=== PATIENT | male | born 1960 | race Caucasian/White ===

== ENCOUNTER 2019-07-18 12:06 | Inpatient (IN) | payer BC ==
[2019-07-18 12:40] LABS: #Basophils 0.1 thou/uL (0.0-0.2); #Eosinphils 0.9 thou/uL (0.0-0.7); #Lymphocytes 1.6 thou/uL (1.20-3.40); #Monocytes 0.8 thou/uL (0.11-0.59); #Neutrophils 9.3 thou/uL (1.40-6.50); %Basophils 0.4 % (0.0-1.0); %Eosinophils 7.2 % (0.0-10.0); %Neutrophils 73.5 % (42.0-75.0); Hemoglobin 10.2 g/dL (14.0-18.0); Mean Corpuscular HGB CONC 34.7 g/dL (32.0-36.0); Mean Corpuscular Hemoglobin 30.9 pg (27.0-31.0); Mean Corpuscular Volume 89.2 fL (78.0-98.0); Mean Platelet Volume 8.4 fL (7.4-10.4); Platelet Count 270 thou/uL (130-400); RBC Distribution Width 11.4 % (11.5-14.5); Red Blood Cell (RBC) Count 3.28 mill/uL (4.70-6.10); White Blood Cell (WBC) Count 12.6 thou/uL (4.8-10.8)
[2019-07-18 13:09] LABS: ALT (SGPT) 18 U/L (8-55); AST (SGOT) 25 U/L (5-34); Albumin 3.7 g/dL (3.5-5.0); Alkaline Phosphatase 74 U/L (40-110); Anion Gap 19 mmol/L (10-20); BUN (Urea Nitrogen) 74 mg/dL (8.4-25.7); Bilirubin, Total 0.5 mg/dL (0.2-1.2); Calc. Creatinine Clearance 0 mL/min (70-130); Calcium 8.4 mg/dL (7.8-10.44); Carbon Dioxide 16 mmol/L (22-29); Chloride 103 mmol/L (98-107); Estimated GFR-MDRD 11; Globulin 3.9 g/dL (2.4-3.5); Glucose 219 mg/dL (70-105); Protein, Total 7.6 g/dL (6.0-8.3); Sodium 133 mmol/L (136-145)
--- NOTE | 2019-07-18 13:22 | RAD ---
XR Chest 1 View Portable HISTORY: Renal failure COMPARISON: 11/25/2015 FINDINGS: The heart size is at upper limits of normal. The lungs are well expanded without focal area s of consolidation, pneumothorax or pleural effusions. There is mild pulmonary vascular congestion.
[2019-07-18] MEDS ORDERED: Dextrose 5% in Water 1,000 ML IV PRN (15:41)
[2019-07-18] MEDS ORDERED: Dextrose 50% Abboject 50 ML SYRINGE SLOW IVP PRN (15:41)
[2019-07-18] MEDS ORDERED: Furosemide 40 MG/4 ML VIAL SLOW IVP SCH (16:30)
[2019-07-18] MEDS: HumaLOG 300 UNITS/3 ML VIAL SC PRN ×2 (17:41→21:03)
--- NOTE | 2019-07-18 20:27 | HP ---
HISTORY OF PRESENT ILLNESS: Mr. Carlson is a 59-year-old man. He was sent to the ER today by his teacher asst, who saw him yesterday because of abnormal kidney function and the need to initiate dialysis. He is known to have a history of chronic kidney disease, he has currently stage 5 chronic kidney disease. He is also known to have hypertension, hyperlipidemia, diabetes mellitus, peripheral vascular disease, CVA, and coronary artery disease. PAST SURGICAL HISTORY: Remarkable for TURP and also toe amputation. ALLERGIES: IODINE AND STATIN. SOCIAL HISTORY: He denies any history of cigarette smoking. He denies EtOH abuse. He denies substance abuse. FAMILY HISTORY: Reviewed and is remarkable for diabetes mellitus, heart disease , and also "cancer" HOME MEDICATIONS: Reviewed. REVIEW OF SYSTEMS: CONSTITUTIONAL: He admits to generalized weakness, poor appetite, and also difficulty sleeping. HEENT: No headache. No ocular pain. No sore throat. No rhinorrhea. No earache. No epistaxis. NECK: No neck pain. No neck stiffness. CARDIOVASCULAR: Admits to shortness of breath mainly during exercise. No chest pain. PULMONARY: No coughing. GASTROINTESTINAL: No nausea, no vomiting. No diarrhea. No abdominal pain. As mentioned earlier, he has very poor appetite. GENITOURINARY: Some dysuria at times. ENDOCRINOLOGY: No heat or cold intolerance. No polyuria, polydipsia, or polyphagia. MUSCULOSKELETAL: Arthralgia on and off. HEMATOLOGY: No abnormal bleeding. No ecchymosis. LYMPHATIC: No palpable lymphadenopathy. No painful lymphadenopathy. SKIN: No rash. No itching. He has a wound in the plantar aspect of his right foot. NEUROLOGICAL: No seizure. PSYCHIATRIC: He has a flat mood. ALLERGIES: No hay fever. PHYSICAL EXAMINATION: GENERAL: At the current time, he is alert, oriented, in no distress. VITAL SIGNS: His latest vital signs show temperature of 97.8, pulse rate 67, respiratory rate 22, and blood pressure 148/67. HEENT: His head is normocephalic and atraumatic. Both his pupils are equal, reactive. Ears and nose normal. Oral mucosa is moist. Pharyngeal area is clear with no exudate. No hyperemia. NECK: Supple. There is no distention of the jugular vein. No lymphadenopathy felt. Thyroid gland not palpable. There is no carotid bruit. CHEST: Symmetrical with regular S1, S2. LUNGS: Clear. ABDOMEN: Soft. Bowel sounds heard. We could not appreciate any organomegaly. EXTREMITIES: Limbs show +2 to 3 edema. He has a wound in the plantar aspect of his right foot. NEUROLOGICAL: He moves all extremities. LABORATORY DATA: His CBC done today showed WBC of 12.6, hemoglobin of 10.2, hematocrit of 29.3, MCV of 89.2, platelet of 270. Chemistry and lytes show sodium of 133, potassium 5, chloride 103, CO2 of 16, BUN 74, creatinine 5.51, glucose 219, calcium 8.4, total bilirubin 0.5, AST 25, ALT 18, alkaline phosphatase 74. Troponin 0.017. BNP 653. Total protein 7.6, albumin 3.7, and globulin 3.9. ASSESSMENT AND PLAN: This is a 59-year-old man with history of hypertension, diabetes mellitus, peripheral vascular disease, coronary artery disease, previous cerebrovascular accident, stage 5 chronic kidney disease, who was admitted for initiation of dialysis. The patient's teacher asst will be consulted. He was also noticed to have a wound in the plantar aspect of his right foot. Wound Care will be consulted. He will receive Lovenox for DVT prophylaxis. He will be on a sliding scale for his blood pressure on top of his oral medications. Further evaluation and management will depend on the course of his hospitalization and his response to therapy. Job ID: [id number] MTDD
[2019-07-18] MEDS ORDERED: Enoxaparin Sodium 30 MG/0.3 ML SYRINGE SC SCH (21:00)
[2019-07-18] MEDS ORDERED: Metoprolol Tartrate 50 MG TAB PO SCH (21:00)
[2019-07-18] MEDS ORDERED: Azithromycin 250 MG TAB PO SCH (21:00)
[2019-07-18] MEDS: Heparin 5,000 UNITS/ML VIAL SC SCH (21:02)
[2019-07-18] MEDS: EPOETIN ALFA-EPBX (ESRD) 10,000 UNIT/ML VIAL SC SCH (21:02)
[2019-07-18] MEDS: hydrALAZINE 25 MG TAB PO SCH (21:02)
[2019-07-18] MEDS: Fish Oil 1,000 MG CAP PO SCH (21:02)
[2019-07-18] MEDS: HumuLIN 70/30 (300 UNITS/3 ML VIAL) SC SCH (21:03)
[2019-07-19] MEDS: Furosemide 40 MG/4 ML VIAL SLOW IVP SCH ×2 (05:24→14:55)
[2019-07-19] MEDS: Levothyroxine Sodium 75 MCG TAB PO SCH (05:24)
[2019-07-19 05:31] LABS: Anion Gap 18 mmol/L (10-20); BUN (Urea Nitrogen) 72 mg/dL (8.4-25.7); Calc. Creatinine Clearance 24 mL/min (70-130); Calcium 8.5 mg/dL (7.8-10.44); Carbon Dioxide 18 mmol/L (22-29); Chloride 106 mmol/L (98-107); Estimated GFR-MDRD 11; Glucose 91 mg/dL (70-105); Potassium 3.9 mmol/L (3.5-5.1); Sodium 138 mmol/L (136-145)
[2019-07-19 05:32] LABS: Iron 53 ug/dL (65-175); Iron Binding Capacity, Total 231 mcg/dL (261-462)
[2019-07-19 05:49] LABS: Ferritin 256.62 ng/mL (22-322)
[2019-07-19 06:04] LABS: HBSAB Concentration 0.55 mIU/mL; HBSAg Index 0.16 S/CO (0-0.99); Hep B Core Total Ab Non-Reactive (NonReactive); Hep B Core Total Index 0.07 S/CO (0-0.79); Hep B Surf AB Non-Reactive (NonReactive); Hep B Surf Ag Non-Reactive S/CO (NonReactive); Hep C IgG Ab Non-Reactive (NonReactive); Hep C Index 0.07 S/CO (0-0.79)
[2019-07-19] MEDS ORDERED: metFORMIN 500 MG TAB PO SCH (08:00)
--- NOTE | 2019-07-19 08:54 | ULT ---
BILATERAL UPPER EXTREMITY VENOUS DUPLEX SONOGRAM FOR VEIN MAPPING: HISTORY: Renal failure. Need for hemodialysis access. FINDINGS: Good color and spectral Doppler flow within the arterial and venous structures of each upper extremit y. Measurements are as follows: RIGHT BRACHIAL ARTERY: 5 mm RADIAL ARTERY: 2 mm ULNAR ARTERY: 2 mm CEPHALIC VEIN PROXIMAL HUMERUS: 3 mm MID HUMERUS: 3 mm DISTAL HUMERUS: 3 mm ANTECUBITAL FOSSA: 3 mm PROXIMAL FOREARM: 2 mm MID FOREARM: 1 mm DISTAL FOREARM: 2 mm BASILIC VEIN PROXIMAL HUMERUS: 6 mm MID HUMERUS: 4 mm DISTAL HUMERUS: 3 mm ANTECUBITAL FOSSA: 2 mm PROXIMAL FOREARM: 1mm MID FOREARM: 1 mm DISTAL FOREARM: 1 mm LEFT BRACHIAL ARTERY: 5 mm RADIAL ARTERY: 2 mm ULNAR ARTERY: 1 mm CEPHALIC VEIN PROXIMAL HUMERUS: 3 mm MID HUMERUS: 3 mm DISTAL HUMERUS: 4 mm ANTECUBITAL FOSSA: 4 mm PROXIMAL FOREARM: 1 mm MID FOREARM: 1 mm DISTAL FOREARM: 2 mm BASILIC VEIN PROXIMAL HUMERUS: 5 mm MID HUMERUS: 5 mm DISTAL HUMERUS: 4 mm ANTECUBITAL FOSSA: 5 mm PROXIMAL FOREARM: 3 mm MID FOREARM: 1 mm DISTAL FOREARM: 1 mm IMPRESSION: Patent vascular structures within each upper extremity with venous measurements as detailed above. Transcribed Date/Time: 07/19/2019 9:40 AM
[2019-07-19] MEDS ORDERED: Alogliptin 6.25 MG TAB PO SCH (09:00)
[2019-07-19] MEDS ORDERED: Lisinopril 20 MG TAB PO SCH (09:00)
[2019-07-19] MEDS: Clopidogrel Bisulfate 75 MG TAB PO SCH (10:21)
[2019-07-19] MEDS: Alogliptin 6.25 MG TAB PO SCH (10:21)
[2019-07-19] MEDS: Amlodipine 10 MG TAB PO SCH (10:21)
[2019-07-19] MEDS: hydrALAZINE 25 MG TAB PO SCH ×3 (10:22→20:47)
[2019-07-19] MEDS: HumuLIN 70/30 (300 UNITS/3 ML VIAL) SC SCH ×2 (10:22→20:48)
[2019-07-19] MEDS: Ezetimibe 10 MG TAB PO SCH (10:22)
[2019-07-19] MEDS: Fish Oil 1,000 MG CAP PO SCH ×2 (10:22→20:48)
[2019-07-19] MEDS: Heparin 5,000 UNITS/ML VIAL SC SCH ×2 (10:22→20:48)
[2019-07-19] MEDS: Tamsulosin HCl 0.4 MG CAP PO SCH (10:23)
[2019-07-19] MEDS: Isosorbide Mononitrate (ER) 30 MG TAB PO SCH (10:23)
[2019-07-19] MEDS: Multivit, Therapeutic 1 TAB PO SCH (10:23)
[2019-07-19] MEDS: HumaLOG 300 UNITS/3 ML VIAL SC PRN (12:35)
--- NOTE | 2019-07-19 13:20 | PDOC.HOSPP ---
- Subjective Encounter Date: 07/19/19 Encounter Time: 10:15 Subjective: pt up in bed feels sob. - Objective Vital Signs & Weight: Vital Signs (12 hours) Temp Pulse Resp BP Pulse Ox 07/19/19 11:58 98.1 F 78 20 143/64 H 99 07/19/19 10:41 95 28 H 93 L 07/19/19 10:28 91 167/77 H 07/19/19 07:47 98.3 F 84 16 160/74 H 96 07/19/19 03:05 98.5 F 82 16 130/61 96 Weight Weight 258 lb 8 oz I&O: 07/18/19 07/19/19 07/20/19 06:59 06:59 06:59 Intake Total 400 Output Total 300 Balance 100 Result Diagrams: 07/18/19 12:30 07/19/19 04:38 Additional Labs: Accuchecks 07/19/19 07/19/19 07/18/19 11:22 05:43 20:03 POC Glucose 242 H 95 239 H 07/18/19 16:58 POC Glucose 250 H Hospitalist ROS - Review of Systems Respiratory: reports: shortness of breath Cardiovascular: denies: chest pain, palpitations, orthopnea, paroxysmal noc. dyspnea, edema, light headedness, other Gastrointestinal: denies: nausea, vomiting, abdominal pain, diarrhea, constipation, melena, hematochezia, other Genitourinary: denies: dysuria, frequency, incontinence, hematuria, retention, other - Medication Medications: Active Medications Generic Name Dose Route Start Last Admin Trade Name Freq PRN Reason Stop Dose Admin Albuterol/Ipratropium 3 ml 07/19/19 10:14 07/19/19 10:41 Duoneb NEB 3 ml Q6H PRN Administration SOB &/or Wheezing Alogliptin Benzoate 6.25 mg 07/19/19 09:00 07/19/19 10:21 Alogliptin PO 6.25 mg DAILY BC Administration Amlodipine Besylate 10 mg 07/19/19 09:00 07/19/19 10:21 Norvasc PO 10 mg DAILY BC Administration Clopidogrel Bisulfate 75 mg 07/19/19 09:00 07/19/19 10:21 Plavix PO 75 mg DAILY BC Administration Ezetimibe 10 mg 07/19/19 09:00 07/19/19 10:22 Zetia PO 10 mg DAILY BC Administration Epoetin Fabio-epbx 10,000 unit 07/18/19 21:00 07/18/19 21:02 Retacrit SC 10,000 unit Q7D BC Administration Fish Oil 1,000 mg 07/18/19 21:00 07/19/19 10:22 Fish Oil PO 1,000 mg BID BC Administration Furosemide 40 mg 07/19/19 06:00 07/19/19 05:24 Lasix SLOW IVP 40 mg 0600,1400 BC Administration Heparin Sodium (Porcine) 5,000 units 07/18/19 21:00 07/19/19 10:22 Heparin SC 5,000 units BID BC Administration Hydralazine HCl 50 mg 07/18/19 21:00 07/19/19 10:22 Apresoline PO 50 mg TID BC Administration Insulin Human Isoph/Insulin Regular 40 units 07/19/19 09:00 07/19/19 10:22 Humulin 70/30 SC 40 unit QAM BC Administration Insulin Human Isoph/Insulin Regular 60 units 07/18/19 21:00 07/18/19 21:03 Humulin 70/30 SC 60 unit QPM BC Administration Insulin Human Lispro 0 units 07/18/19 15:41 07/19/19 12:35 Humalog SC 4 units .MODERATE SLIDING SC PRN Administration Moderate Correctional Scale Insulin Human Lispro 0 units 07/18/19 15:41 07/18/19 21:03 Humalog SC 2 unit .BEDTIME SLIDING SC PRN Administration Bedtime Correctional Scale Isosorbide Mononitrate 30 mg 07/19/19 09:00 07/19/19 10:23 Imdur Er PO 30 mg DAILY BC Administration Levothyroxine Sodium 75 mcg 07/19/19 06:00 07/19/19 05:24 Synthroid PO 75 mcg 0600 [facility] Administration Multivitamins 1 tab 07/19/19 09:00 07/19/19 10:23 Theragran PO 1 tab DAILY [facility] Administration Tamsulosin HCl 0.4 mg 07/19/19 09:00 07/19/19 10:23 Flomax PO 0.4 mg DAILY BC Administration - Exam ENT: negative: normocephalic atraumatic, no oropharyngeal lesions, moist mucosa , dry oral mucosa Neck: negative: supple, symmetric, no JVD, no thyromegaly, no lymphadenopathy, no carotid bruit, JVD Respiratory: rhonchi Gastrointestinal: negative: soft, non-tender, non-distended, normal bowel sounds , no palpable masses, no hepatomegaly, no splenomegaly, no bruit, no guarding, no rigidity, tender to palpation, distended, diminished bowl sounds, voluntary guarding Hosp A/P (1) CKD (chronic kidney disease) Code(s): N18.9 - CHRONIC KIDNEY DISEASE, UNSPECIFIED Status: Acute (2) Diabetes Code(s): E11.9 - TYPE 2 DIABETES MELLITUS WITHOUT COMPLICATIONS Status: Chronic Qualifiers: Diabetes mellitus type: type 2 Diabetes mellitus complication detail: with other oral complications (3) Hypertension Code(s): I10 - ESSENTIAL (PRIMARY) HYPERTENSION Status: Chronic - Plan will continue insulin, pt to get his fistula. will order some neb tx. continue to monitor.
[2019-07-19] MEDS ORDERED: Tuberculin PPD 0.1 ML VIAL I-DERMAL SCH ×2 (15:15)
--- NOTE | 2019-07-19 16:58 | PRG ---
DATE OF SERVICE: 07/19/2019 SUBJECTIVE: Patient was seen and examined at bedside and overnight events noted. Patient denies any shortness of breath or chest pain or palpitation. No history of nausea or vomiting or diarrhea or fever or chills or cramps. OBJECTIVE: GENERAL: This is an obese male, in no apparent distress. VITAL SIGNS: Temperature 98.1. Pulse 71. Respiratory rate 20. Blood pressure 143/64. HEENT: Atraumatic, normocephalic. Oral mucosa is moist NECK: Supple. CARDIOVASCULAR: S1, S2 heard. Rate and rhythm regular. RESPIRATORY: Clear to auscultation. GASTROINTESTINAL: Abdomen is soft. MUSCULOSKELETAL: No tenderness. No edema. DERMATOLOGIC: No skin rash. NEUROLOGIC: Alert and awake and oriented X3. No focal neurologic deficits. Moving all the extremities. PSYCHIATRIC: Mood and affect normal. LABORATORY DATA: Potassium 3.9, BUN is 72, and creatinine is 5.5. ASSESSMENT AND PLAN: 1. End-stage renal disease. Plan to start on hemodialysis. We will consult Surgery in the morning. Keep him n.p.o. and we will also have Case Management consult for outpatient dialysis placement. Plan at this time for hemodialysis Saturday, Saturday, Saturday. 2. Edema, we will remove fluid with dialysis. 3. Anemia. Continue Epogen. 4. History of hypertension, stable. 5. Plan to start on dialysis once access is placed. We will follow. Thank you for the consult. Job ID: [id number]
[2019-07-20] MEDS ORDERED: Morphine 2 MG/ML SYRINGE SLOW IVP SCH (04:00)
[2019-07-20 04:08] LABS: INR-International Normal Ratio 1.1; PTT 35.1 SEC (22.9-36.1); Prothrombin Time 14.1 SEC (12.0-14.7)
[2019-07-20 04:10] LABS: Anion Gap 18 mmol/L (10-20); BUN (Urea Nitrogen) 65 mg/dL (8.4-25.7); Calc. Creatinine Clearance 26 mL/min (70-130); Calcium 8.5 mg/dL (7.8-10.44); Carbon Dioxide 18 mmol/L (22-29); Chloride 106 mmol/L (98-107); Estimated GFR-MDRD 12; Glucose 157 mg/dL (70-105); Potassium 3.8 mmol/L (3.5-5.1); Sodium 138 mmol/L (136-145)
[2019-07-20 04:52] LABS: Troponin I 0.919 ng/mL (< 0.028)
[2019-07-20] MEDS: Furosemide 40 MG/4 ML VIAL SLOW IVP SCH ×2 (06:37→15:11)
[2019-07-20] MEDS: Levothyroxine Sodium 75 MCG TAB PO SCH (06:37)
[2019-07-20] MEDS: Multivit, Therapeutic 1 TAB PO SCH (08:10)
[2019-07-20] MEDS: Tamsulosin HCl 0.4 MG CAP PO SCH (08:10)
[2019-07-20] MEDS: hydrALAZINE 25 MG TAB PO SCH ×4 (08:10→20:29)
[2019-07-20] MEDS: Clopidogrel Bisulfate 75 MG TAB PO SCH (08:10)
[2019-07-20] MEDS: Ezetimibe 10 MG TAB PO SCH (08:11)
[2019-07-20] MEDS: Alogliptin 6.25 MG TAB PO SCH (08:11)
[2019-07-20] MEDS: Isosorbide Mononitrate (ER) 30 MG TAB PO SCH (08:11)
[2019-07-20] MEDS: Fish Oil 1,000 MG CAP PO SCH ×2 (08:11→20:25)
[2019-07-20] MEDS: Amlodipine 10 MG TAB PO SCH (08:11)
[2019-07-20] MEDS: HumuLIN 70/30 (300 UNITS/3 ML VIAL) SC SCH ×2 (08:12→20:39)
[2019-07-20] MEDS: Heparin 5,000 UNITS/ML VIAL SC SCH (08:12)
[2019-07-20] MEDS ORDERED: Furosemide 40 MG/4 ML VIAL SLOW IVP SCH (08:45)
[2019-07-20] MEDS: Nitroglycerin 0.4 MG TAB (25 Tab Bottle) SL PRN ×6 (08:52→18:20)
[2019-07-20] MEDS ORDERED: Heparin 10,000 UNITS/1 ML VIAL ONE (09:28)
[2019-07-20] MEDS ORDERED: Aspirin 81 mg Enteric Coated Tablet PO SCH (09:45)
--- NOTE | 2019-07-20 09:48 | CON ---
DATE OF CONSULTATION: HISTORY OF PRESENT ILLNESS: Uriel Carlson is a 59-year-old male patient with insulin-dependent diabetes, allergic to iodine and penicillin, who also has hypertension, has suffered renal failure. He lives in [place]. He is admitted on 07/18/2019 by the Medical Service, seen by Nephrology, Dr. Decker, who has asked me to establish dialysis access. He had a right AC IV, which was removed, and hand IV established. He is slightly dyspneic, and his CO2 is 18. Thus, we will plan on placement of a hemodialysis catheter and a central line today, and later this week, plan on placement of a left arm AV fistula. He is right handed. He has worked in the [employer] up until 2 to 3 years ago when he had diabetic vision problems that prevented him from working anymore. ALLERGIES: IODINE CONTRAST, PENICILLIN. SOCIAL HISTORY: Tobacco, never. Alcohol, none. MEDICATIONS: At home, 1. Plavix. 2. Januvia. 3. Spironolactone. 4. Alprazolam. 5. Synthroid. 6. Ezetimibe. 7. Ecotrin. 8. Norvasc. 9. Insulin. 10. Lasix. 11. Imdur. 12. Lopressor. 13. Vitamin C. PAST SURGICAL HISTORY: Myocardial infarction more than 10 years ago. He had stents placed. He has been followed by Dr. Garsia. He reports he had seen him four weeks ago when he was hospitalized at [facility]. He reports a negative cardiac chemical stress test as an outpatient within the last year. He denies any cardiac symptoms. He had a colonoscopy one year ago that was normal. He has an ulcer on his plantar right foot, being cared for by the [facility]. He has had amputations of right 1st and 2nd toes and metatarsals, healed secondarily. REVIEW OF SYSTEMS: Ten-point noncontributory. PHYSICAL EXAMINATION: VITAL SIGNS: Height 5 feet 10 inches, weight 260 pounds, 37 BMI. Temperature 98 degrees, pulse 110, blood pressure 142/72. HEAD, EARS, EYES, NOSE, AND THROAT: Unremarkable. Slightly dyspneic. LUNGS: Rhonchi at base. No wheezing. CARDIAC: Regular rate and rhythm. ABDOMEN: Soft and nontender. No hernias evident. EXTREMITIES: Previous amputation of right 4th and 5th toes with plantar ulcer, right foot. Neuropathic granulation tissue, overhanging callus. Palpable radial pulses. IV, left hand. LABORATORY DATA: Sodium 138, potassium 3.8, CO2 of 18, BUN 65, creatinine 5.10. White count 12 and hemoglobin 10. ASSESSMENT AND PLAN: 1. End-stage renal disease. Plan on placement of dialysis catheter and a central line today. This will allow him to dialyze. Will return to the operating room later this week for placement of left arm fistula. Avoid IV access above the hands. Placement of central line will preserve his veins. 2. Insulin-dependent diabetes mellitus. 3. Hypertension. 4. Coronary artery disease. 5. Previous amputation of right 4th and 5th toes. 6. Plantar ulceration, right foot, wound care. Job ID: [id number]
--- NOTE | 2019-07-20 10:27 | CON ---
DATE OF CONSULTATION: 07/18/2019 CONSULTING PHYSICIAN: Dr. Robertson. REASON FOR CONSULTATION: Chronic kidney disease. REASON FOR ADMISSION: Shortness of breath. HISTORY OF PRESENT ILLNESS: A 59-year-old male with history of CKD, type 2 diabetes, hypertension, came to the hospital with shortness of breath. He has advancing kidney disease and plan is to start on dialysis. The patient is feeling short of breath on exertion, also having leg edema. No nausea or vomiting. No chest pain or palpitation. PAST MEDICAL HISTORY: Positive for type 2 diabetes, hyperlipidemia, hypertension, BPH, CVA, and CHF. PAST SURGICAL HISTORY: Cardiac stents, right foot surgery/amputation. HOME MEDICATIONS: Reviewed. ALLERGIES: TO CONTRAST, PENICILLIN, AND STATIN. SOCIAL HISTORY: No smoking or alcohol. FAMILY HISTORY: No history of kidney disease. REVIEW OF SYSTEMS: CONSTITUTIONAL: Negative for weight loss or gain, ability to conduct usual activities. SKIN: Negative for rash, itching. EYES: Negative for double vision, pain. ENT/MOUTH: Negative for nose bleeding, neck stiffness, pain, tenderness. CARDIOVASCULAR: Negative for palpitations, dyspnea on exertion, orthopnea. RESPIRATORY: Negative for wheezing, cough, hemoptysis, fever or night sweats. GASTROINTESTINAL: Negative for poor appetite, abdominal pain, heartburn, nausea, vomiting, constipation, or diarrhea. GENITOURINARY: Negative for urgency, frequency, dysuria, nocturia. MUSCULOSKELETAL: Negative for pain, swelling. NEUROLOGIC/PSYCHIATRIC: Negative for anxiety, depression. ALLERGY/IMMUNOLOGIC: Negative for skin rash, bleeding tendency. PHYSICAL EXAMINATION: GENERAL: This is an obese male, in no apparent distress. VITAL SIGNS: Temperature 98.9, pulse 71, respiratory rate 20, blood pressure 145/71. HEENT: Atraumatic and normocephalic. Oral mucosa is moist. NECK: Supple. CV: S1 and S2 heard. Rate and rhythm regular. RESPIRATORY: Clear to auscultation. GASTROINTESTINAL: Abdomen is soft. MUSCULOSKELETAL: 1+ edema. DERMATOLOGIC: No skin rash. NEUROLOGIC: Alert and awake. PSYCHIATRIC: Mood and affect normal. LABORATORY DATA: Hemoglobin is 10.2. Potassium 5.0, BUN is 74, creatinine is 5.5. ASSESSMENT AND PLAN: 1. Chronic kidney disease stage 5 with deteriorating renal function. Plan is to start on dialysis. We will consult Surgery. We will have vein mapping. Would also check dialysis for his hyperkalemia. 2. Hyperlipidemia. 3. Acidosis. 4. Edema. 5. History of hypertension. 6. History of type 2 diabetes, diabetic nephropathy. 7. Mild hypoalbuminemia. 8. Anemia. We will start Epogen. 9. Plan to start dialysis when access is placed. We will follow. Thank you for the consult. Job ID: [id number]
[2019-07-20] MEDS ORDERED: Morphine 2 MG/ML SYRINGE SLOW IVP PRN (10:28)
[2019-07-20] MEDS: Enoxaparin Sodium 120 MG/0.8 ML SYRINGE SC SCH ×2 (11:05→11:57)
[2019-07-20] MEDS ORDERED: Enoxaparin Sodium 30 MG/0.3 ML SYRINGE SC SCH (11:15)
--- NOTE | 2019-07-20 11:27 | CON ---
DATE OF CONSULTATION: HISTORY: Uriel Carlson is a 59-year-old white male, initially evaluated in May 2013. Eight days prior to admission, he had an episode where he could not speak and had right arm numbness. He took an aspirin and went to the emergency room in [place] and his symptoms had essentially resolved. It was felt that he probably had a subarachnoid bleed. Lumbar puncture was offered; however, he declined, was discharged home. He apparently underwent an outpatient workup with echocardiogram, carotid ultrasound and MRI, which did not reveal any bleed. He was told to start taking aspirin on a daily basis. For one year prior to his admission here in May 2013, he had chest pressure and tightness that would occur if he would over exert himself, such as exercising much at the gym or walking upstairs. He will become short of breath with that and be very anxious. He called these episodes panic attacks. He had been on anxiolytics in the past and they were tapered and discontinued. Two days prior to admission in May 2013, he had an episode of chest pain, shortness of breath that was much more intense. He came to the emergency room, was given Lopressor, aspirin, nitrates. His pain dramatically improved. He continued to have mild shortness of breath. No further episodes of chest discomfort except during the stress test. After normal cardiac enzymes, he underwent Cardiolite treadmill testing and exercised for 9 minutes. With this, he developed his usual chest discomfort and 1-1.[address]-segment depression. The treadmill was positive for ischemia. Cardiolite revealed posterior ischemia with ejection fraction of 45%. With that finding, he underwent cardiac catheterization. There was moderate proximal and distal inferior hypokinesis with ejection fraction of 40% to 45%. There was a 20% mid LAD, 90% circumflex with lesion extending into the first obtuse marginal with a 50% lesion. The right coronary artery was totally occluded in its midportion and filled retrograde from the left. Resolute 2.25 x 30 mm stent was positioned in the first obtuse marginal back into the circumflex and was deployed. Overlapping this in the proximal circumflex, a Resolute 2.5 x 8 mm stent was positioned and deployed. A 2.5 mm balloon was used to post dilate the 2.25 mm stent. An attempt was made to cross totally occluded right coronary artery, which could not be crossed and it was felt that was probably a chronic total occlusion. He was premedicated prior to catheterization due to history of dye allergy with facial swelling. He was given prednisone, Benadryl and Pepcid and did not have any reaction. After stent placement, he did not have any further chest discomfort. A repeat echo in April 2014 revealed ejection fraction of 55% to 60% with evidence of diastolic dysfunction, trace mitral regurgitation and mild tricuspid regurgitation. He was seen in the hospital after an April 2014, visit in the office. This was in July 2015. His primary physician, Dr. Rust in [place] had him stop cholesterol medicine because of muscle breaking down and stated that he was peeing them out of his urine. In July 2015, he was admitted for hematuria. It was felt Plavix should be stopped at that time and he was continued on aspirin. He was again admitted in November 2015, after working in his garden, he began to have cough and increased shortness of breath. He went to the emergency room in [place], and was given steroids and Lasix as well as antibiotics for possible pneumonia. He had some sharp chest discomfort, which may have lasted 1-2 hours. In [place] ER, chest x-ray showed mild pulmonary vascular congestion along with increased interstitial densities in the right lung base. CT of lung revealed no evidence of pulmonary embolism. He was transferred here for further evaluation. It was felt that he had acute bronchitis, was placed on azithromycin. He was bradycardic and metoprolol dose was reduced. 2D echocardiography revealed ejection fraction of 50% to 55% with mitral annular calcification, mild tricuspid, and mild mitral regurgitation. There was evidence for diastolic dysfunction. He has never returned for cardiology followup since that time. He states over the last four or five months, he has had progressive renal failure. Apparently, there was no specific etiology for this. He states medicines were discontinued and he continued to have progressive failure. In November 2015, his creatinine was 0.97 and on admission here was 5.51. He has been having increased shortness of breath as well as episodes of chest pressure that would last for hours. He has PND, orthopnea, as well as leg edema. He is admitted to dialysis after found to have abnormal cardiac enzymes. He is complaining of shortness of breath and chest pressure at the present time and is being given sublingual nitroglycerin. PAST MEDICAL HISTORY: Hypertension, diabetes, hyperlipidemia, hypothyroidism, possible rhabdomyolysis with statins, history of TIA with right-sided numbness and aphasia. 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 CURRENT MEDICATIONS: 1. Multivitamin daily. 2. Vitamin C 2 tablets daily. 3. Amlodipine 10 mg daily. 4. Ecotrin 81 mg daily. 5. Plavix 75 mg daily. 6. Zetia 10 mg daily. 7. Fish oil 1000 b.i.d. 8. Furosemide 40 mg q.a.m. 9. Apresoline 50 mg t.i.d. 10. Insulin. 11. Isosorbide mononitrate 30 mg q.a.m. 12. Levofloxacin 250 mg p.o. every other day. 13. Synthroid 75 mcg daily. 14. Metoprolol 25 b.i.d. 15. Januvia 50 daily. 16. Spironolactone 25 daily. ALLERGIES: PENICILLIN AND INTRAVENOUS CONTRAST. HE APPARENTLY DEVELOPED FACIAL SWELLING AND WAS GIVEN BENADRYL. THE CONTRAST WAS GIVEN WHEN A PICC LINE WAS BEING INSERTED. HE WAS PREMEDICATED PRIOR TO CATHETERIZATION IN MAY 2013. SOCIAL HISTORY: Denies ever smoking. He does not drink. FAMILY HISTORY: Brother and father had CABG. REVIEW OF SYSTEMS: A 10-point review of systems unremarkable except as noted above. PHYSICAL EXAMINATION: VITAL SIGNS: Blood pressure 142/72, pulse of 110. HEENT: PERRL. NECK: Supple. CHEST: Reveals rales, one quarter the way of the posterior lung base. CARDIAC: S1 and S2 normal without any S3, S4, or murmurs. Carotid upstrokes normal without bruits. ABDOMEN: Normal bowel sounds without tenderness, organomegaly. EXTREMITIES: Revealed 1+ pretibial edema. NEUROLOGIC: Grossly intact. SKIN: Warm and dry. LABORATORY DATA: EKG reveals sinus tachycardia with downsloping ST segments in the inferolateral leads. Chest x-ray is unremarkable. Hemoglobin 10.2, hematocrit 29.3, white count 12,600, platelets 270,000 INR 1.1. Sodium 138, potassium 3.8, chloride 106, carbon dioxide 18, BUN 65, creatinine 5.1. Troponin I initially was normal but now is up to 0.919. Iron 53, TIBC 231, ferritin 256.62. BNP 653.5. IMPRESSION: 1. End-stage renal disease, need to start dialysis. 2. Volume overload secondary to end-stage renal disease. 3. Possible [id number] myocardial infarction. 4. Coronary artery disease. On catheterization in May 2013, he had a totally occluded right coronary artery and 90% circumflex lesion, underwent stent placement in the circumflex. 5. Noncompliance with followup. 6. Hypertension. 7. Hyperlipidemia with a history that is compatible with rhabdomyolysis while taking statins. He currently is on Zetia and fish oil. 8. Hypothyroidism. 9. Hypertension. 10. Diabetes. 11. Positive family history. PLAN: The patient's metoprolol dose will be increased to 50 mg b.i.d. Topical nitrates will be applied. He needs to continue on aspirin and this will be reordered. He needs to undergo dialysis for volume removal. Once his dyspnea has resolved and his lungs are clear, he should undergo cardiac catheterization. He will need to be premedicated prior to catheterization. Risks of catheterization were discussed with the patient including , myocardial infarction, dye reaction, vascular injury, CVA, transfusion, limb loss, further renal damage which is a mute point, etc. Risks of stent placement discussed including , myocardial infarction, emergent CABG, restenosis, stent thrombosis, vessel perforation, etc. He is chronically on aspirin and Plavix and a drug-eluting stent will be placed if required. Echocardiogram will be performed. Another troponin I will be obtained. TSH and fasting lipid profile will be performed. Consideration should be given to Repatha or Praluent in the future for his hyperlipidemia. Job ID: [id number] MTDD
--- NOTE | 2019-07-20 13:56 | PDOC.HOSPP ---
- Subjective Encounter Date: 07/20/19 Encounter Time: 09:00 Subjective: pt having chest pain. He had chest pain last night too. His trops were mildly elevated. - Objective Vital Signs & Weight: Vital Signs (12 hours) Temp Pulse Resp BP BP Pulse Ox 07/20/19 11:45 99.8 F H 110 H 24 H 155/78 H 94 L 07/20/19 07:55 98.0 F 110 H 28 H 142/72 H 92 L 07/20/19 03:32 98 F 115 H 18 160/75 H 88 L 07/20/19 03:27 99.5 F 115 H 22 H 148/70 H 96 Weight Admit Weight 258 lb 8 oz Weight 260 lb I&O: 07/19/19 07/20/19 07/21/19 06:59 06:59 06:59 Intake Total 400 720 Output Total 300 1575 Balance 100 -855 Result Diagrams: 07/18/19 12:30 07/20/19 03:42 Additional Labs: Accuchecks 07/20/19 07/20/19 07/19/19 11:39 05:28 20:08 POC Glucose 261 H 173 H 175 H 07/19/19 16:48 POC Glucose 153 H Hospitalist ROS - Review of Systems Cardiovascular: reports: chest pain Gastrointestinal: denies: nausea, vomiting, abdominal pain, diarrhea, constipation, melena, hematochezia, other Genitourinary: denies: dysuria, frequency, incontinence, hematuria, retention, other - Medication Medications: Active Medications Generic Name Dose Route Start Last Admin Trade Name Freq PRN Reason Stop Dose Admin Albuterol/Ipratropium 3 ml 07/19/19 10:14 07/19/19 20:56 Duoneb NEB 3 ml Q6H PRN Administration SOB &/or Wheezing Alogliptin Benzoate 6.25 mg 07/19/19 09:00 07/20/19 08:11 Alogliptin PO 6.25 mg DAILY [facility] Administration Amlodipine Besylate 10 mg 07/19/19 09:00 07/20/19 08:11 Norvasc PO 10 mg DAILY [facility] Administration Clopidogrel Bisulfate 75 mg 07/19/19 09:00 07/20/19 08:10 Plavix PO 75 mg DAILY [facility] Administration Ezetimibe 10 mg 07/19/19 09:00 07/20/19 08:11 Zetia PO 10 mg DAILY [facility] Administration Epoetin Fabio-epbx 10,000 unit 07/18/19 21:00 07/18/19 21:02 Retacrit SC 10,000 unit Q7D [facility] Administration Fish Oil 1,000 mg 07/18/19 21:00 07/20/19 08:11 Fish Oil PO 1,000 mg BID [facility] Administration Furosemide 40 mg 07/19/19 06:00 07/20/19 06:37 Lasix SLOW IVP Not Given 0600,1400 [facility] Hydralazine HCl 50 mg 07/18/19 21:00 07/20/19 08:10 Apresoline PO 50 mg TID [facility] Administration Insulin Human Isoph/Insulin Regular 40 units 07/19/19 09:00 07/20/19 08:12 Humulin 70/30 SC Not Given QAM [facility] Insulin Human Isoph/Insulin Regular 60 units 07/18/19 21:00 07/19/19 20:48 Humulin 70/30 SC 60 unit QPM [facility] Administration Insulin Human Lispro 0 units 07/18/19 15:41 07/19/19 12:35 Humalog SC 4 units .MODERATE SLIDING SC PRN Administration Moderate Correctional Scale Insulin Human Lispro 0 units 07/18/19 15:41 07/18/19 21:03 Humalog SC 2 unit .BEDTIME SLIDING SC PRN Administration Bedtime Correctional Scale Isosorbide Mononitrate 30 mg 07/19/19 09:00 07/20/19 08:11 Imdur Er PO 30 mg DAILY [facility] Administration Levothyroxine Sodium 75 mcg 07/19/19 06:00 07/20/19 06:37 Synthroid PO Not Given 0600 [facility] Morphine Sulfate 2 mg 07/20/19 10:28 07/20/19 11:08 Morphine SLOW IVP 2 mg Q4H PRN Administration Pain Multivitamins 1 tab 07/19/19 09:00 07/20/19 08:10 Theragran PO 1 tab DAILY [facility] Administration Nitroglycerin 0.4 mg 07/20/19 08:40 07/20/19 09:08 Nitrostat SL 1 tab Q5MIN PRN Administration Chest Pain Tamsulosin HCl 0.4 mg 07/19/19 09:00 07/20/19 08:10 Flomax PO 0.4 mg DAILY [facility] Administration - Exam Neck: negative: supple, symmetric, no JVD, no thyromegaly, no lymphadenopathy, no carotid bruit, JVD Heart: negative: RRR, no murmur, no gallops, no rubs, normal peripheral pulses, irregular, diminshed peripheral pulses, murmur present, II/IV, III/IV Respiratory: negative: CTAB, no wheezes, no rales, no ronchi, normal chest expansion, no tachypnea, normal percussion, rales, rhonchi, tachypneic, wheezes Gastrointestinal: negative: soft, non-tender, non-distended, normal bowel sounds , no palpable masses, no hepatomegaly, no splenomegaly, no bruit, no guarding, no rigidity, tender to palpation, distended, diminished bowl sounds, voluntary guarding Hosp A/P (1) CKD (chronic kidney disease) Code(s): N18.9 - CHRONIC KIDNEY DISEASE, UNSPECIFIED Status: Acute (2) Diabetes Code(s): E11.9 - TYPE 2 DIABETES MELLITUS WITHOUT COMPLICATIONS Status: Chronic Qualifiers: Diabetes mellitus type: type 2 Diabetes mellitus complication detail: with other oral complications (3) Hypertension Code(s): I10 - ESSENTIAL (PRIMARY) HYPERTENSION Status: Chronic (4) Chest pain Code(s): R07.9 - CHEST PAIN, UNSPECIFIED Status: Acute (5) CAD S/P percutaneous coronary angioplasty Code(s): I25.10 - ATHSCL HEART DISEASE OF [place] CORONARY ARTERY W/O ANG PCTRS; Z98.61 - CORONARY ANGIOPLASTY STATUS Status: Chronic - Plan will continue insulin, pt to get his fistula. will order some neb tx. continue to monitor. 1/6 pt has mild elevated trops, he has been seen by cardio. He is on plavix. will add AC. pt to get temp dialysis cath and will get dialyzed. His pain was relieved with nitro.
[2019-07-20 16:11] LABS: #Eosinphils 0.1 thou/uL (0.0-0.7); #Lymphocytes 1.4 thou/uL (1.20-3.40); #Monocytes 0.8 thou/uL (0.11-0.59); %Basophils 0.3 % (0.0-1.0); %Lymphocytes 10.1 % (21.0-51.0); %Monocytes 5.6 % (0.0-10.0); %Neutrophils 82.9 % (42.0-75.0); Hemoglobin 9.8 g/dL (14.0-18.0); Mean Corpuscular HGB CONC 34.5 g/dL (32.0-36.0); Mean Corpuscular Hemoglobin 31.1 pg (27.0-31.0); Mean Corpuscular Volume 90.1 fL (78.0-98.0); Mean Platelet Volume 8.2 fL (7.4-10.4); Platelet Count 278 thou/uL (130-400); RBC Distribution Width 11.6 % (11.5-14.5); Red Blood Cell (RBC) Count 3.16 mill/uL (4.70-6.10); White Blood Cell (WBC) Count 13.3 thou/uL (4.8-10.8)
[2019-07-20 16:44] LABS: Troponin I 4.155 ng/mL (< 0.028)
--- NOTE | 2019-07-20 17:06 | PRG ---
DATE OF SERVICE: 07/20/2019 SUBJECTIVE: Patient was seen and examined at bedside and overnight events noted. Patient denies any shortness of breath or chest pain or palpitation. No history of nausea or vomiting or diarrhea or fever or chills or cramps. OBJECTIVE: GENERAL: This is an obese male, in no apparent distress. VITAL SIGNS: Temperature 98.1. Heart rate 110. Respiratory rate 20. Blood pressure 155/70. HEENT: Atraumatic, normocephalic. Oral mucosa is moist NECK: Supple. CARDIOVASCULAR: S1, S2 heard. Rate and rhythm regular. RESPIRATORY: Clear to auscultation. GASTROINTESTINAL: Abdomen is soft. MUSCULOSKELETAL: No tenderness. No edema. DERMATOLOGIC: No skin rash. NEUROLOGIC: Alert and awake and oriented X3. No focal neurologic deficits. Moving all the extremities. PSYCHIATRIC: Mood and affect normal. LABORATORY DATA: Potassium is 3.8, BUN is 65, creatinine is 5.1. ASSESSMENT AND PLAN: 1. End-stage renal disease, started on hemodialysis. The patient has some chest pain and shortness of breath this morning, and I appreciate help from Surgery for putting temporary femoral catheter. Plan is to place permanent access once he is more stable. Plan is to have dialysis today for 2 hours and 3 hours tomorrow. We will follow up with Surgery. Follow up with Case Management for outpatient placement. 2. Edema. 3. Anemia. 4. History of hypertension. We will continue on dialysis. Appreciate help from Surgery. Follow up with Case Management. We will follow. Job ID: [id number]
[2019-07-20] MEDS: HumaLOG 300 UNITS/3 ML VIAL SC PRN (18:09)
[2019-07-20] MEDS ORDERED: Nitroglycerin 50 MG/250 ML BOT 250 ML IVPB SCH ×2 (19:30→19:45)
[2019-07-20] MEDS ORDERED: Metoprolol Tartrate 25 MG TAB PO SCH (21:00)
[2019-07-20] MEDS ORDERED: Metoprolol Tartrate 50 MG TAB PO SCH (21:00)
[2019-07-20] MEDS ORDERED: Nitroglycerin 2% Ointment 1 INCH/1 GM Packet TOP SCH (21:00)
[2019-07-20 21:53] LABS: CKMB 41.4 ng/mL (0-6.6)
--- NOTE | 2019-07-21 01:36 | PRG ---
DATE OF SERVICE: SUBJECTIVE: Mr. Carlson had another episode of chest pain today. His troponin continues to increase. It has gone from 0.9 to 1 to now 4. He is currently chest pain free. He did require 3 sublingual nitroglycerin. RECOMMENDATIONS: From a CV standpoint, we will be more comfortable transferring Mr. Trevino to the ICU for close observation. We will place him on IV nitroglycerin for better blood pressure control. The patient is likely scheduled for coronary angiography in the next 1 to 2 days. Job ID: [id number]
[2019-07-21 03:25] LABS: #Basophils 0.1 thou/uL (0.0-0.2); #Eosinphils 0.6 thou/uL (0.0-0.7); #Lymphocytes 2.1 thou/uL (1.20-3.40); #Monocytes 1.2 thou/uL (0.11-0.59); #Neutrophils 7.8 thou/uL (1.40-6.50); %Basophils 0.7 % (0.0-1.0); %Eosinophils 5.2 % (0.0-10.0); %Lymphocytes 17.8 % (21.0-51.0); %Monocytes 9.8 % (0.0-10.0); %Neutrophils 66.5 % (42.0-75.0); Hemoglobin 9.2 g/dL (14.0-18.0); Mean Corpuscular HGB CONC 34.5 g/dL (32.0-36.0); Mean Corpuscular Hemoglobin 31.1 pg (27.0-31.0); Mean Corpuscular Volume 90.1 fL (78.0-98.0); Platelet Count 262 thou/uL (130-400); RBC Distribution Width 11.6 % (11.5-14.5); Red Blood Cell (RBC) Count 2.94 mill/uL (4.70-6.10); White Blood Cell (WBC) Count 11.7 thou/uL (4.8-10.8)
[2019-07-21 03:48] LABS: Anion Gap 13 mmol/L (10-20); BUN (Urea Nitrogen) 51 mg/dL (8.4-25.7); Calc. Creatinine Clearance 28 mL/min (70-130); Calcium 8.6 mg/dL (7.8-10.44); Carbon Dioxide 25 mmol/L (22-29); Cardiac Risk 5.1 (Less than 4.5); Chloride 105 mmol/L (98-107); Cholesterol 143 mg/dl (< 200 Desired); Estimated GFR-MDRD 13; Glucose 68 mg/dL (70-105); HDL Cholesterol 28 mg/dL (>60 Neg Risk); LDL Cholesterol, Calculated 84 mg/dL; Sodium 139 mmol/L (136-145); Triglycerides 154 mg/dL (Less than 150)
[2019-07-21 03:55] LABS: CKMB 32.5 ng/mL (0-6.6); Troponin I 10.159 ng/mL (< 0.028)
[2019-07-21] MEDS: Levothyroxine Sodium 75 MCG TAB PO SCH (06:38)
[2019-07-21] MEDS: Furosemide 40 MG/4 ML VIAL SLOW IVP SCH ×2 (06:38→15:03)
[2019-07-21] MEDS ORDERED: Amlodipine 5 MG TAB PO SCH (09:00)
[2019-07-21] MEDS ORDERED: Enoxaparin Sodium 120 MG/0.8 ML SYRINGE SC SCH (09:00)
[2019-07-21] MEDS ORDERED: Heparin 10,000 UNITS/1 ML VIAL ONE (09:17)
[2019-07-21] MEDS: Tamsulosin HCl 0.4 MG CAP PO SCH (11:06)
[2019-07-21] MEDS: Multivit, Therapeutic 1 TAB PO SCH (11:06)
[2019-07-21] MEDS: hydrALAZINE 25 MG TAB PO SCH ×3 (11:06→20:11)
--- NOTE | 2019-07-21 11:06 | EKG ---
Test Reason : C/O CHEST PAIN Blood Pressure : / mmHG Vent. Rate : 117 BPM Atrial Rate : 117 BPM P-R Int : 154 ms QRS Dur : 114 ms QT Int : 330 ms P-R-T Axes : 034 069 258 degrees QTc Int : 460 ms Sinus tachycardia Cannot rule out Inferior infarct (cited on or before 02-JUL-2011) Intraventricular Conduction Delay Abnormal ECG When compared with ECG of 18-JUL-2019 12:23, (Unconfirmed) [place] interval has decreased Vent. rate has increased BY [address] now depressed in Inferior leads ST now depressed in Lateral leads T wave inversion now evident in Inferior leads Confirmed by DR. Anahi IRAHETA ([id number]) on 07/21/2019 11:05:58 AM Referred By: ACE Confirmed By:DR. Anahi IRAHETA
[2019-07-21] MEDS: Carvedilol 6.25 MG TAB PO SCH ×2 (11:07→17:59)
[2019-07-21] MEDS: Ezetimibe 10 MG TAB PO SCH (11:07)
[2019-07-21] MEDS: Isosorbide Mononitrate (ER) 30 MG TAB PO SCH (11:07)
[2019-07-21] MEDS: Fish Oil 1,000 MG CAP PO SCH ×2 (11:07→20:11)
[2019-07-21] MEDS: Aspirin 81 mg Enteric Coated Tablet PO SCH (11:08)
[2019-07-21] MEDS: Enoxaparin Sodium 30 MG/0.3 ML SYRINGE SC SCH (11:08)
[2019-07-21] MEDS: Clopidogrel Bisulfate 75 MG TAB PO SCH (11:08)
[2019-07-21] MEDS: Alogliptin 6.25 MG TAB PO SCH (11:08)
--- NOTE | 2019-07-21 12:41 | PRG ---
DATE OF SERVICE: 07/21/2019 SUBJECTIVE: Patient was seen and examined at bedside and overnight events noted. Patient denies any shortness of breath or chest pain or palpitation. No history of nausea or vomiting or diarrhea or fever or chills or cramps. OBJECTIVE: GENERAL: This is an obese male, in no apparent distress. VITAL SIGNS: Temperature 98.6. Heart rate 90. Respiratory rate 20. Blood pressure 138/77. HEENT: Atraumatic, normocephalic. Oral mucosa is moist NECK: Supple. CARDIOVASCULAR: S1, S2 heard. Rate and rhythm regular. RESPIRATORY: Clear to auscultation. GASTROINTESTINAL: Abdomen is soft. MUSCULOSKELETAL: No tenderness. No edema. DERMATOLOGIC: No skin rash. NEUROLOGIC: Alert and awake and oriented X3. No focal neurologic deficits. Moving all the extremities. PSYCHIATRIC: Mood and affect normal. LABORATORY DATA: Potassium is 4.0, BUN is 51, and creatinine is 4.6. ASSESSMENT AND PLAN: 1. End-stage renal disease. Plan is to continue dialysis as tolerated. 2. Non-ST elevation myocardial infarction. 3. Edema. 4. Anemia. 5. Hypertension. Plan to continue on dialysis. Follow with Case Management for outpatient placement. Appreciate help from Surgery for access placement. Job ID: [id number]
[2019-07-21] MEDS: HumaLOG 300 UNITS/3 ML VIAL SC PRN ×3 (13:40→20:12)
[2019-07-21] MEDS: HumuLIN 70/30 (300 UNITS/3 ML VIAL) SC SCH ×2 (14:22→20:26)
[2019-07-21] MEDS ORDERED: READ PPD TEST SITE PO SCH (15:00)
--- NOTE | 2019-07-21 15:03 | PDOC.HOSPP ---
- Subjective Encounter Date: 07/21/19 Encounter Time: 09:45 Subjective: pt up in bed does not have any more chest pain. - Objective Vital Signs & Weight: Vital Signs (12 hours) Temp Pulse BP Pulse Ox 07/21/19 11:08 105 H 138/77 07/21/19 11:07 138/77 07/21/19 11:06 100 146/63 H 07/21/19 08:00 96 07/21/19 07:00 98.6 F 07/21/19 04:00 98.4 F Weight Admit Weight 258 lb 8 oz Weight 257 lb 0.944 oz Most Recent Monitor Data Heart Rate from ECG 98 NIBP 146/63 NIBP BP-Mean 90 Respiration from ECG 26 SpO2 94 I&O: 07/20/19 07/21/19 07/22/19 06:59 06:59 06:59 Intake Total 720 1501.4 Output Total 1575 500 0 Balance -855 1001.4 0 Result Diagrams: 07/21/19 02:59 07/21/19 02:59 Additional Labs: Accuchecks 07/21/19 07/20/19 07/20/19 13:01 20:42 16:56 POC Glucose 240 H 228 H 312 H Hospitalist ROS - Review of Systems Cardiovascular: denies: chest pain, palpitations, orthopnea, paroxysmal noc. dyspnea, edema, light headedness, other Gastrointestinal: denies: nausea, vomiting, abdominal pain, diarrhea, constipation, melena, hematochezia, other Genitourinary: denies: dysuria, frequency, incontinence, hematuria, retention, other - Medication Medications: Active Medications Generic Name Dose Route Start Last Admin Trade Name Freq PRN Reason Stop Dose Admin Albuterol/Ipratropium 3 ml 07/19/19 10:14 07/19/19 20:56 Duoneb NEB 3 ml Q6H PRN Administration SOB &/or Wheezing Alogliptin Benzoate 6.25 mg 07/19/19 09:00 07/21/19 11:08 Alogliptin PO 6.25 mg DAILY [facility] Administration Amlodipine Besylate 5 mg 07/21/19 09:00 07/21/19 11:08 Norvasc PO 5 mg DAILY [facility] Administration Aspirin 81 mg 07/21/19 09:00 07/21/19 11:08 Ecotrin PO 81 mg DAILY [facility] Administration Carvedilol 12.5 mg 07/21/19 08:00 07/21/19 11:07 Coreg PO 12.5 mg BID-WM [facility] Administration Clopidogrel Bisulfate 75 mg 07/19/19 09:00 07/21/19 11:08 Plavix PO 75 mg DAILY [facility] Administration Ezetimibe 10 mg 07/19/19 09:00 07/21/19 11:07 Zetia PO 10 mg DAILY [facility] Administration Enoxaparin Sodium 30 mg 07/21/19 09:00 07/21/19 11:08 Lovenox SC 30 mg 0900 [facility] Administration Epoetin Fabio-epbx 10,000 unit 07/18/19 21:00 07/18/19 21:02 Retacrit SC 10,000 unit Q7D [facility] Administration Fish Oil 1,000 mg 07/18/19 21:00 07/21/19 11:07 Fish Oil PO 1,000 mg BID [facility] Administration Furosemide 40 mg 07/19/19 06:00 07/21/19 06:38 Lasix SLOW IVP 40 mg 0600,1400 [facility] Administration Heparin Sodium (Porcine) 500 units 07/20/19 21:00 07/21/19 11:09 Heparin Lock Flush 100 Units/Ml IVF Not Given Q12HR [facility] Hydralazine HCl 50 mg 07/18/19 21:00 07/21/19 11:06 Apresoline PO 50 mg TID [facility] Administration Nitroglycerin/Dextrose 250 mls @ 0 mls/hr 07/20/19 19:45 07/20/19 20:11 Nitroglycerin 50 Mg/250 Ml Bot IVPB 250 mls INF [facility] Administration Protocol Titrate Insulin Human Isoph/Insulin Regular 40 units 07/19/19 09:00 07/21/19 14:22 Humulin 70/30 SC Not Given QAM [facility] Insulin Human Isoph/Insulin Regular 60 units 07/18/19 21:00 07/20/19 20:39 Humulin 70/30 SC 60 unit QPM [facility] Administration Insulin Human Lispro 0 units 07/18/19 15:41 07/21/19 13:40 Humalog SC 4 units .MODERATE SLIDING SC PRN Administration Moderate Correctional Scale Insulin Human Lispro 0 units 07/18/19 15:41 07/18/19 21:03 Humalog SC 2 unit .BEDTIME SLIDING SC PRN Administration Bedtime Correctional Scale Isosorbide Mononitrate 30 mg 07/19/19 09:00 07/21/19 11:07 Imdur Er PO 30 mg DAILY [facility] Administration Levothyroxine Sodium 75 mcg 07/19/19 06:00 07/21/19 06:38 Synthroid PO 75 mcg 0600 [facility] Administration Morphine Sulfate 2 mg 07/20/19 10:28 07/20/19 11:08 Morphine SLOW IVP 2 mg Q4H PRN Administration Pain Multivitamins 1 tab 07/19/19 09:00 07/21/19 11:06 Theragran PO 1 tab DAILY [facility] Administration Nitroglycerin 0.4 mg 07/20/19 08:40 07/20/19 18:20 Nitrostat SL 1 tab Q5MIN PRN Administration Chest Pain Sodium Chloride 10 ml 07/20/19 21:00 07/21/19 11:09 Flush - Normal Saline IVF Not Given Q12HR [facility] Tamsulosin HCl 0.4 mg 07/19/19 09:00 07/21/19 11:06 Flomax PO 0.4 mg DAILY [facility] Administration - Exam Heart: negative: RRR, no murmur, no gallops, no rubs, normal peripheral pulses, irregular, diminshed peripheral pulses, murmur present, II/IV, III/IV Respiratory: negative: CTAB, no wheezes, no rales, no ronchi, normal chest expansion, no tachypnea, normal percussion, rales, rhonchi, tachypneic, wheezes Gastrointestinal: negative: soft, non-tender, non-distended, normal bowel sounds , no palpable masses, no hepatomegaly, no splenomegaly, no bruit, no guarding, no rigidity, tender to palpation, distended, diminished bowl sounds, voluntary guarding Extremities - other findings: right groin dialysis cath Hosp A/P (1) CKD (chronic kidney disease) Code(s): N18.9 - CHRONIC KIDNEY DISEASE, UNSPECIFIED Status: Acute (2) Diabetes Code(s): E11.9 - TYPE 2 DIABETES MELLITUS WITHOUT COMPLICATIONS Status: Chronic Qualifiers: Diabetes mellitus type: type 2 Diabetes mellitus complication detail: with other oral complications (3) Hypertension Code(s): I10 - ESSENTIAL (PRIMARY) HYPERTENSION Status: Chronic (4) Chest pain Code(s): R07.9 - CHEST PAIN, UNSPECIFIED Status: Acute (5) CAD S/P percutaneous coronary angioplasty Code(s): I25.10 - ATHSCL HEART DISEASE OF [place] CORONARY ARTERY W/O ANG PCTRS; Z98.61 - CORONARY ANGIOPLASTY STATUS Status: Chronic - Plan will continue insulin, pt to get his fistula. will order some neb tx. continue to monitor. 07/20 pt has mild elevated trops, he has been seen by cardio. He is on plavix. will add AC. pt to get temp dialysis cath and will get dialyzed. His pain was relieved with nitro. 07/21 overnight he was moved to icu and was put on nitro drip for cp. he is feeling well now. cath on . He is tolerating dialysis well.
--- NOTE | 2019-07-21 18:32 | PRG ---
DATE OF SERVICE: 07/21/2019 Mr. Carlson is doing better today. His chest pain yesterday has resolved. He is in ICU now. Dr. Platt is planning on cardiac catheterization . The patient needs to have his right groin catheter removed. We will plan placement of a hemodialysis catheter and a central line tomorrow under IV sedation, local, and then plan placement of a fistula Saturday pending his cardiac catheterization on . The patient is agreeable. Job ID: [id number]
--- NOTE | 2019-07-22 00:56 | OP ---
DATE OF PROCEDURE: 07/20/2019 PREOPERATIVE DIAGNOSES: Chest pain, end-stage renal disease, congestive heart failure, dyspnea, and acute myocardial infarction. POSTOPERATIVE DIAGNOSES: Chest pain, end-stage renal disease, congestive heart failure, dyspnea, and acute myocardial infarction. PROCEDURE PERFORMED: Right femoral vein Trialysis catheter placement. ANESTHESIA: 1% Xylocaine, local anesthesia. DESCRIPTION OF PROCEDURE: With the patient at bedside in his room, right groin was clipped of hair, prepared with ChloraPrep and draped in routine fashion. Local anesthetic was infiltrated in the skin and subcutaneous tissue. Seldinger technique was used to place a Trialysis catheter, removed the J-wire, secured the catheter with 3-0 nylon suture. Each port aspirated blood, flushed with heparinized saline solution. The catheter had to be withdrawn slightly more than usual due to some restriction in flow. Sterile dressings applied. Job ID: [id number]
--- NOTE | 2019-07-22 01:14 | CON ---
DATE OF CONSULTATION: 07/21/2019 HISTORY OF PRESENT ILLNESS: Mr. Carlson is a very pleasant 59-year-old male. He has a brother who has had renal failure, diabetes, and lost both legs. He presents with renal failure. He had an unstable pattern of chest pain yesterday and was transferred to the critical care unit. I was consulted because of his presence in the ICU. He is chest pain free when I saw him today. PAST MEDICAL HISTORY: Remarkable for: 1. Diabetes. 2. Chronic kidney disease, followed by Dr. Deckre. 3. History of hypertension. 4. Hypothyroidism, on replacement. 5. History of an SC in the past. 6. History of coronary stenting. FAMILY HISTORY: Negative for lung disease. Positive for diabetes. SOCIAL HISTORY: Non contributory. REVIEW OF SYSTEMS: Ten point review of system completed, otherwise negative. ALLERGIES: HE REPORTS AN IODINE ALLERGY AND PENICILLIN ALLERGY. PHYSICAL EXAMINATION: GENERAL: He is a pleasant gentleman, in no distress. He is on a nitroglycerin drip. VITAL SIGNS: Blood pressure 120/73, heart rate 79, respiratory rate is 18, oximetry is 98% on nasal cannula. HEENT: Pupils are equal. Sclerae are anicteric. NECK: Supple. No lymphadenopathy. LUNGS: Clear. HEART: Regular rhythm. No S3. ABDOMEN: Soft and nontender. EXTREMITIES: Without clubbing, cyanosis, or edema. He has a femoral vein dialysis catheter and he tolerated his first round of dialysis well he tells me. LABORATORY DATA: White count 11.7, hemoglobin 9.2, platelets 262. His electrolytes are normal. BUN 51, creatinine 4.65, glucose between 191 and 240 today. Troponin got up to 10 today at 2:59 am this morning. IMPRESSION: 1. End-stage renal disease. 2. Unstable angina by history. 3. Non-Q-wave myocardial infarction. 4. History of coronary stenting in the past. 5. Left ventricular systolic dysfunction with ejection fraction of 30% to 35% with severe mitral regurgitation. PLAN: Continue supportive care per Cardiology and Nephrology. He is not having any respiratory issues at this time currently. This is a 70 minute consult, with greater than 50% of time spent on unit coordinating care. Job ID: [id number] [facility]
[2019-07-22 04:12] LABS: Anion Gap 15 mmol/L (10-20); BUN (Urea Nitrogen) 38 mg/dL (8.4-25.7); Calc. Creatinine Clearance 31 mL/min (70-130); Calcium 8.3 mg/dL (7.8-10.44); Carbon Dioxide 25 mmol/L (22-29); Chloride 99 mmol/L (98-107); Estimated GFR-MDRD 14; Glucose 181 mg/dL (70-105); Sodium 135 mmol/L (136-145)
[2019-07-22] MEDS: Furosemide 40 MG/4 ML VIAL SLOW IVP SCH ×2 (04:55→19:58)
[2019-07-22] MEDS: Levothyroxine Sodium 75 MCG TAB PO SCH (04:55)
[2019-07-22] MEDS ORDERED: Communication Order-Pharmacy FS SCH (07:45)
--- NOTE | 2019-07-22 08:00 | RAD ---
Chest one view HISTORY: CHF. COMPARISON: 07/18/2019. FINDINGS: Cardiac silhouette is magnified and upper limits of normal. Pulmonary vasculature remains e ngorged. Patchy bilateral perihilar and bibasilar infiltrates are similar in appearance to the previous exam. Mediastinum is midline with no focal abnormality. No evidence of pneumothorax. bank advisor leads overlie the chest. IMPRESSION: Pulmonary vascular congestion and other findings are stable.
[2019-07-22] MEDS: Isosorbide Mononitrate (ER) 30 MG TAB PO SCH (09:18)
[2019-07-22] MEDS: hydrALAZINE 25 MG TAB PO SCH ×3 (09:18→20:46)
[2019-07-22] MEDS: Carvedilol 6.25 MG TAB PO SCH ×3 (09:19→20:46)
[2019-07-22] MEDS ORDERED: PROPOFOL 200 MG/20 ML VIAL ONE (09:22)
[2019-07-22] MEDS ORDERED: Lidocaine 1% PF 5 ML VIAL ONE (09:22)
[2019-07-22] MEDS ORDERED: Heparin 10,000 UNITS/1 ML VIAL ONE ×2 (13:16→16:30)
[2019-07-22] MEDS: Tamsulosin HCl 0.4 MG CAP PO SCH (14:24)
[2019-07-22] MEDS: Fish Oil 1,000 MG CAP PO SCH ×2 (14:24→20:46)
[2019-07-22] MEDS: HumuLIN 70/30 (300 UNITS/3 ML VIAL) SC SCH ×2 (14:24→19:55)
[2019-07-22] MEDS: Multivit, Therapeutic 1 TAB PO SCH (14:24)
[2019-07-22] MEDS: Famotidine 20 MG TAB PO SCH (14:25)
[2019-07-22] MEDS: Alogliptin 6.25 MG TAB PO SCH (14:25)
[2019-07-22] MEDS: Ezetimibe 10 MG TAB PO SCH (14:25)
--- NOTE | 2019-07-22 14:37 | PDOC.HOSPP ---
- Subjective Encounter Date: 07/22/19 Encounter Time: 09:44 Subjective: pt up in bed no chest pain. - Objective Vital Signs & Weight: Vital Signs (12 hours) Temp Pulse BP Pulse Ox 07/22/19 09:19 149/78 H 07/22/19 09:18 91 140/78 07/22/19 08:05 100 07/22/19 08:00 95 07/22/19 03:00 98.4 F Weight Admit Weight 258 lb 8 oz Weight 251 lb 15.814 oz Most Recent Monitor Data Heart Rate from ECG 87 NIBP 116/63 NIBP BP-Mean 80 Respiration from ECG 25 SpO2 95 I&O: 07/21/19 07/22/19 07/23/19 06:59 06:59 06:59 Intake Total 1501.4 687 Output Total 500 900 500 Balance 1001.4 -213 -500 Result Diagrams: 07/21/19 02:59 07/22/19 03:34 Additional Labs: Accuchecks 07/22/19 07/21/19 07/21/19 12:55 20:13 17:28 POC Glucose 203 H 235 H 191 H Hospitalist ROS - Review of Systems Cardiovascular: denies: chest pain, palpitations, orthopnea, paroxysmal noc. dyspnea, edema, light headedness, other Gastrointestinal: denies: nausea, vomiting, abdominal pain, diarrhea, constipation, melena, hematochezia, other Genitourinary: denies: dysuria, frequency, incontinence, hematuria, retention, other - Medication Medications: Active Medications Generic Name Dose Route Start Last Admin Trade Name Freq PRN Reason Stop Dose Admin Albuterol/Ipratropium 3 ml 07/19/19 10:14 07/19/19 20:56 Duoneb NEB 3 ml Q6H PRN Administration SOB &/or Wheezing Alogliptin Benzoate 6.25 mg 07/19/19 09:00 07/22/19 14:25 Alogliptin PO 07/23/19 00:01 Not Given DAILY [facility] Aspirin 81 mg 07/21/19 09:00 07/21/19 11:08 Ecotrin PO 81 mg DAILY [facility] Administration Carvedilol 12.5 mg 07/22/19 09:00 07/22/19 09:19 Coreg PO 12.5 mg TID [facility] Administration Clopidogrel Bisulfate 75 mg 07/19/19 09:00 07/21/19 11:08 Plavix PO 75 mg DAILY [facility] Administration Ezetimibe 10 mg 07/19/19 09:00 07/22/19 14:25 Zetia PO Not Given DAILY [facility] Enoxaparin Sodium 30 mg 07/21/19 09:00 07/21/19 11:08 Lovenox SC 07/22/19 22:00 30 mg 0900 [facility] Administration Epoetin Fabio-epbx 10,000 unit 07/18/19 21:00 07/18/19 21:02 Retacrit SC 10,000 unit Q7D [facility] Administration Famotidine 20 mg 07/22/19 09:00 07/22/19 14:25 Pepcid PO Not Given Q24HR [facility] Fish Oil 1,000 mg 07/18/19 21:00 07/22/19 14:24 Fish Oil PO Not Given BID [facility] Furosemide 40 mg 07/19/19 06:00 07/22/19 04:55 Lasix SLOW IVP 40 mg 0600,1400 [facility] Administration Heparin Sodium (Porcine) 500 units 07/20/19 21:00 07/22/19 14:24 Heparin Lock Flush 100 Units/Ml IVF Not Given Q12HR [facility] Hydralazine HCl 50 mg 07/18/19 21:00 07/22/19 09:18 Apresoline PO 50 mg TID [facility] Administration Nitroglycerin/Dextrose 250 mls @ 0 mls/hr 07/20/19 19:45 07/20/19 20:11 Nitroglycerin 50 Mg/250 Ml Bot IVPB 250 mls INF [facility] Administration Protocol Titrate Insulin Human Isoph/Insulin Regular 40 units 07/19/19 09:00 07/22/19 14:24 Humulin 70/30 ND 07/23/19 00:01 Not Given QAM [facility] Insulin Human Isoph/Insulin Regular 60 units 07/18/19 21:00 07/21/19 20:26 Humulin 70/30 SC 07/23/19 00:01 Not Given QPM [facility] Insulin Human Lispro 0 units 07/18/19 15:41 07/21/19 18:16 Humalog SC 07/23/19 00:01 2 units .MODERATE SLIDING SC PRN Administration Moderate Correctional Scale Insulin Human Lispro 0 units 07/18/19 15:41 07/21/19 20:12 Humalog SC 07/23/19 00:01 2 unit .BEDTIME SLIDING SC PRN Administration Bedtime Correctional Scale Isosorbide Mononitrate 30 mg 07/19/19 09:00 07/22/19 09:18 Imdur Er PO 30 mg DAILY [facility] Administration Levothyroxine Sodium 75 mcg 07/19/19 06:00 07/22/19 04:55 Synthroid PO 75 mcg 0600 [facility] Administration Morphine Sulfate 2 mg 07/20/19 10:28 07/20/19 11:08 Morphine SLOW IVP 2 mg Q4H PRN Administration Pain Multivitamins 1 tab 07/19/19 09:00 07/22/19 14:24 Theragran PO Not Given DAILY [facility] Nitroglycerin 0.4 mg 07/20/19 08:40 07/20/19 18:20 Nitrostat SL 1 tab Q5MIN PRN Administration Chest Pain Sodium Chloride 10 ml 07/20/19 21:00 07/22/19 14:24 Flush - Normal Saline IVF Not Given Q12HR [facility] Tamsulosin HCl 0.4 mg 07/19/19 09:00 07/22/19 14:24 Flomax PO Not Given DAILY [facility] - Exam Neck: negative: supple, symmetric, no JVD, no thyromegaly, no lymphadenopathy, no carotid bruit, JVD Heart: negative: RRR, no murmur, no gallops, no rubs, normal peripheral pulses, irregular, diminshed peripheral pulses, murmur present, II/IV, III/IV Respiratory: negative: CTAB, no wheezes, no rales, no ronchi, normal chest expansion, no tachypnea, normal percussion, rales, rhonchi, tachypneic, wheezes Hosp A/P (1) CKD (chronic kidney disease) Code(s): N18.9 - CHRONIC KIDNEY DISEASE, UNSPECIFIED Status: Acute (2) Diabetes Code(s): E11.9 - TYPE 2 DIABETES MELLITUS WITHOUT COMPLICATIONS Status: Chronic Qualifiers: Diabetes mellitus type: type 2 Diabetes mellitus complication detail: with other oral complications (3) Hypertension Code(s): I10 - ESSENTIAL (PRIMARY) HYPERTENSION Status: Chronic (4) Chest pain Code(s): R07.9 - CHEST PAIN, UNSPECIFIED Status: Acute (5) CAD S/P percutaneous coronary angioplasty Code(s): I25.10 - ATHSCL HEART DISEASE OF [place] CORONARY ARTERY W/O ANG PCTRS; Z98.61 - CORONARY ANGIOPLASTY STATUS Status: Chronic (6) NSTEMI (non-ST elevated myocardial infarction) Code(s): I21.4 - NON-ST ELEVATION (NSTEMI) MYOCARDIAL INFARCTION Status: Acute - Plan will continue insulin, pt to get his fistula. will order some neb tx. continue to monitor. 07/20 pt has mild elevated trops, he has been seen by cardio. He is on plavix. will add AC. pt to get temp dialysis cath and will get dialyzed. His pain was relieved with nitro. 07/21 overnight he was moved to icu and was put on nitro drip for cp. he is feeling well now. cath on . He is tolerating dialysis well. 07/22 pt doing well, no complains. cath in am. He has no chest pain.
[2019-07-22] MEDS ORDERED: Sodium Chloride 0.9% 10 ML ONE ×2 (16:30→17:23)
[2019-07-22] MEDS ORDERED: Bupivacaine PF 0.5% 30 ML VIAL ONE (16:30)
[2019-07-22] MEDS ORDERED: Lidocaine 1% w/Epinephrine 1:100K 20 ML VIAL ONE (16:30)
[2019-07-22] MEDS ORDERED: Midazolam HCl 2 mg/2 ml Vial ONE (17:44)
[2019-07-22] MEDS ORDERED: Fentanyl 100 MCG/2 ML VIAL ONE (17:44)
[2019-07-22] MEDS ORDERED: traMADol HCl 50 MG TAB PO PRN (18:18)
--- NOTE | 2019-07-22 18:58 | PRG ---
DATE OF SERVICE: 07/22/2019 SUBJECTIVE: Patient was seen and examined at bedside and overnight events noted. Patient denies any shortness of breath or chest pain or palpitation. No history of nausea or vomiting or diarrhea or fever or chills or cramps. OBJECTIVE: GENERAL: This is a well-built male, in no apparent distress. VITAL SIGNS: Temperature 98.4. Heart rate 87. Respiratory rate 14. Blood pressure 140/65. HEENT: Atraumatic, normocephalic. Oral mucosa is moist NECK: Supple. CARDIOVASCULAR: S1, S2 heard. Rate and rhythm regular. RESPIRATORY: Clear to auscultation. GASTROINTESTINAL: Abdomen is soft. MUSCULOSKELETAL: No tenderness. No edema. DERMATOLOGIC: No skin rash. NEUROLOGIC: Alert and awake and oriented X3. No focal neurologic deficits. Moving all the extremities. PSYCHIATRIC: Mood and affect normal. LABORATORY DATA: Potassium 4.0, BUN is 38, and creatinine is 4.2. ASSESSMENT AND PLAN: 1. End-stage renal disease. Continue on hemodialysis as tolerated. 2. Edema with fluid overload. 3. Anemia of chronic disease. 4. Hypertension, stable. 5. Hyponatremia. 6. [id number] myocardial infarction. Plan to continue dialysis as tolerated. Job ID: [id number]
--- NOTE | 2019-07-22 19:50 | PRG ---
DATE OF SERVICE: 07/22/2019 SUBJECTIVE: Mr. Carlson said no more chest pain. He is doing well. He has no complaints today. It is a long visit with him, and he really is doing quite well. He is tentatively scheduled for heart catheterization. OBJECTIVE: VITAL SIGNS: Heart rates in the 90s, blood pressure 135/75, respiratory rate is 18, oximetry is 90%. LUNGS: Unchanged. HEART: Unchanged. ABDOMEN: Unchanged. IMPRESSION: 1. Unstable angina. 2. End-stage renal disease. 3. Diabetes, long-standing. 4. Hypertension. 5. History of coronary stenting in the past. PLAN: Per Cardiology. He is clinically stable. Job ID: [id number]
--- NOTE | 2019-07-22 19:53 | RAD ---
PORTABLE CHEST: 07/23/19 PROVIDED CLINICAL HISTORY: End-stage renal disease. FINDINGS: Comparison 07/18/19. The cardiac and mediastinal silhouette is unchanged in appearance. Interval placement of left IJ cent ral line, tip of which overlies the expected location of cavoatrial junction. Interval placement of r ight IJ dialysis catheter, tips of which overlie the expected location of cavoatrial junction. No ple ural fluid or pneumothorax apparent. No gross focal consolidation. IMPRESSION: No evidence for an acute cardiopulmonary process. POS: PANCHO
[2019-07-22] MEDS: Clopidogrel Bisulfate 75 MG TAB PO SCH (19:57)
[2019-07-22] MEDS: Aspirin 81 mg Enteric Coated Tablet PO SCH (19:57)
[2019-07-22] MEDS: diphenhydrAMINE 50 MG CAP PO SCH ×2 (19:57→23:12)
[2019-07-22] MEDS: predniSONE 20 MG TAB PO SCH ×2 (19:58→23:13)
[2019-07-22] MEDS: Enoxaparin Sodium 30 MG/0.3 ML SYRINGE SC SCH (20:23)
[2019-07-22] MEDS: HumaLOG 300 UNITS/3 ML VIAL SC PRN (20:51)
[2019-07-22] MEDS ORDERED: Heparin 5,000 UNITS/ML VIAL SC SCH (21:00)
--- NOTE | 2019-07-23 01:30 | OP ---
DATE OF PROCEDURE: 07/22/2019 PREOPERATIVE DIAGNOSES: 1. Non-ST elevation myocardial infarction for cardiac cath tomorrow. 2. Chronic kidney disease. 3. End-stage renal disease, poor IV access. POSTOPERATIVE DIAGNOSES: 1. Non-ST elevation myocardial infarction for cardiac cath tomorrow. 2. Chronic kidney disease. 3. End-stage renal disease, poor IV access. PROCEDURES PERFORMED: 1. Right IJ cuffed tunneled hemodialysis catheter. 2. AngioDynamics pre-curved tunneled. 3. Left IJ central line, triple lumen. ANESTHESIA: Intravenous sedation local 0.5% Marcaine, 30 mL mixed with 1% xylocaine with epinephrine 20 mL. Fluoroscopy and ultrasound used. DESCRIPTION OF PROCEDURE: The patient was taken to the operating room where under intravenous sedation, neck and chest were clipped of hair, prepared with ChloraPrep and draped in routine fashion. Local anesthetic mixture was infiltrated into the skin and subcutaneous tissue about the operative site. Both internal jugular veins were cannulated with trocar catheters and J-wire was inserted using ultrasound guidance. Trocar catheter was removed. Skin site enlarged sharply on both sides. A stab incision was made over the right chest. Using the pre-curved AngioDynamics cuffed-tunneled hemodialysis catheter with a tunneler, it was tunneled in between the chest exit site, placed in the fabric cuff beneath the skin exit site, was securing the catheter with 3-0 silk suture. Sterile dressing applied. Small and medium size dilators were placed with J-wire. Internal jugular vein removed. Dilator and Peel-Away sheath placed with J-wire and superior vena cava. Dilator and J-wire were removed. Catheter placed with the Peel-Away sheath. Peel-Away sheath was removed. Platysma was approximated with 4-0 Monocryl, skin with subdermal 4-0 Monocryl and [place] glue applied. Each port aspirated and blood flushed with heparinized saline solution 1000 units heparin per mL indicating volume of the port. Seldinger technique used to place a left IJ triple-lumen catheter, removing the J-wire and securing the catheter with 3-0 nylon sutures. Each port aspirated, blood flushed with saline solution. The patient tolerated the procedure well. Fluoroscopic images revealed good line placement. Job ID: [id number]
[2019-07-23] MEDS: Clopidogrel Bisulfate 75 MG TAB PO SCH (05:06)
[2019-07-23] MEDS: predniSONE 20 MG TAB PO SCH ×2 (05:06→12:04)
[2019-07-23] MEDS: Levothyroxine Sodium 75 MCG TAB PO SCH (05:06)
[2019-07-23] MEDS: Furosemide 40 MG/4 ML VIAL SLOW IVP SCH ×2 (05:06→13:47)
[2019-07-23] MEDS: Aspirin 81 mg Enteric Coated Tablet PO SCH (05:06)
[2019-07-23] MEDS: diphenhydrAMINE 50 MG CAP PO SCH ×2 (05:06→12:26)
[2019-07-23] MEDS: Carvedilol 6.25 MG TAB PO SCH ×2 (05:06→15:45)
[2019-07-23] MEDS: hydrALAZINE 25 MG TAB PO SCH ×3 (05:07→20:39)
[2019-07-23] MEDS: Isosorbide Mononitrate (ER) 30 MG TAB PO SCH ×2 (05:07→09:18)
[2019-07-23] MEDS ORDERED: Heparin 10,000 UNITS/1 ML VIAL ONE (06:29)
[2019-07-23] MEDS ORDERED: Lidocaine 1% (PF) 30 ML VIAL ONE (06:30)
[2019-07-23] MEDS ORDERED: Heparin (Artline) 1,000 ML ONE (06:30)
[2019-07-23] MEDS ORDERED: Midazolam HCl 2 mg/2 ml Vial ONE (07:04)
[2019-07-23] MEDS ORDERED: Fentanyl 100 MCG/2 ML VIAL ONE (07:04)
[2019-07-23] MEDS ORDERED: Protamine Sulfate 50 MG/5 ML VIAL ONE (07:46)
[2019-07-23] MEDS ORDERED: Acetaminophen/Codeine 30-300mg Tablet PO PRN ×2 (07:52)
[2019-07-23] MEDS ORDERED: Nitroglycerin 0.4 MG TAB (25 Tab Bottle) SL PRN (07:52)
[2019-07-23] MEDS ORDERED: Sodium Chloride 0.9% 200 ML IV PRN (07:52)
[2019-07-23] MEDS ORDERED: Nitroglycerin 50 MG/250 ML BOT 250 ML IVPB SCH (07:59)
[2019-07-23] MEDS: Fish Oil 1,000 MG CAP PO SCH ×2 (09:18→20:39)
[2019-07-23] MEDS: Lisinopril 5 MG TAB PO SCH (09:18)
[2019-07-23] MEDS: Ezetimibe 10 MG TAB PO SCH (09:18)
[2019-07-23] MEDS: Multivit, Therapeutic 1 TAB PO SCH (09:19)
[2019-07-23] MEDS: Tamsulosin HCl 0.4 MG CAP PO SCH (09:19)
[2019-07-23] MEDS: Famotidine 20 MG TAB PO SCH (09:33)
[2019-07-23] MEDS ORDERED: HumaLOG 300 UNITS/3 ML VIAL SC PRN (12:22)
[2019-07-23] MEDS ORDERED: Insulin Glargine 10 UNITS in Pre-Filled Syringe 1 EACH SC SCH ×2 (12:30→21:00)
--- NOTE | 2019-07-23 12:40 | PRG ---
DATE OF SERVICE: 07/23/2019 SUBJECTIVE: Patient was seen and examined at bedside and overnight events noted. Patient denies any shortness of breath or chest pain or palpitation. No history of nausea or vomiting or diarrhea or fever or chills or cramps. OBJECTIVE: GENERAL: This is an obese male, in no apparent distress. VITAL SIGNS: Temperature 97.6. Heart rate 82. Respiratory rate 18 Blood pressure 151/74. HEENT: Atraumatic, normocephalic. Oral mucosa is moist NECK: Supple. CARDIOVASCULAR: S1, S2 heard. Rate and rhythm regular. RESPIRATORY: Clear to auscultation. GASTROINTESTINAL: Abdomen is soft. MUSCULOSKELETAL: No tenderness. No edema. DERMATOLOGIC: No skin rash. NEUROLOGIC: Alert and awake and oriented X3. No focal neurologic deficits. Moving all the extremities. PSYCHIATRIC: Mood and affect normal. LABORATORY DATA: Potassium 4.0, BUN is 38, and creatinine is 4.2. ASSESSMENT AND PLAN: 1. End-stage renal disease. Continue on hemodialysis as tolerated. 2. Cardiorenal syndrome. 3. Edema with fluid overload. 4. Hypertension. 5. Hyponatremia. Plan to continue dialysis on Saturday, Saturday, and Saturday as tolerated. Job ID: [id number] [facility]
[2019-07-23] MEDS ORDERED: Iopamidol 370 76% 100 ML VIAL ONE (12:41)
[2019-07-23] MEDS ORDERED: Iopamidol 370 76% 50 ML VIAL FS ONE (12:41)
--- NOTE | 2019-07-23 14:51 | PDOC.HOSPP ---
- Subjective Encounter Date: 07/23/19 Encounter Time: 09:55 Subjective: pt up in bed underwent cardiac cath. - Objective Vital Signs & Weight: Vital Signs (12 hours) Temp Pulse BP Pulse Ox 07/23/19 12:00 98 F 07/23/19 09:18 102 H 151/74 H 07/23/19 08:28 96 07/23/19 08:00 97.6 F 07/23/19 05:07 102 H 151/74 H 07/23/19 05:06 151/74 H 07/23/19 03:00 98.3 F Weight Admit Weight 258 lb 8 oz Weight 257 lb 7.999 oz Most Recent Monitor Data Heart Rate from ECG 96 NIBP 142/79 NIBP BP-Mean 100 Respiration from ECG 22 SpO2 95 I&O: 07/22/19 07/23/19 07/24/19 06:59 06:59 06:59 Intake Total 687 413 620 Output Total 900 900 500 Balance -213 -487 120 Result Diagrams: 07/21/19 02:59 07/22/19 03:34 Additional Labs: Accuchecks 07/23/19 07/23/19 07/22/19 11:42 05:18 20:52 POC Glucose 357 H 289 H 228 H Hospitalist ROS - Review of Systems Respiratory: denies: cough, dry, shortness of breath, hemoptysis, SOB with excertion, pleuritic pain, sputum, wheezing, other Cardiovascular: denies: chest pain, palpitations, orthopnea, paroxysmal noc. dyspnea, edema, light headedness, other Gastrointestinal: denies: nausea, vomiting, abdominal pain, diarrhea, constipation, melena, hematochezia, other Genitourinary: denies: dysuria, frequency, incontinence, hematuria, retention, other - Medication Medications: Active Medications Generic Name Dose Route Start Last Admin Trade Name Freq PRN Reason Stop Dose Admin Albuterol/Ipratropium 3 ml 07/19/19 10:14 07/19/19 20:56 Duoneb NEB 3 ml Q6H PRN Administration SOB &/or Wheezing Aspirin 81 mg 07/21/19 09:00 07/23/19 05:06 Ecotrin PO 81 mg DAILY [facility] Administration Carvedilol 12.5 mg 07/22/19 09:00 07/23/19 05:06 Coreg PO 12.5 mg TID [facility] Administration Diphenhydramine HCl 50 mg 07/22/19 12:00 07/23/19 12:26 Benadryl PO 07/23/19 15:00 50 mg Q6HR [facility] Administration Ezetimibe 10 mg 07/19/19 09:00 07/23/19 09:18 Zetia PO 10 mg DAILY [facility] Administration Epoetin Fabio-epbx 10,000 unit 07/18/19 21:00 07/18/19 21:02 Retacrit SC 10,000 unit Q7D [facility] Administration Fish Oil 1,000 mg 07/18/19 21:00 07/23/19 09:18 Fish Oil PO 1,000 mg BID [facility] Administration Furosemide 40 mg 07/19/19 06:00 07/23/19 13:47 Lasix SLOW IVP 40 mg 0600,1400 [facility] Administration Hydralazine HCl 50 mg 07/18/19 21:00 07/23/19 05:07 Apresoline PO 50 mg TID [facility] Administration Insulin Glargine 10 units/ 0.1 mls @ 0 mls/hr 07/23/19 12:30 07/23/19 13:31 Miscellaneous Medication SC 07/23/19 15:00 0.1 mls NOW [facility] Administration Insulin Human Lispro 0 units 07/23/19 12:22 07/23/19 12:29 Humalog SC 10 unit .MODERATE SLIDING SC PRN Administration MODERATE SLIDING SCALE Protocol Isosorbide Mononitrate 60 mg 07/23/19 09:00 07/23/19 09:18 Imdur Er PO 60 mg DAILY [facility] Administration Levofloxacin 250 mg 07/23/19 10:00 07/23/19 12:04 Levaquin PO 250 mg Q48H [facility] Administration Levothyroxine Sodium 75 mcg 07/19/19 06:00 07/23/19 05:06 Synthroid PO 75 mcg 0600 [facility] Administration Lisinopril 5 mg 07/23/19 09:00 07/23/19 09:18 Zestril PO Not Given DAILY [facility] Morphine Sulfate 2 mg 07/20/19 10:28 07/20/19 11:08 Morphine SLOW IVP 2 mg Q4H PRN Administration Pain Multivitamins 1 tab 07/19/19 09:00 07/23/19 09:19 Theragran PO 1 tab DAILY [facility] Administration Nitroglycerin 0.4 mg 07/20/19 08:40 07/20/19 18:20 Nitrostat SL 1 tab Q5MIN PRN Administration Chest Pain Prednisone 20 mg 07/22/19 12:00 07/23/19 12:04 Prednisone PO 07/23/19 15:00 20 mg Q6HR [facility] Administration Sodium Chloride 10 ml 07/20/19 21:00 07/23/19 09:19 Flush - Normal Saline IVF 10 ml Q12HR [facility] Administration Tamsulosin HCl 0.4 mg 07/19/19 09:00 07/23/19 09:19 Flomax PO Not Given DAILY [facility] - Exam Neck: negative: supple, symmetric, no JVD, no thyromegaly, no lymphadenopathy, no carotid bruit, JVD Heart: negative: RRR, no murmur, no gallops, no rubs, normal peripheral pulses, irregular, diminshed peripheral pulses, murmur present, II/IV, III/IV Respiratory: negative: CTAB, no wheezes, no rales, no ronchi, normal chest expansion, no tachypnea, normal percussion, rales, rhonchi, tachypneic, wheezes Gastrointestinal: negative: soft, non-tender, non-distended, normal bowel sounds , no palpable masses, no hepatomegaly, no splenomegaly, no bruit, no guarding, no rigidity, tender to palpation, distended, diminished bowl sounds, voluntary guarding Extremities - other findings: right foot old ulcer. Hosp A/P (1) CKD (chronic kidney disease) Code(s): N18.9 - CHRONIC KIDNEY DISEASE, UNSPECIFIED Status: Acute (2) Diabetes Code(s): E11.9 - TYPE 2 DIABETES MELLITUS WITHOUT COMPLICATIONS Status: Chronic Qualifiers: Diabetes mellitus type: type 2 Diabetes mellitus complication detail: with other oral complications (3) Hypertension Code(s): I10 - ESSENTIAL (PRIMARY) HYPERTENSION Status: Chronic (4) Chest pain Code(s): R07.9 - CHEST PAIN, UNSPECIFIED Status: Acute (5) CAD S/P percutaneous coronary angioplasty Code(s): I25.10 - ATHSCL HEART DISEASE OF [place] CORONARY ARTERY W/O ANG PCTRS; Z98.61 - CORONARY ANGIOPLASTY STATUS Status: Chronic (6) NSTEMI (non-ST elevated myocardial infarction) Code(s): I21.4 - NON-ST ELEVATION (NSTEMI) MYOCARDIAL INFARCTION Status: Acute (7) Diabetic foot ulcer Code(s): E11.621 - TYPE 2 DIABETES MELLITUS WITH FOOT ULCER; L97.509 - NON- PRESSURE CHRONIC ULCER OTH PRT UNSP FOOT W UNSP SEVERITY Status: Acute - Plan will continue insulin, pt to get his fistula. will order some neb tx. continue to monitor. 07/20 pt has mild elevated trops, he has been seen by cardio. He is on plavix. will add AC. pt to get temp dialysis cath and will get dialyzed. His pain was relieved with nitro. 07/21 overnight he was moved to icu and was put on nitro drip for cp. he is feeling well now. cath on . He is tolerating dialysis well. 07/22 pt doing well, no complains. cath in am. He has no chest pain. 07/23 Per nursing staff pt will need CABG. His cardiac report is unavailable curently. will continue nitro. pt is on abx every other day for uti per his urology. will continue levaquin q48h. pt states he is not allergic to penicillin and would be a better options to pick penicillin vs levaquin.
[2019-07-23] MEDS ORDERED: HumaLOG 300 UNITS/3 ML VIAL SC SCH (15:00)
[2019-07-23] MEDS ORDERED: Carvedilol 6.25 MG TAB PO ONE (16:30)
[2019-07-23] MEDS ORDERED: Dextrose 5% in Water 1,000 ML IV PRN (17:34)
[2019-07-23] MEDS ORDERED: Dextrose 50% Abboject 50 ML SYRINGE SLOW IVP PRN (17:34)
--- NOTE | 2019-07-23 17:59 | PRG ---
DATE OF SERVICE: 07/23/2019 Mr. Carlson had a cardiac cath. He needs a three-vessel bypass. He has been seeing Dr. eTjada. Plan is to dialyzing for a week and do that next week. Plan at this time also, we will hold his Plavix. Plan at this time is to not do his fistula tomorrow. We will postpone that should schedule that as an outpatient in the future. Job ID: [id number]
[2019-07-23] MEDS: HumaLOG 300 UNITS/3 ML VIAL SC PRN ×2 (18:26→20:44)
--- NOTE | 2019-07-23 20:12 | PRG ---
DATE OF SERVICE: 07/23/2019 SUBJECTIVE: Uriel Carlson had chest pain today. He came back for his cardiac catheterization. He was off nitroglycerin and developed rest pain that lasted for 4 minutes. He did not tell the nurse initially, but about the time the nitroglycerin was restarted, his chest pain resolved. OBJECTIVE: VITAL SIGNS: This evening, blood pressure is 156/85, heart rate is 94, respiratory rates in the 20s. LUNGS: Clear. HEART: Regular rhythm. ABDOMEN: Soft. LABORATORY DATA: He has had no lab for couple of days. IMPRESSION: Unstable angina. He underwent cardiac catheterization today. I am told by the nursing staff that Cardiothoracic Surgery will be consulted. I will continue to follow. Once his nitroglycerin was restarted, he started looking more comfortable and said his pain was resolved. Job ID: [id number]
[2019-07-23] MEDS: Insulin Glargine 18 UNITS in Pre-Filled Syringe 1 EACH SC SCH (20:40)
[2019-07-23] MEDS: HumaLOG 300 UNITS/3 ML VIAL SC SCH (20:42)
[2019-07-23] MEDS ORDERED: Insulin Glargine 12 UNITS in Pre-Filled Syringe 1 EACH SC SCH (21:00)
[2019-07-23] MEDS ORDERED: Heparin 5,000 UNITS/ML VIAL SC SCH (21:00)
[2019-07-23] MEDS ORDERED: Carvedilol 6.25 MG TAB PO SCH (21:00)
--- NOTE | 2019-07-23 23:38 | CON ---
DATE OF CONSULTATION: 07/23/2019 REASON FOR CONSULTATION: Evaluate patient for coronary artery bypass grafting. HISTORY OF PRESENT ILLNESS: Mr. Carlson is a 59-year-old gentleman who presented with severe shortness of breath and fluid overload. He initiated dialysis at the time of admission due to end-stage renal disease. His chest x-ray had pulmonary edema at admission and has improved since admission. His troponins bump since admission and he has had chest pain. He was taken for cardiac catheterization today, which revealed a moderate LAD stenosis. He has critical stenosis in the circumflex system just distal to a stent with a potentially bypassable OM target. He also has significant right coronary disease with a distal right coronary that is bypassable. Ejection fraction is 30% to 35%. I have been asked to see him to discuss coronary artery bypass grafting. The patient has been on chronic Plavix due to his coronary stent, which was stopped today. Currently, he is resting in the intensive care unit without current chest pain. PAST MEDICAL HISTORY: 1. End-stage renal disease-hemodialysis was initiated at this admission. 2. Coronary artery disease. 3. Hypertension. 4. Dyslipidemia. 5. Diabetes mellitus. PAST SURGICAL HISTORY: 1. TURP. 2. Toe amputation. SOCIAL HISTORY: He does not use tobacco, alcohol or other substances. HOME MEDICATIONS: Noted. PHYSICAL EXAMINATION: GENERAL: This is a well-developed, well-nourished male, resting comfortably in the ICU. VITAL SIGNS: He is in sinus rhythm with a rate of 100, blood pressure is 154/78, saturations are 96% on room air. HEENT: Sclerae nonicteric. Pupils equal round bilaterally. NECK: Supple without carotid bruit. CHEST: Has crackles in the bases bilaterally. HEART: Rhythm is regular. ABDOMEN: Soft and nontender. EXTREMITIES: There is mild pitting edema bilaterally. LABORATORY DATA: Of note, hemoglobin is 9.2, platelet count is 262,000, potassium is 4.0, creatinine is 4.22 with uncontrolled blood sugars. ASSESSMENT/PLAN: This is a 59-year-old gentleman who just initiated hemodialysis. His troponins peaked at 4.1 with three-vessel disease on his cardiac catheterization. He has been on chronic Plavix. We would prefer to wait until a week after his Plavix was stopped and let this gentleman dialyze and continue to get rid of some of the fluid that he is holding onto. Hopefully as his fluid status becomes more normal, ejection fraction will improve. Potential bypassable targets included LAD, OM, and distal right coronary. I have discussed this with him and will follow along with you. Job ID: [id number]
[2019-07-24 04:15] LABS: Anion Gap 17 mmol/L (10-20); BUN (Urea Nitrogen) 64 mg/dL (8.4-25.7); Calc. Creatinine Clearance 22 mL/min (70-130); Calcium 8.4 mg/dL (7.8-10.44); Carbon Dioxide 20 mmol/L (22-29); Chloride 94 mmol/L (98-107); Estimated GFR-MDRD 10; Glucose 377 mg/dL (70-105); Potassium 4.9 mmol/L (3.5-5.1); Sodium 126 mmol/L (136-145)
[2019-07-24 04:18] LABS: Band 1 % (5-11); Hemoglobin 9.1 g/dL (14.0-18.0); Lymphocytes 7 % (21-51); MDiff Complete? YES; Mean Corpuscular HGB CONC 34.4 g/dL (32.0-36.0); Mean Corpuscular Volume 90.1 fL (78.0-98.0); Mean Platelet Volume 7.8 fL (7.4-10.4); Monocytes 1 % (0-10); Neutrophil 91 % (42-75); Platelet Count 277 thou/uL (130-400); Platelet Morphology Comment Appears Adequate; RBC Distribution Width 11.9 % (11.5-14.5); Red Blood Cell (RBC) Count 2.94 mill/uL (4.70-6.10)
[2019-07-24] MEDS: HumaLOG 300 UNITS/3 ML VIAL SC PRN ×2 (06:45→20:49)
[2019-07-24] MEDS: Furosemide 40 MG/4 ML VIAL SLOW IVP SCH ×2 (06:49→15:07)
[2019-07-24] MEDS: Levothyroxine Sodium 75 MCG TAB PO SCH (06:49)
[2019-07-24] MEDS: Tamsulosin HCl 0.4 MG CAP PO SCH (08:08)
[2019-07-24] MEDS: Aspirin 81 mg Enteric Coated Tablet PO SCH (08:10)
[2019-07-24] MEDS: Isosorbide Mononitrate (ER) 30 MG TAB PO SCH (08:10)
[2019-07-24] MEDS: Carvedilol 25 MG TAB PO SCH ×3 (08:11→20:43)
[2019-07-24] MEDS: Ezetimibe 10 MG TAB PO SCH (08:11)
[2019-07-24] MEDS: Fish Oil 1,000 MG CAP PO SCH ×2 (08:11→20:43)
[2019-07-24] MEDS: Lisinopril 5 MG TAB PO SCH (08:11)
[2019-07-24] MEDS: Multivit, Therapeutic 1 TAB PO SCH (08:11)
[2019-07-24] MEDS: hydrALAZINE 25 MG TAB PO SCH ×3 (08:11→21:29)
[2019-07-24] MEDS: Insulin Glargine 18 UNITS in Pre-Filled Syringe 1 EACH SC SCH ×2 (08:12→20:43)
[2019-07-24] MEDS: HumaLOG 300 UNITS/3 ML VIAL SC SCH ×3 (08:12→17:49)
[2019-07-24] MEDS ORDERED: Insulin Glargine 10 UNITS in Pre-Filled Syringe 1 EACH SC SCH (09:00)
--- NOTE | 2019-07-24 10:05 | PRG ---
DATE OF SERVICE: 07/24/2019 SUBJECTIVE: Uriel Carlson was successfully weaned off nitroglycerin last night. He has not had any chest pain today. The plan is to keep him in the ICU and to see if he is pain-free till tomorrow, but he moved out of the ICU. If he starts having chest pain again, he will need to go back on his nitroglycerin drip. OBJECTIVE: VITAL SIGNS: He is afebrile. Heart rates in the 80s, blood pressure 139/81. He will start to have dialysis here in a few minutes. LUNGS: Clear. HEART: Regular rhythm. ABDOMEN: Soft. LABORATORY DATA: White count is 18, hemoglobin is 9.1, platelets 277. Sodium 126, potassium 4.9, chloride 94, bicarb 20, BUN 64, creatinine 5.83, glucose 377. IMPRESSION AND PLAN: 1. Diabetes. 2. End-stage renal disease. 3. Coronary artery disease, tentatively on the schedule for coronary artery bypass grafting once his Plavix is worn off. 4. Unstable angina. Continue with ICU monitoring. I have discussed the above with the patient and Dr. Platt. Job ID: [id number]
--- NOTE | 2019-07-24 14:27 | PRG ---
DATE OF SERVICE: 07/24/2019 SUBJECTIVE: Patient was seen and examined at bedside and overnight events noted. Patient denies any shortness of breath or chest pain or palpitation. No history of nausea or vomiting or diarrhea or fever or chills or cramps. OBJECTIVE: GENERAL: This is an obese male, in no apparent distress. VITAL SIGNS: Temperature 97.8, pulse 76, respiratory rate 18, and blood pressure 108/64. HEENT: Atraumatic, normocephalic. Oral mucosa is moist NECK: Supple. CARDIOVASCULAR: S1, S2 heard. Rate and rhythm regular. RESPIRATORY: Clear to auscultation. GASTROINTESTINAL: Abdomen is soft. MUSCULOSKELETAL: No tenderness. No edema. DERMATOLOGIC: No skin rash. NEUROLOGIC: Alert and awake and oriented X3. No focal neurologic deficits. Moving all the extremities. PSYCHIATRIC: Mood and affect normal. LABORATORY DATA: Potassium 4.9, BUN is 64, creatinine is 5.8. ASSESSMENT AND PLAN: 1. End-stage renal disease: Continue on hemodialysis as tolerated. 2. Cardiorenal syndrome. We will remove fluid. 3. Edema. 4. Hypertension. 5. Anemia. 6. Hyponatremia. Limit fluid intake. We will continue on dialysis as tolerated. Job ID: [id number]
[2019-07-24] MEDS ORDERED: Heparin 10,000 UNITS/ 10 ML VIAL ONE (15:08)
[2019-07-25 04:02] LABS: Anion Gap 16 mmol/L (10-20); BUN (Urea Nitrogen) 38 mg/dL (8.4-25.7); Calc. Creatinine Clearance 26 mL/min (70-130); Calcium 8.3 mg/dL (7.8-10.44); Carbon Dioxide 27 mmol/L (22-29); Chloride 94 mmol/L (98-107); Estimated GFR-MDRD 13; Glucose 179 mg/dL (70-105); Potassium 3.5 mmol/L (3.5-5.1); Sodium 133 mmol/L (136-145)
[2019-07-25 04:23] LABS: Band 3 % (5-11); Lymphocytes 15 % (21-51); MDiff Complete? YES; Monocytes 11 % (0-10); Neutrophil 71 % (42-75); Platelet Morphology Comment Appears Adequate; RBC Morphology Normal
[2019-07-25 04:24] LABS: Hemoglobin 8.6 g/dL (14.0-18.0); Mean Corpuscular HGB CONC 33.6 g/dL (32.0-36.0); Mean Corpuscular Hemoglobin 30.6 pg (27.0-31.0); Mean Corpuscular Volume 90.9 fL (78.0-98.0); Mean Platelet Volume 7.7 fL (7.4-10.4); Platelet Count 281 thou/uL (130-400); RBC Distribution Width 12.3 % (11.5-14.5); Red Blood Cell (RBC) Count 2.81 mill/uL (4.70-6.10)
[2019-07-25] MEDS: Levothyroxine Sodium 75 MCG TAB PO SCH (06:19)
[2019-07-25] MEDS: Furosemide 40 MG/4 ML VIAL SLOW IVP SCH ×2 (06:19→15:14)
[2019-07-25] MEDS: HumaLOG 300 UNITS/3 ML VIAL SC PRN (06:21)
--- NOTE | 2019-07-25 07:12 | PDOC.HOSPP ---
- Subjective Encounter Date: 07/24/19 Encounter Time: 17:00 Subjective: Patient seen and examined for NSTEMI/CKD. Toleraing dialysis. No CP. No new complaints. No overnight events - Objective Vital Signs & Weight: Vital Signs (12 hours) Temp Pulse Ox 07/25/19 04:00 97.8 F 07/25/19 00:00 97.9 F 07/24/19 20:00 97.7 F 07/24/19 19:41 90 L Weight Admit Weight 258 lb 8 oz Weight 232 lb 5.875 oz Most Recent Monitor Data Heart Rate from ECG 72 NIBP 138/63 NIBP BP-Mean 88 Respiration from ECG 17 SpO2 94 I&O: 07/24/19 07/25/19 07/26/19 06:59 06:59 06:59 Intake Total 1256.7 1200 Output Total 900 125 Balance 356.7 1075 Result Diagrams: 07/25/19 03:25 07/25/19 03:25 Additional Labs: Accuchecks 07/25/19 07/24/19 07/24/19 06:22 20:33 17:21 POC Glucose 229 H 303 H 196 H 07/24/19 11:41 POC Glucose 242 H EKG Reviewed by me: Yes (Tele SR) Hospitalist ROS - Review of Systems Respiratory: denies: cough, dry, shortness of breath, hemoptysis, SOB with excertion, pleuritic pain, sputum, wheezing, other Cardiovascular: denies: chest pain, palpitations, orthopnea, paroxysmal noc. dyspnea, edema, light headedness, other - Medication Medications: Active Medications Generic Name Dose Route Start Last Admin Trade Name Freq PRN Reason Stop Dose Admin Albuterol/Ipratropium 3 ml 07/19/19 10:14 07/19/19 20:56 Duoneb NEB 3 ml Q6H PRN Administration SOB &/or Wheezing Aspirin 81 mg 07/21/19 09:00 07/24/19 08:10 Ecotrin PO 81 mg DAILY BC Administration Carvedilol 25 mg 07/24/19 09:00 07/24/19 20:43 Coreg PO 25 mg TID BC Administration Ezetimibe 10 mg 07/19/19 09:00 07/24/19 08:11 Zetia PO 10 mg DAILY BC Administration Epoetin Fabio-epbx 10,000 unit 07/18/19 21:00 07/18/19 21:02 Retacrit SC 10,000 unit Q7D BC Administration Fish Oil 1,000 mg 07/18/19 21:00 07/24/19 20:43 Fish Oil PO 1,000 mg BID BC Administration Furosemide 40 mg 07/19/19 06:00 07/25/19 06:19 Lasix SLOW IVP 40 mg 0600,1400 BC Administration Hydralazine HCl 50 mg 07/18/19 21:00 07/24/19 21:29 Apresoline PO Not Given TID BC Insulin Glargine 18 units/ 0.18 mls @ 0 mls/hr 07/24/19 09:00 07/24/19 08:12 Miscellaneous Medication SC 0.18 mls QAM BC Administration Insulin Glargine 18 units/ 0.18 mls @ 0 mls/hr 07/23/19 21:00 07/24/19 20:43 Miscellaneous Medication SC 0.18 mls HS BC Administration Insulin Human Lispro 0 units 07/23/19 12:22 07/24/19 20:49 Humalog SC 4 unit .BEDTIME SLIDING SC PRN Administration BEDTIME SLIDING SCALE Protocol Insulin Human Lispro 0 units 07/23/19 17:34 07/25/19 06:21 Humalog SC 6 unit .AGGRESSIVE SLIDING PRN Administration Aggressive Correctional Scale Insulin Human Lispro 10 units 07/24/19 12:00 07/24/19 17:49 Humalog SC Not Given TID-WM BC Isosorbide Mononitrate 60 mg 07/23/19 09:00 07/24/19 08:10 Imdur Er PO 60 mg DAILY BC Administration Levofloxacin 250 mg 07/23/19 10:00 07/23/19 12:04 Levaquin PO 250 mg Q48H BC Administration Levothyroxine Sodium 75 mcg 07/19/19 06:00 07/25/19 06:19 Synthroid PO 75 mcg 0600 BC Administration Lisinopril 5 mg 07/23/19 09:00 07/24/19 08:11 Zestril PO 5 mg DAILY BC Administration Morphine Sulfate 2 mg 07/20/19 10:28 07/20/19 11:08 Morphine SLOW IVP 2 mg Q4H PRN Administration Pain Multivitamins 1 tab 07/19/19 09:00 07/24/19 08:11 Theragran PO 1 tab DAILY BC Administration Nitroglycerin 0.4 mg 07/20/19 08:40 07/20/19 18:20 Nitrostat SL 1 tab Q5MIN PRN Administration Chest Pain Sodium Chloride 10 ml 07/20/19 21:00 07/24/19 20:53 Flush - Normal Saline IVF 10 ml Q12HR BC Administration Tamsulosin HCl 0.4 mg 07/19/19 09:00 07/24/19 08:08 Flomax PO Not Given DAILY BC - Exam General Appearance: NAD Neck: supple, no JVD Heart: RRR, no gallops Respiratory: no wheezes, no rales Gastrointestinal: soft, non-tender, normal bowel sounds Hosp A/P - Plan DVT proph w/SCDs ADRIANA on CKD 5/ESRD/Metabolic acidosis NSTEMI/3v CAD Chronic systolic HF EF 25-30% dye to severe ischemic cardiomyopathy DM2 HTN HLD BPH Obesity BMI 33.3 Hyponatremia Chronic diabetic foot ulcer PLAN: Started on dialysis Await CABG Cont ASA/BB/ACEI/Statins AM labs Cont other meds
[2019-07-25] MEDS: Aspirin 81 mg Enteric Coated Tablet PO SCH (09:26)
[2019-07-25] MEDS: Isosorbide Mononitrate (ER) 30 MG TAB PO SCH (09:27)
[2019-07-25] MEDS: Multivit, Therapeutic 1 TAB PO SCH (09:27)
[2019-07-25] MEDS: Ezetimibe 10 MG TAB PO SCH (09:28)
[2019-07-25] MEDS: HumaLOG 300 UNITS/3 ML VIAL SC SCH ×3 (09:28→20:24)
[2019-07-25] MEDS: Fish Oil 1,000 MG CAP PO SCH ×2 (09:28→21:16)
[2019-07-25] MEDS: Insulin Glargine 18 UNITS in Pre-Filled Syringe 1 EACH SC SCH ×2 (09:28→21:16)
[2019-07-25] MEDS: Tamsulosin HCl 0.4 MG CAP PO SCH (09:35)
[2019-07-25] MEDS: hydrALAZINE 25 MG TAB PO SCH ×3 (09:35→21:16)
[2019-07-25] MEDS: Lisinopril 5 MG TAB PO SCH (09:35)
[2019-07-25] MEDS: Carvedilol 25 MG TAB PO SCH ×3 (09:35→21:15)
--- NOTE | 2019-07-25 09:43 | PRG ---
DATE OF SERVICE: 07/25/2019 SUBJECTIVE: This morning, denies any pain, chest pain, shortness of breath. OBJECTIVE: VITAL SIGNS: Temperature is 98, pulse 70, saturations 90%, blood pressure 126/69. GENERAL: No shortness of breath. CHEST: Decreased breath sounds. No wheezing. CARDIAC: Normal S1, S2. No gallops. ABDOMEN: No masses. LABORATORY DATA: Creatinine is 4.71. White count [id number], H and H 8 and 25. ASSESSMENT: 1. Coronary artery disease. 2. Diabetes. 3. Renal failure. PLAN: Scheduled for surgery next week. Continue comfort care, pain relief. We will follow. Job ID: [id number]
--- NOTE | 2019-07-25 13:09 | PDOC.CPN ---
- Subjective Date: 07/25/19 Time: 13:07 Interval history: No chest pain or SOB. - Review of Systems General: denies: fever/chills, weight/appetite/sleep changes, night sweats, fatigue Respiratory: denies: cough, congestion, shortness of breath, exercise intolerance Cardiovascular: denies: chest pain, palpitation, edema, paroxysmal nocturnal dyspnea, orthopnea Gastrointestinal: denies: nausea, vomiting, diarrhea, constipation, abd pain, GI bleeding Musculoskeletal: denies: pain, tenderness, stiffness, swelling, arthritis/ arthralgias Neurological: denies: numbness, syncope, seizure, weakness - Objective Allergies/Adverse Reactions: Allergies Allergy/AdvReac Type Severity Reaction Status Date / Time Iodinated Contrast Media Allergy Severe Swollen Verified 08/01/15 23:41 Lips Penicillins Allergy Intermediate Hives Verified 08/01/15 23:41 [id number] Reductase Allergy Intermediate Verified 07/18/19 16:36 Inhibitor Visit Medications: Current Medications Acetaminophen (Tylenol) 1,000 mg PO Q6H PRN PRN Reason: Moderate to Severe Pain (6-10) Acetaminophen/Codeine Phosphate (Tylenol #3) 1 tab PO Q4H PRN PRN Reason: Mild Pain (1-3) Acetaminophen/Codeine Phosphate (Tylenol #3) 2 tab PO Q4H PRN PRN Reason: Moderate Pain (4-6) Albuterol/Ipratropium (Duoneb) 3 ml NEB Q6H PRN PRN Reason: SOB &/or Wheezing Last Admin: 07/19/19 20:56 Dose: 3 ml Aspirin (Ecotrin) 81 mg PO DAILY [facility] Last Admin: 07/25/19 09:26 Dose: 81 mg Carvedilol (Coreg) 25 mg PO TID [facility] Last Admin: 07/25/19 09:35 Dose: Not Given Dextrose/Water (Dextrose 50%) 25 gm SLOW IVP PRN PRN PRN Reason: Hypoglycemia Ezetimibe (Zetia) 10 mg PO DAILY [facility] Last Admin: 07/25/19 09:28 Dose: 10 mg Epoetin Fabio-epbx (Retacrit) 10,000 unit SC Q7D [facility] Last Admin: 07/18/19 21:02 Dose: 10,000 unit Fish Oil (Fish Oil) 1,000 mg PO BID [facility] Last Admin: 07/25/19 09:28 Dose: 1,000 mg Furosemide (Lasix) 40 mg SLOW IVP 0600,1400 [facility] Last Admin: 07/25/19 06:19 Dose: 40 mg Glucagon (Glucagon) 1 mg IM PRN PRN PRN Reason: Hypoglycemia Heparin Sodium (Porcine) (Heparin Lock Flush 100 Units/Ml) 500 units IVF PRN PRN PRN Reason: Heparin Flush Hydralazine HCl (Apresoline) 50 mg PO TID [facility] Last Admin: 07/25/19 09:35 Dose: Not Given Dextrose/Water (D5w) 1,000 mls @ 0 mls/hr IV .Q0M PRN PRN Reason: Hypoglycemia Nitroglycerin/Dextrose (Nitroglycerin 50 Mg/250 Ml Bot) 250 mls @ 0 mls/hr IVPB INF [facility]; Protocol Insulin Glargine 18 units/ (Miscellaneous Medication) 0.18 mls @ 0 mls/hr SC QAM [facility] Last Admin: 07/25/19 09:28 Dose: 0.18 mls Insulin Glargine 18 units/ (Miscellaneous Medication) 0.18 mls @ 0 mls/hr SC HS [facility] Last Admin: 07/24/19 20:43 Dose: 0.18 mls Insulin Human Lispro (Humalog) 0 units SC .BEDTIME SLIDING SC PRN; Protocol PRN Reason: BEDTIME SLIDING SCALE Last Admin: 07/24/19 20:49 Dose: 4 unit Insulin Human Lispro (Humalog) 0 units SC .AGGRESSIVE SLIDING PRN PRN Reason: Aggressive Correctional Scale Last Admin: 07/25/19 06:21 Dose: 6 unit Insulin Human Lispro (Humalog) 10 units SC TID[facility] Last Admin: 07/25/19 12:07 Dose: 10 units Isosorbide Mononitrate (Imdur Er) 60 mg PO DAILY [facility] Last Admin: 07/25/19 09:27 Dose: 60 mg Levofloxacin (Levaquin) 250 mg PO Q48H [facility] Last Admin: 07/25/19 12:07 Dose: 250 mg Levothyroxine Sodium (Synthroid) 75 mcg PO 0600 [facility] Last Admin: 07/25/19 06:19 Dose: 75 mcg Lisinopril (Zestril) 5 mg PO DAILY [facility] Last Admin: 07/25/19 09:35 Dose: Not Given Miscellaneous Medication (Pharmacy To Dose) 1 each IVPB PRN PRN PRN Reason: Pharmacy to dose Morphine Sulfate (Morphine) 2 mg SLOW IVP Q4H PRN PRN Reason: Pain Last Admin: 07/20/19 11:08 Dose: 2 mg Multivitamins (Theragran) 1 tab PO DAILY [facility] Last Admin: 07/25/19 09:27 Dose: 1 tab Nitroglycerin (Nitrostat) 0.4 mg SL Q5MIN PRN PRN Reason: Chest Pain Last Admin: 07/20/19 18:20 Dose: 1 tab Nitroglycerin (Nitrostat) 0.4 mg SL Q5MIN PRN PRN Reason: Chest Pain Sodium Chloride (Flush - Normal Saline) 10 ml IVF Q12HR [facility] Last Admin: 07/25/19 12:07 Dose: 10 ml Sodium Chloride (Flush - Normal Saline) 10 ml IVF PRN PRN PRN Reason: Saline Flush Tamsulosin HCl (Flomax) 0.4 mg PO DAILY [facility] Last Admin: 07/25/19 09:35 Dose: Not Given Tramadol HCl (Ultram) 50 mg PO Q4H PRN PRN Reason: Moderate Pain (4-6) Vital Signs & Weight: Vital Signs Temp Pulse Pulse BP BP Pulse Ox Pulse Ox 07/25/19 09:38 79 72 104/59 L 127/64 98 07/25/19 08:00 95 07/25/19 04:00 97.8 F Pulse Ox 07/25/19 09:38 100 07/25/19 08:00 07/25/19 04:00 Admit Weight 258 lb 8 oz Weight 232 lb 5.875 oz - Physical Exam General: alert & oriented x3 HEENT: mucus membranes moist Neck: midline trachea Cardiac: regular rate and rhythm Lungs: normal breath sounds Neuro: grossly intact Abdomen: active bowel sounds Extremities: no edema Skin: clear Musculoskeletal: no pain - Labs Result Diagrams: 07/25/19 03:25 07/25/19 03:25 Troponin/CKMB CK-MB (CK-2) 32.5 ng/mL (0-6.6) H* 07/21/19 02:59 Troponin I 10.159 ng/mL (< 0.028) H* 07/21/19 02:59 - Telemetry Sinus rhythms and dysrhythmias: sinus rhythm - Assessment/Plan Assessment/Plan: 1. Severe multivessel CAD. 2. Acute on chornic systolic CHF 3. Reduced EF at 30-35% 4. ESRD, newly started HD PLAN: - CABG with Terrell Payne once more fluid neutral and hopefully EF better. - Continue other meds. - May transfer to telemetry from cardiac perspective.
--- NOTE | 2019-07-25 13:18 | PDOC.HOSPP ---
- Subjective Encounter Date: 07/25/19 Encounter Time: 11:45 Subjective: pt up in bed no chest pain - Objective Vital Signs & Weight: Vital Signs (12 hours) Temp Pulse Pulse BP BP Pulse Ox Pulse Ox 07/25/19 09:38 79 72 104/59 L 127/64 98 07/25/19 08:00 95 07/25/19 04:00 97.8 F Pulse Ox 07/25/19 09:38 100 07/25/19 08:00 07/25/19 04:00 Weight Admit Weight 258 lb 8 oz Weight 232 lb 5.875 oz Most Recent Monitor Data Heart Rate from ECG 75 NIBP 120/50 NIBP BP-Mean 73 Respiration from ECG 28 SpO2 96 I&O: 07/24/19 07/25/19 07/26/19 06:59 06:59 06:59 Intake Total 1256.7 1200 240 Output Total 900 125 0 Balance 356.7 1075 240 Result Diagrams: 07/25/19 03:25 07/25/19 03:25 Additional Labs: Accuchecks 07/25/19 07/25/19 07/24/19 12:02 06:22 20:33 POC Glucose 196 H 229 H 303 H 07/24/19 17:21 POC Glucose 196 H Hospitalist ROS - Review of Systems Respiratory: denies: cough, dry, shortness of breath, hemoptysis, SOB with excertion, pleuritic pain, sputum, wheezing, other Cardiovascular: denies: chest pain, palpitations, orthopnea, paroxysmal noc. dyspnea, edema, light headedness, other Gastrointestinal: denies: nausea, vomiting, abdominal pain, diarrhea, constipation, melena, hematochezia, other - Medication Medications: Active Medications Generic Name Dose Route Start Last Admin Trade Name Freq PRN Reason Stop Dose Admin Albuterol/Ipratropium 3 ml 07/19/19 10:14 07/19/19 20:56 Duoneb NEB 3 ml Q6H PRN Administration SOB &/or Wheezing Aspirin 81 mg 07/21/19 09:00 07/25/19 09:26 Ecotrin PO 81 mg DAILY BC Administration Carvedilol 25 mg 07/24/19 09:00 07/25/19 09:35 Coreg PO Not Given TID BC Ezetimibe 10 mg 07/19/19 09:00 07/25/19 09:28 Zetia PO 10 mg DAILY BC Administration Epoetin Fabio-epbx 10,000 unit 07/18/19 21:00 07/18/19 21:02 Retacrit SC 10,000 unit Q7D BC Administration Fish Oil 1,000 mg 07/18/19 21:00 07/25/19 09:28 Fish Oil PO 1,000 mg BID BC Administration Furosemide 40 mg 07/19/19 06:00 07/25/19 06:19 Lasix SLOW IVP 40 mg 0600,1400 BC Administration Hydralazine HCl 50 mg 07/18/19 21:00 07/25/19 09:35 Apresoline PO Not Given TID BC Insulin Glargine 18 units/ 0.18 mls @ 0 mls/hr 07/24/19 09:00 07/25/19 09:28 Miscellaneous Medication SC 0.18 mls QAM BC Administration Insulin Glargine 18 units/ 0.18 mls @ 0 mls/hr 07/23/19 21:00 07/24/19 20:43 Miscellaneous Medication SC 0.18 mls HS BC Administration Insulin Human Lispro 0 units 07/23/19 12:22 07/24/19 20:49 Humalog SC 4 unit .BEDTIME SLIDING SC PRN Administration BEDTIME SLIDING SCALE Protocol Insulin Human Lispro 0 units 07/23/19 17:34 07/25/19 06:21 Humalog SC 6 unit .AGGRESSIVE SLIDING PRN Administration Aggressive Correctional Scale Insulin Human Lispro 10 units 07/24/19 12:00 07/25/19 12:07 Humalog SC 10 units TID-WM BC Administration Isosorbide Mononitrate 60 mg 07/23/19 09:00 07/25/19 09:27 Imdur Er PO 60 mg DAILY BC Administration Levofloxacin 250 mg 07/23/19 10:00 07/25/19 12:07 Levaquin PO 250 mg Q48H BC Administration Levothyroxine Sodium 75 mcg 07/19/19 06:00 07/25/19 06:19 Synthroid PO 75 mcg 0600 BC Administration Lisinopril 5 mg 07/23/19 09:00 07/25/19 09:35 Zestril PO Not Given DAILY [facility] Morphine Sulfate 2 mg 07/20/19 10:28 07/20/19 11:08 Morphine SLOW IVP 2 mg Q4H PRN Administration Pain Multivitamins 1 tab 07/19/19 09:00 07/25/19 09:27 Theragran PO 1 tab DAILY BC Administration Nitroglycerin 0.4 mg 07/20/19 08:40 07/20/19 18:20 Nitrostat SL 1 tab Q5MIN PRN Administration Chest Pain Sodium Chloride 10 ml 07/20/19 21:00 07/25/19 12:07 Flush - Normal Saline IVF 10 ml Q12HR BC Administration Tamsulosin HCl 0.4 mg 07/19/19 09:00 07/25/19 09:35 Flomax PO Not Given DAILY BC - Exam Neck: negative: supple, symmetric, no JVD, no thyromegaly, no lymphadenopathy, no carotid bruit, JVD Heart: negative: RRR, no murmur, no gallops, no rubs, normal peripheral pulses, irregular, diminshed peripheral pulses, murmur present, II/IV, III/IV Respiratory: negative: CTAB, no wheezes, no rales, no ronchi, normal chest expansion, no tachypnea, normal percussion, rales, rhonchi, tachypneic, wheezes Hosp A/P (1) CKD (chronic kidney disease) Code(s): N18.9 - CHRONIC KIDNEY DISEASE, UNSPECIFIED Status: Acute (2) Diabetes Code(s): E11.9 - TYPE 2 DIABETES MELLITUS WITHOUT COMPLICATIONS Status: Chronic Qualifiers: Diabetes mellitus type: type 2 Diabetes mellitus complication detail: with other oral complications (3) Hypertension Code(s): I10 - ESSENTIAL (PRIMARY) HYPERTENSION Status: Chronic (4) Chest pain Code(s): R07.9 - CHEST PAIN, UNSPECIFIED Status: Acute (5) CAD S/P percutaneous coronary angioplasty Code(s): I25.10 - ATHSCL HEART DISEASE OF [place] CORONARY ARTERY W/O ANG PCTRS; Z98.61 - CORONARY ANGIOPLASTY STATUS Status: Chronic (6) NSTEMI (non-ST elevated myocardial infarction) Code(s): I21.4 - NON-ST ELEVATION (NSTEMI) MYOCARDIAL INFARCTION Status: Acute (7) Diabetic foot ulcer Code(s): E11.621 - TYPE 2 DIABETES MELLITUS WITH FOOT ULCER; L97.509 - NON- PRESSURE CHRONIC ULCER OTH PRT UNSP FOOT W UNSP SEVERITY Status: Acute - Plan will continue insulin, pt to get his fistula. will order some neb tx. continue to monitor. 07/20 pt has mild elevated trops, he has been seen by cardio. He is on plavix. will add AC. pt to get temp dialysis cath and will get dialyzed. His pain was relieved with nitro. 07/21 overnight he was moved to icu and was put on nitro drip for cp. he is feeling well now. cath on . He is tolerating dialysis well. 07/22 pt doing well, no complains. cath in am. He has no chest pain. 07/23 Per nursing staff pt will need CABG. His cardiac report is unavailable curently. will continue nitro. pt is on abx every other day for uti per his urology. will continue levaquin q48h. pt states he is not allergic to penicillin and would be a better options to pick penicillin vs levaquin. 07/25 plan to do surgery after 7 days off plavix. pt tolerating his dialysis well.
--- NOTE | 2019-07-25 13:59 | PRG ---
DATE OF SERVICE: 07/25/2019 SUBJECTIVE: Patient was seen and examined at bedside and overnight events noted. Patient denies any shortness of breath or chest pain or palpitation. No history of nausea or vomiting or diarrhea or fever or chills or cramps. OBJECTIVE: GENERAL: This is an obese male, in no apparent distress. VITAL SIGNS: Temperature 97.8. Pulse 75. Respiratory rate 18. Blood pressure 120/50. HEENT: Atraumatic, normocephalic. Oral mucosa is moist NECK: Supple. CARDIOVASCULAR: S1, S2 heard. Rate and rhythm regular. RESPIRATORY: Clear to auscultation. GASTROINTESTINAL: Abdomen is soft. MUSCULOSKELETAL: +1 edema. DERMATOLOGIC: No skin rash. NEUROLOGIC: Alert and awake and oriented X3. No focal neurologic deficits. Moving all the extremities. PSYCHIATRIC: Mood and affect normal. LABORATORY DATA: Potassium is 3.5, BUN is 38, and creatinine is 4.7. ASSESSMENT AND PLAN: 1. End-stage renal disease. Continue on hemodialysis as tolerated. 2. Cardiorenal syndrome. We will remove fluids. 3. Edema, remove fluid. 4. Hypertension. 5. Anemia. 6. Hyponatremia. Limit fluid intake and we will have dialysis as tolerated. 7. Plan to continue dialysis as tolerated. Job ID: [id number]
[2019-07-25] MEDS ORDERED: Heparin 10,000 UNITS/ 10 ML VIAL ONE (15:05)
[2019-07-25] MEDS: EPOETIN ALFA-EPBX (ESRD) 10,000 UNIT/ML VIAL SC SCH (21:15)
[2019-07-26 04:13] LABS: Eosinophils 1 % (0-10); Hemoglobin 9.3 g/dL (14.0-18.0); Lymphocytes 11 % (21-51); MDiff Complete? YES; Mean Corpuscular HGB CONC 34.2 g/dL (32.0-36.0); Mean Corpuscular Hemoglobin 31.2 pg (27.0-31.0); Mean Corpuscular Volume 91.3 fL (78.0-98.0); Mean Platelet Volume 7.8 fL (7.4-10.4); Monocytes 13 % (0-10); Neutrophil 75 % (42-75); Platelet Count 248 thou/uL (130-400); Platelet Morphology Comment Appears Adequate; RBC Distribution Width 12.3 % (11.5-14.5); Red Blood Cell (RBC) Count 2.97 mill/uL (4.70-6.10); White Blood Cell (WBC) Count 11.7 thou/uL (4.8-10.8)
[2019-07-26 04:22] LABS: Anion Gap 15 mmol/L (10-20); BUN (Urea Nitrogen) 32 mg/dL (8.4-25.7); Calc. Creatinine Clearance 28 mL/min (70-130); Carbon Dioxide 26 mmol/L (22-29); Chloride 95 mmol/L (98-107); Estimated GFR-MDRD 14; Glucose 190 mg/dL (70-105); Potassium 3.7 mmol/L (3.5-5.1); Sodium 132 mmol/L (136-145)
[2019-07-26] MEDS: Furosemide 40 MG/4 ML VIAL SLOW IVP SCH ×2 (06:00→13:58)
[2019-07-26] MEDS: Levothyroxine Sodium 75 MCG TAB PO SCH (06:01)
[2019-07-26] MEDS: HumaLOG 300 UNITS/3 ML VIAL SC PRN ×2 (06:03→11:46)
[2019-07-26] MEDS: Ezetimibe 10 MG TAB PO SCH (08:21)
[2019-07-26] MEDS: hydrALAZINE 25 MG TAB PO SCH ×3 (08:21→21:19)
[2019-07-26] MEDS: Isosorbide Mononitrate (ER) 30 MG TAB PO SCH (08:21)
[2019-07-26] MEDS: Aspirin 81 mg Enteric Coated Tablet PO SCH (08:21)
[2019-07-26] MEDS: Multivit, Therapeutic 1 TAB PO SCH (08:22)
[2019-07-26] MEDS: Fish Oil 1,000 MG CAP PO SCH ×2 (08:22→21:17)
[2019-07-26] MEDS: Acetaminophen 500 MG TAB PO PRN (08:22)
[2019-07-26] MEDS: Insulin Glargine 18 UNITS in Pre-Filled Syringe 1 EACH SC SCH ×2 (08:22→21:20)
[2019-07-26] MEDS: Tamsulosin HCl 0.4 MG CAP PO SCH (08:22)
[2019-07-26] MEDS: Carvedilol 25 MG TAB PO SCH ×3 (08:22→21:19)
[2019-07-26] MEDS: Lisinopril 5 MG TAB PO SCH (08:22)
[2019-07-26] MEDS: HumaLOG 300 UNITS/3 ML VIAL SC SCH ×3 (08:23→17:12)
--- NOTE | 2019-07-26 08:47 | PRG ---
DATE OF SERVICE: 07/26/2019 SUBJECTIVE: Uriel Carlson is a 59-year-old gentleman, who is eating breakfast, in no distress. OBJECTIVE: VITAL SIGNS: Blood pressure is 153/76, pulse 76, afebrile, saturations are 99%, and respirations 18. CHEST: No wheezing or crackles. CARDIAC: Normal S1 and S2. No gallops. ABDOMEN: No masses. LABORATORY DATA: Remarkable. His creatinine is 4.25. ASSESSMENT: 1. Diabetes. 2. Renal failure. 3. Unstable angina. 4. Sore throat. PLAN: Continue observation in the ICU. Disposition as per Cardiology. Job ID: [id number]
--- NOTE | 2019-07-26 12:16 | PRG ---
DATE OF SERVICE: 07/26/2019 SUBJECTIVE: Patient was seen and examined at bedside and overnight events noted. Patient denies any shortness of breath or chest pain or palpitation. No history of nausea or vomiting or diarrhea or fever or chills or cramps. OBJECTIVE: GENERAL: This is a well-built male, in no apparent distress. VITAL SIGNS: Temperature 98.0. Heart rate 81. Respiratory rate 20. Blood pressure 100/44. HEENT: Atraumatic, normocephalic. Oral mucosa is moist NECK: Supple. CARDIOVASCULAR: S1, S2 heard. Rate and rhythm regular. RESPIRATORY: Clear to auscultation. GASTROINTESTINAL: Abdomen is soft. MUSCULOSKELETAL: No tenderness. No edema. DERMATOLOGIC: No skin rash. NEUROLOGIC: Alert and awake and oriented X3. No focal neurologic deficits. Moving all the extremities. PSYCHIATRIC: Mood and affect normal. LABORATORY DATA: Potassium 3.7, BUN is 32, and creatinine is 4.2. ASSESSMENT AND PLAN: 1. End-stage renal disease. Continue hemodialysis as tolerated. Follow with Case Management for outpatient placement. 2. Cardiorenal syndrome. Remove fluid. 3. Edema, controlled. 4. Hypertension. 5. Anemia. 6. Hyponatremia. Limit fluid intake. 7. Plan to continue dialysis on Saturday, Saturday, Saturday as tolerated. Job ID: [id number]
--- NOTE | 2019-07-26 12:30 | PDOC.HOSPP ---
- Subjective Subjective: Seen and examined. Breathing comfortably on room air. Denies pain. Talking in full sentences. Patient understands his disease pathology. Time was given for questions, all answered in detail. - Objective Vital Signs & Weight: Vital Signs (12 hours) Temp Pulse BP 07/26/19 08:22 76 153/78 H 07/26/19 08:21 76 153/78 H 07/26/19 08:00 98.0 F 07/26/19 04:00 97.7 F Weight Admit Weight 258 lb 8 oz Weight 212 lb 8.41 oz Most Recent Monitor Data Heart Rate from ECG 78 NIBP 100/44 NIBP BP-Mean 62 Respiration from ECG 19 SpO2 92 I&O: 07/25/19 07/26/19 07/27/19 06:59 06:59 06:59 Intake Total 1200 960 240 Output Total 125 250 320 Balance 1075 710 -80 Result Diagrams: 07/26/19 03:35 07/26/19 03:35 Additional Labs: Accuchecks 07/26/19 07/26/19 07/26/19 11:22 08:24 06:03 POC Glucose 184 H 177 H 193 H 07/26/19 07/25/19 07/25/19 00:12 20:34 16:36 POC Glucose 178 H 316 H 293 H Radiology Reviewed by me: Yes Hospitalist ROS - Review of Systems All other systems reviewed; all pertinent +/- noted in HPI/Subj - Medication Medications: Active Medications Generic Name Dose Route Start Last Admin Trade Name Freq PRN Reason Stop Dose Admin Acetaminophen 1,000 mg 07/22/19 18:18 07/26/19 08:22 Tylenol PO 1,000 mg Q6H PRN Administration Moderate to Severe Pain (6-10) Albuterol/Ipratropium 3 ml 07/19/19 10:14 07/19/19 20:56 Duoneb NEB 3 ml Q6H PRN Administration SOB &/or Wheezing Aspirin 81 mg 07/21/19 09:00 07/26/19 08:21 Ecotrin PO 81 mg DAILY BC Administration Carvedilol 25 mg 07/24/19 09:00 07/26/19 08:22 Coreg PO 25 mg TID BC Administration Ezetimibe 10 mg 07/19/19 09:00 07/26/19 08:21 Zetia PO 10 mg DAILY BC Administration Epoetin Fabio-epbx 10,000 unit 07/18/19 21:00 07/25/19 21:15 Retacrit SC 10,000 unit Q7D BC Administration Fish Oil 1,000 mg 07/18/19 21:00 07/26/19 08:22 Fish Oil PO 1,000 mg BID BC Administration Furosemide 40 mg 07/19/19 06:00 07/26/19 06:00 Lasix SLOW IVP 40 mg 0600,1400 [facility] Administration Hydralazine HCl 50 mg 07/18/19 21:00 07/26/19 08:21 Apresoline PO 50 mg TID BC Administration Insulin Glargine 18 units/ 0.18 mls @ 0 mls/hr 07/24/19 09:00 07/26/19 08:22 Miscellaneous Medication SC 0.18 mls QAM BC Administration Insulin Glargine 18 units/ 0.18 mls @ 0 mls/hr 07/23/19 21:00 07/25/19 21:16 Miscellaneous Medication SC 0.18 mls HS BC Administration Insulin Human Lispro 0 units 07/23/19 12:22 07/24/19 20:49 Humalog SC 4 unit .BEDTIME SLIDING SC PRN Administration BEDTIME SLIDING SCALE Protocol Insulin Human Lispro 0 units 07/23/19 17:34 07/26/19 11:46 Humalog SC 3 unit .AGGRESSIVE SLIDING PRN Administration Aggressive Correctional Scale Insulin Human Lispro 10 units 07/24/19 12:00 07/26/19 11:45 Humalog SC 10 units TID-WM [facility] Administration Isosorbide Mononitrate 60 mg 07/23/19 09:00 07/26/19 08:21 Imdur Er PO 60 mg DAILY [facility] Administration Levofloxacin 250 mg 07/23/19 10:00 07/25/19 12:07 Levaquin PO 250 mg Q48H BC Administration Levothyroxine Sodium 75 mcg 07/19/19 06:00 07/26/19 06:01 Synthroid PO 75 mcg 0600 [facility] Administration Lisinopril 5 mg 07/23/19 09:00 07/26/19 08:22 Zestril PO 5 mg DAILY BC Administration Morphine Sulfate 2 mg 07/20/19 10:28 01/06/20 11:08 Morphine SLOW IVP 2 mg Q4H PRN Administration Pain Multivitamins 1 tab 07/19/19 09:00 07/26/19 08:22 Theragran PO 1 tab DAILY BC Administration Nitroglycerin 0.4 mg 07/20/19 08:40 07/20/19 18:20 Nitrostat SL 1 tab Q5MIN PRN Administration Chest Pain Sodium Chloride 10 ml 07/20/19 21:00 07/25/19 21:17 Flush - Normal Saline IVF 10 ml Q12HR BC Administration Tamsulosin HCl 0.4 mg 07/19/19 09:00 07/26/19 08:22 Flomax PO 0.4 mg DAILY BC Administration - Exam General Appearance: NAD Eye: PERRL, anicteric sclera ENT: normocephalic atraumatic, moist mucosa Neck: supple, symmetric, no lymphadenopathy Heart: no murmur, no gallops, no rubs Respiratory: CTAB, no wheezes, no rales, no ronchi, normal chest expansion Gastrointestinal: soft, non-tender, no guarding, no rigidity Extremities: 1+ LE edema Skin: no lesions, no rashes Neurological: cranial nerve grossly intact, no focal deficits Musculoskeletal: normal tone, normal strength Psychiatric: normal affect, A&O x 3 Hosp A/P (1) ADRIANA (acute kidney injury) Code(s): N17.9 - ACUTE KIDNEY FAILURE, UNSPECIFIED Status: Acute (2) CKD (chronic kidney disease) Code(s): N18.9 - CHRONIC KIDNEY DISEASE, UNSPECIFIED Status: Acute (3) Chest pain Code(s): R07.9 - CHEST PAIN, UNSPECIFIED Status: Acute (4) NSTEMI (non-ST elevated myocardial infarction) Code(s): I21.4 - NON-ST ELEVATION (NSTEMI) MYOCARDIAL INFARCTION Status: Acute (5) Anemia due to blood loss, chronic Code(s): D50.0 - IRON DEFICIENCY ANEMIA SECONDARY TO BLOOD LOSS (CHRONIC) Status: Chronic (6) CAD S/P percutaneous coronary angioplasty Code(s): I25.10 - ATHSCL HEART DISEASE OF [place] CORONARY ARTERY W/O ANG PCTRS; Z98.61 - CORONARY ANGIOPLASTY STATUS Status: Chronic (7) Diabetes Code(s): E11.9 - TYPE 2 DIABETES MELLITUS WITHOUT COMPLICATIONS Status: Chronic Qualifiers: Diabetes mellitus type: type 2 Diabetes mellitus complication detail: with other oral complications (8) Hypertension Code(s): I10 - ESSENTIAL (PRIMARY) HYPERTENSION Status: Chronic (9) CHF (congestive heart failure) Code(s): I50.9 - HEART FAILURE, UNSPECIFIED Status: Suspected Qualifiers: Qualified Code(s): I50.9 - Heart failure, unspecified - Plan Plan: intensive care unit, stable for downgrade cardiovascular thoracic surgery consultation, recommendations appreciated nephrology consultation, recommendations appreciated cardiology consultation, recommendations appreciated pulmonology/critical-care consultation, recommendations appreciated hemodialysis per nephrology patient may require coronary artery bypass grafting echocardiogram with diminished ejection for fraction of 25 to 30% cardiomyopathy regimen ischemic cardiomyopathy with multivessel disease chronic diabetic foot ulcer blood pressure control blood sugar control with long and short acting insulin G.I. prophylaxis DVT prophylaxis
--- NOTE | 2019-07-26 13:08 | PDOC.CPN ---
- Subjective Date: 07/26/19 Time: 13:07 Interval history: No chest pain. - Review of Systems General: denies: fever/chills, weight/appetite/sleep changes, night sweats, fatigue Respiratory: denies: cough, congestion, shortness of breath, exercise intolerance Cardiovascular: denies: chest pain, palpitation, edema, paroxysmal nocturnal dyspnea, orthopnea Gastrointestinal: denies: nausea, vomiting, diarrhea, constipation, abd pain, GI bleeding Musculoskeletal: denies: pain, tenderness, stiffness, swelling, arthritis/ arthralgias Neurological: denies: numbness, syncope, seizure, weakness - Objective Allergies/Adverse Reactions: Allergies Allergy/AdvReac Type Severity Reaction Status Date / Time Iodinated Contrast Media Allergy Severe Swollen Verified 08/01/15 23:41 Lips Penicillins Allergy Intermediate Hives Verified 08/01/15 23:41 Oetugwx-Nty-Iqt Reductase Allergy Intermediate Verified 07/18/19 16:36 Inhibitor Visit Medications: Current Medications Acetaminophen (Tylenol) 1,000 mg PO Q6H PRN PRN Reason: Moderate to Severe Pain (6-10) Last Admin: 07/26/19 08:22 Dose: 1,000 mg Acetaminophen/Codeine Phosphate (Tylenol #3) 1 tab PO Q4H PRN PRN Reason: Mild Pain (1-3) Acetaminophen/Codeine Phosphate (Tylenol #3) 2 tab PO Q4H PRN PRN Reason: Moderate Pain (4-6) Albuterol/Ipratropium (Duoneb) 3 ml NEB Q6H PRN PRN Reason: SOB &/or Wheezing Last Admin: 07/19/19 20:56 Dose: 3 ml Aspirin (Ecotrin) 81 mg PO DAILY [facility] Last Admin: 07/26/19 08:21 Dose: 81 mg Carvedilol (Coreg) 25 mg PO TID [facility] Last Admin: 07/26/19 08:22 Dose: 25 mg Dextrose/Water (Dextrose 50%) 25 gm SLOW IVP PRN PRN PRN Reason: Hypoglycemia Ezetimibe (Zetia) 10 mg PO DAILY [facility] Last Admin: 07/26/19 08:21 Dose: 10 mg Epoetin Fabio-epbx (Retacrit) 10,000 unit SC Q7D [facility] Last Admin: 07/25/19 21:15 Dose: 10,000 unit Fish Oil (Fish Oil) 1,000 mg PO BID [facility] Last Admin: 07/26/19 08:22 Dose: 1,000 mg Furosemide (Lasix) 40 mg SLOW IVP 0600,1400 [facility] Last Admin: 07/26/19 06:00 Dose: 40 mg Glucagon (Glucagon) 1 mg IM PRN PRN PRN Reason: Hypoglycemia Heparin Sodium (Porcine) (Heparin Lock Flush 100 Units/Ml) 500 units IVF PRN PRN PRN Reason: Heparin Flush Hydralazine HCl (Apresoline) 50 mg PO TID [facility] Last Admin: 07/26/19 08:21 Dose: 50 mg Dextrose/Water (D5w) 1,000 mls @ 0 mls/hr IV .Q0M PRN PRN Reason: Hypoglycemia Nitroglycerin/Dextrose (Nitroglycerin 50 Mg/250 Ml Bot) 250 mls @ 0 mls/hr IVPB INF [facility]; Protocol Insulin Glargine 18 units/ (Miscellaneous Medication) 0.18 mls @ 0 mls/hr SC QAM [facility] Last Admin: 07/26/19 08:22 Dose: 0.18 mls Insulin Glargine 18 units/ (Miscellaneous Medication) 0.18 mls @ 0 mls/hr SC HS [facility] Last Admin: 07/25/19 21:16 Dose: 0.18 mls Insulin Human Lispro (Humalog) 0 units SC .BEDTIME SLIDING SC PRN; Protocol PRN Reason: BEDTIME SLIDING SCALE Last Admin: 07/24/19 20:49 Dose: 4 unit Insulin Human Lispro (Humalog) 0 units SC .AGGRESSIVE SLIDING PRN PRN Reason: Aggressive Correctional Scale Last Admin: 07/26/19 11:46 Dose: 3 unit Insulin Human Lispro (Humalog) 10 units SC TID[facility] Last Admin: 07/26/19 11:45 Dose: 10 units Isosorbide Mononitrate (Imdur Er) 60 mg PO DAILY [facility] Last Admin: 07/26/19 08:21 Dose: 60 mg Levofloxacin (Levaquin) 250 mg PO Q48H [facility] Last Admin: 07/25/19 12:07 Dose: 250 mg Levothyroxine Sodium (Synthroid) 75 mcg PO 0600 [facility] Last Admin: 07/26/19 06:01 Dose: 75 mcg Lisinopril (Zestril) 5 mg PO DAILY [facility] Last Admin: 07/26/19 08:22 Dose: 5 mg Miscellaneous Medication (Pharmacy To Dose) 1 each IVPB PRN PRN PRN Reason: Pharmacy to dose Morphine Sulfate (Morphine) 2 mg SLOW IVP Q4H PRN PRN Reason: Pain Last Admin: 07/20/19 11:08 Dose: 2 mg Multivitamins (Theragran) 1 tab PO DAILY [facility] Last Admin: 07/26/19 08:22 Dose: 1 tab Nitroglycerin (Nitrostat) 0.4 mg SL Q5MIN PRN PRN Reason: Chest Pain Last Admin: 07/20/19 18:20 Dose: 1 tab Nitroglycerin (Nitrostat) 0.4 mg SL Q5MIN PRN PRN Reason: Chest Pain Sodium Chloride (Flush - Normal Saline) 10 ml IVF Q12HR [facility] Last Admin: 07/25/19 21:17 Dose: 10 ml Sodium Chloride (Flush - Normal Saline) 10 ml IVF PRN PRN PRN Reason: Saline Flush Tamsulosin HCl (Flomax) 0.4 mg PO DAILY [facility] Last Admin: 07/26/19 08:22 Dose: 0.4 mg Throat Lozenges (Cepastat Lozenges) 1 gemma PO Q2H PRN PRN Reason: Sore Throat Tramadol HCl (Ultram) 50 mg PO Q4H PRN PRN Reason: Moderate Pain (4-6) Vital Signs & Weight: Vital Signs Temp Pulse BP 07/26/19 08:22 76 153/78 H 07/26/19 08:21 76 153/78 H 07/26/19 08:00 98.0 F 07/26/19 04:00 97.7 F Admit Weight 258 lb 8 oz Weight 212 lb 8.41 oz - Physical Exam General: alert & oriented x3 HEENT: mucus membranes moist Neck: supple neck Cardiac: regular rate and rhythm Lungs: normal breath sounds Neuro: grossly intact Abdomen: active bowel sounds Extremities: no edema Skin: clear Musculoskeletal: no pain - Labs Result Diagrams: 07/26/19 03:35 07/26/19 03:35 Troponin/CKMB CK-MB (CK-2) 32.5 ng/mL (0-6.6) H* 07/21/19 02:59 Troponin I 10.159 ng/mL (< 0.028) H* 07/21/19 02:59 - Telemetry Sinus rhythms and dysrhythmias: sinus rhythm - Assessment/Plan Assessment/Plan: 1. Severe multivessel CAD. 2. Acute on chornic systolic CHF 3. Reduced EF at 30-35% 4. ESRD, newly started HD PLAN: - CABG with Terrell Payne next week. - Continue other meds. - Awaiting telemetry bed.
[2019-07-26] MEDS: Cepastat Lozenges 1 LOZ PO PRN ×2 (14:01→21:17)
[2019-07-27] MEDS: Cepastat Lozenges 1 LOZ PO PRN ×2 (01:12→20:35)
[2019-07-27 04:52] LABS: Band 1 % (5-11); Eosinophils 3 % (0-10); Hemoglobin 9.4 g/dL (14.0-18.0); Hypochromia SLIGHT = 6-15 cells (100X) (0-5/hpf); Lymphocytes 12 % (21-51); MDiff Complete? YES; Mean Corpuscular Hemoglobin 31.2 pg (27.0-31.0); Mean Corpuscular Volume 91.7 fL (78.0-98.0); Mean Platelet Volume 7.6 fL (7.4-10.4); Monocytes 2 % (0-10); Neutrophil 82 % (42-75); Platelet Count 243 thou/uL (130-400); Platelet Morphology Comment Appears Adequate; RBC Distribution Width 12.4 % (11.5-14.5)
[2019-07-27 04:58] LABS: Anion Gap 15 mmol/L (10-20); BUN (Urea Nitrogen) 45 mg/dL (8.4-25.7); Calc. Creatinine Clearance 23 mL/min (70-130); Carbon Dioxide 25 mmol/L (22-29); Chloride 93 mmol/L (98-107); Estimated GFR-MDRD 11; Glucose 358 mg/dL (70-105); Potassium 3.6 mmol/L (3.5-5.1); Sodium 129 mmol/L (136-145)
[2019-07-27] MEDS: Furosemide 40 MG/4 ML VIAL SLOW IVP SCH ×2 (06:07→14:43)
[2019-07-27] MEDS: Ondansetron PF 4 MG/2 ML Vial SLOW IVP PRN (06:50)
[2019-07-27] MEDS ORDERED: Heparin 10,000 UNITS/ 10 ML VIAL ONE (09:29)
[2019-07-27] MEDS: Insulin Glargine 18 UNITS in Pre-Filled Syringe 1 EACH SC SCH (10:03)
[2019-07-27] MEDS: HumaLOG 300 UNITS/3 ML VIAL SC SCH ×3 (10:03→17:57)
[2019-07-27] MEDS: Levothyroxine Sodium 75 MCG TAB PO SCH (10:07)
[2019-07-27] MEDS ORDERED: traMADol HCl 50 MG TAB PO PRN (10:09)
--- NOTE | 2019-07-27 11:02 | PRG ---
DATE OF SERVICE: 07/27/2019 SUBJECTIVE: A 59-year-old gentleman, being seen for end-stage kidney disease. The patient denied nausea, vomiting, or chest pain. OBJECTIVE: See above. The patient is awake, alert, in no acute distress. VITAL SIGNS: Pulse 75, breathing 16, blood pressure 135/68. GENERAL APPEARANCE AND MENTAL STATUS: Fair. HEAD/NECK: Normocephalic. Atraumatic. EYES: EOMI. No deformity. EARS: Clear. No ulcers. NOSE: Intact. No lesions. MOUTH: Clear. No discharge. THROAT: Clear. No exudate. LUNGS: Clear. No crackles. CARDIAC: S1, S2. No rub. ABDOMEN: Benign. Bowel sounds positive. GENITALIA/RECTUM: Dixon absent. BACK/EXTREMITIES: Edema 0+. NEUROLOGICAL: Alert and motor intact. SKIN: LYMPHATICS: LABORATORY DATA: Reviewed. ASSESSMENT AND PLAN: 1. Stage 6 chronic kidney disease, plan dialysis. 2. Hypertension, stable. 3. Anemia, stable. Medication based on GFR appropriate. Job ID: [id number]
[2019-07-27] MEDS: Carvedilol 25 MG TAB PO SCH ×3 (13:02→20:35)
[2019-07-27] MEDS: Fish Oil 1,000 MG CAP PO SCH ×2 (13:02→20:35)
[2019-07-27] MEDS: Aspirin 81 mg Enteric Coated Tablet PO SCH (13:02)
[2019-07-27] MEDS: Isosorbide Mononitrate (ER) 30 MG TAB PO SCH (13:03)
[2019-07-27] MEDS: Lisinopril 5 MG TAB PO SCH (13:03)
[2019-07-27] MEDS: hydrALAZINE 25 MG TAB PO SCH ×3 (13:03→20:35)
[2019-07-27] MEDS: Multivit, Therapeutic 1 TAB PO SCH (13:03)
[2019-07-27] MEDS: Ezetimibe 10 MG TAB PO SCH (13:03)
[2019-07-27] MEDS: Tamsulosin HCl 0.4 MG CAP PO SCH (13:04)
[2019-07-27] MEDS ORDERED: Insulin Glargine 10 UNITS in Pre-Filled Syringe 1 EACH SC SCH (14:00)
[2019-07-27] MEDS: Insulin Glargine 25 UNITS in Pre-Filled Syringe 1 EACH SC SCH (20:39)
--- NOTE | 2019-07-27 22:34 | PDOC.HOSPP ---
- Subjective Encounter Date: 07/27/19 Encounter Time: 08:45 Subjective: Patient seen and examined during dialysis. No CP. No new complaints. No overnight events - Objective Vital Signs & Weight: Vital Signs (12 hours) Temp Pulse Resp BP BP BP Pulse Ox 07/27/19 20:35 71 135/65 07/27/19 15:36 98.2 F 71 13 130/62 96 07/27/19 14:44 71 07/27/19 13:03 71 07/27/19 11:21 97.9 F 71 15 154/72 H 97 Weight Admit Weight 258 lb 8 oz Weight 241 lb 4.8 oz Most Recent Monitor Data Heart Rate from ECG 74 NIBP 109/50 NIBP BP-Mean 69 Respiration from ECG 28 SpO2 89 I&O: 07/26/19 07/27/19 07/28/19 06:59 06:59 06:59 Intake Total 960 540 Output Total 250 920 Balance 710 -380 Result Diagrams: 07/27/19 04:00 07/27/19 04:00 Additional Labs: Accuchecks 07/27/19 07/27/19 07/27/19 20:50 16:49 12:58 POC Glucose 228 H 303 H 370 H 07/27/19 05:30 POC Glucose 351 H EKG Reviewed by me: Yes (Tele SR) Hospitalist ROS - Review of Systems Respiratory: denies: cough, dry, shortness of breath, hemoptysis, SOB with excertion, pleuritic pain, sputum, wheezing, other Cardiovascular: denies: chest pain, palpitations, orthopnea, paroxysmal noc. dyspnea, edema, light headedness, other - Medication Medications: Active Medications Generic Name Dose Route Start Last Admin Trade Name Freq PRN Reason Stop Dose Admin Acetaminophen 1,000 mg 07/22/19 18:18 07/26/19 08:22 Tylenol PO 1,000 mg Q6H PRN Administration Moderate to Severe Pain (6-10) Albuterol/Ipratropium 3 ml 07/19/19 10:14 07/19/19 20:56 Duoneb NEB 3 ml Q6H PRN Administration SOB &/or Wheezing Aspirin 81 mg 07/21/19 09:00 07/27/19 13:02 Ecotrin PO 81 mg DAILY [facility] Administration Carvedilol 25 mg 07/24/19 09:00 07/27/19 20:35 Coreg PO 25 mg TID [facility] Administration Ezetimibe 10 mg 07/19/19 09:00 07/27/19 13:03 Zetia PO 10 mg DAILY [facility] Administration Epoetin Fabio-epbx 10,000 unit 07/18/19 21:00 07/25/19 21:15 Retacrit SC 10,000 unit Q7D [facility] Administration Fish Oil 1,000 mg 07/18/19 21:00 07/27/19 20:35 Fish Oil PO 1,000 mg BID [facility] Administration Hydralazine HCl 50 mg 07/18/19 21:00 07/27/19 20:35 Apresoline PO 50 mg TID [facility] Administration Insulin Glargine 25 units/ 0.25 mls @ 0 mls/hr 07/27/19 21:00 07/27/19 20:39 Miscellaneous Medication SC 0.25 mls BID [facility] Administration Insulin Human Lispro 0 units 07/23/19 12:22 07/24/19 20:49 Humalog SC 4 unit .BEDTIME SLIDING SC PRN Administration BEDTIME SLIDING SCALE Protocol Insulin Human Lispro 0 units 07/23/19 17:34 07/26/19 11:46 Humalog SC 3 unit .AGGRESSIVE SLIDING PRN Administration Aggressive Correctional Scale Insulin Human Lispro 10 units 07/24/19 12:00 07/27/19 17:57 Humalog SC 10 units TID-WM [facility] Administration Isosorbide Mononitrate 60 mg 07/23/19 09:00 07/27/19 13:03 Imdur Er PO Not Given DAILY [facility] Levothyroxine Sodium 75 mcg 07/19/19 06:00 07/27/19 10:07 Synthroid PO 75 mcg 0600 [facility] Administration Lisinopril 5 mg 07/23/19 09:00 07/27/19 13:03 Zestril PO 5 mg DAILY [facility] Administration Multivitamins 1 tab 07/19/19 09:00 07/27/19 13:03 Theragran PO 1 tab DAILY [facility] Administration Nitroglycerin 0.4 mg 07/20/19 08:40 07/20/19 18:20 Nitrostat SL 1 tab Q5MIN PRN Administration Chest Pain Ondansetron HCl 4 mg 07/27/19 06:38 01/13/20 06:50 Zofran SLOW IVP 4 mg Q6H PRN Administration Nausea/Vomiting Sodium Chloride 10 ml 07/20/19 21:00 07/27/19 20:36 Flush - Normal Saline IVF 10 ml Q12HR [facility] Administration Sodium Chloride 10 ml 07/20/19 19:14 07/27/19 06:07 Flush - Normal Saline IVF 10 ml PRN PRN Administration Saline Flush Tamsulosin HCl 0.4 mg 07/19/19 09:00 07/27/19 13:04 Flomax PO 0.4 mg DAILY [facility] Administration Throat Lozenges 1 gemma 07/26/19 08:38 07/27/19 20:35 Cepastat Lozenges PO 1 gemma Q2H PRN Administration Sore Throat - Exam General Appearance: NAD Neck: supple, no JVD Heart: RRR, no gallops Respiratory: no wheezes, no ronchi Gastrointestinal: soft, non-tender, normal bowel sounds Extremities: no cyanosis Psychiatric: A&O x 3 Hosp A/P - Plan ADRIANA on CKD 5/ESRD/Metabolic acidosis NSTEMI/3v CAD Chronic systolic HF EF 25-30% dye to severe ischemic cardiomyopathy DM2 - uncontrolled HTN HLD BPH Obesity BMI 33.3 Hyponatremia Chronic diabetic foot ulcer PLAN: Cont dialysis CABG on Cont ASA/BB/ACEI/Statins Increase Lantus to 25 units BID Cont sliding scale with 10 units TID -wm Cont other meds
[2019-07-28] MEDS: Cepastat Lozenges 1 LOZ PO PRN (00:06)
[2019-07-28] MEDS: Levothyroxine Sodium 75 MCG TAB PO SCH (05:51)
[2019-07-28] MEDS: Insulin Glargine 25 UNITS in Pre-Filled Syringe 1 EACH SC SCH (08:52)
[2019-07-28] MEDS: HumaLOG 300 UNITS/3 ML VIAL SC SCH ×3 (08:52→18:27)
[2019-07-28] MEDS: Multivit, Therapeutic 1 TAB PO SCH (08:53)
[2019-07-28] MEDS: Tamsulosin HCl 0.4 MG CAP PO SCH (08:53)
[2019-07-28] MEDS: Lisinopril 5 MG TAB PO SCH (08:53)
[2019-07-28] MEDS: hydrALAZINE 25 MG TAB PO SCH ×3 (08:53→21:07)
[2019-07-28] MEDS: Ezetimibe 10 MG TAB PO SCH (08:53)
[2019-07-28] MEDS: Isosorbide Mononitrate (ER) 30 MG TAB PO SCH (08:53)
[2019-07-28] MEDS: Fish Oil 1,000 MG CAP PO SCH ×2 (08:53→21:07)
[2019-07-28] MEDS: Aspirin 81 mg Enteric Coated Tablet PO SCH (08:53)
[2019-07-28] MEDS: Carvedilol 25 MG TAB PO SCH ×3 (08:54→21:09)
--- NOTE | 2019-07-28 09:26 | PRG ---
DATE OF SERVICE: 07/28/2019 SUBJECTIVE: A 59-year-old gentleman, being seen for end-stage kidney disease. The patient denied nausea, vomiting, or chest pain. OBJECTIVE: CONSTITUTIONAL: The patient is awake, alert. VITAL SIGNS: Pulse 68, breathing 16, blood pressure 126/38. GENERAL APPEARANCE AND MENTAL STATUS: Fair. HEAD/NECK: Normocephalic. Atraumatic. EYES: EOMI. No deformity. EARS: Clear. No ulcers. NOSE: Intact. No lesions. MOUTH: Clear. No discharge. THROAT: Clear. No exudate. LUNGS: Clear. No crackles. CARDIAC: S1, S2. No rub. ABDOMEN: Benign. Bowel sounds positive. GENITALIA/RECTUM: Dixon absent. BACK/EXTREMITIES: Edema 0+. NEUROLOGICAL: Alert and motor intact. SKIN: LYMPHATICS: LABORATORY DATA: Reviewed. ASSESSMENT AND PLAN: 1. Stage 6 chronic kidney disease. Continue hemodialysis. 2. Hypertension, stable. 3. Anemia, stable. 4. Medication based on GFR appropriate. Job ID: [id number]
--- NOTE | 2019-07-28 10:41 | PDOC.HOSPP ---
- Subjective Encounter Date: 07/28/19 Encounter Time: 10:37 Subjective: Patient seen and examined for ADRIANA/NSTEMI. No new complaints. No overnight events - Objective Vital Signs & Weight: Vital Signs (12 hours) Temp Pulse Resp BP Pulse Ox 07/28/19 08:53 68 07/28/19 08:50 97.8 F 68 20 138/68 95 07/28/19 03:41 98.3 F 79 20 126/60 95 07/28/19 00:00 72 21 H 98 Weight Admit Weight 258 lb 8 oz Weight 221 lb 12.56 oz Most Recent Monitor Data Heart Rate from ECG 74 NIBP 109/50 NIBP BP-Mean 69 Respiration from ECG 28 SpO2 89 I&O: 07/27/19 07/28/19 07/29/19 06:59 06:59 06:59 Intake Total 540 240 Output Total 920 500 Balance -380 -260 Result Diagrams: 07/27/19 04:00 07/27/19 04:00 Additional Labs: Accuchecks 07/28/19 07/28/19 07/27/19 05:41 02:54 20:50 POC Glucose 164 H 148 H 228 H 07/27/19 07/27/19 16:49 12:58 POC Glucose 303 H 370 H EKG Reviewed by me: Yes (Tele SR) Hospitalist ROS - Review of Systems Cardiovascular: denies: chest pain, palpitations, orthopnea, paroxysmal noc. dyspnea, edema, light headedness, other Gastrointestinal: denies: nausea, vomiting, abdominal pain, diarrhea, constipation, melena, hematochezia, other - Medication Medications: Active Medications Generic Name Dose Route Start Last Admin Trade Name Freq PRN Reason Stop Dose Admin Acetaminophen 1,000 mg 07/22/19 18:18 07/26/19 08:22 Tylenol PO 1,000 mg Q6H PRN Administration Moderate to Severe Pain (6-10) Albuterol/Ipratropium 3 ml 07/19/19 10:14 07/19/19 20:56 Duoneb NEB 3 ml Q6H PRN Administration SOB &/or Wheezing Aspirin 81 mg 07/21/19 09:00 07/28/19 08:53 Ecotrin PO 81 mg DAILY [facility] Administration Carvedilol 25 mg 07/24/19 09:00 07/28/19 08:54 Coreg PO 25 mg TID [facility] Administration Ezetimibe 10 mg 07/19/19 09:00 07/28/19 08:53 Zetia PO 10 mg DAILY [facility] Administration Epoetin Fabio-epbx 10,000 unit 07/18/19 21:00 07/25/19 21:15 Retacrit SC 10,000 unit Q7D [facility] Administration Fish Oil 1,000 mg 07/18/19 21:00 07/28/19 08:53 Fish Oil PO 1,000 mg BID [facility] Administration Hydralazine HCl 50 mg 07/18/19 21:00 07/28/19 08:53 Apresoline PO 50 mg TID [facility] Administration Insulin Glargine 25 units/ 0.25 mls @ 0 mls/hr 07/27/19 21:00 07/28/19 08:52 Miscellaneous Medication SC 0.25 mls BID [facility] Administration Insulin Human Lispro 0 units 07/23/19 12:22 07/24/19 20:49 Humalog SC 4 unit .BEDTIME SLIDING SC PRN Administration BEDTIME SLIDING SCALE Protocol Insulin Human Lispro 0 units 07/23/19 17:34 07/26/19 11:46 Humalog SC 3 unit .AGGRESSIVE SLIDING PRN Administration Aggressive Correctional Scale Insulin Human Lispro 10 units 07/24/19 12:00 07/28/19 08:52 Humalog SC 10 units TID-WM [facility] Administration Isosorbide Mononitrate 60 mg 07/23/19 09:00 07/28/19 08:53 Imdur Er PO 60 mg DAILY [facility] Administration Levothyroxine Sodium 75 mcg 07/19/19 06:00 07/28/19 05:51 Synthroid PO 75 mcg 0600 [facility] Administration Lisinopril 5 mg 07/23/19 09:00 07/28/19 08:53 Zestril PO 5 mg DAILY [facility] Administration Multivitamins 1 tab 07/19/19 09:00 07/28/19 08:53 Theragran PO 1 tab DAILY [facility] Administration Nitroglycerin 0.4 mg 07/20/19 08:40 07/20/19 18:20 Nitrostat SL 1 tab Q5MIN PRN Administration Chest Pain Ondansetron HCl 4 mg 07/27/19 06:38 07/27/19 06:50 Zofran SLOW IVP 4 mg Q6H PRN Administration Nausea/Vomiting Sodium Chloride 10 ml 07/20/19 21:00 07/28/19 08:54 Flush - Normal Saline IVF 10 ml Q12HR [facility] Administration Sodium Chloride 10 ml 07/20/19 19:14 07/27/19 06:07 Flush - Normal Saline IVF 10 ml PRN PRN Administration Saline Flush Tamsulosin HCl 0.4 mg 07/19/19 09:00 07/28/19 08:53 Flomax PO 0.4 mg DAILY [facility] Administration Throat Lozenges 1 gemma 07/26/19 08:38 07/28/19 00:06 Cepastat Lozenges PO 1 gemma Q2H PRN Administration Sore Throat - Exam General Appearance: NAD Heart: RRR, no gallops Respiratory: CTAB, no rales Gastrointestinal: soft, non-tender, normal bowel sounds Extremities: no edema Hosp A/P - Plan DVT proph w/SCDs ADRIANA on CKD 5/ESRD/Metabolic acidosis - on dialysis NSTEMI/3V CAD Chronic systolic HF EF 25-30% dye to severe ischemic cardiomyopathy DM2 HTN HLD BPH Obesity BMI 33.3 Hyponatremia Chronic diabetic foot ulcer PLAN: Cont dialysis per Nephrology CABG on Cont ASA/Coreg/Lisinopril/Nitrates/Statins Increase Lantus to 35 units BID Cont aggressive sliding scale with 10 units TID-WM Cont other meds
[2019-07-28] MEDS ORDERED: Heparin 10,000 UNITS/ 10 ML VIAL ONE (13:14)
--- NOTE | 2019-07-28 20:37 | PRG ---
DATE OF SERVICE: 07/28/2019 SUBJECTIVE: Uriel Carlson has no complaints. He denies having chest pain. OBJECTIVE: VITAL SIGNS: He is afebrile. Heart rates in the 60s, room air, blood pressure 145/67. LUNGS: Clear. HEART: Regular rhythm. ABDOMEN: Soft. LABORATORY DATA: Yesterday's hemoglobin 9.4. Glucoses today have been most part. IMPRESSION: 1. Coronary artery disease. Tentatively scheduled for bypass on . 2. Unstable angina, stable at this time. 3. Chronic kidney disease, on dialysis. We will continue to follow intermittently until his surgery and follow him daily for few days after that. Job ID: [id number]
[2019-07-28] MEDS ORDERED: Insulin Glargine 35 UNITS in Pre-Filled Syringe 1 EACH SC SCH (21:00)
[2019-07-28] MEDS: Insulin Glargine 25 UNITS in Pre-Filled Syringe SC SCH (21:06)
[2019-07-29] MEDS: Levothyroxine Sodium 75 MCG TAB PO SCH (05:35)
[2019-07-29 07:38] LABS: Anion Gap 11 mmol/L (10-20); BUN (Urea Nitrogen) 23 mg/dL (8.4-25.7); Calc. Creatinine Clearance 29 mL/min (70-130); Calcium 8.4 mg/dL (7.8-10.44); Carbon Dioxide 28 mmol/L (22-29); Chloride 98 mmol/L (98-107); Estimated GFR-MDRD 16; Glucose 127 mg/dL (70-105); Potassium 3.5 mmol/L (3.5-5.1); Sodium 133 mmol/L (136-145)
[2019-07-29] MEDS ORDERED: Heparin 10,000 UNITS/ 10 ML VIAL ONE (08:22)
--- NOTE | 2019-07-29 08:22 | PRG ---
DATE OF SERVICE: 07/29/2019 SUBJECTIVE: A 59-year-old gentleman being seen for end-stage renal disease. The patient denied nausea, vomiting, or chest pain. OBJECTIVE: See above. The patient awake, alert. VITAL SIGNS: Pulse 76, breathing 16, blood pressure 131/62. GENERAL APPEARANCE AND MENTAL STATUS: Fair. HEAD/NECK: Normocephalic. Atraumatic. EYES: EOMI. No deformity. EARS: Clear. No ulcers. NOSE: Intact. No lesions. MOUTH: Clear. No discharge. THROAT: Clear. No exudate. LUNGS: Clear. No crackles. CARDIAC: S1, S2. No rub. ABDOMEN: Benign. Bowel sounds positive. GENITALIA/RECTUM: Dixon absent. BACK/EXTREMITIES: Edema 0+. NEUROLOGICAL: Alert and motor intact. SKIN: LYMPHATICS: LABORATORY DATA: Reviewed. ASSESSMENT: 1. Chronic kidney disease, stage 6. Plan dialysis. 2. Hypertension, stable. 3. Anemia, stable. Medication based on GFR appropriate. Job ID: [id number]
[2019-07-29] MEDS ORDERED: Loratadine 10 MG TAB PO PRN (09:00)
[2019-07-29] MEDS: Carvedilol 25 MG TAB PO SCH ×3 (10:39→21:04)
[2019-07-29] MEDS: HumaLOG 300 UNITS/3 ML VIAL SC SCH ×3 (10:39→18:27)
[2019-07-29] MEDS: Aspirin 81 mg Enteric Coated Tablet PO SCH (10:39)
[2019-07-29] MEDS: hydrALAZINE 25 MG TAB PO SCH ×3 (10:40→21:04)
[2019-07-29] MEDS: Fish Oil 1,000 MG CAP PO SCH ×2 (10:40→21:04)
[2019-07-29] MEDS: Ezetimibe 10 MG TAB PO SCH (10:40)
[2019-07-29] MEDS: Insulin Glargine 25 UNITS in Pre-Filled Syringe SC SCH ×2 (10:40→21:04)
[2019-07-29] MEDS: Lisinopril 5 MG TAB PO SCH (10:41)
[2019-07-29] MEDS: Isosorbide Mononitrate (ER) 30 MG TAB PO SCH (10:41)
[2019-07-29] MEDS: Multivit, Therapeutic 1 TAB PO SCH (10:42)
[2019-07-29] MEDS: Tamsulosin HCl 0.4 MG CAP PO SCH (10:42)
[2019-07-29] MEDS: Ondansetron PF 4 MG/2 ML Vial SLOW IVP PRN (11:43)
--- NOTE | 2019-07-29 13:25 | RAD ---
EXAM: Single view of the chest HISTORY: Preoperative radiograph prior to CABG. COMPARISON: 07/22/2019 FINDINGS: Single view of the chest shows a normal sized cardiomediastinal silhouette. The dialysis c atheter and central venous catheter are unchanged in position. There is no evidence of consolidation, mass, or pleural effusion. Degenerative changes are seen in the spine. IMPRESSION: No evidence of acute cardiopulmonary disease
[2019-07-29] MEDS: Acetaminophen 500 MG TAB PO PRN (13:57)
[2019-07-29] MEDS ORDERED: Sodium Chloride 0.9% 250 ML IV SCH ×2 (14:45→18:45)
[2019-07-29] MEDS: Sodium Chloride 0.9% 250 ML IV SCH ×4 (14:50→17:01)
--- NOTE | 2019-07-29 17:41 | EKG ---
Test Reason : Blood Pressure : / mmHG Vent. Rate : 103 BPM Atrial Rate : 103 BPM P-R Int : 194 ms QRS Dur : 130 ms QT Int : 378 ms P-R-T Axes : 066 039 133 degrees QTc Int : 495 ms Sinus tachycardia Non-specific intra-ventricular conduction block T wave abnormality, consider lateral ischemia Abnormal ECG When compared with ECG of 20-JUL-2019 17:52, ST now depressed in Anterior leads T wave inversion no longer evident in Inferior leads Confirmed by DR. Anahi IRAHETA ([id number]) on 07/29/2019 5:40:56 PM Referred By: Confirmed By:DR. Anahi IRAHETA
[2019-07-29] MEDS ORDERED: Sodium Chloride 0.9% 250 ML IVPB SCH (18:30)
[2019-07-29] MEDS: Budesonide 0.5 MG/2 ML NEB INH SCH (19:29)
[2019-07-29] MEDS: HumaLOG 300 UNITS/3 ML VIAL SC PRN (21:04)
--- NOTE | 2019-07-29 21:20 | PDOC.HOSPP ---
- Subjective Encounter Date: 07/29/19 Encounter Time: 09:00 Subjective: Patient seen and examined during dialysis. No CP/SOB. No new complaints. No overnight events - Objective Vital Signs & Weight: Vital Signs (12 hours) Temp Pulse Resp BP BP BP Pulse Ox 07/29/19 21:04 73 07/29/19 19:31 98.4 F 73 20 110/55 L 93 L 07/29/19 19:29 73 18 93 L 07/29/19 18:56 102/67 07/29/19 18:29 97/55 L 07/29/19 18:16 84/57 L 07/29/19 15:23 98.4 F 80 16 92/52 L 93 L 07/29/19 14:32 86/48 L 07/29/19 13:49 101/57 L 07/29/19 13:48 101/57 L 07/29/19 12:42 100/58 L 07/29/19 12:29 103/58 L 07/29/19 12:20 98/53 L 07/29/19 12:04 95/51 L 07/29/19 12:00 97/56 L 07/29/19 11:50 109/53 L 07/29/19 11:45 94/52 L 07/29/19 11:41 98.8 F 18 88/49 L 97 07/29/19 10:33 98.0 F 79 16 144/75 H 99 07/29/19 10:05 96 Weight Admit Weight 258 lb 8 oz Weight 221 lb 12.56 oz Most Recent Monitor Data Heart Rate from ECG 74 NIBP 109/50 NIBP BP-Mean 69 Respiration from ECG 28 SpO2 89 I&O: 07/28/19 07/29/19 07/30/19 06:59 06:59 06:59 Intake Total 240 1200 Output Total 500 Balance -260 1200 Result Diagrams: 07/27/19 04:00 07/29/19 07:00 Additional Labs: Accuchecks 07/29/19 07/29/19 07/29/19 20:41 16:19 12:04 POC Glucose 224 H 188 H 221 H 07/29/19 07/29/19 10:55 05:34 POC Glucose 169 H 138 H EKG Reviewed by me: Yes (Tele SR) Hospitalist ROS - Review of Systems Cardiovascular: denies: chest pain, palpitations, orthopnea, paroxysmal noc. dyspnea, edema, light headedness, other Gastrointestinal: denies: nausea, vomiting, abdominal pain, diarrhea, constipation, melena, hematochezia, other - Medication Medications: Active Medications Generic Name Dose Route Start Last Admin Trade Name Freq PRN Reason Stop Dose Admin Acetaminophen 1,000 mg 07/22/19 18:18 07/29/19 13:57 Tylenol PO 07/30/19 08:00 1,000 mg Q6H PRN Administration Moderate to Severe Pain (6-10) Albuterol/Ipratropium 3 ml 07/19/19 10:14 07/29/19 19:31 Duoneb NEB 07/30/19 08:00 3 ml Q6H PRN Administration SOB &/or Wheezing Aspirin 81 mg 07/21/19 09:00 07/29/19 10:39 Ecotrin PO 07/30/19 08:00 81 mg DAILY BC Administration Budesonide 0.5 mg 07/29/19 18:30 07/29/19 19:29 Pulmicort Neb Solution INH 07/30/19 08:00 0.5 mg BID-RT BC Administration Carvedilol 25 mg 07/24/19 09:00 07/29/19 21:04 Coreg PO Not Given TID BC Ezetimibe 10 mg 07/19/19 09:00 07/29/19 10:40 Zetia PO 07/30/19 08:00 10 mg DAILY BC Administration Epoetin Fabio-epbx 10,000 unit 07/18/19 21:00 07/25/19 21:15 Retacrit SC 07/30/19 08:00 10,000 unit Q7D BC Administration Fish Oil 1,000 mg 07/18/19 21:00 07/29/19 21:04 Fish Oil PO 07/30/19 08:00 1,000 mg BID BC Administration Hydralazine HCl 50 mg 07/18/19 21:00 07/29/19 21:04 Apresoline PO 07/30/19 08:00 Not Given TID BC Insulin Glargine 25 units/ 0.25 mls @ 0 mls/hr 07/28/19 21:00 07/29/19 21:04 Miscellaneous Medication SC 07/30/19 08:00 Not Given BID BC Insulin Human Lispro 0 units 07/23/19 12:22 07/29/19 21:04 Humalog SC 07/30/19 08:00 2 unit .BEDTIME SLIDING SC PRN Administration BEDTIME SLIDING SCALE Protocol Insulin Human Lispro 0 units 07/23/19 17:34 07/26/19 11:46 Humalog SC 07/30/19 08:00 3 unit .AGGRESSIVE SLIDING PRN Administration Aggressive Correctional Scale Insulin Human Lispro 10 units 07/24/19 12:00 07/29/19 18:27 Humalog SC 07/30/19 08:00 Not Given TID-WM BC Isosorbide Mononitrate 60 mg 07/23/19 09:00 07/29/19 10:41 Imdur Er PO 07/30/19 08:00 60 mg DAILY BC Administration Levothyroxine Sodium 75 mcg 07/19/19 06:00 07/29/19 05:35 Synthroid PO 07/30/19 08:00 75 mcg 0600 BC Administration Lisinopril 5 mg 07/23/19 09:00 07/29/19 10:41 Zestril PO 5 mg DAILY BC Administration Multivitamins 1 tab 07/19/19 09:00 07/29/19 10:42 Theragran PO 07/30/19 08:00 1 tab DAILY BC Administration Nitroglycerin 0.4 mg 07/20/19 08:40 07/20/19 18:20 Nitrostat SL 07/30/19 08:00 1 tab Q5MIN PRN Administration Chest Pain Ondansetron HCl 4 mg 07/27/19 06:38 07/29/19 11:43 Zofran SLOW IVP 07/30/19 08:00 4 mg Q6H PRN Administration Nausea/Vomiting Sodium Chloride 10 ml 07/20/19 21:00 07/29/19 21:08 Flush - Normal Saline IVF 07/30/19 08:00 10 ml Q12HR BC Administration Sodium Chloride 10 ml 07/20/19 19:14 07/27/19 06:07 Flush - Normal Saline IVF 07/30/19 08:00 10 ml PRN PRN Administration Saline Flush Tamsulosin HCl 0.4 mg 07/19/19 09:00 07/29/19 10:42 Flomax PO 01/16/20 08:00 0.4 mg DAILY BC Administration Throat Lozenges 1 gemma 07/26/19 08:38 07/28/19 00:06 Cepastat Lozenges PO 07/30/19 08:00 1 gemma Q2H PRN Administration Sore Throat - Exam General Appearance: NAD Heart: RRR, no gallops Respiratory: no wheezes, no rales Gastrointestinal: soft, non-tender, normal bowel sounds Extremities: no cyanosis Hosp A/P - Plan DVT proph w/SCDs ADRIANA on CKD 5/ESRD/Metabolic acidosis - on dialysis NSTEMI/3V CAD Chronic systolic HF EF 25-30% dye to severe ischemic cardiomyopathy DM2 HTN HLD BPH Obesity BMI 33.3 Hyponatremia Chronic diabetic foot ulcer PLAN: Cont dialysis per Nephrology CABG in AM Cont ASA/Statins Cont Coreg/Lisinopril/Nitrates with holding parameters DC Lantus and sliding scale after PM dose Cont other meds
[2019-07-30] MEDS: Cepastat Lozenges 1 LOZ PO PRN ×2 (02:10→04:27)
[2019-07-30] MEDS: Levothyroxine Sodium 75 MCG TAB PO SCH (05:23)
[2019-07-30] MEDS: Lisinopril 5 MG TAB PO SCH (05:24)
[2019-07-30] MEDS: Carvedilol 25 MG TAB PO SCH (05:24)
[2019-07-30] MEDS ORDERED: Vancomycin HCl 1.5 GM in Sodium Chloride 0.9% 250 ML 300 ML IVPB SCH ×2 (06:00→20:00)
[2019-07-30] MEDS ORDERED: EPINEPHrine 1 MG/ML AMP ONE (06:34)
[2019-07-30] MEDS ORDERED: Bupivacaine PF 0.5% 30 ML VIAL ONE (06:34)
[2019-07-30] MEDS ORDERED: Albumin 5% 500 ML ONE (06:34)
[2019-07-30] MEDS ORDERED: Dexamethasone 20 MG/5 ML VIAL ONE (06:37)
[2019-07-30] MEDS ORDERED: Sodium Chloride 0.9% 0 ML ONE (06:37)
[2019-07-30] MEDS ORDERED: Heparin 10,000 UNITS/1 ML VIAL 30,000 UNITS in Sodium Chloride 0.9% 1,000 ML FS SCH (06:45)
[2019-07-30] MEDS ORDERED: Fentanyl 250 MCG/5 ML VIAL ONE (06:51)
[2019-07-30] MEDS ORDERED: Midazolam HCl 5 mg/5 ml Vial ONE (06:51)
[2019-07-30] MEDS ORDERED: Dexmedetomidine 200 MCG/2 ML VIAL ONE (06:52)
[2019-07-30] MEDS ORDERED: Dexamethasone 4 mg/ml Vial ONE (06:56)
--- NOTE | 2019-07-30 09:57 | PRG ---
DATE OF SERVICE: 07/30/2019 SUBJECTIVE: A 59-year-old gentleman being seen for end-stage renal disease. OBJECTIVE: CONSTITUTIONAL: The patient is resting. VITAL SIGNS: Afebrile. Pulse 75, breathing 16, and blood pressure 124/62. GENERAL APPEARANCE AND MENTAL STATUS: Fair. HEAD/NECK: Normocephalic. Atraumatic. EYES: EOMI. No deformity. EARS: Clear. No ulcers. NOSE: Intact. No lesions. MOUTH: Clear. No discharge. THROAT: Clear. No exudate. LUNGS: Clear. No crackles. CARDIAC: S1, S2. No rub. ABDOMEN: Benign. Bowel sounds positive. GENITALIA/RECTUM: Dixon absent. BACK/EXTREMITIES: Edema 0+. NEUROLOGICAL: Alert and motor intact. SKIN: LYMPHATICS: LABORATORY DATA: Reviewed. ASSESSMENT AND PLAN: 1. Stage 6 chronic kidney disease. Plan dialysis tomorrow. 2. Anemia, stable. 3. Medication based on GFR appropriate. Job ID: [id number]
[2019-07-30] MEDS: Budesonide 0.5 MG/2 ML NEB INH SCH (10:14)
[2019-07-30] MEDS ORDERED: Bisacodyl 10 MG SUPP PR PRN (11:19)
[2019-07-30] MEDS ORDERED: Nitroglycerin 50 MG/250 ML BOT 250 ML IVPB PRN (11:19)
[2019-07-30] MEDS ORDERED: Acetaminophen 325 MG TAB PO PRN (11:19)
[2019-07-30] MEDS ORDERED: Norepinephrine 8 MG/0.9% NS 250 ML IVPB PRN (11:19)
[2019-07-30] MEDS ORDERED: Fentanyl 100 MCG/2 ML VIAL SLOW IVP PRN (11:19)
[2019-07-30] MEDS ORDERED: Mag-Al 1200 mg/1200 mg/30 ML UDCUP PO PRN (11:19)
[2019-07-30] MEDS ORDERED: niCARdipine 25 MG in Sodium Chloride 0.9% 250 ML 250 ML IVPB PRN (11:19)
[2019-07-30] MEDS ORDERED: Sodium Chloride 0.9% 1,000 ML IV SCH (11:19)
[2019-07-30] MEDS ORDERED: Bisacodyl 5 MG TAB PO PRN (11:19)
[2019-07-30] MEDS ORDERED: HYDROcodone/Acetaminophen 5/325 mg Tablet PO PRN (11:19)
[2019-07-30] MEDS ORDERED: hydrALAZINE 20 MG/ML VIAL SLOW IVP PRN (11:19)
[2019-07-30] MEDS ORDERED: Morphine 2 MG/ML SYRINGE SLOW IVP PRN (11:19)
[2019-07-30] MEDS ORDERED: Post-Op Insulin Drip Protocol IVPB ONE (11:19)
[2019-07-30] MEDS ORDERED: Hetastarch 6% 500 ML 500 ML IVPB PRN (11:19)
[2019-07-30] MEDS ORDERED: Dextrose 50% Abboject 50 ML SYRINGE SLOW IVP PRN (11:41)
[2019-07-30] MEDS: HumaLOG 300 UNITS/3 ML VIAL SC SCH (11:41)
[2019-07-30] MEDS ORDERED: HUMULIN R 100 UNITS in Sodium Chloride 0.9% 100 ML IVPB SCH (11:41)
[2019-07-30] MEDS ORDERED: Dextrose 5% in Water 1,000 ML IV PRN (11:41)
[2019-07-30] MEDS ORDERED: Aspirin Chewable 81 MG TAB PO SCH (11:45)
[2019-07-30 11:50] LABS: Hemoglobin 9.3 g/dL (14.0-18.0)
[2019-07-30 11:54] LABS: Hemoglobin 9.4 g/dL (14.0-18.0); Mean Corpuscular HGB CONC 33.9 g/dL (32.0-36.0); Mean Corpuscular Volume 94.2 fL (78.0-98.0); Mean Platelet Volume 7.5 fL (7.4-10.4); Platelet Count 258 thou/uL (130-400); RBC Distribution Width 12.4 % (11.5-14.5); Red Blood Cell (RBC) Count 2.94 mill/uL (4.70-6.10); White Blood Cell (WBC) Count 21.3 thou/uL (4.8-10.8)
[2019-07-30 11:56] LABS: INR-International Normal Ratio 1.3; PTT 31.2 SEC (22.9-36.1); Prothrombin Time 15.9 SEC (12.0-14.7)
--- NOTE | 2019-07-30 11:58 | RAD ---
RADIOGRAPH CHEST 1 VIEW: DATE: 07/30/2019 TIME: 11:15 AM HISTORY: 59-year-old male status post open heart surgery COMPARISON: 07/29/2019 FINDINGS: Right IJ double lumen hemodialysis catheter remains. New sternotomy wires. Left IJ central venous cat heter remains. New drainage tube overlying left mid and upper lung zones. No pneumothorax or pulmonary edema identified. Mild subsegmental atelectasis at right medial base. Blunting of left late ral costophrenic angle. Pulmonary venous congestion. IMPRESSION: Status post open heart surgery
[2019-07-30] MEDS ORDERED: Famotidine/PF 20 mg/2ml Vial SLOW IVP SCH (12:00)
[2019-07-30 12:22] LABS: Anion Gap 13 mmol/L (10-20); BUN (Urea Nitrogen) 26 mg/dL (8.4-25.7); Calc. Creatinine Clearance 27 mL/min (70-130); Calcium 7.9 mg/dL (7.8-10.44); Carbon Dioxide 23 mmol/L (22-29); Chloride 103 mmol/L (98-107); Estimated GFR-MDRD 14; Glucose 83 mg/dL (70-105); Potassium 4.3 mmol/L (3.5-5.1); Sodium 135 mmol/L (136-145)
[2019-07-30 12:25] LABS: Band 19 % (5-11); Eosinophils 5 % (0-10); Lymphocytes 5 % (21-51); MDiff Complete? YES; Monocytes 8 % (0-10); Neutrophil 62 % (42-75); Platelet Morphology Comment Appears Adequate; Polychromasia SLIGHT = 2-3 cells (100X) (0-2/hpf); Reactive Lymphocytes 1 % (0-10)
[2019-07-30 12:52] LABS: Potassium 4.3 mmol/L (3.5-5.1)
[2019-07-30] MEDS ORDERED: Thrombin 5000 UNITS/5 ML VIAL ONE (14:21)
[2019-07-30] MEDS ORDERED: Heparin 5,000 UNITS/ML VIAL ONE (14:21)
[2019-07-30] MEDS ORDERED: Vecuronium 10 MG VIAL ONE (14:21)
[2019-07-30] MEDS ORDERED: Ondansetron PF 4 MG/2 ML Vial ONE (14:21)
[2019-07-30] MEDS ORDERED: Protamine Sulfate 250 MG/25 ML VIAL ONE (14:21)
[2019-07-30] MEDS ORDERED: PROPOFOL 200 MG/20 ML VIAL ONE (14:21)
[2019-07-30] MEDS ORDERED: Papaverine 60 MG/2 ML VIAL ONE (14:21)
[2019-07-30] MEDS ORDERED: Calcium Chloride 1 GM/10 ML Abboject SYRINGE ONE (14:21)
[2019-07-30] MEDS ORDERED: Aminocaproic Acid 5 GM/20 ML VIAL ONE (14:21)
[2019-07-30] MEDS ORDERED: Lidocaine 2% PF 5 ML VIAL ONE (14:21)
[2019-07-30] MEDS ORDERED: Potassium Chloride 60 MEQ/30 ML VIAL ONE (14:21)
[2019-07-30] MEDS ORDERED: Lidocaine 1% PF 5 ML VIAL ONE (14:21)
[2019-07-30] MEDS ORDERED: Cardioplegic Soln 1,000 ML BAG ONE (14:21)
[2019-07-30] MEDS ORDERED: Heparin 30,000 units/30 ml VIAL ONE (14:21)
[2019-07-30] MEDS ORDERED: Sodium Bicarb 50 MEQ/50 ML Abboject 8.4% SYRINGE ONE (14:21)
[2019-07-30] MEDS ORDERED: Norepinephrine 4 MG/4 ML VIAL ONE (14:21)
[2019-07-30] MEDS ORDERED: Magnesium Sulfate 1 GM/2 ML VIAL ONE (14:21)
--- NOTE | 2019-07-30 16:40 | OP ---
DATE OF PROCEDURE: 07/30/2019 PREOPERATIVE DIAGNOSES: Coronary artery disease/hypertension/dyslipidemia/diabetes mellitus/status post [id number] myocardial infarction/end-stage renal disease, on hemodialysis. POSTOPERATIVE DIAGNOSES: Coronary artery disease/hypertension/dyslipidemia/diabetes mellitus/status post [id number] myocardial infarction/end-stage renal disease, on hemodialysis. PROCEDURES PERFORMED: Coronary artery bypass grafting x3: 1. Left internal mammary artery to 2.0 mm mid left anterior descending - good conduit with diffusely diseased target. 2. Reverse saphenous vein to 3.0 mm posterior descending artery - good conduit with diffusely diseased target. 3. Reverse saphenous vein to 1.5 mm obtuse marginal 1 - good conduit with diffusely diseased target. Note: None of these targets should be approached for redo due to diffuse disease and calcification. HOSPICE EXECUTIVE DIRECTOR SURGEON: Souleymane Scott MD ANESTHESIA: General endotracheal. ANESTHESIOLOGIST: Tavares Ogden MD. PUMP TIME: 52 minutes. CROSSCLAMP TIME: 30 minutes. LOW-CORE TEMPERATURE: 34 degrees Celsius. FLATBED TRUCK DRIVER: Ashley Smith. DRAINS: 24-Ghanaian and 19-Ghanaian drains x1. DRIPS: Levophed at 2 mcg. TRANSFUSIONS: None. DESCRIPTION OF PROCEDURE: After operative consent was obtained, the patient was brought to the operating room and placed in supine position on the operating room table. Appropriate central line and monitors were placed, and general endotracheal anesthesia was induced. Chest, abdomen, and legs were prepped and draped in usual sterile fashion. A femoral arterial line was placed through the left groin and secured with silk suture. Greater saphenous vein was harvested from the left thigh utilizing an endoscopic technique. Wound was closed in layers, and Dermabond was applied to skin. Median sternotomy was performed. Left internal mammary artery was harvested as a pedicle graft. The patient was systemically heparinized. Distal pedicle was divided and infused with papaverine. Thymic fat and pericardium were divided with electrocautery. Pericardial stay sutures were placed. Aortic and atrial cannulation was performed. After adequate heparinization, retrograde prime was performed. The patient was placed on cardiopulmonary bypass. Distal targets were marked. Aortic crossclamp was applied, and antegrade sanguineous cardioplegic arrest was obtained. 1 L of antegrade cold [place] cardioplegia was given. Topical cold solution was used. Reverse saphenous vein was anastomosed to PDA in end-to-side fashion with running 7-0 Prolene suture. Anastomosis was tested and was hemostatic. Reverse saphenous vein was anastomosed to the OM in end-to-side fashion with running 7-0 Prolene suture. A 1 mm probe passed distally through the anastomosis prior to completion. Mammary artery was brought through a window in the pericardium and anastomosed to LAD in end-to-side fashion with running 7-0 Prolene suture. On release of mammary clamps, good hooding of anastomosis and good distal flow. Pedicle was secured with interrupted 6-0 Prolene suture. Crossclamp was removed, and partial occluding clamp was placed. Saphenous veins were anastomosed to individual punch sites in the aorta with running 6-0 Prolene suture. Partial occluding clamp was removed, and grafts were deaired. Anastomoses were inspected for hemostasis, which was good. The patient was warmed and weaned from cardiopulmonary bypass. After resumption of sinus rhythm, good hemodynamics, temperature greater than 36.5, bypass was discontinued. Transfusion was given. Protamine was administered. Decannulation was performed, and pursestring suture was secured. 19-Ghanaian Scott drain was placed in the left pleural cavity. 24-Ghanaian drain was placed in the mediastinum. The sternum was treated with vancomycin paste. After adequate hemostasis had been obtained, sternum was closed with #7 wire. A presternal block was performed with 0.5% Marcaine with epinephrine. Sternum was treated with platelet rich plasma, and wires were twisted and buried. Wounds were irrigated and treated with platelet poor plasma and closed in multiple layers. Needle, sponge, and instruments counts were all reported as correct at the end of the procedure. the patient tolerated the procedure well and was transferred to the intensive care unit in stable, but critical condition. Job ID: [id number]
[2019-07-30] MEDS ORDERED: Vancomycin 1.5 GRAM/300 ML BAG 1.5 GM in Premix Bag 1 BAG IVPB SCH (20:00)
[2019-07-31] MEDS: Guaifenesin DM 100-10/5 ML UDCUP PO PRN ×2 (02:16→06:48)
[2019-07-31 04:39] LABS: #Basophils 0.1 thou/uL (0.0-0.2); #Eosinphils 0.1 thou/uL (0.0-0.7); #Lymphocytes 1.8 thou/uL (1.20-3.40); #Monocytes 1.4 thou/uL (0.11-0.59); #Neutrophils 13.5 thou/uL (1.40-6.50); %Basophils 0.3 % (0.0-1.0); %Eosinophils 0.6 % (0.0-10.0); %Lymphocytes 10.9 % (21.0-51.0); %Neutrophils 80.1 % (42.0-75.0); Hemoglobin 8.9 g/dL (14.0-18.0); Mean Corpuscular HGB CONC 33.3 g/dL (32.0-36.0); Mean Corpuscular Hemoglobin 31.3 pg (27.0-31.0); Mean Platelet Volume 7.9 fL (7.4-10.4); Platelet Count 246 thou/uL (130-400); RBC Distribution Width 12.3 % (11.5-14.5); Red Blood Cell (RBC) Count 2.83 mill/uL (4.70-6.10); White Blood Cell (WBC) Count 16.9 thou/uL (4.8-10.8)
[2019-07-31 04:53] LABS: Anion Gap 13 mmol/L (10-20); BUN (Urea Nitrogen) 37 mg/dL (8.4-25.7); Calc. Creatinine Clearance 22 mL/min (70-130); Calcium 8.2 mg/dL (7.8-10.44); Carbon Dioxide 23 mmol/L (22-29); Chloride 105 mmol/L (98-107); Estimated GFR-MDRD 11; Glucose 133 mg/dL (70-105); Potassium 4.8 mmol/L (3.5-5.1); Sodium 136 mmol/L (136-145)
[2019-07-31] MEDS: Aspirin Chewable 81 MG TAB PO SCH (08:39)
--- NOTE | 2019-07-31 08:58 | PRG ---
DATE OF SERVICE: 07/31/2019 PRIMARY CUSTOMS APPRAISER: Dr. Platt. SUBJECTIVE: Mr. Carlson had a hypotensive episode when they try to get him up out of bed. He is back in bed now. He is on low-dose Levophed. OBJECTIVE: VITAL SIGNS: Blood pressure 112/60 and pulse 80. LUNGS: Clear. CARDIAC: Normal S1 and normal S2. ASSESSMENT: 1. Status post bypass surgery. 2. Episode of hypotension, resolved. 3. History of renal failure. PLAN: 1. The patient is on low-dose Levophed. 2. Try to get up later in the day. 3. Receiving albumin as well. Dr. Hayden will see the patient this weekend. Job ID: [id number]
--- NOTE | 2019-07-31 08:59 | PDOC.HOSPP ---
- Subjective Encounter Date: 07/30/19 Encounter Time: 18:00 Subjective: Patient seen and examined for CAD/ADRIANA. s/p CABG today. Extubated. No new complaints. No overnight events - Objective Vital Signs & Weight: Vital Signs (12 hours) Temp Pulse Resp Pulse Ox 07/31/19 08:00 85 20 100 07/31/19 04:00 98.7 F 07/31/19 00:00 97.9 F 07/30/19 23:59 86 20 94 L Weight Admit Weight 258 lb 8 oz Weight 235 lb 14.314 oz Most Recent Monitor Data Heart Rate from ECG 82 NIBP 112/62 NIBP BP-Mean 78 Respiration from ECG 22 SpO2 100 I&O: 07/30/19 07/31/19 08/01/19 06:59 06:59 06:59 Intake Total 1691.2 Output Total 400 865 Balance -400 826.2 Result Diagrams: 07/31/19 04:20 07/31/19 04:20 Additional Labs: Accuchecks 07/31/19 07/31/19 07/31/19 08:13 06:07 05:08 POC Glucose 132 H 119 H 125 H 07/31/19 07/31/19 07/31/19 04:19 02:59 02:22 POC Glucose 140 H 128 H 142 H 07/31/19 07/31/19 07/30/19 01:17 00:00 23:13 POC Glucose 134 H 136 H 129 H 07/30/19 07/30/19 07/30/19 22:14 21:06 20:29 POC Glucose 119 H 107 105 07/30/19 07/30/19 07/30/19 18:26 17:27 16:19 POC Glucose 111 H 119 H 128 H 07/30/19 07/30/19 07/30/19 15:17 14:05 13:10 POC Glucose 140 H 175 H 182 H 07/30/19 07/30/19 07/30/19 11:36 11:03 10:27 POC Glucose 91 102 130 H 07/30/19 07/30/19 07/30/19 09:49 09:31 08:58 POC Glucose 168 H 191 H 223 H Radiology Reviewed by me: Yes (CXR - reviewed) EKG Reviewed by me: Yes (Tele SR) Hospitalist ROS - Review of Systems Gastrointestinal: denies: nausea, vomiting, abdominal pain, diarrhea, constipation, melena, hematochezia, other Genitourinary: denies: dysuria, frequency, incontinence, hematuria, retention, other - Medication Medications: Active Medications Generic Name Dose Route Start Last Admin Trade Name Freq PRN Reason Stop Dose Admin Albumin Human 12.5 gm 07/30/19 11:19 07/31/19 07:20 Albumin 5% IVPB 07/31/19 11:20 12.5 gm Q6H PRN Administration To Maintain SBP> 90 mmHG Albuterol/Ipratropium 3 ml 07/30/19 13:00 07/31/19 08:00 Duoneb NEB 3 ml [id number] BC Administration Aspirin 81 mg 07/31/19 09:00 07/31/19 08:39 Aspirin Chewable PO 81 mg DAILY BC Administration Famotidine 20 mg 07/30/19 12:00 07/30/19 13:44 Pepcid SLOW IVP 20 mg 1200 BC Administration Guaifenesin/Dextromethorphan 15 ml 07/30/19 11:19 07/31/19 06:48 Robitussin Dm PO 15 ml Q4H PRN Administration Cough Levofloxacin 750 mg/ Device 150 mls @ 100 mls/hr 07/31/19 07:30 07/31/19 08: 39 IVPB 07/31/19 08:59 150 mls 0730 BC Administration Sodium Chloride 1,000 mls @ 40 mls/hr 07/30/19 11:19 07/30/19 11:57 Normal Saline 0.9% IV 1,000 mls .Q24H BC Administration Insulin Human Regular 100 101 mls @ 0 mls/hr 07/30/19 11:41 07/30/19 13:13 units/ Sodium Chloride IVPB 101 mls INF BC Administration Protocol As Directed Sodium Chloride 10 ml 07/30/19 21:00 07/31/19 08:39 Flush - Normal Saline IVF 10 ml Q12HR BC Administration - Exam General Appearance: NAD General - other findings: on Levophed Heart: no murmur, no gallops Respiratory: no wheezes, no rales Gastrointestinal: non-tender, non-distended Extremities: no cyanosis Hosp A/P - Plan DVT proph w/SCDs ADRIANA on CKD 5/ESRD/Metabolic acidosis - on dialysis NSTEMI/3V CAD s/p CABG 07/30 Chronic systolic HF EF 25-30% dye to severe ischemic cardiomyopathy DM2 HTN HLD BPH Obesity BMI 33.3 Hyponatremia Chronic diabetic foot ulcer PLAN: Cont post op care Wean Levophed as tolerated Cont Insulin drip Dialysis per Nephrology Cont ASA/Statins Cont other meds
--- NOTE | 2019-07-31 09:47 | PRG ---
DATE OF SERVICE: 07/31/2019 SUBJECTIVE: A 59-year-old gentleman, being seen for end-stage renal disease. The patient denies any nausea, vomiting, or chest pain. OBJECTIVE: GENERAL: The patient is awake and alert. VITAL SIGNS: Afebrile, pulse 84, breathing 16, blood pressure 119/64. GENERAL APPEARANCE AND MENTAL STATUS: Fair. HEAD/NECK: Normocephalic. Atraumatic. EYES: EOMI. No deformity. EARS: Clear. No ulcers. NOSE: Intact. No lesions. MOUTH: Clear. No discharge. THROAT: Clear. No exudate. LUNGS: Clear. No crackles. CARDIAC: S1, S2. No rub. ABDOMEN: Benign. Bowel sounds positive. GENITALIA/RECTUM: Dixon absent. BACK/EXTREMITIES: Edema 0+. NEUROLOGICAL: Alert and motor intact. SKIN: LYMPHATICS: LABORATORY DATA: Reviewed. ASSESSMENT AND PLAN: 1. Stage 6 chronic kidney disease. Continue hemodialysis. 2. Hypertension, stable. 3. Anemia, stable. 4. Medication based on GFR, appropriate. Job ID: [id number]
[2019-07-31] MEDS ORDERED: Dextrose 5% in Water 1,000 ML IV PRN (09:57)
[2019-07-31] MEDS ORDERED: Dextrose 50% Abboject 50 ML SYRINGE SLOW IVP PRN (09:57)
--- NOTE | 2019-07-31 10:00 | RAD ---
PORTABLE CHEST: DATE: 07/31/2019. PROVIDED CLINICAL HISTORY: Post open heart. FINDINGS: Comparison 07/30/2019. Significant interval change with respect to the prior examination is not appar ent. IMPRESSION: As above. POS: OFF
[2019-07-31] MEDS ORDERED: Insulin Glargine 13 UNITS in Pre-Filled Syringe 1 EACH SC SCH (10:15)
[2019-07-31] MEDS: Fentanyl 100 MCG/2 ML VIAL SLOW IVP PRN ×2 (16:21→21:03)
[2019-07-31] MEDS: HumaLOG 300 UNITS/3 ML VIAL SC PRN (17:23)
--- NOTE | 2019-07-31 18:17 | PDOC.HOSPP ---
- Subjective Encounter Date: 07/31/19 Encounter Time: 18:15 Subjective: Patient seen and examined for CAD/ADRIANA. Off Levophed and Insulin drip. No new complaints. No overnight events - Objective Vital Signs & Weight: Vital Signs (12 hours) Temp Pulse Resp Pulse Ox 07/31/19 12:36 91 12 97 07/31/19 11:00 98.2 F 07/31/19 08:00 85 20 98 07/31/19 07:00 98.5 F Weight Admit Weight 258 lb 8 oz Weight 235 lb 14.314 oz Most Recent Monitor Data Heart Rate from ECG 94 NIBP 145/75 NIBP BP-Mean 98 Respiration from ECG 24 SpO2 97 I&O: 07/30/19 07/31/19 08/01/19 06:59 06:59 06:59 Intake Total 1691.2 1366.3 Output Total 400 865 550 Balance -400 826.2 816.3 Result Diagrams: 07/31/19 04:20 07/31/19 04:20 Additional Labs: Accuchecks 07/31/19 07/31/19 07/31/19 17:21 11:33 08:13 POC Glucose 258 H 290 H 132 H 07/31/19 07/31/19 07/31/19 06:07 05:08 04:19 POC Glucose 119 H 125 H 140 H 07/31/19 07/31/19 07/31/19 02:59 02:22 01:17 POC Glucose 128 H 142 H 134 H 07/31/19 07/30/19 07/30/19 00:00 23:13 22:14 POC Glucose 136 H 129 H 119 H 07/30/19 07/30/19 07/30/19 21:06 20:29 18:26 POC Glucose 107 105 111 H 07/30/19 07/30/19 07/30/19 17:27 16:19 15:17 POC Glucose 119 H 128 H 140 H 07/30/19 07/30/19 07/30/19 14:05 13:10 11:36 POC Glucose 175 H 182 H 91 EKG Reviewed by me: Yes (Tele SR) Hospitalist ROS - Review of Systems Cardiovascular: denies: chest pain, palpitations, orthopnea, paroxysmal noc. dyspnea, edema, light headedness, other Gastrointestinal: denies: nausea, vomiting, abdominal pain, diarrhea, constipation, melena, hematochezia, other - Medication Medications: Active Medications Generic Name Dose Route Start Last Admin Trade Name Freq PRN Reason Stop Dose Admin Albuterol/Ipratropium 3 ml 07/30/19 13:00 07/31/19 12:36 Duoneb NEB 3 ml [id number] BC Administration Aspirin 81 mg 07/31/19 09:00 07/31/19 08:39 Aspirin Chewable PO 81 mg DAILY BC Administration Fentanyl 50 mcg 07/30/19 11:19 07/31/19 16:21 Sublimaze SLOW IVP 08/01/19 07:25 50 mcg Q2H PRN Administration Severe Pain (7-10) Guaifenesin/Dextromethorphan 15 ml 07/30/19 11:19 07/31/19 06:48 Robitussin Dm PO 15 ml Q4H PRN Administration Cough Insulin Human Lispro 0 units 07/31/19 09:57 07/31/19 17:23 Humalog SC 6 unit .MODERATE SLIDING SC PRN Administration Moderate Correctional Scale Sodium Chloride 10 ml 07/30/19 21:00 07/31/19 08:39 Flush - Normal Saline IVF 10 ml Q12HR BC Administration - Exam General Appearance: NAD Heart: no gallops, no rubs Respiratory: no wheezes, no rales Gastrointestinal: soft, non-tender, non-distended Neurological: no new deficit Hosp A/P - Plan ADRIANA on CKD 5/ESRD/Metabolic acidosis - on dialysis NSTEMI/3V CAD s/p CABG 07/30 Chronic systolic HF EF 25-30% dye to severe ischemic cardiomyopathy DM2 HTN HLD BPH Obesity BMI 33.3 Hyponatremia Chronic diabetic foot ulcer PLAN: Cont ASA Cont supportive care Cont CABG sliding scale with Lantus Dialysis per Nephrology Cont other meds
--- NOTE | 2019-07-31 20:11 | PRG ---
DATE OF SERVICE: 07/31/2019 SUBJECTIVE: Uriel Carlson is doing reasonably well. His says he is intermittently confused when I was in the room. He remembered me and remember the conversations we had prior to surgery. OBJECTIVE: VITAL SIGNS: Heart rates in the 90s, respiratory rate in the teens, oximetry is 100%. Still has chest tubes in place. Blood pressure 145/85. LUNGS: Clear. HEART: Regular rhythm. ABDOMEN: Soft. IMPRESSION: 1. Status post coronary artery bypass grafting. 2. Acute on chronic kidney disease, now on dialysis. PLAN: Continue supportive care. Job ID: [id number]
[2019-07-31] MEDS ORDERED: Insulin Glargine 10 UNITS in Pre-Filled Syringe 1 EACH SC SCH (21:00)
[2019-08-01] MEDS: HumaLOG 300 UNITS/3 ML VIAL SC PRN ×5 (00:26→20:05)
[2019-08-01 04:47] LABS: #Eosinphils 0.5 thou/uL (0.0-0.7); #Lymphocytes 1.7 thou/uL (1.20-3.40); #Monocytes 1.6 thou/uL (0.11-0.59); #Neutrophils 8.7 thou/uL (1.40-6.50); %Basophils 0.2 % (0.0-1.0); %Eosinophils 3.8 % (0.0-10.0); %Lymphocytes 13.4 % (21.0-51.0); %Monocytes 12.9 % (0.0-10.0); %Neutrophils 69.8 % (42.0-75.0); Hemoglobin 7.7 g/dL (14.0-18.0); Mean Corpuscular HGB CONC 33.9 g/dL (32.0-36.0); Mean Corpuscular Hemoglobin 31.5 pg (27.0-31.0); Mean Platelet Volume 7.7 fL (7.4-10.4); Platelet Count 179 thou/uL (130-400); RBC Distribution Width 12.1 % (11.5-14.5); Red Blood Cell (RBC) Count 2.43 mill/uL (4.70-6.10); White Blood Cell (WBC) Count 12.5 thou/uL (4.8-10.8)
[2019-08-01 05:16] LABS: Anion Gap 17 mmol/L (10-20); BUN (Urea Nitrogen) 41 mg/dL (8.4-25.7); Calc. Creatinine Clearance 21 mL/min (70-130); Calcium 8.2 mg/dL (7.8-10.44); Carbon Dioxide 19 mmol/L (22-29); Chloride 105 mmol/L (98-107); Estimated GFR-MDRD 10; Glucose 148 mg/dL (70-105); Sodium 137 mmol/L (136-145)
[2019-08-01] MEDS: HYDROcodone/Acetaminophen 5/325 mg Tablet PO PRN ×3 (05:46→22:18)
--- NOTE | 2019-08-01 07:42 | RAD ---
EXAM: Portable chest PROVIDED CLINICAL HISTORY: Respiratory insufficiency COMPARISON: 07/31/2019 FINDINGS: Significant interval change with respect to the prior examination is not apparent. IMPRESSION: As above.
[2019-08-01] MEDS: Aspirin Chewable 81 MG TAB PO SCH (08:29)
[2019-08-01] MEDS: Carvedilol 6.25 MG TAB PO SCH ×2 (08:29→16:04)
[2019-08-01] MEDS: Lisinopril 5 MG TAB PO SCH (08:30)
--- NOTE | 2019-08-01 08:31 | PDOC.HOSPP ---
- Subjective Encounter Date: 08/01/19 Encounter Time: 07:50 Subjective: Patient seen and examined for ADRIANA/CAD. Sitting on chair. Pain controlled. No fever or chills. No new complaints. No overnight events - Objective Vital Signs & Weight: Vital Signs (12 hours) Temp Pulse Resp BP Pulse Ox 08/01/19 07:44 101 H 23 H 08/01/19 04:00 100.0 F H 08/01/19 01:04 103 H 153/87 H 08/01/19 00:44 102 H 20 97 08/01/19 00:00 99.7 F H 97 Weight Admit Weight 258 lb 8 oz Weight 234 lb 12.677 oz Most Recent Monitor Data Heart Rate from ECG 101 NIBP 136/71 NIBP BP-Mean 92 Respiration from ECG 24 SpO2 97 I&O: 07/31/19 08/01/19 08/02/19 06:59 06:59 06:59 Intake Total 1691.2 1366.3 Output Total 865 1625 Balance 826.2 -258.7 Result Diagrams: 08/01/19 04:30 08/01/19 04:30 Additional Labs: Accuchecks 08/01/19 08/01/19 08/01/19 08:20 04:39 00:29 POC Glucose 153 H 173 H 178 H 07/31/19 07/31/19 07/31/19 21:01 17:21 11:33 POC Glucose 175 H 258 H 290 H EKG Reviewed by me: Yes (Tele SR) Hospitalist ROS - Review of Systems Cardiovascular: denies: chest pain, palpitations, orthopnea, paroxysmal noc. dyspnea, edema, light headedness, other Gastrointestinal: denies: nausea, vomiting, abdominal pain, diarrhea, constipation, melena, hematochezia, other - Medication Medications: Active Medications Generic Name Dose Route Start Last Admin Trade Name Freq PRN Reason Stop Dose Admin Hydrocodone Bitart/Acetaminophen 2 tab 07/30/19 11:19 08/01/19 05:46 [place] 5/325 PO 2 tab Q4H PRN Administration Severe Pain (7-10) Albuterol/Ipratropium 3 ml 07/30/19 13:00 08/01/19 07:44 Duoneb NEB 3 ml [id number] BC Administration Aspirin 81 mg 07/31/19 09:00 07/31/19 08:39 Aspirin Chewable PO 81 mg DAILY BC Administration Guaifenesin/Dextromethorphan 15 ml 07/30/19 11:19 07/31/19 06:48 Robitussin Dm PO 15 ml Q4H PRN Administration Cough Hydralazine HCl 10 mg 07/30/19 11:19 08/01/19 01:04 Apresoline SLOW IVP 10 mg Q6H PRN Administration To Maintain SBP< 140mmHG Insulin Human Lispro 0 units 07/31/19 09:57 08/01/19 04:38 Humalog SC 2 unit .MODERATE SLIDING SC PRN Administration Moderate Correctional Scale Sodium Chloride 10 ml 07/30/19 21:00 07/31/19 20:58 Flush - Normal Saline IVF 10 ml Q12HR BC Administration - Exam General Appearance: NAD Heart: RRR, no gallops Respiratory: no wheezes, rhonchi Gastrointestinal: non-tender, non-distended Extremities: no cyanosis Hosp A/P - Plan DVT proph w/SCDs ADRIANA on CKD 5/ESRD/Metabolic acidosis - on dialysis NSTEMI/3V CAD s/p CABG 07/30 Chronic systolic HF EF 25-30% dye to severe ischemic cardiomyopathy Chronic Anemia due to renal insufficiency DM2 HTN HLD BPH Obesity BMI 33.3 Hyponatremia Chronic diabetic foot ulcer PLAN: Receiving 1 unit PRBC Low dose ACEI/coreg started Cont supportive care Cont CABG sliding scale Cont ASA Lantus dose increased to 15 units BID Dialysis per Nephrology Cont other meds
[2019-08-01] MEDS: Insulin Glargine 15 UNITS in Pre-Filled Syringe 1 EACH SC SCH ×2 (08:35→20:04)
[2019-08-01] MEDS ORDERED: Insulin Glargine 10 UNITS in Pre-Filled Syringe 1 EACH SC SCH (09:00)
[2019-08-01] MEDS ORDERED: Heparin 10,000 UNITS/ 10 ML VIAL ONE (09:31)
--- NOTE | 2019-08-01 09:43 | PRG ---
DATE OF SERVICE: 08/01/2019 SUBJECTIVE: This is a 59-year-old gentleman being seen for end-stage renal disease. The patient denies any nausea, vomiting, or chest pain. OBJECTIVE: See above. The patient is awake and alert, in no acute distress. VITAL SIGNS: Afebrile, pulse 100, breathing 16, blood pressure 130/60. GENERAL APPEARANCE AND MENTAL STATUS: Fair. HEAD/NECK: Normocephalic. Atraumatic. EYES: EOMI. No deformity. EARS: Clear. No ulcers. NOSE: Intact. No lesions. MOUTH: Clear. No discharge. THROAT: Clear. No exudate. LUNGS: Clear. No crackles. CARDIAC: S1, S2. No rub. ABDOMEN: Benign. Bowel sounds positive. GENITALIA/RECTUM: Dixon absent. BACK/EXTREMITIES: Edema 0+. NEUROLOGICAL: Alert and motor intact. SKIN: LYMPHATICS: LABORATORY DATA: Labs show hemoglobin 7.7. ASSESSMENT AND PLAN: 1. Stage 6 chronic kidney disease. Plan dialysis. 2. Anemia. Plan transfusion. 3. Hypertension, stable. Medication based on GFR appropriate. Job ID: [id number]
--- NOTE | 2019-08-01 14:13 | PRG ---
DATE OF SERVICE: 08/01/2019 PRIMARY SOLID WASTE FACILITY OPERATOR: Dr. Platt. SUBJECTIVE: Mr. Carlson is a very pleasant gentleman who underwent bypass surgery recently by Dr. Tejada with a FOUNTAIN to the left anterior descending artery and saphenous vein graft to the posterior descending artery and obtuse marginal branch. He has had some hypotension postoperatively, but now is off the Levophed. He also has end-stage renal disease and is on hemodialysis at the time I am seeing him this morning. He had no other complaints this morning. OBJECTIVE: GENERAL: He seems to be somewhat sleepy or lethargic but is awake and easily arousable. VITAL SIGNS: He is in a sinus rhythm, heart rates in the 80s to 90s. Blood pressure is 121/73, O2 saturation 96%, respiratory rate is about 20. CHEST: Clear to auscultation. CARDIOVASCULAR: Reveals a regular rate and rhythm. EXTREMITIES: He had no lower extremity edema. ABDOMEN: Unremarkable. LABORATORY DATA: His WBC is 12.5, hemoglobin is 7.7 and hematocrit is 22.6 with a platelet count of a 179,000. Sodium is 137, potassium 4.0, BUN was 41 with a creatinine of 5.68 and blood sugar of 148. IMPRESSION: 1. A 59-year-old gentleman with history of coronary artery disease, who underwent bypass surgery, appears to be doing well from a cardiac standpoint as far as his coronary artery disease is concerned. 2. Anemia which is associated with his end-stage renal disease. He may need some blood transfusion to at least get hemoglobin above 8. 3. History of hypotension postoperatively, appears to be more stable at this time. No other complications have been encountered. He had been on Levophed, this has subsequently been discontinued, he seems to be stable. MEDICATIONS: Include: 1. Insulin. 2. Aspirin 81 mg a day. 3. Coreg 6.25 mg b.i.d. 4. He is also on lisinopril 2.5 mg a day. 5. Ipratropium/albuterol nebulizer treatments. 6. Protonix daily. 7. He is also on Tylenol and other p.r.n. medications. From a cardiac standpoint, otherwise we will just continue to monitor the patient. He seems to be stable otherwise. Job ID: [id number]
--- NOTE | 2019-08-01 15:20 | PRG ---
DATE OF SERVICE: 08/01/2019 SUBJECTIVE: Uriel Carlson is not in any distress. He is sitting by the bed. He is very interactive today. Nursing staff says he is little more oriented consistently today than yesterday. OBJECTIVE: VITAL SIGNS: Heart rates in the 90s, respiratory rates in the teens, oximetry is 92% on room air, blood pressure 126/84. LUNGS: Clear. HEART: Regular rhythm. ABDOMEN: Soft. LABORATORY DATA: White count 12.5, hemoglobin 7.7, platelets 179. Sodium 137, potassium 4, chloride 105, bicarb 19, BUN 41, creatinine 5.68, glucose 148. He is tentatively on the schedule to be dialyzed today. IMPRESSION: 1. Status post coronary artery bypass grafting. 2. End-stage renal disease. 3. Diabetes. 4. Encephalopathy after surgery, which is not surprising. Overall, he appears to be improving a little bit each day. Job ID: [id number]
--- NOTE | 2019-08-01 15:43 | EKG ---
Test Reason : SOB Blood Pressure : / mmHG Vent. Rate : 067 BPM Atrial Rate : 067 BPM P-R Int : 220 ms QRS Dur : 118 ms QT Int : 448 ms P-R-T Axes : 112 145 040 degrees QTc Int : 473 ms Poor data quality, interpretation may be adversely affected Suspect arm lead reversal, interpretation assumes no reversal Sinus rhythm with 1st degree A-V block Left posterior fascicular block Inferior infarct , age undetermined Abnormal ECG Confirmed by CHRIS WINN ([id number]), offline editor ALICIA CARCAMO ([id number]) on 08/01/2019 3:42:52 PM Referred By: Confirmed By:CHRIS Christina
[2019-08-01] MEDS ORDERED: Amiodarone 150 MG/3 ML VIAL ONE (18:44)
[2019-08-01] MEDS ORDERED: Amiodarone 150 MG, Admixture Fee 1 EACH in Dextrose 5% in Water 100 ML IVPB SCH (18:45)
[2019-08-01] MEDS: Amiodarone 450 MG, Admixture Fee 1 EACH in Dextrose 5% in Water 250 ML IVPB SCH (19:01)
[2019-08-02] MEDS: HumaLOG 300 UNITS/3 ML VIAL SC PRN ×4 (00:30→16:08)
[2019-08-02] MEDS: Amiodarone 450 MG, Admixture Fee 1 EACH in Dextrose 5% in Water 250 ML IVPB SCH ×2 (02:49→16:17)
[2019-08-02 05:19] LABS: #Basophils 0.1 thou/uL (0.0-0.2); #Eosinphils 0.3 thou/uL (0.0-0.7); #Lymphocytes 1.8 thou/uL (1.20-3.40); #Monocytes 1.5 thou/uL (0.11-0.59); #Neutrophils 8.1 thou/uL (1.40-6.50); %Basophils 0.4 % (0.0-1.0); %Eosinophils 2.3 % (0.0-10.0); %Lymphocytes 15.6 % (21.0-51.0); %Monocytes 12.5 % (0.0-10.0); %Neutrophils 69.1 % (42.0-75.0); Hemoglobin 8.3 g/dL (14.0-18.0); Mean Corpuscular HGB CONC 34.3 g/dL (32.0-36.0); Mean Corpuscular Hemoglobin 32.2 pg (27.0-31.0); Platelet Count 179 thou/uL (130-400); RBC Distribution Width 12.4 % (11.5-14.5); Red Blood Cell (RBC) Count 2.57 mill/uL (4.70-6.10); White Blood Cell (WBC) Count 11.7 thou/uL (4.8-10.8)
[2019-08-02 06:13] LABS: Anion Gap 13 mmol/L (10-20); BUN (Urea Nitrogen) 30 mg/dL (8.4-25.7); Calc. Creatinine Clearance 25 mL/min (70-130); Calcium 8.3 mg/dL (7.8-10.44); Carbon Dioxide 26 mmol/L (22-29); Chloride 101 mmol/L (98-107); Estimated GFR-MDRD 13; Glucose 150 mg/dL (70-105); Potassium 4.2 mmol/L (3.5-5.1); Sodium 136 mmol/L (136-145)
[2019-08-02] MEDS: Carvedilol 6.25 MG TAB PO SCH ×2 (08:22→16:17)
[2019-08-02] MEDS: Lisinopril 5 MG TAB PO SCH (08:22)
[2019-08-02] MEDS: Aspirin Chewable 81 MG TAB PO SCH (08:24)
[2019-08-02] MEDS: Insulin Glargine 15 UNITS in Pre-Filled Syringe 1 EACH SC SCH ×2 (08:26→20:43)
--- NOTE | 2019-08-02 08:38 | RAD ---
EXAM: Portable chest PROVIDED CLINICAL HISTORY: Post open heart COMPARISON: 08/01/2019 FINDINGS: Significant interval change with respect to the prior examination is not apparent. IMPRESSION: As above.
--- NOTE | 2019-08-02 09:04 | PRG ---
DATE OF SERVICE: 08/02/2019 SUBJECTIVE: Mr. Carlson says he is feeling well. He is quicker to respond to questions today. OBJECTIVE: VITAL SIGNS: Blood pressure 126/74, heart rate 74, and respiratory rate is 20. GENERAL: He is in no distress. Intake and output, positive 2023. LUNGS: Clear. HEART: Regular rhythm. S1 and S2 are normal. ABDOMEN: Soft. EXTREMITIES: Without edema. DIAGNOSTIC DATA: Chest x-ray today was reviewed and shows no infiltrates. White count 11.7, hemoglobin 8.3, and platelets 179. Sodium 136, potassium 4.2, chloride 101, bicarb 26, BUN 30, and creatinine 4.74. IMPRESSION: 1. Status post coronary artery bypass grafting. 2. End-stage renal disease, on hemodialysis. 3. Diabetes. PLAN: Continue supportive care. He says he is not very hungry, but he encouraged to eat. He is encouraged to get out of bed today and spent time on the chair. Job ID: [id number]
--- NOTE | 2019-08-02 11:08 | PRG ---
DATE OF SERVICE: 08/02/2019 PRIMARY CAREER DEVELOPMENT COUNSELOR: Robel Platt MD SUBJECTIVE: Mr. Carlson is a very pleasant gentleman, who underwent bypass surgery just couple days ago by Dr. Tejada with a FOUNTAIN to the left anterior descending artery, saphenous vein graft to the posterior descending artery and the obtuse marginal branch. He has had some mild complications postoperatively with hypotension. This has now stabilized, but last night, he developed atrial fibrillation with somewhat rapid ventricular response. He was started on IV amiodarone and seems to be tolerating this quite well. He appears to be in better shape today than he was yesterday. Objectively, he is sitting up in a chair this morning. He has had little to eat, but appetite has decreased, but he has had no complaints other than some mild cough and some chest discomfort due to the surgery. Otherwise, he seems to be more stable and certainly is more awake than when I saw him yesterday. OBJECTIVE: VITAL SIGNS: His blood pressure is 108/64, heart rate is in the 80s and shows atrial fibrillation, respiratory rate is about 17 to 20, and his O2 saturation is 98% on room air. CHEST: Clear to auscultation without rales, rhonchi, or wheezing. CARDIOVASCULAR: Reveals an irregular rhythm this morning. EXTREMITIES: Had no significant lower extremity edema. ABDOMEN: Unremarkable. SKIN: He does have an ecchymosis on the upper chest area due to the previous surgery. LABORATORY DATA: Shows a hemoglobin 8.3 and WBC of 11.3. Potassium was 4.2, BUN was 30, creatinine was 4.7, and blood sugar was 150. IMPRESSION AND PLAN: 1. Coronary artery disease status post bypass surgery as noted above. He seems to be stable from a cardiac standpoint as far as his coronary artery disease is concerned. 2. New onset atrial fibrillation. We will continue on the amiodarone. If he does not convert to sinus rhythm, we will need to most likely undergo electrocardioversion prior to discharge. 3. End-stage renal disease. He is on hemodialysis as per Nephrology. 4. Diabetes. This is under somewhat actually reasonable control, but blood sugar this morning was 150. We will continue to follow the patient routinely, but we will try to hopefully convert him back to a sinus rhythm. We will also try to resume his present medications. He is still taking lisinopril and Coreg and also he is on nebulizer treatments. Otherwise, there has been no significant changes in his medications except for the initiation of the amiodarone. Job ID: [id number]
[2019-08-02] MEDS: HYDROcodone/Acetaminophen 5/325 mg Tablet PO PRN ×2 (11:11→20:35)
--- NOTE | 2019-08-02 11:24 | PDOC.HOSPP ---
- Subjective Encounter Date: 08/02/19 Encounter Time: 09:30 Subjective: Patient seen and examined for ADRIANA/CAD. On Amio drip. Poor appetite. No new complaints. No overnight events - Objective Vital Signs & Weight: Vital Signs (12 hours) Temp Pulse Resp BP Pulse Ox 08/02/19 08:22 74 126/74 08/02/19 07:32 98 08/02/19 07:07 74 14 100 08/02/19 04:00 97.9 F 08/02/19 00:51 79 16 100 08/02/19 00:00 98.1 F Weight Admit Weight 258 lb 8 oz Weight 239 lb 10.279 oz Most Recent Monitor Data Heart Rate from ECG 77 NIBP 98/56 NIBP BP-Mean 70 Respiration from ECG 24 SpO2 96 I&O: 08/01/19 08/02/19 08/03/19 06:59 06:59 06:59 Intake Total 1366.3 4 1750 Output Total 1625 40 0 Balance -258.7 2023 1750 Result Diagrams: 08/02/19 04:59 08/02/19 04:59 Additional Labs: Accuchecks 08/02/19 08/02/19 08/01/19 05:00 00:32 20:05 POC Glucose 162 H 182 H 187 H 08/01/19 08/01/19 08/01/19 18:08 17:49 16:10 POC Glucose 201 H 215 H 280 H 08/01/19 12:38 POC Glucose 139 H EKG Reviewed by me: Yes (Tele Afib) Hospitalist ROS - Review of Systems Respiratory: denies: cough, dry, shortness of breath, hemoptysis, SOB with excertion, pleuritic pain, sputum, wheezing, other Cardiovascular: denies: chest pain, palpitations, orthopnea, paroxysmal noc. dyspnea, edema, light headedness, other - Medication Medications: Active Medications Generic Name Dose Route Start Last Admin Trade Name Freq PRN Reason Stop Dose Admin Hydrocodone Bitart/Acetaminophen 2 tab 07/30/19 11:19 08/01/19 16:03 [place] 5/325 PO 2 tab Q4H PRN Administration Severe Pain (7-10) Albuterol/Ipratropium 3 ml 07/30/19 13:00 08/02/19 07:07 Duoneb NEB 3 ml [id number] BC Administration Aspirin 81 mg 07/31/19 09:00 08/02/19 08:24 Aspirin Chewable PO 81 mg DAILY BC Administration Carvedilol 6.25 mg 08/01/19 08:00 08/02/19 08:22 Coreg PO 6.25 mg BID-WM BC Administration Guaifenesin/Dextromethorphan 15 ml 07/30/19 11:19 07/31/19 06:48 Robitussin Dm PO 15 ml Q4H PRN Administration Cough Hydralazine HCl 10 mg 07/30/19 11:19 08/01/19 01:04 Apresoline SLOW IVP 10 mg Q6H PRN Administration To Maintain SBP< 140mmHG Insulin Glargine 15 units/ 0.15 mls @ 1 mls/hr 08/01/19 21:00 08/01/19 20:04 Miscellaneous Medication SC 0.15 mls HS BC Administration Insulin Glargine 15 units/ 0.15 mls @ 1 mls/hr 08/01/19 09:00 08/02/19 08:26 Miscellaneous Medication SC 0.15 mls QAM BC Administration Amiodarone HCl 450 mg/ 259 mls @ 0 mls/hr 08/01/19 18:45 08/02/19 02:49 Miscellaneous Medication 1 IVPB 259 mls each/ Dextrose/Water INF BC Administration Protocol As Directed Insulin Human Lispro 0 units 07/31/19 09:57 08/02/19 05:53 Humalog SC 2 unit .MODERATE SLIDING SC PRN Administration Moderate Correctional Scale Lisinopril 2.5 mg 08/01/19 09:00 08/02/19 08:22 Zestril PO 2.5 mg DAILY BC Administration Pantoprazole Sodium 40 mg 08/01/19 09:00 08/02/19 08:24 Protonix PO 40 mg DAILY BC Administration Sodium Chloride 10 ml 07/30/19 21:00 08/02/19 10:28 Flush - Normal Saline IVF Not Given Q12HR BC - Exam General Appearance: NAD Heart: no gallops, no rubs Respiratory: no wheezes, no rales Gastrointestinal: non-tender, non-distended Extremities: no cyanosis Hosp A/P - Plan DVT proph w/SCDs ADRIANA on CKD 5/ESRD/Metabolic acidosis - on dialysis NSTEMI/3V CAD s/p CABG 07/30 Chronic systolic HF EF 25-30% due to severe ischemic cardiomyopathy Chronic Anemia due to renal insufficiency Afib/flutter with RVR - on Amiodarone drip DM2 HTN HLD BPH Obesity BMI 33.3 Hyponatremia Chronic diabetic foot ulcer PLAN: Receiving 1 unit PRBC Cont supportive care Cont CABG sliding scale Cont ASA/ACEI/coreg Cont Lantus 15 units BID Dialysis per Nephrology Cont other meds
--- NOTE | 2019-08-02 13:08 | PRG ---
DATE OF SERVICE: 08/02/2019 SUBJECTIVE: This is a 59-year-old male, being seen for end-stage renal disease. The patient denied nausea, vomiting, or chest pain. OBJECTIVE: GENERAL: The patient is awake and alert. VITAL SIGNS: Afebrile, pulse 80, breathing 16, blood pressure 111/59. GENERAL APPEARANCE AND MENTAL STATUS: Fair. HEAD/NECK: Normocephalic. Atraumatic. EYES: EOMI. No deformity. EARS: Clear. No ulcers. NOSE: Intact. No lesions. MOUTH: Clear. No discharge. THROAT: Clear. No exudate. LUNGS: Clear. No crackles. CARDIAC: S1, S2. No rub. ABDOMEN: Benign. Bowel sounds positive. GENITALIA/RECTUM: Dixon absent. BACK/EXTREMITIES: Edema 0+. NEUROLOGICAL: Alert and motor intact. SKIN: LYMPHATICS: LABORATORY DATA: Reviewed. ASSESSMENT AND PLAN: 1. Stage 6 chronic kidney disease, stable. 2. Hypertensive, stable. 3. Anemia, stable. 4. Medication based on GFR appropriate. Job ID: [id number]
[2019-08-03] MEDS: HYDROcodone/Acetaminophen 5/325 mg Tablet PO PRN ×3 (01:00→17:44)
[2019-08-03] MEDS: HumaLOG 300 UNITS/3 ML VIAL SC PRN ×2 (04:13→11:58)
[2019-08-03 05:03] LABS: #Basophils 0.1 thou/uL (0.0-0.2); #Eosinphils 0.5 thou/uL (0.0-0.7); #Lymphocytes 2.1 thou/uL (1.20-3.40); #Neutrophils 6.2 thou/uL (1.40-6.50); %Basophils 0.8 % (0.0-1.0); %Eosinophils 5.4 % (0.0-10.0); %Lymphocytes 21.6 % (21.0-51.0); %Monocytes 10.2 % (0.0-10.0); Hemoglobin 7.9 g/dL (14.0-18.0); Mean Corpuscular HGB CONC 33.2 g/dL (32.0-36.0); Mean Corpuscular Volume 93.5 fL (78.0-98.0); Mean Platelet Volume 8.4 fL (7.4-10.4); Platelet Count 200 thou/uL (130-400); RBC Distribution Width 12.1 % (11.5-14.5); Red Blood Cell (RBC) Count 2.55 mill/uL (4.70-6.10); White Blood Cell (WBC) Count 9.9 thou/uL (4.8-10.8)
[2019-08-03 06:05] LABS: Anion Gap 16 mmol/L (10-20); BUN (Urea Nitrogen) 40 mg/dL (8.4-25.7); Calc. Creatinine Clearance 20 mL/min (70-130); Calcium 8.2 mg/dL (7.8-10.44); Carbon Dioxide 24 mmol/L (22-29); Chloride 100 mmol/L (98-107); Estimated GFR-MDRD 10; Glucose 128 mg/dL (70-105); Potassium 4.1 mmol/L (3.5-5.1); Sodium 136 mmol/L (136-145)
[2019-08-03] MEDS: Lisinopril 5 MG TAB PO SCH (07:21)
[2019-08-03] MEDS: Carvedilol 6.25 MG TAB PO SCH ×2 (07:21→15:56)
[2019-08-03] MEDS: Aspirin Chewable 81 MG TAB PO SCH (07:22)
[2019-08-03] MEDS: Insulin Glargine 15 UNITS in Pre-Filled Syringe 1 EACH SC SCH ×2 (07:25→20:40)
[2019-08-03] MEDS: Amiodarone 200 MG TAB PO SCH ×3 (09:05→20:40)
[2019-08-03] MEDS ORDERED: Heparin 10,000 UNITS/ 10 ML VIAL ONE (10:18)
--- NOTE | 2019-08-03 11:09 | PRG ---
DATE OF SERVICE: 08/03/2019 SUBJECTIVE: A 59-year-old gentleman being seen for end-stage renal disease. The patient denied nausea, vomiting or chest pain. OBJECTIVE: GENERAL: The patient is awake and alert. VITAL SIGNS: Pulse 77, breathing 16, blood pressure 145/61. GENERAL APPEARANCE AND MENTAL STATUS: Fair. HEAD/NECK: Normocephalic. Atraumatic. EYES: EOMI. No deformity. EARS: Clear. No ulcers. NOSE: Intact. No lesions. MOUTH: Clear. No discharge. THROAT: Clear. No exudate. LUNGS: Clear. No crackles. CARDIAC: S1, S2. No rub. ABDOMEN: Benign. Bowel sounds positive. GENITALIA/RECTUM: Dixon absent. BACK/EXTREMITIES: Edema 0+. NEUROLOGICAL: Alert and motor intact. SKIN: LYMPHATICS: LABORATORY DATA: Labs show hemoglobin 7.9, creatinine 5.9. ASSESSMENT AND PLAN: 1. Stage 6 chronic kidney disease, plan dialysis. 2. Hypertension, stable. 3. Anemia, stable. 4. Medication based on GFR appropriate. Job ID: [id number]
--- NOTE | 2019-08-03 13:03 | PRG ---
DATE OF SERVICE: 08/03/2019 SUBJECTIVE: Mr. Carlson is in no distress. He is back to his baseline neurologically. OBJECTIVE: VITAL SIGNS: His blood pressure is 125/56, heart rate 81, and oximetry is 97. LUNGS: Clear. HEART: Rate and rhythm. ABDOMEN: Soft and nontender. EXTREMITIES: Warm without edema. LABORATORY DATA: White count 9.9, hemoglobin 7.9, and platelets 200,000. Electrolytes normal. BUN 40, creatinine 5.49. He is tentatively scheduled to move out of the Critical Care Unit once he has dialysis today. Overall, he is stable, status post coronary artery bypass grafting. Job ID: [id number]
[2019-08-03] MEDS ORDERED: Artificial Tears 18 DROP/0.9 ML EA EYE PRN (17:38)
[2019-08-03] MEDS ORDERED: Mag-Al 1200 mg/1200 mg/30 ML UDCUP PO PRN (17:38)
[2019-08-03] MEDS ORDERED: Zolpidem Tartrate 5 MG TAB PO PRN (17:38)
[2019-08-03] MEDS ORDERED: Bisacodyl 10 MG SUPP PR PRN (17:38)
[2019-08-03] MEDS ORDERED: diphenhydrAMINE 25 MG CAP PO PRN (17:38)
[2019-08-03] MEDS ORDERED: Mineral Oil ENEMA PR PRN (17:38)
[2019-08-03] MEDS ORDERED: Guaifenesin DM 100-10/5 ML UDCUP PO PRN (17:38)
[2019-08-03] MEDS ORDERED: Nitroglycerin 0.4 MG TAB (25 Tab Bottle) SL PRN (17:38)
[2019-08-03] MEDS ORDERED: Insulin Regular 300 UNITS/3 ML VIAL SC PRN (17:43)
[2019-08-04] MEDS: HYDROcodone/Acetaminophen 5/325 mg Tablet PO PRN ×4 (02:48→18:30)
[2019-08-04 04:35] LABS: Anion Gap 11 mmol/L (10-20); BUN (Urea Nitrogen) 23 mg/dL (8.4-25.7); Calc. Creatinine Clearance 30 mL/min (70-130); Calcium 8.2 mg/dL (7.8-10.44); Carbon Dioxide 29 mmol/L (22-29); Chloride 100 mmol/L (98-107); Estimated GFR-MDRD 15; Glucose 141 mg/dL (70-105); Sodium 136 mmol/L (136-145)
[2019-08-04 04:43] LABS: #Basophils 0.1 thou/uL (0.0-0.2); #Eosinphils 0.4 thou/uL (0.0-0.7); #Lymphocytes 1.5 thou/uL (1.20-3.40); #Monocytes 1.1 thou/uL (0.11-0.59); %Basophils 0.7 % (0.0-1.0); %Eosinophils 4.4 % (0.0-10.0); %Lymphocytes 14.6 % (21.0-51.0); %Neutrophils 69.3 % (42.0-75.0); Hemoglobin 8.7 g/dL (14.0-18.0); Mean Corpuscular Hemoglobin 30.5 pg (27.0-31.0); Mean Corpuscular Volume 92.4 fL (78.0-98.0); Mean Platelet Volume 7.9 fL (7.4-10.4); Platelet Count 248 thou/uL (130-400); RBC Distribution Width 12.2 % (11.5-14.5); Red Blood Cell (RBC) Count 2.85 mill/uL (4.70-6.10)
--- NOTE | 2019-08-04 06:50 | PDOC.HOSPP ---
- Subjective Encounter Date: 08/03/19 Encounter Time: 08:00 Subjective: Patient seen and examined for CAD/ADRIANA. Appetite improving. No CP. No new complaints. No overnight events - Objective Vital Signs & Weight: Vital Signs (12 hours) Temp Pulse Resp BP Pulse Ox 08/04/19 06:41 94 L 08/04/19 06:40 76 16 94 L 08/04/19 03:33 98 F 75 18 131/62 94 L 08/04/19 00:26 77 16 08/03/19 20:00 98.5 F 79 18 165/78 H 96 08/03/19 18:59 76 20 95 Weight Admit Weight 258 lb 8 oz Weight 239 lb 4 oz Most Recent Monitor Data Heart Rate from ECG 76 NIBP 154/78 NIBP BP-Mean 103 Respiration from ECG 19 SpO2 100 I&O: 08/02/19 08/03/19 08/04/19 06:59 06:59 06:59 Intake Total 2063 5329 1580 Output Total 40 0 450 Balance 2023 5329 1130 Result Diagrams: 08/04/19 04:01 08/04/19 04:01 Additional Labs: Accuchecks 08/04/19 08/03/19 08/03/19 05:40 20:44 15:30 POC Glucose 154 H 181 H 125 H 08/03/19 08/03/19 12:01 07:22 POC Glucose 205 H 136 H EKG Reviewed by me: Yes (Tele SR) Hospitalist ROS - Review of Systems Respiratory: denies: cough, dry, shortness of breath, hemoptysis, SOB with excertion, pleuritic pain, sputum, wheezing, other Cardiovascular: denies: chest pain, palpitations, orthopnea, paroxysmal noc. dyspnea, edema, light headedness, other - Medication Medications: Active Medications Generic Name Dose Route Start Last Admin Trade Name Freq PRN Reason Stop Dose Admin Hydrocodone Bitart/Acetaminophen 2 tab 07/30/19 11:19 08/04/19 02:48 [place] 5/325 PO 2 tab Q4H PRN Administration Severe Pain (7-10) Albuterol/Ipratropium 3 ml 07/30/19 13:00 08/04/19 06:40 Duoneb NEB 3 ml [id number] BC Administration Amiodarone HCl 400 mg 08/03/19 09:00 08/03/19 20:40 Cordarone PO 400 mg TID BC Administration Carvedilol 6.25 mg 08/01/19 08:00 08/03/19 15:56 Coreg PO 6.25 mg BID-WM BC Administration Hydralazine HCl 10 mg 07/30/19 11:19 08/01/19 01:04 Apresoline SLOW IVP 10 mg Q6H PRN Administration To Maintain SBP< 140mmHG Insulin Glargine 15 units/ 0.15 mls @ 1 mls/hr 08/01/19 21:00 08/03/19 20:40 Miscellaneous Medication SC 0.15 mls HS BC Administration Insulin Glargine 15 units/ 0.15 mls @ 1 mls/hr 08/01/19 09:00 08/03/19 07:25 Miscellaneous Medication SC 0.15 mls QAM BC Administration Insulin Human Lispro 0 units 07/31/19 09:57 08/03/19 11:58 Humalog SC 4 unit .MODERATE SLIDING SC PRN Administration Moderate Correctional Scale Lisinopril 2.5 mg 08/01/19 09:00 08/03/19 07:21 Zestril PO 2.5 mg DAILY BC Administration Pantoprazole Sodium 40 mg 08/01/19 09:00 08/03/19 07:21 Protonix PO 40 mg DAILY BC Administration Sodium Chloride 10 ml 07/30/19 21:00 08/03/19 20:48 Flush - Normal Saline IVF 10 ml Q12HR BC Administration - Exam General Appearance: NAD General - other findings: on Amio drip Heart: RRR, no gallops Respiratory: no wheezes, no rales, rhonchi Gastrointestinal: non-tender, non-distended, normal bowel sounds Extremities: no cyanosis Hosp A/P - Plan DVT proph w/SCDs ADRIANA on CKD 5/ESRD/Metabolic acidosis - on dialysis NSTEMI/3V CAD s/p CABG 07/30 Chronic systolic HF EF 25-30% due to severe ischemic cardiomyopathy Chronic Anemia due to renal insufficiency Afib/flutter with RVR - on Amiodarone drip - in SR DM2 HTN HLD BPH Obesity BMI 33.3 Hyponatremia Chronic diabetic foot ulcer PLAN: on Amiodarone loading Cont CABG sliding scale with Lantus 15 units BID Cont ASA/ACEI/coreg Cont Dialysis Cont other meds as above Cont supportive care [facility]?
[2019-08-04] MEDS: Amiodarone 200 MG TAB PO SCH ×3 (08:30→20:13)
[2019-08-04] MEDS: Carvedilol 6.25 MG TAB PO SCH ×2 (08:30→16:24)
[2019-08-04] MEDS: Aspirin 325 mg Enteric Coated Tablet PO SCH (08:31)
[2019-08-04] MEDS: Insulin Glargine 15 UNITS in Pre-Filled Syringe 1 EACH SC SCH ×2 (08:31→21:00)
[2019-08-04] MEDS: Lisinopril 5 MG TAB PO SCH (08:31)
--- NOTE | 2019-08-04 08:37 | PRG ---
DATE OF SERVICE: 08/04/2019 SUBJECTIVE: Patient was seen and examined at bedside and overnight events noted. Patient denies any shortness of breath or chest pain or palpitation. No history of nausea or vomiting or diarrhea or fever or chills or cramps. OBJECTIVE: GENERAL: This is an obese male, in no apparent distress. VITAL SIGNS: Temperature 98.2. Heart rate 85. Respiratory rate 20. Blood pressure 125/64. HEENT: Atraumatic, normocephalic. Oral mucosa is moist NECK: Supple. CARDIOVASCULAR: S1, S2 heard. Rate and rhythm regular. RESPIRATORY: Clear to auscultation. GASTROINTESTINAL: Abdomen is soft. MUSCULOSKELETAL: No tenderness. No edema. DERMATOLOGIC: No skin rash. NEUROLOGIC: Alert and awake and oriented X3. No focal neurologic deficits. Moving all the extremities. PSYCHIATRIC: Mood and affect normal. LABORATORY DATA: Potassium 4.0, BUN is 23, and creatinine is 4.7. ASSESSMENT: 1. End-stage renal disease, continue on hemodialysis as tolerated. 2. Hypertension. 3. Anemia. 4. Edema. 5. Cardiorenal syndrome. PLAN: To continue on dialysis as tolerated. We will continue dialysis on Saturday, Saturday, Saturday. Job ID: [id number]
--- NOTE | 2019-08-04 10:26 | EKG ---
Test Reason : POST CABG Blood Pressure : / mmHG Vent. Rate : 080 BPM Atrial Rate : 080 BPM P-R Int : 270 ms QRS Dur : 120 ms QT Int : 388 ms P-R-T Axes : 051 016 108 degrees QTc Int : 447 ms Sinus rhythm with 1st degree A-V block Cannot rule out Inferior infarct , age undetermined Abnormal ECG When compared with ECG of 23-JUL-2019 16:01, [place] interval has increased Minimal criteria for Inferior infarct are now Present ST less depressed in Lateral leads Nonspecific T wave abnormality no longer evident in Inferior leads T wave inversion more evident in Lateral leads Confirmed by OVIDIO BELLO ([id number]) on 08/04/2019 10:26:20 AM Referred By: Rohan SOLARES Confirmed By:OVIDIO BELLO
--- NOTE | 2019-08-04 10:34 | EKG ---
Test Reason : CP Blood Pressure : / mmHG Vent. Rate : 081 BPM Atrial Rate : 352 BPM P-R Int : 000 ms QRS Dur : 108 ms QT Int : 370 ms P-R-T Axes : 000 003 163 degrees QTc Int : 429 ms Atrial flutter with variable A-V block Inferior infarct (cited on or before 30-JUL-2019) Abnormal ECG When compared with ECG of 30-JUL-2019 11:45, (Unconfirmed) Atrial flutter has replaced Sinus rhythm Questionable change in initial forces of Inferior leads T wave inversion more evident in Lateral leads Confirmed by OVIDIO BELLO (2) on 08/04/2019 10:34:07 AM Referred By: LISSA Confirmed By:OVIDIO BELLO
[2019-08-04] MEDS: Ondansetron PF 4 MG/2 ML Vial IVP PRN (13:29)
--- NOTE | 2019-08-04 14:56 | PQF ---
DATE: 08-04-19 ATTN: DR. JEROD VALENZUELA Please exercise your independent, professional judgment in responding to the clarification form. Clinical indicators are provided on the bottom of this form for your review Please check appropriate box(s): [ ] Encephalopathy: Type: [ ] Acute [ ] Subacute [ ] Chronic Etiology: [ ] Metabolic [ ] Toxic [ ] Other (please specify) [ ] Transient Alteration of Awareness [ ] Other diagnosis [ ] Unable to determine In addition, please specify: Present on Admission (POA): [ ] Yes [ ] No [ ] Unable to determine For continuity of documentation, please document condition throughout progress notes and discharge summary. Thank You. CLINICAL INDICATORS - SIGNS / SYMPTOMS / LABS / RESULTS AND LOCATION IN EMR: CONSULT NOTE DR. DYKES 08-01-19: HE SEEMS TO BE SOMEWHAT SLEEPY OR LETHARGIC BUT IS AWAKE AND EASILY AROUSABLE. CONSULT NOTE DR. RASHID 08-01-19: NURSING STAFF SAYS HE IS A LITTLE MORE ORIENTED CONSISTENTLY TODAY THAN YESTERDAY. ENCEPHALOPATHY AFTER SURGERY, WHICH IS NOT SURPRISING. RISK FACTORS / RESULTS AND LOCATION IN EMR: H&P: HX CKD, HTN, HYPERLIPIDEMIA, DM, PVD, CVA, CAD PROCEDURE: 07-30-19: R FEMORAL VEIN TRIALYSIS CATH PLACEMENT, CABG TREATMENTS / RESULTS AND LOCATION IN EMR: MAR: 08-01-19: LANTUS SC, 07-31-19: HUMALOG SC PULSE OX SAT: 2- 4L NC (This form is maintained as a part of the permanent medical record) 2014 [employer], [employer]. All Rights Reserved MIGNON [email or web address] Office: [phone] [facility]
[2019-08-04] MEDS: Insulin Regular 300 UNITS/3 ML VIAL SC PRN (16:46)
[2019-08-04] MEDS ORDERED: Polyethylene Glycol 3350 17 GM Packet PO PRN (23:18)
--- NOTE | 2019-08-04 23:21 | PDOC.HOSPP ---
- Subjective Encounter Date: 08/04/19 Encounter Time: 09:00 Subjective: Patient seen and examined for ADRIANA/CAD. No CP/SOB. No new complaints. No overnight events - Objective Vital Signs & Weight: Vital Signs (12 hours) Temp Pulse Resp BP BP BP Pulse Ox 08/04/19 20:00 98.0 F 63 18 118/56 L 92 L 08/04/19 18:54 59 L 16 96 08/04/19 16:00 98.0 F 67 18 98/54 L 97 08/04/19 14:27 74 16 08/04/19 11:54 97.4 F L 73 16 140/67 95 Weight Admit Weight 258 lb 8 oz Weight 239 lb 4 oz Most Recent Monitor Data Heart Rate from ECG 76 NIBP 154/78 NIBP BP-Mean 103 Respiration from ECG 19 SpO2 100 I&O: 08/03/19 08/04/19 08/05/19 06:59 06:59 06:59 Intake Total 5329 1580 740 Output Total 0 450 Balance 5329 1130 740 Result Diagrams: 08/04/19 04:01 08/04/19 04:01 Additional Labs: Accuchecks 08/04/19 08/04/19 08/04/19 20:39 16:31 11:02 POC Glucose 133 H 148 H 183 H 08/04/19 05:40 POC Glucose 154 H EKG Reviewed by me: Yes (Tele SR) Hospitalist ROS - Review of Systems Respiratory: denies: cough, dry, shortness of breath, hemoptysis, SOB with excertion, pleuritic pain, sputum, wheezing, other Cardiovascular: denies: chest pain, palpitations, orthopnea, paroxysmal noc. dyspnea, edema, light headedness, other - Medication Medications: Active Medications Generic Name Dose Route Start Last Admin Trade Name Freq PRN Reason Stop Dose Admin Hydrocodone Bitart/Acetaminophen 2 tab 07/30/19 11:19 08/04/19 18:30 [place] 5/325 PO 2 tab Q4H PRN Administration Severe Pain (7-10) Albuterol/Ipratropium 3 ml 07/30/19 13:00 08/04/19 18:54 Duoneb NEB 3 ml [id number] BC Administration Amiodarone HCl 400 mg 08/03/19 09:00 08/04/19 20:13 Cordarone PO 08/04/19 23:59 400 mg TID BC Administration Aspirin 325 mg 08/04/19 09:00 08/04/19 08:31 Ecotrin PO 325 mg DAILY BC Administration Carvedilol 6.25 mg 08/01/19 08:00 08/04/19 16:24 Coreg PO 6.25 mg BID-WM BC Administration Hydralazine HCl 10 mg 07/30/19 11:19 08/01/19 01:04 Apresoline SLOW IVP 10 mg Q6H PRN Administration To Maintain SBP< 140mmHG Insulin Glargine 15 units/ 0.15 mls @ 1 mls/hr 08/01/19 21:00 08/04/19 21:00 Miscellaneous Medication SC Not Given HS BC Insulin Glargine 15 units/ 0.15 mls @ 1 mls/hr 08/01/19 09:00 08/04/19 08:31 Miscellaneous Medication SC 0.15 mls QAM BC Administration Insulin Human Regular 0 units 07/30/19 11:41 08/04/19 16:46 Humulin R SC 3 unit Q4H PRN Administration POST OP SLIDING SCALE Protocol Insulin Human Regular 0 units 08/03/19 17:43 08/04/19 13:23 Humulin R SC 4 unit Q4H PRN Administration POST OP SLIDING SCALE Protocol Lisinopril 2.5 mg 08/01/19 09:00 08/04/19 08:31 Zestril PO 2.5 mg DAILY BC Administration Ondansetron HCl 4 mg 07/30/19 11:19 08/04/19 13:29 Zofran IVP 4 mg Q6H PRN Administration Nausea/Vomiting Pantoprazole Sodium 40 mg 08/01/19 09:00 08/04/19 08:32 Protonix PO 40 mg DAILY BC Administration Sodium Chloride 10 ml 07/30/19 21:00 08/04/19 20:14 Flush - Normal Saline IVF 10 ml Q12HR BC Administration - Exam General Appearance: NAD Neck: supple, no JVD Heart: RRR, no gallops Respiratory: no wheezes, no rales, no ronchi Gastrointestinal: non-tender, non-distended, normal bowel sounds Extremities: no cyanosis Hosp A/P - Plan DVT proph w/SCDs ADRIANA on CKD 5/ESRD/Metabolic acidosis - started on dialysis NSTEMI/3V CAD s/p CABG 07/30 Toxic Metabolic Encephalopathy - POA - resolved Chronic systolic HF EF 25-30% due to severe ischemic cardiomyopathy Chronic Anemia due to renal insufficiency Afib/flutter with RVR - on Amiodarone loading - in SR DM2 HTN HLD BPH Obesity BMI 33.3 Hyponatremia Chronic diabetic foot ulcer PLAN: Cont Amiodarone Cont CABG sliding scale Cont Lantus 15 units BID Cont ASA/Lisinopril/coreg Cont Dialysis per Nephrology Cont other meds as above Cont supportive care [facility]?
[2019-08-05 06:46] LABS: #Eosinphils 0.5 thou/uL (0.0-0.7); #Lymphocytes 1.4 thou/uL (1.20-3.40); #Monocytes 0.9 thou/uL (0.11-0.59); #Neutrophils 5.3 thou/uL (1.40-6.50); %Basophils 0.6 % (0.0-1.0); %Eosinophils 5.8 % (0.0-10.0); %Lymphocytes 17.4 % (21.0-51.0); %Neutrophils 65.3 % (42.0-75.0); Hemoglobin 8.9 g/dL (14.0-18.0); Mean Corpuscular HGB CONC 32.8 g/dL (32.0-36.0); Mean Corpuscular Hemoglobin 30.6 pg (27.0-31.0); Mean Corpuscular Volume 93.3 fL (78.0-98.0); Mean Platelet Volume 7.5 fL (7.4-10.4); Platelet Count 282 thou/uL (130-400); Red Blood Cell (RBC) Count 2.91 mill/uL (4.70-6.10); White Blood Cell (WBC) Count 8.2 thou/uL (4.8-10.8)
[2019-08-05 06:58] LABS: Anion Gap 14 mmol/L (10-20); BUN (Urea Nitrogen) 32 mg/dL (8.4-25.7); Calc. Creatinine Clearance 22 mL/min (70-130); Calcium 8.1 mg/dL (7.8-10.44); Carbon Dioxide 28 mmol/L (22-29); Chloride 99 mmol/L (98-107); Estimated GFR-MDRD 11; Glucose 112 mg/dL (70-105); Sodium 137 mmol/L (136-145)
[2019-08-05] MEDS: Carvedilol 6.25 MG TAB PO SCH ×2 (08:26→17:12)
[2019-08-05] MEDS: Insulin Glargine 15 UNITS in Pre-Filled Syringe 1 EACH SC SCH ×2 (08:26→20:16)
[2019-08-05] MEDS ORDERED: Epoetin (ESRD) 20,000 UNITS/ML IVP SCH (09:15)
[2019-08-05] MEDS: HYDROcodone/Acetaminophen 5/325 mg Tablet PO PRN ×3 (09:56→20:22)
--- NOTE | 2019-08-05 10:26 | PRG ---
DATE OF SERVICE: 08/05/2019 SUBJECTIVE: Patient was seen and examined at bedside and overnight events noted. Patient denies any shortness of breath or chest pain or palpitation. No history of nausea or vomiting or diarrhea or fever or chills or cramps. OBJECTIVE: GENERAL: This is an obese male, in no apparent distress. VITAL SIGNS: Temperature 98.3. Heart rate 69. Respiratory rate 18. Blood pressure 131/63. HEENT: Atraumatic, normocephalic. Oral mucosa is moist NECK: Supple. CARDIOVASCULAR: S1, S2 heard. Rate and rhythm regular. RESPIRATORY: Clear to auscultation. GASTROINTESTINAL: Abdomen is soft. MUSCULOSKELETAL: No tenderness. No edema. DERMATOLOGIC: No skin rash. NEUROLOGIC: Alert and awake and oriented X3. No focal neurologic deficits. Moving all the extremities. PSYCHIATRIC: Mood and affect normal. LABORATORY DATA: Potassium is 4.0, BUN is 32, and creatinine is 5.5. ASSESSMENT AND PLAN: 1. End-stage renal disease, continue on dialysis Saturday, Saturday, and Saturday. We will consult Surgery for a permanent fistula placement if tolerated. 2. Hypertension, stable. 3. Anemia of chronic disease. 4. Edema, controlled. 5. Cardiorenal syndrome. Plan to remove fluid with dialysis as tolerated. We will consult Surgery for catheter placement. We will add Epogen. Job ID: [id number]
--- NOTE | 2019-08-05 11:12 | PRG ---
DATE OF SERVICE: 08/05/2019 SUBJECTIVE: Mr. Carlson is doing well status post coronary artery bypass grafting last week. He is doing well on telemetry. He is tolerating his diet. He does not have any complaints. His pain is under good control and he says it is minimal. OBJECTIVE: LUNGS: Clear to auscultation. CARDIAC: Regular rate and rhythm without murmur or gallop. ABDOMEN: Soft, nontender. IV access blood draws through central line. I have been asked by Dr. Decker to establish his left arm fistula. Now that he has had his coronary artery bypass grafting, we will plan that for Saturday. We will plan under regional sedation. I have discussed with Dr. Leonardo Tejada, who performed his coronary artery bypass grafting and we feel that it is safe to proceed under regional anesthesia and TIVA. The patient understands risks and benefits, consents. The patient can be discharged home the same day after his dialysis access in left arm. We would advise holding his hemodialysis until after his surgery on Saturday. The patient informed and questions answered. Job ID: [id number]
[2019-08-05] MEDS ORDERED: EPOETIN ALFA-EPBX (ESRD) 10,000 UNIT/ML VIAL IVP SCH (12:00)
[2019-08-05] MEDS: Lisinopril 5 MG TAB PO SCH (15:26)
[2019-08-05] MEDS: Aspirin 325 mg Enteric Coated Tablet PO SCH (15:27)
[2019-08-05] MEDS: Amiodarone 200 MG TAB PO SCH ×2 (15:27→20:18)
[2019-08-05] MEDS: Senokot S 8.6-50 MG TAB PO SCH ×2 (15:28→20:18)
[2019-08-05] MEDS: EPOETIN ALFA-EPBX (ESRD) 10,000 UNIT/ML VIAL SC SCH (17:09)
[2019-08-05] MEDS: Insulin Regular 300 UNITS/3 ML VIAL SC PRN (17:13)
[2019-08-05] MEDS: Bisacodyl 5 MG TAB PO PRN (17:26)
--- NOTE | 2019-08-05 18:06 | PDOC.HOSPP ---
- Subjective Encounter Date: 08/05/19 Encounter Time: 09:30 Subjective: Patient seen and examined during dialysis. No CP/SOB or palpitations. No new complaints. No overnight events - Objective Vital Signs & Weight: Vital Signs (12 hours) Temp Pulse Resp BP Pulse Ox 08/05/19 15:01 98.0 F 74 18 138/65 95 08/05/19 14:18 77 20 100 08/05/19 08:10 98.3 F 69 18 131/63 95 08/05/19 07:04 66 18 100 Weight Admit Weight 258 lb 8 oz Weight 241 lb 4 oz Most Recent Monitor Data Heart Rate from ECG 76 NIBP 154/78 NIBP BP-Mean 103 Respiration from ECG 19 SpO2 100 I&O: 08/04/19 08/05/19 08/06/19 06:59 06:59 06:59 Intake Total 1580 740 Output Total 450 Balance 1130 740 Result Diagrams: 08/05/19 06:26 08/05/19 06:26 Additional Labs: Accuchecks 08/05/19 08/05/19 08/04/19 16:39 05:25 20:39 POC Glucose 188 H 108 133 H EKG Reviewed by me: Yes (Tele SR) Hospitalist ROS - Review of Systems Respiratory: denies: cough, dry, shortness of breath, hemoptysis, SOB with excertion, pleuritic pain, sputum, wheezing, other Cardiovascular: denies: chest pain, palpitations, orthopnea, paroxysmal noc. dyspnea, edema, light headedness, other - Medication Medications: Active Medications Generic Name Dose Route Start Last Admin Trade Name Freq PRN Reason Stop Dose Admin Hydrocodone Bitart/Acetaminophen 2 tab 07/30/19 11:19 08/05/19 15:28 [place] 5/325 PO 2 tab Q4H PRN Administration Severe Pain (7-10) Albuterol/Ipratropium 3 ml 07/30/19 13:00 08/05/19 14:18 Duoneb NEB 3 ml [id number] BC Administration Amiodarone HCl 400 mg 08/05/19 09:00 08/05/19 15:27 Cordarone PO 08/18/19 23:59 400 mg BID BC Administration Aspirin 325 mg 08/04/19 09:00 08/05/19 15:27 Ecotrin PO 325 mg DAILY BC Administration Bisacodyl 10 mg 08/03/19 17:38 08/05/19 17:26 Dulcolax PO 10 mg Q12H PRN Administration Constipation Carvedilol 6.25 mg 08/01/19 08:00 08/05/19 17:12 Coreg PO 6.25 mg BID-WM BC Administration Epoetin Fabio-epbx 10,000 unit 08/05/19 16:45 08/05/19 17:09 Retacrit SC 10,000 unit MoWeFr BC Administration Hydralazine HCl 10 mg 07/30/19 11:19 08/01/19 01:04 Apresoline SLOW IVP 10 mg Q6H PRN Administration To Maintain SBP< 140mmHG Insulin Glargine 15 units/ 0.15 mls @ 1 mls/hr 08/01/19 21:00 08/04/19 21:00 Miscellaneous Medication SC Not Given HS [facility] Insulin Glargine 15 units/ 0.15 mls @ 1 mls/hr 08/01/19 09:00 08/05/19 08:26 Miscellaneous Medication SC 0.15 mls QAM BC Administration Insulin Human Regular 0 units 07/30/19 11:41 08/05/19 17:13 Humulin R SC 4 unit Q4H PRN Administration POST OP SLIDING SCALE Protocol Insulin Human Regular 0 units 08/03/19 17:43 08/04/19 13:23 Humulin R SC 4 unit Q4H PRN Administration POST OP SLIDING SCALE Protocol Lisinopril 2.5 mg 08/01/19 09:00 08/05/19 15:26 Zestril PO Not Given DAILY BC Ondansetron HCl 4 mg 07/30/19 11:19 08/04/19 13:29 Zofran IVP 4 mg Q6H PRN Administration Nausea/Vomiting Pantoprazole Sodium 40 mg 08/01/19 09:00 08/05/19 15:27 Protonix PO 40 mg DAILY BC Administration Senna/Docusate Sodium 1 tab 08/05/19 09:00 08/05/19 15:28 Senokot S PO 1 tab BID BC Administration Sodium Chloride 10 ml 07/30/19 21:00 08/05/19 08:27 Flush - Normal Saline IVF 10 ml Q12HR BC Administration - Exam General Appearance: NAD Neck: supple, no JVD Heart: RRR, no gallops Respiratory: no wheezes, no rales Gastrointestinal: non-tender, non-distended Extremities: no cyanosis Hosp A/P - Plan DVT proph w/SCDs ADRIANA on CKD 5/ESRD/Metabolic acidosis - started on dialysis NSTEMI/3V CAD s/p CABG 07/30 Toxic Metabolic Encephalopathy - POA - resolved Chronic systolic HF EF 25-30% due to severe ischemic cardiomyopathy Chronic Anemia due to renal insufficiency Afib/flutter with RVR - on Amiodarone loading - in SR DM2 HTN HLD BPH Obesity BMI 33.3 Hyponatremia Chronic diabetic foot ulcer PLAN: Cont Amiodarone loading Cont CABG sliding scale with Lantus 15 units BID Cont ASA/Lisinopril/Coreg Cont Dialysis per Nephrology Cont other meds as above Cont Cardiac Rehab [facility] at [place] DC on saturday after left arm fistula
[2019-08-06 04:55] LABS: #Basophils 0.1 thou/uL (0.0-0.2); #Eosinphils 0.6 thou/uL (0.0-0.7); #Lymphocytes 1.9 thou/uL (1.20-3.40); #Neutrophils 5.6 thou/uL (1.40-6.50); %Basophils 0.7 % (0.0-1.0); %Eosinophils 6.5 % (0.0-10.0); %Monocytes 11.4 % (0.0-10.0); %Neutrophils 60.5 % (42.0-75.0); Hemoglobin 9.6 g/dL (14.0-18.0); Mean Corpuscular HGB CONC 33.2 g/dL (32.0-36.0); Mean Corpuscular Hemoglobin 30.4 pg (27.0-31.0); Mean Corpuscular Volume 91.8 fL (78.0-98.0); Mean Platelet Volume 7.5 fL (7.4-10.4); Platelet Count 304 thou/uL (130-400); RBC Distribution Width 11.9 % (11.5-14.5); Red Blood Cell (RBC) Count 3.14 mill/uL (4.70-6.10); White Blood Cell (WBC) Count 9.2 thou/uL (4.8-10.8)
[2019-08-06 05:10] LABS: Anion Gap 13 mmol/L (10-20); BUN (Urea Nitrogen) 23 mg/dL (8.4-25.7); Calc. Creatinine Clearance 29 mL/min (70-130); Calcium 8.3 mg/dL (7.8-10.44); Carbon Dioxide 28 mmol/L (22-29); Chloride 97 mmol/L (98-107); Estimated GFR-MDRD 15; Glucose 107 mg/dL (70-105); Potassium 3.6 mmol/L (3.5-5.1); Sodium 134 mmol/L (136-145)
[2019-08-06] MEDS: Ondansetron PF 4 MG/2 ML Vial IVP PRN (05:42)
[2019-08-06] MEDS: Senokot S 8.6-50 MG TAB PO SCH ×2 (08:01→20:11)
[2019-08-06] MEDS: Lisinopril 5 MG TAB PO SCH (08:01)
[2019-08-06] MEDS: Carvedilol 6.25 MG TAB PO SCH ×2 (08:02→16:54)
[2019-08-06] MEDS: Amiodarone 200 MG TAB PO SCH ×2 (08:02→20:11)
[2019-08-06] MEDS: HYDROcodone/Acetaminophen 5/325 mg Tablet PO PRN (08:02)
[2019-08-06] MEDS: Aspirin 325 mg Enteric Coated Tablet PO SCH (08:02)
[2019-08-06] MEDS: Insulin Glargine 15 UNITS in Pre-Filled Syringe 1 EACH SC SCH ×2 (09:11→20:10)
--- NOTE | 2019-08-06 10:15 | PRG ---
DATE OF SERVICE: 08/06/2019 SUBJECTIVE: Patient was seen and examined at bedside and overnight events noted. Patient denies any shortness of breath or chest pain or palpitation. No history of nausea or vomiting or diarrhea or fever or chills or cramps. OBJECTIVE: GENERAL: This is an obese male, in no apparent distress. VITAL SIGNS: Temperature 98.1, heart rate 70, respiratory rate 18, blood pressure 113/61. HEENT: Atraumatic, normocephalic. Oral mucosa is moist NECK: Supple. CARDIOVASCULAR: S1, S2 heard. Rate and rhythm regular. RESPIRATORY: Clear to auscultation. GASTROINTESTINAL: Abdomen is soft. MUSCULOSKELETAL: No tenderness. No edema. DERMATOLOGIC: No skin rash. NEUROLOGIC: Alert and awake and oriented X3. No focal neurologic deficits. Moving all the extremities. PSYCHIATRIC: Mood and affect normal. LABORATORY DATA: Potassium 3.6, BUN is 23, and creatinine is 4.2. ASSESSMENT AND PLAN: 1. End-stage renal disease. Continue dialysis on Saturday, Saturday, and Saturday. Follow with Surgery for access placement. 2. Hypertension. 3. Anemia. 4. Edema. 5. Cardiorenal syndrome. Continue dialysis on Saturday, Saturday, and Saturday. Plan to have access placed tomorrow. Job ID: [id number]
[2019-08-06] MEDS: Insulin Regular 300 UNITS/3 ML VIAL SC PRN (12:33)
[2019-08-06 13:03] VITALS: BMI 33.6
--- NOTE | 2019-08-06 19:28 | PDOC.HOSPP ---
- Subjective Encounter Date: 08/06/19 Encounter Time: 09:00 Subjective: Patient seen and examined for ADRIANA. No CP. No new complaints. No overnight events - Objective Vital Signs & Weight: Vital Signs (12 hours) Temp Pulse Pulse Pulse Resp BP BP 08/06/19 19:11 63 16 08/06/19 15:16 98.3 F 97 18 08/06/19 15:06 77 73 133/63 116/55 L 08/06/19 12:45 62 20 08/06/19 11:12 98 F 66 18 08/06/19 11:11 98 F 18 08/06/19 09:25 74 73 168/75 H 127/61 BP Pulse Ox Pulse Ox Pulse Ox 08/06/19 19:11 93 L 08/06/19 15:16 116/55 L 99 08/06/19 15:06 95 97 08/06/19 12:45 99 08/06/19 11:12 113/55 L 99 08/06/19 11:11 08/06/19 09:25 95 97 Weight Admit Weight 258 lb 8 oz Weight 235 lb Most Recent Monitor Data Heart Rate from ECG 76 NIBP 154/78 NIBP BP-Mean 103 Respiration from ECG 19 SpO2 100 I&O: 08/05/19 08/06/19 08/07/19 06:59 06:59 06:59 Intake Total 831 913 3022 Output Total 1000 Balance 740 560 200 Result Diagrams: 08/06/19 04:08 08/06/19 04:08 Additional Labs: Accuchecks 08/06/19 08/06/19 08/06/19 16:17 12:07 08:36 POC Glucose 122 H 161 H 177 H 08/06/19 08/05/19 05:51 20:19 POC Glucose 128 H 210 H EKG Reviewed by me: Yes (Tele SR) Hospitalist ROS - Review of Systems Cardiovascular: denies: chest pain, palpitations, orthopnea, paroxysmal noc. dyspnea, edema, light headedness, other Gastrointestinal: denies: nausea, vomiting, abdominal pain, diarrhea, constipation, melena, hematochezia, other - Medication Medications: Active Medications Generic Name Dose Route Start Last Admin Trade Name Freq PRN Reason Stop Dose Admin Hydrocodone Bitart/Acetaminophen 2 tab 07/30/19 11:19 08/06/19 08:02 [place] 5/325 PO 2 tab Q4H PRN Administration Severe Pain (7-10) Albuterol/Ipratropium 3 ml 07/30/19 13:00 08/06/19 19:11 Duoneb NEB 3 ml [id number] BC Administration Amiodarone HCl 400 mg 08/05/19 09:00 08/06/19 08:02 Cordarone PO 08/18/19 23:59 400 mg BID BC Administration Aspirin 325 mg 08/04/19 09:00 08/06/19 08:02 Ecotrin PO 325 mg DAILY BC Administration Bisacodyl 10 mg 08/03/19 17:38 08/05/19 17:26 Dulcolax PO 10 mg Q12H PRN Administration Constipation Carvedilol 6.25 mg 08/01/19 08:00 08/06/19 16:54 Coreg PO 6.25 mg BID-WM BC Administration Epoetin Fabio-epbx 10,000 unit 08/05/19 16:45 08/05/19 17:09 Retacrit SC 10,000 unit MoWeFr BC Administration Hydralazine HCl 10 mg 07/30/19 11:19 08/01/19 01:04 Apresoline SLOW IVP 10 mg Q6H PRN Administration To Maintain SBP< 140mmHG Insulin Glargine 15 units/ 0.15 mls @ 1 mls/hr 08/01/19 21:00 08/05/19 20:16 Miscellaneous Medication SC 0.15 mls HS BC Administration Insulin Glargine 15 units/ 0.15 mls @ 1 mls/hr 08/01/19 09:00 08/06/19 09:11 Miscellaneous Medication SC 0.15 mls QAM BC Administration Insulin Human Regular 0 units 07/30/19 11:41 08/06/19 12:33 Humulin R SC 4 unit Q4H PRN Administration POST OP SLIDING SCALE Protocol Insulin Human Regular 0 units 08/03/19 17:43 08/04/19 13:23 Humulin R SC 4 unit Q4H PRN Administration POST OP SLIDING SCALE Protocol Lisinopril 2.5 mg 08/01/19 09:00 08/06/19 08:01 Zestril PO 2.5 mg DAILY BC Administration Ondansetron HCl 4 mg 07/30/19 11:19 08/06/19 05:42 Zofran IVP 4 mg Q6H PRN Administration Nausea/Vomiting Pantoprazole Sodium 40 mg 08/01/19 09:00 08/06/19 08:02 Protonix PO 40 mg DAILY BC Administration Senna/Docusate Sodium 1 tab 08/05/19 09:00 08/06/19 08:01 Senokot S PO 1 tab BID BC Administration Sodium Chloride 10 ml 07/30/19 21:00 08/06/19 08:04 Flush - Normal Saline IVF 10 ml Q12HR BC Administration - Exam General Appearance: NAD Heart: RRR, no gallops Respiratory: no wheezes, no rales, no ronchi Gastrointestinal: non-tender, non-distended, normal bowel sounds Extremities: no cyanosis Hosp A/P - Plan DVT proph w/SCDs ADRIANA on CKD 5/ESRD/Metabolic acidosis - started on dialysis NSTEMI/3V CAD s/p CABG 07/30 Toxic Metabolic Encephalopathy - POA - resolved Chronic systolic HF EF 25-30% due to severe ischemic cardiomyopathy Chronic Anemia due to renal insufficiency Afib/flutter with RVR - on Amiodarone - in SR DM2 HTN HLD BPH Obesity BMI 33.3 Hyponatremia Chronic diabetic foot ulcer PLAN: Cont Lantus/CABG sliding scale Cont Amiodarone Cont ASA Cont Lisinopril/Coreg Cont Dialysis per Nephrology Cont other meds Cont Cardiac Rehab [facility] at dc DC in AM after left arm fistula
[2019-08-06] MEDS: Bisacodyl 5 MG TAB PO PRN (20:10)
[2019-08-07 04:56] LABS: #Eosinphils 0.7 thou/uL (0.0-0.7); #Lymphocytes 1.8 thou/uL (1.20-3.40); #Neutrophils 7.6 thou/uL (1.40-6.50); %Basophils 0.3 % (0.0-1.0); %Eosinophils 6.5 % (0.0-10.0); %Lymphocytes 16.4 % (21.0-51.0); %Neutrophils 67.8 % (42.0-75.0); Hemoglobin 9.6 g/dL (14.0-18.0); Mean Corpuscular HGB CONC 33.4 g/dL (32.0-36.0); Mean Corpuscular Hemoglobin 30.5 pg (27.0-31.0); Mean Corpuscular Volume 91.3 fL (78.0-98.0); Mean Platelet Volume 7.1 fL (7.4-10.4); Platelet Count 328 thou/uL (130-400); RBC Distribution Width 11.7 % (11.5-14.5); Red Blood Cell (RBC) Count 3.14 mill/uL (4.70-6.10); White Blood Cell (WBC) Count 11.2 thou/uL (4.8-10.8)
[2019-08-07 05:15] LABS: Anion Gap 13 mmol/L (10-20); BUN (Urea Nitrogen) 32 mg/dL (8.4-25.7); Calc. Creatinine Clearance 21 mL/min (70-130); Calcium 8.4 mg/dL (7.8-10.44); Carbon Dioxide 28 mmol/L (22-29); Chloride 99 mmol/L (98-107); Estimated GFR-MDRD 10; Glucose 126 mg/dL (70-105); Potassium 3.7 mmol/L (3.5-5.1); Sodium 136 mmol/L (136-145)
[2019-08-07] MEDS ORDERED: Levofloxacin 500 mg/D5W 100 ml Premix Bag ONE (08:08)
--- NOTE | 2019-08-07 08:47 | PRG ---
DATE OF SERVICE: 08/07/2019 SUBJECTIVE: Patient was seen and examined at bedside and overnight events noted. Patient denies any shortness of breath or chest pain or palpitation. No history of nausea or vomiting or diarrhea or fever or chills or cramps. OBJECTIVE: GENERAL: This is an obese male, in no apparent distress. VITAL SIGNS: Temperature 99. Heart rate 80. Respiratory rate 18. Blood pressure 155/72. HEENT: Atraumatic, normocephalic. Oral mucosa is moist NECK: Supple. CARDIOVASCULAR: S1, S2 heard. Rate and rhythm regular. RESPIRATORY: Clear to auscultation. GASTROINTESTINAL: Abdomen is soft. MUSCULOSKELETAL: No tenderness. No edema. DERMATOLOGIC: No skin rash. NEUROLOGIC: Alert and awake and oriented X3. No focal neurologic deficits. Moving all the extremities. PSYCHIATRIC: Mood and affect normal. LABORATORY DATA: Potassium 3.7, BUN is 32, and creatinine is 5.5. ASSESSMENT AND PLAN: 1. End-stage renal disease, continue hemodialysis Saturday, Saturday, and Saturday. 2. Hypertension. Monitor blood pressure. 3. Anemia. Monitor hemoglobin. 4. Edema, controlled. 5. Cardiorenal syndrome. Plan to have dialysis Saturday, Saturday, and Saturday as tolerated. Appreciate help from Surgery. Job ID: [id number]
[2019-08-07] MEDS ORDERED: Lidocaine 1% w/Epinephrine 1:100K 20 ML VIAL ONE (09:06)
[2019-08-07] MEDS ORDERED: Heparin 5,000 UNITS/ML VIAL ONE (09:06)
[2019-08-07] MEDS ORDERED: Bupivacaine PF 0.5% 30 ML VIAL ONE (09:06)
[2019-08-07] MEDS ORDERED: Protamine Sulfate 50 MG/5 ML VIAL ONE (09:06)
[2019-08-07] MEDS ORDERED: Propofol 1,000 MG/100 ML VIAL IV ONE (09:12)
[2019-08-07] MEDS ORDERED: Fentanyl 100 MCG/2 ML VIAL ONE (09:12)
[2019-08-07] MEDS ORDERED: PHENYLEPHRINE-NS 100 MCG/ML 10 ML SYRINGE ONE (09:28)
[2019-08-07] MEDS ORDERED: PROPOFOL 200 MG/20 ML VIAL ONE (09:28)
[2019-08-07] MEDS ORDERED: Bupivacaine HCl 0.5%/Epinephrine 1:200,000/PF 30 ml Vial ONE (09:28)
[2019-08-07] MEDS ORDERED: Ondansetron HCl/PF 4 MG/2 ML Vial IVP PRN (10:06)
[2019-08-07] MEDS ORDERED: Morphine Sulfate 2 MG/ML SYRINGE SLOW IVP PRN (10:06)
[2019-08-07] MEDS ORDERED: Heparin 10,000 UNITS/ 10 ML VIAL ONE (10:27)
[2019-08-07] MEDS ORDERED: traMADol HCl 50 MG TAB PO PRN (11:25)
[2019-08-07] MEDS ORDERED: Acetaminophen 500 MG TAB PO PRN (11:25)
[2019-08-07] MEDS: Amiodarone 200 MG TAB PO SCH ×2 (12:59→19:45)
[2019-08-07] MEDS: Senokot S 8.6-50 MG TAB PO SCH ×2 (13:01→19:45)
[2019-08-07] MEDS: Aspirin 325 mg Enteric Coated Tablet PO SCH (13:01)
[2019-08-07] MEDS: Lisinopril 5 MG TAB PO SCH (13:01)
[2019-08-07] MEDS: Carvedilol 6.25 MG TAB PO SCH ×2 (13:01→18:04)
[2019-08-07] MEDS: Insulin Glargine 15 UNITS in Pre-Filled Syringe 1 EACH SC SCH ×2 (13:02→19:45)
[2019-08-07] MEDS: EPOETIN ALFA-EPBX (ESRD) 10,000 UNIT/ML VIAL SC SCH (18:04)
[2019-08-07 19:44] VITALS: BP 102/55; TEMP 97.9
--- NOTE | 2019-08-07 20:47 | DIS ---
DATE OF ADMISSION: 07/18/2019 DATE OF DISCHARGE: 08/07/2019 DISCHARGE DISPOSITION: Home. FOLLOWUP: 1. Follow up with primary care physician at [facility] in [place]. 2. Follow up with Cardiology, Dr. Robel Platt; Nephrology, Dr. Decker; Cardiovascular, Dr. Tejada as scheduled. Outpatient dialysis has been arranged. The patient was seen and examined on the day of discharge. Denies any new complaints. DISCHARGE MEDICATIONS: 1. Zetia 10 mg daily. 2. Fish oil 1000 mg b.i.d. 3. Levemir 15 units b.i.d. 4. Levothyroxine 75 mcg daily. 5. Sublingual nitroglycerin as needed. 6. Tylenol as needed. 7. Amiodarone taper. 8. Aspirin 325 mg daily. 9. Carvedilol 6.25 mg b.i.d. 10. Lisinopril 2.5 mg daily. 11. Protonix 40 mg daily. 12. MiraLAX 17 g daily. 13. Tramadol as needed. 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 He was admitted on July 18, 2019. Please refer to the history and physical for further details. The patient was admitted to the hospital with the above diagnosis. Plan was to initiate hemodialysis. General Surgery was consulted. The patient developed chest discomfort along with shortness of breath. He was found to have elevated troponin of troponin maximum of 10.1. Cardiac catheterization was performed on July 23, 2019, that showed 3-vessel coronary artery disease with severely impaired left ventricular function. The coronary artery bypass grafting was delayed due to Plavix loading. His echocardiogram showed ejection fraction of 30% to 35% with left atrial dilatation, severe mitral regurgitation, mild tricuspid regurgitation. Dialysis was continued with right IJ cuffed tunneled hemodialysis catheter. He also had a central line placed by Dr. Pappas. On July 30, 2019, the patient underwent coronary artery bypass grafting x3. He was monitored in the intensive care unit. He developed atrial fibrillation post-CABG, requiring amiodarone loading. Amiodarone loading has been changed to oral. He underwent fistula placement today by Dr. Pappas. He has been cleared by consultants for discharge. FINAL DIAGNOSES: 1. Acute kidney injury on chronic kidney disease, stage 5/end-stage renal disease, started on hemodialysis. 2. Metabolic acidosis secondary to acute kidney injury. 3. [id number] myocardial infarction with 3-vessel disease, status post coronary artery bypass grafting x3 on July 30. 4. Toxic metabolic encephalopathy on admission, resolved. 5. Chronic systolic heart failure, ejection fraction 25% to 30% due to severe ischemic cardiomyopathy. [facility] has been arranged. 6. Hyperlipidemia with statin intolerance. 7. Diabetes mellitus, type 2. 8. Atrial fibrillation/flutter with rapid ventricular response post-CABG, on amiodarone loading. 9. Chronic anemia due to renal insufficiency. 10. Hypertension. 11. Obesity with BMI of 33. 12. Hyponatremia. 13. Chronic diabetic foot ulcer. 14. On chronic suppressive antibiotics per primary urologist. The family was instructed to probably change Levaquin to some other antibiotic due to interaction with amiodarone. Time coordinating the discharge of this patient was 36 minutes. The patient understands the above plan of care. Job ID: [id number]
--- NOTE | 2019-08-10 11:03 | OP ---
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 Family requested evaluation intraoperative. POSTOPERATIVE DIAGNOSES: End-stage renal disease, status post coronary artery bypass grafting this hospitalization, previous amputation of right fourth and fifth toes healed with plantar neuropathic diabetic ulcer beneath the third metatarsal phalangeal joint with callus without deeper sinus. Family requested evaluation intraoperative. PROCEDURES PERFORMED: Left arm primary arteriovenous fistula, perforating branch antecubital vein to proximal radial artery with outflow both the cephalic and basilic vein, although the basilic vein seemed to have some restriction and primary outflow seems to be the cephalic vein. Retrograde antecubital vein preserved. Note, exploration of the cephalic vein to the wrist noted to be occluded and wound closed. Debridement of right foot diabetic ulcer, callus, skin, callus. ANESTHESIA: Regional, TIVA. DESCRIPTION OF PROCEDURE: The patient was taken to the operating room, where under left regional anesthesia and IV sedation, left upper extremity was prepared with ChloraPrep and draped in routine fashion. I made an incision of the proximal volar forearm longitudinally below the antecubital fossa, carried down through skin and subcutaneous tissue, antecubital vein, cephalic vein was so large that I made an incision in the left wrist and interrogated the cephalic vein, which was dissected free distally, ligated the cephalic vein with a 4-0 silk tie, divided, spatulated, and interrogated with coronary dilators, where two coronary dilators would not pass, thus it was obstructed. It was clipped with a large clip, divided. Subcutaneous tissue was approximated with 3-0 Monocryl, skin with subdermal 4-0 Monocryl and [place] glue applied. Attention was turned to the proximal forearm, where the antecubital vein was dissected free, perforating branch dissected free. The patient given 6000 units of heparin intravenously. Perforating branch dissected free. Branches were divided between 4-0 silk ties and clips and spatulated over branch points and interrogated with coronary dilators, passing coronary dilators from a 2 mm to 4 mm dilator out the cephalic vein outflow. Directing the dilators out, the basilic vein revealed obstruction. Radial artery was dissected free. We had slight arteriosclerotic disease, but it was widely patent and pulsatile. Vascular clamps were placed proximally and distally. Longitudinal arteriotomy was made for 2 cm anastomosis between the proximal and radial artery, and the perforating branch antecubital vein with continuous suture of 6-0 Prolene, completing anastomosis gained hemostasis with 6-0 Prolene, releasing vascular flow control, noting excellent Doppler signals in the cephalic vein outflow. The cephalic vein Doppler signal did not seem to be altered with occlusion of the basilic vein outflow, correlating with the above findings with coronary dilators. Good hemostasis was noted. The patient was given 25 mg of protamine by Anesthesia. Subcutaneous tissue was approximated with 3-0 Monocryl, skin with subdermal 4-0 Monocryl, and [place] glue applied. The patient requested evaluation of his right plantar neuropathic ulcer. He had previous amputations elsewhere fourth and fifth toes, and metatarsal well healed. He had abundant callus over superficial ulceration plantar foot, neuropathic ulcer beneath the metatarsal plantar joint of the third toe. Alcohol prep was used. This callus debrided sharply. There was about a centimeter and half area of granulating tissue without sinus tract. There was no evidence of infection or deeper communication. Good hemostasis noted. Dressing was applied. The patient tolerated the procedure well. Job ID: [id number]
[2019-08-19] MEDS ORDERED: Amiodarone 200 MG TAB PO SCH (09:00)
[2019-09-02] MEDS ORDERED: Amiodarone 200 MG TAB PO SCH (09:00)
== END 2019-08-07 20:08 | disposition home or self-care (01) | DRG 673 ==
LOC: ERS 12:06 → OBSVTOIN 14:33 → 2NO 14:33 → CCU 07-20 19:57 → 2NO 07-26 14:41 → CCU 07-30 07:03 → 2NO 08-03 17:43
PROVIDERS: ADMIT Emergency Medicine; ATTEND Hospitalist
PROC: 06HY33Z Insertion of Infusion Device into Lower Vein, Percutaneous Approach (ICD-10-PCS; 2019-07-21)
PROC: 0JH63XZ Insertion of Tunneled Vascular Access Device into Chest Subcutaneous Tissue and Fascia, Percutaneous Approach (ICD-10-PCS; principal; 2019-07-22)
PROC: 02HV33Z Insertion of Infusion Device into Superior Vena Cava, Percutaneous Approach (ICD-10-PCS; 2019-07-22)
PROC: B518ZZA Fluoroscopy of Superior Vena Cava, Guidance (ICD-10-PCS; 2019-07-22)
PROC: 02HV33Z Insertion of Infusion Device into Superior Vena Cava, Percutaneous Approach (ICD-10-PCS; 2019-07-22)
PROC: B548ZZA Ultrasonography of Superior Vena Cava, Guidance (ICD-10-PCS; 2019-07-22)
PROC: 5A1D70Z Performance of Urinary Filtration, Intermittent, Less than 6 Hours Per Day (ICD-10-PCS; 2019-07-22)
PROC: 4A023N7 Measurement of Cardiac Sampling and Pressure, Left Heart, Percutaneous Approach (ICD-10-PCS; 2019-07-23)
PROC: B2111ZZ Fluoroscopy of Multiple Coronary Arteries using Low Osmolar Contrast (ICD-10-PCS; 2019-07-23)
PROC: B2151ZZ Fluoroscopy of Left Heart using Low Osmolar Contrast (ICD-10-PCS; 2019-07-23)
PROC: 021109W Bypass Coronary Artery, Two Arteries from Aorta with Autologous Venous Tissue, Open Approach (ICD-10-PCS; 2019-07-30)
PROC: 02100Z9 Bypass Coronary Artery, One Artery from Left Internal Mammary, Open Approach (ICD-10-PCS; 2019-07-30)
PROC: 06BQ4ZZ Excision of Left Saphenous Vein, Percutaneous Endoscopic Approach (ICD-10-PCS; 2019-07-30)
PROC: 5A1221Z Performance of Cardiac Output, Continuous (ICD-10-PCS; 2019-07-30)
PROC: 3E033XZ Introduction of Vasopressor into Peripheral Vein, Percutaneous Approach (ICD-10-PCS; 2019-07-31)
PROC: 30233N1 Transfusion of Nonautologous Red Blood Cells into Peripheral Vein, Percutaneous Approach (ICD-10-PCS; 2019-08-03)
PROC: 031C0ZF Bypass Left Radial Artery to Lower Arm Vein, Open Approach (ICD-10-PCS; 2019-08-07)
PROC: 0JDQ3ZZ Extraction of Right Foot Subcutaneous Tissue and Fascia, Percutaneous Approach (ICD-10-PCS; 2019-08-07)
DX: N17.9 Acute kidney failure, unspecified (principal); I21.4 Non-ST elevation (NSTEMI) myocardial infarction; I50.23 Acute on chronic systolic (congestive) heart failure; G92 Toxic encephalopathy; I25.110 Atherosclerotic heart disease of native coronary artery with unstable angina pectoris; I13.2 Hypertensive heart and chronic kidney disease with heart failure and with stage 5 chronic kidney disease, or end stage renal disease; E87.1 Hypo-osmolality and hyponatremia; E87.2 Acidosis; I48.92 Unspecified atrial flutter; N39.0 Urinary tract infection, site not specified; N18.6 End stage renal disease; E78.5 Hyperlipidemia, unspecified; I25.5 Ischemic cardiomyopathy; E11.22 Type 2 diabetes mellitus with diabetic chronic kidney disease; D63.1 Anemia in chronic kidney disease; E66.9 Obesity, unspecified; E11.621 Type 2 diabetes mellitus with foot ulcer; E11.51 Type 2 diabetes mellitus with diabetic peripheral angiopathy without gangrene; L97.519 Non-pressure chronic ulcer of other part of right foot with unspecified severity; N40.0 Benign prostatic hyperplasia without lower urinary tract symptoms; E03.9 Hypothyroidism, unspecified; I95.81 Postprocedural hypotension; I48.91 Unspecified atrial fibrillation; Z88.0 Allergy status to penicillin; Z86.73 Personal history of transient ischemic attack (TIA), and cerebral infarction without residual deficits; Z68.33 Body mass index [BMI] 33.0-33.9, adult; Z88.8 Allergy status to other drugs, medicaments and biological substances; Z91.041 Radiographic dye allergy status; Z79.02 Long term (current) use of antithrombotics/antiplatelets; Z79.899 Other long term (current) drug therapy; Z79.890 Hormone replacement therapy; Z95.5 Presence of coronary angioplasty implant and graft; I25.2 Old myocardial infarction
CPT/HCPCS: 36415; 36416; 36430; 71045; 80048; 80053; 80061; 82553; 82728; 82805; 82947; 83540; 83550; 83880; 84443; 84484; 85007; 85025; 85027; 85347; 85610; 85730; 86580; 86704; 86706; 86803; 86850; 86900; 86901; 87340; 90935; 93005; 93010; 93306; 93458; 93798; 93970; 94640; 94760; 99152; C1752; C1769; G0257; G0365; J0171; J0282; J0360; J0670; J1100; J1642; J1644; J1650; J1815; J1940; J1956; J2001; J2250; J2270; J2405; J2440; J2704; J2720; J3010; J3370; J3475; J3480; J3490; J7050; J7070; J7512; J7620; J7626; P9016; P9045; Q0163; Q5105; Q9967; S0017; S0020; S0028

== ENCOUNTER 2019-11-12 06:54 | Day surgery (SDC) | payer BC ==
[2019-11-11 12:23] VITALS: BMI 33.0
--- NOTE | 2019-11-12 08:31 | SPC ---
LEFT UPPER EXTREMITY FISTULOGRAM: HISTORY: Non-maturing fistula. FINDINGS: Successful left upper kidney fistulogram. The cephalic venous outflow tract was cannulated. The cepha lic venous outflow tract is tortuous. There is no evidence of significant occlusion or stenosis along the course of the venous outflow tract. Manual pressure was used to reflux contrast. There are multiple collaterals present along the proximal cephalic outflow tract. Some of these collaterals resultant anastomosis of the cephalic vein with the basilic/brachial veins. There is also a large col lateral along the proximal cephalic venous outflow tract that courses along the lateral aspect of the left upper extremity. This proximal large venous outflow tract also has tributaries that do suppl y the brachial vein/basilic vein. Due to brisk inflow, contrast could not be administered into the arterial inflow. IMPRESSION: 1. Tortuous but patent cephalic venous outflow tract. 2. Multiple venous collaterals. There is a large collateral along the proximal venous outflow tract a t the level of the cephalic vein. Additional smaller collaterals anastomosing the cephalic venous outflow tract with the basilic/brachial vein. Transcribed Date/Time: 11/12/2019 8:42 AM
[2019-11-12 08:59] VITALS: BP 207/97; TEMP 97.2
[2019-11-12] MEDS ORDERED: Prevnar 13-Val Conj/PF 0.5 ML SYRINGE IM ONE (09:00)
[2019-11-12] MEDS ORDERED: Iopamidol 300 61% 100 ML VIAL FS ONE (09:55)
[2019-11-12] MEDS ORDERED: Heparin 1,000 UNITS/ML VIAL ONE (11:30)
== END 2019-11-12 08:30 | disposition home or self-care (01) ==
LOC: SPEC 06:54
PROVIDERS: ATTEND Specialist
PROC: B50W1ZZ Plain Radiography of Dialysis Shunt/Fistula using Low Osmolar Contrast (ICD-10-PCS; principal; 2019-11-12)
DX: T82.898A Other specified complication of vascular prosthetic devices, implants and grafts, initial encounter (principal); I13.2 Hypertensive heart and chronic kidney disease with heart failure and with stage 5 chronic kidney disease, or end stage renal disease; E11.22 Type 2 diabetes mellitus with diabetic chronic kidney disease; N18.6 End stage renal disease; I50.9 Heart failure, unspecified; I48.91 Unspecified atrial fibrillation; I25.2 Old myocardial infarction; I25.10 Atherosclerotic heart disease of native coronary artery without angina pectoris; I42.9 Cardiomyopathy, unspecified; F41.9 Anxiety disorder, unspecified; F32.9 Major depressive disorder, single episode, unspecified; E78.5 Hyperlipidemia, unspecified; E66.9 Obesity, unspecified; Z68.33 Body mass index [BMI] 33.0-33.9, adult; Z86.73 Personal history of transient ischemic attack (TIA), and cerebral infarction without residual deficits; Z79.4 Long term (current) use of insulin; Z79.82 Long term (current) use of aspirin; Z79.899 Other long term (current) drug therapy; Z88.0 Allergy status to penicillin; Z88.8 Allergy status to other drugs, medicaments and biological substances; Z91.041 Radiographic dye allergy status; Z95.5 Presence of coronary angioplasty implant and graft; Z99.2 Dependence on renal dialysis
CPT/HCPCS: 36901; J1644

== ENCOUNTER 2020-01-19 12:29 | Outpatient (CLI) | payer BC, OTHER ==
--- NOTE | 2020-01-19 15:57 | EKG ---
Test Reason : Blood Pressure : / mmHG Vent. Rate : 060 BPM Atrial Rate : 060 BPM P-R Int : 246 ms QRS Dur : 128 ms QT Int : 502 ms P-R-T Axes : 071 067 123 degrees QTc Int : 502 ms Sinus rhythm with 1st degree A-V block Left ventricular hypertrophy with QRS widening and repolarization abnormality Abnormal ECG When compared with ECG of 01-AUG-2019 18:27, Sinus rhythm has replaced Atrial flutter Questionable change in QRS axis T wave inversion no longer evident in Lateral leads QT has lengthened Confirmed by ASHLY ARORA, SIzabel ([id number]) on 01/19/2020 3:57:17 PM Referred By: SHAWN Confirmed By:DR. Harpreet LIMON MD
[2020-01-19 16:23] LABS: #Basophils 0.1 thou/uL (0.0-0.2); #Eosinphils 0.5 thou/uL (0.0-0.7); #Lymphocytes 2.7 thou/uL (1.20-3.40); #Monocytes 0.9 thou/uL (0.11-0.59); #Neutrophils 4.6 thou/uL (1.40-6.50); %Basophils 1.2 % (0.0-1.0); %Eosinophils 5.4 % (0.0-10.0); %Monocytes 10.1 % (0.0-10.0); %Neutrophils 52.3 % (42.0-75.0); Hemoglobin 13.2 g/dL (14.0-18.0); Mean Corpuscular HGB CONC 34.7 g/dL (32.0-36.0); Mean Corpuscular Volume 92.5 fL (78.0-98.0); Mean Platelet Volume 8.7 fL (7.4-10.4); Platelet Count 233 thou/uL (130-400); RBC Distribution Width 11.9 % (11.5-14.5); Red Blood Cell (RBC) Count 4.11 mill/uL (4.70-6.10); White Blood Cell (WBC) Count 8.8 thou/uL (4.8-10.8)
[2020-01-19 16:30] LABS: Anion Gap 16 mmol/L (10-20); BUN (Urea Nitrogen) 59 mg/dL (8.4-25.7); Calc. Creatinine Clearance 0 mL/min (70-130); Calcium 8.9 mg/dL (7.8-10.44); Carbon Dioxide 24 mmol/L (22-29); Chloride 101 mmol/L (98-107); Estimated GFR-MDRD 10; Glucose 106 mg/dL (70-105); Potassium 4.1 mmol/L (3.5-5.1); Sodium 137 mmol/L (136-145)
== END 2020-01-19 12:30 | disposition home or self-care (01) ==
LOC: LABBT 12:29
PROVIDERS: ATTEND Specialist
DX: Z01.818 Encounter for other preprocedural examination (principal); Z11.59 Encounter for screening for other viral diseases; N18.6 End stage renal disease
CPT/HCPCS: 80048; 85025; 93005; 93010; U0002

== ENCOUNTER 2020-09-29 17:56 | Outpatient (CLI) | payer MEDICARE | END 2020-09-29 17:57 | disposition home or self-care (01) | LOC: LABBT 17:56 | PROVIDERS: ATTEND Family Medicine | DX: Z01.812 Encounter for preprocedural laboratory examination (principal); H43.11 Vitreous hemorrhage, right eye; Z20.822 Contact with and (suspected) exposure to COVID-19 | CPT/HCPCS: U0003; U0005; 87635 ==

== ENCOUNTER 2020-10-04 05:43 | Day surgery (SDC) | payer MEDICARE ==
[2020-10-03 10:46] VITALS: BMI 32.7
[2020-10-04] MEDS ORDERED: EPINEPHrine 0.3 MG in Ophthalmic Irrigation Solution 500 ML IRR SCH (06:00)
[2020-10-04] MEDS ORDERED: Phenylephrine 2.5% Ophth Soln 5 ML BOT ONE (06:00)
[2020-10-04] MEDS ORDERED: Cyclopentolate 1% Opth Drop 2 ML BOT ONE (06:01)
[2020-10-04] MEDS ORDERED: Fentanyl 100 MCG/2 ML VIAL ONE (06:35)
[2020-10-04] MEDS ORDERED: Midazolam HCl 2 mg/2 ml Vial ONE (06:35)
[2020-10-04] MEDS ORDERED: PROPOFOL 20 ML ONE (06:35)
[2020-10-04] MEDS ORDERED: Lidocaine 1% PF 5 ML VIAL ONE (07:08)
[2020-10-04] MEDS ORDERED: Lidocaine 4% PF 5 ML AMP ONE (07:08)
[2020-10-04] MEDS ORDERED: Maxitrol 0.1% Opth Oint 3.5 GM TUBE ONE (07:08)
[2020-10-04] MEDS ORDERED: CEFAZOLIN 1 GM VIAL ONE (07:08)
[2020-10-04] MEDS ORDERED: Triamcinolone 40 MG/ML VIAL ONE (07:08)
[2020-10-04] MEDS ORDERED: Bupivacaine PF 0.75% SDV 10 ML ONE (07:08)
[2020-10-04] MEDS ORDERED: PROPOFOL 200 MG/20 ML VIAL ONE (07:08)
[2020-10-04] MEDS ORDERED: Insulin Regular 300 UNITS/3 ML VIAL SC SCH (07:45)
[2020-10-04] MEDS ORDERED: Insulin Regular 300 UNITS/3 ML VIAL IVP SCH (07:45)
[2020-10-04] MEDS ORDERED: Insulin Regular 300 UNITS/3 ML VIAL ONE (08:30)
== END 2020-10-04 08:55 | disposition home or self-care (01) ==
LOC: SDC 05:43
PROVIDERS: ATTEND Ophthalmology Retina Specialist
PROC: 08T43ZZ Resection of Right Vitreous, Percutaneous Approach (ICD-10-PCS; principal; 2020-10-04)
DX: E11.3521 Type 2 diabetes mellitus with proliferative diabetic retinopathy with traction retinal detachment involving the macula, right eye (principal); H43.11 Vitreous hemorrhage, right eye; Z79.4 Long term (current) use of insulin; Z79.82 Long term (current) use of aspirin; Z79.899 Other long term (current) drug therapy; Z88.8 Allergy status to other drugs, medicaments and biological substances; Z91.041 Radiographic dye allergy status; Z95.1 Presence of aortocoronary bypass graft; Z95.5 Presence of coronary angioplasty implant and graft
CPT/HCPCS: 36416; J0171; J0690; J1815; J2250; J2704; J3010; J3301; J3490

== ENCOUNTER 2021-04-09 00:24 | Inpatient (IN) | payer MEDICARE ==
[2021-04-09 02:36] VITALS: BMI 34.4
[2021-04-09] MEDS: cefTRIAXone\\ROCEPHIN 1 GM in Sodium Chloride 0.9% 100 ML IVPB SCH (11:15)
[2021-04-09] MEDS ORDERED: Dextrose 5% in Water 1,000 ML IV PRN ×2 (13:14→22:24)
[2021-04-09] MEDS ORDERED: Dextrose 50% Abboject 50 ML SYRINGE SLOW IVP PRN ×2 (13:14→22:24)
[2021-04-09] MEDS: HumaLOG 300 UNITS/3 ML VIAL SC PRN ×3 (13:32→22:51)
[2021-04-09 14:01] LABS: ALT (SGPT) 25 U/L (8-55); AST (SGOT) 20 U/L (5-34); Albumin 3.3 g/dL (3.4-4.8); Alkaline Phosphatase 50 U/L (40-110); Anion Gap 21 mmol/L (10-20); BUN (Urea Nitrogen) 72 mg/dL (8.4-25.7); Bilirubin, Total 0.2 mg/dL (0.2-1.2); Calc. Creatinine Clearance 15 mL/min (70-130); Calcium 7.7 mg/dL (7.8-10.44); Carbon Dioxide 16 mmol/L (23-31); Chloride 100 mmol/L (98-107); Globulin 2.8 g/dL (2.4-3.5); Glucose 287 mg/dL (80-115); Potassium 4.4 mmol/L (3.5-5.1); Protein, Total 6.1 g/dL (5.8-8.1); Sodium 133 mmol/L (136-145)
[2021-04-09] MEDS: Carvedilol 6.25 MG TAB PO SCH (20:41)
[2021-04-09] MEDS: Aspirin 325 MG TAB PO SCH (20:41)
[2021-04-09] MEDS: Ezetimibe 10 MG TAB PO SCH (20:41)
[2021-04-10 05:22] LABS: #Monocytes 0.8 thou/uL (0.11-0.59); %Basophils 0.3 % (0.0-1.0); %Eosinophils 0.2 % (0.0-10.0); %Lymphocytes 11.3 % (21.0-51.0); %Monocytes 9.2 % (0.0-10.0); %Neutrophils 78.9 % (42.0-75.0); Hemoglobin 11.2 g/dL (14.0-18.0); Mean Corpuscular HGB CONC 33.2 g/dL (32.0-36.0); Mean Corpuscular Hemoglobin 31.5 pg (27.0-31.0); Mean Corpuscular Volume 94.9 fL (78.0-98.0); Mean Platelet Volume 8.9 fL (7.4-10.4); Platelet Count 185 thou/uL (130-400); RBC Distribution Width 11.4 % (11.5-14.5); Red Blood Cell (RBC) Count 3.54 mill/uL (4.70-6.10); White Blood Cell (WBC) Count 8.8 thou/uL (4.8-10.8)
[2021-04-10 05:47] LABS: Anion Gap 19 mmol/L (10-20); BUN (Urea Nitrogen) 78 mg/dL (8.4-25.7); Calc. Creatinine Clearance 15 mL/min (70-130); Calcium 7.9 mg/dL (7.8-10.44); Carbon Dioxide 18 mmol/L (23-31); Chloride 101 mmol/L (98-107); Glucose 192 mg/dL (80-115); Potassium 3.9 mmol/L (3.5-5.1); Sodium 134 mmol/L (136-145)
[2021-04-10] MEDS: Levothyroxine Sodium 75 MCG TAB PO SCH (05:47)
[2021-04-10] MEDS: HumaLOG 300 UNITS/3 ML VIAL SC PRN ×3 (07:15→17:39)
[2021-04-10] MEDS: Enoxaparin Sodium 30 MG/0.3 ML SYRINGE SC SCH (07:56)
[2021-04-10 10:06] LABS: HBSAg Index 0.28 S/CO (0-0.99); Hep B Surf Ag Non-Reactive S/CO (NonReactive)
[2021-04-10] MEDS: Carvedilol 6.25 MG TAB PO SCH ×2 (10:30→21:24)
[2021-04-10] MEDS: cefTRIAXone\\ROCEPHIN 1 GM in Sodium Chloride 0.9% 100 ML IVPB SCH (12:41)
[2021-04-10] MEDS: Ondansetron PF 4 MG/2 ML Vial IVP PRN (18:01)
[2021-04-10] MEDS: Acetaminophen 325 MG TAB PO PRN (18:01)
[2021-04-10] MEDS: Ezetimibe 10 MG TAB PO SCH (21:23)
[2021-04-10] MEDS: HYDROcodone/Acetaminophen 5/325 mg Tablet PO PRN (21:23)
[2021-04-10] MEDS: Aspirin 325 MG TAB PO SCH (21:24)
[2021-04-11] MEDS: Levothyroxine Sodium 75 MCG TAB PO SCH (05:25)
[2021-04-11 06:05] LABS: #Eosinphils 0.2 thou/uL (0.0-0.7); #Lymphocytes 1.6 thou/uL (1.20-3.40); #Monocytes 0.8 thou/uL (0.11-0.59); #Neutrophils 4.9 thou/uL (1.40-6.50); %Basophils 0.1 % (0.0-1.0); %Eosinophils 2.8 % (0.0-10.0); %Lymphocytes 21.9 % (21.0-51.0); %Monocytes 10.1 % (0.0-10.0); %Neutrophils 65.2 % (42.0-75.0); Hemoglobin 11.3 g/dL (14.0-18.0); Mean Corpuscular HGB CONC 32.5 g/dL (32.0-36.0); Mean Corpuscular Hemoglobin 30.9 pg (27.0-31.0); Mean Corpuscular Volume 94.9 fL (78.0-98.0); Mean Platelet Volume 8.9 fL (7.4-10.4); Platelet Count 165 thou/uL (130-400); RBC Distribution Width 11.6 % (11.5-14.5); Red Blood Cell (RBC) Count 3.67 mill/uL (4.70-6.10); White Blood Cell (WBC) Count 7.5 thou/uL (4.8-10.8)
[2021-04-11 06:26] LABS: Anion Gap 19 mmol/L (10-20); BUN (Urea Nitrogen) 52 mg/dL (8.4-25.7); Calc. Creatinine Clearance 19 mL/min (70-130); Calcium 7.8 mg/dL (7.8-10.44); Carbon Dioxide 23 mmol/L (23-31); Chloride 100 mmol/L (98-107); Glucose 138 mg/dL (80-115); Sodium 138 mmol/L (136-145)
[2021-04-11] MEDS: Enoxaparin Sodium 30 MG/0.3 ML SYRINGE SC SCH (09:19)
[2021-04-11] MEDS: Carvedilol 6.25 MG TAB PO SCH ×2 (09:19→21:08)
[2021-04-11] MEDS: Ondansetron PF 4 MG/2 ML Vial IVP PRN ×2 (09:19→21:20)
[2021-04-11] MEDS: Acetaminophen 325 MG TAB PO PRN (09:24)
[2021-04-11] MEDS: cefTRIAXone\\ROCEPHIN 1 GM in Sodium Chloride 0.9% 100 ML IVPB SCH (12:15)
[2021-04-11 12:44] LABS: CSF Source CSF
[2021-04-11 12:45] LABS: Clarity Clear (Clear); Tube # 4
[2021-04-11 12:57] LABS: CSF, Glucose 86 mg/dl (40-70); CSF, Protein 71 mg/dL (15-40)
[2021-04-11] MEDS: HumaLOG 300 UNITS/3 ML VIAL SC PRN ×2 (13:07→16:30)
[2021-04-11] MEDS ORDERED: Morphine 2 MG/ML VIAL SLOW IVP SCH (16:30)
[2021-04-11 18:09] LABS: Color Of CSF Supernatant COLORLESS (Colorless); Tube # 2; Unspun CSF Color COLORLESS (Colorless)
[2021-04-11] MEDS: Aspirin 325 MG TAB PO SCH (21:08)
[2021-04-11] MEDS: Ezetimibe 10 MG TAB PO SCH (21:08)
[2021-04-12] MEDS: HYDROcodone/Acetaminophen 5/325 mg Tablet PO PRN ×2 (04:05→21:03)
[2021-04-12] MEDS: Ondansetron PF 4 MG/2 ML Vial IVP PRN (04:06)
[2021-04-12 05:49] LABS: #Basophils 0.1 thou/uL (0.0-0.2); #Eosinphils 0.3 thou/uL (0.0-0.7); #Lymphocytes 2.1 thou/uL (1.20-3.40); #Monocytes 0.9 thou/uL (0.11-0.59); #Neutrophils 3.9 thou/uL (1.40-6.50); %Basophils 0.8 % (0.0-1.0); %Eosinophils 4.5 % (0.0-10.0); %Lymphocytes 28.9 % (21.0-51.0); %Monocytes 12.7 % (0.0-10.0); %Neutrophils 53.1 % (42.0-75.0); Hemoglobin 11.2 g/dL (14.0-18.0); Mean Corpuscular HGB CONC 33.3 g/dL (32.0-36.0); Mean Corpuscular Hemoglobin 31.8 pg (27.0-31.0); Mean Corpuscular Volume 95.3 fL (78.0-98.0); Mean Platelet Volume 8.5 fL (7.4-10.4); Platelet Count 155 thou/uL (130-400); RBC Distribution Width 11.4 % (11.5-14.5); Red Blood Cell (RBC) Count 3.52 mill/uL (4.70-6.10); White Blood Cell (WBC) Count 7.3 thou/uL (4.8-10.8)
[2021-04-12] MEDS: Levothyroxine Sodium 75 MCG TAB PO SCH (06:14)
[2021-04-12 06:27] LABS: Anion Gap 19 mmol/L (10-20); BUN (Urea Nitrogen) 64 mg/dL (8.4-25.7); Calc. Creatinine Clearance 16 mL/min (70-130); Calcium 7.6 mg/dL (7.8-10.44); Carbon Dioxide 22 mmol/L (23-31); Chloride 98 mmol/L (98-107); Glucose 153 mg/dL (80-115); Potassium 3.7 mmol/L (3.5-5.1); Sodium 135 mmol/L (136-145)
[2021-04-12] MEDS: Enoxaparin Sodium 30 MG/0.3 ML SYRINGE SC SCH (09:03)
[2021-04-12] MEDS: Carvedilol 6.25 MG TAB PO SCH ×3 (09:03→20:54)
[2021-04-12] MEDS: OCTAGAM IVPB SCH (11:47)
[2021-04-12] MEDS: ADMIXTURE FEE IVPB SCH (11:47)
[2021-04-12] MEDS: Scopolamine 1.5 mg/72 hour Patch TD SCH (13:01)
[2021-04-12] MEDS: cefTRIAXone\\ROCEPHIN 1 GM in Sodium Chloride 0.9% 100 ML IVPB SCH (14:42)
[2021-04-12] MEDS: Acetaminophen 325 MG TAB PO PRN (17:28)
[2021-04-12] MEDS: Aspirin 325 MG TAB PO SCH (20:54)
[2021-04-12] MEDS: Ezetimibe 10 MG TAB PO SCH (20:54)
[2021-04-13] MEDS: Ondansetron PF 4 MG/2 ML Vial IVP PRN (00:23)
[2021-04-13] MEDS: Levothyroxine Sodium 75 MCG TAB PO SCH (06:19)
[2021-04-13] MEDS: HumaLOG 300 UNITS/3 ML VIAL SC PRN ×2 (06:21→12:14)
[2021-04-13] MEDS: Carvedilol 6.25 MG TAB PO SCH ×3 (09:56→20:52)
[2021-04-13] MEDS: Enoxaparin Sodium 30 MG/0.3 ML SYRINGE SC SCH (09:56)
[2021-04-13] MEDS: cefTRIAXone\\ROCEPHIN 1 GM in Sodium Chloride 0.9% 100 ML IVPB SCH (09:59)
[2021-04-13] MEDS: OCTAGAM IVPB SCH (12:25)
[2021-04-13] MEDS: ADMIXTURE FEE IVPB SCH (12:25)
[2021-04-13] MEDS: Aspirin 325 MG TAB PO SCH (20:52)
[2021-04-13] MEDS: Ezetimibe 10 MG TAB PO SCH (20:52)
[2021-04-13] MEDS: HYDROcodone/Acetaminophen 5/325 mg Tablet PO PRN (21:23)
[2021-04-14 05:47] LABS: #Eosinphils 0.4 thou/uL (0.0-0.7); #Lymphocytes 1.9 thou/uL (1.20-3.40); #Monocytes 0.5 thou/uL (0.11-0.59); #Neutrophils 2.2 thou/uL (1.40-6.50); %Basophils 0.3 % (0.0-1.0); %Eosinophils 7.9 % (0.0-10.0); %Lymphocytes 38.1 % (21.0-51.0); %Monocytes 10.3 % (0.0-10.0); %Neutrophils 43.4 % (42.0-75.0); Hemoglobin 11.9 g/dL (14.0-18.0); Mean Corpuscular Hemoglobin 32.3 pg (27.0-31.0); Mean Platelet Volume 9.3 fL (7.4-10.4); Platelet Count 86 thou/uL (130-400); Platelet Morphology Comment Appears Decreased; RBC Distribution Width 11.4 % (11.5-14.5)
[2021-04-14] MEDS: Levothyroxine Sodium 75 MCG TAB PO SCH (05:51)
[2021-04-14] MEDS: Enoxaparin Sodium 30 MG/0.3 ML SYRINGE SC SCH (08:38)
[2021-04-14] MEDS: Carvedilol 6.25 MG TAB PO SCH ×2 (08:38→20:55)
[2021-04-14] MEDS: Ondansetron PF 4 MG/2 ML Vial IVP PRN ×2 (09:16→18:41)
[2021-04-14] MEDS: ADMIXTURE FEE IVPB SCH (10:47)
[2021-04-14] MEDS: OCTAGAM IVPB SCH (10:47)
[2021-04-14] MEDS: cefTRIAXone\\ROCEPHIN 1 GM in Sodium Chloride 0.9% 100 ML IVPB SCH (10:55)
[2021-04-14] MEDS: HumaLOG 300 UNITS/3 ML VIAL SC PRN ×2 (12:58→22:33)
[2021-04-14 13:08] LABS: ALT (SGPT) 25 U/L (8-55); AST (SGOT) 23 U/L (5-34); Albumin 3.3 g/dL (3.4-4.8); Alkaline Phosphatase 52 U/L (40-110); Anion Gap 14 mmol/L (10-20); BUN (Urea Nitrogen) 54 mg/dL (8.4-25.7); Bilirubin, Total 0.3 mg/dL (0.2-1.2); Calc. Creatinine Clearance 17 mL/min (70-130); Calcium 7.9 mg/dL (7.8-10.44); Carbon Dioxide 25 mmol/L (23-31); Chloride 95 mmol/L (98-107); Glucose 174 mg/dL (80-115); Potassium 4.1 mmol/L (3.5-5.1); Protein, Total 7.3 g/dL (5.8-8.1); Sodium 130 mmol/L (136-145)
[2021-04-14 14:39] LABS: CSF IgG Index 0.5 (0.0-0.7); CSF IgG Synthesis Rate -1.3 mg/day (-9.9 TO +3.3); IgG/Alb CSF 0.14 (0.00-0.25)
[2021-04-14 15:39] LABS: Myelin Basic Protein, CSF 5.3 ng/mL (0.0-5.4)
[2021-04-14] MEDS: Ezetimibe 10 MG TAB PO SCH (20:55)
[2021-04-14] MEDS: Aspirin 325 MG TAB PO SCH (20:55)
[2021-04-15] MEDS: Ondansetron PF 4 MG/2 ML Vial IVP PRN ×2 (01:35→20:33)
[2021-04-15 05:36] LABS: #Eosinphils 0.4 thou/uL (0.0-0.7); #Monocytes 0.6 thou/uL (0.11-0.59); #Neutrophils 2.9 thou/uL (1.40-6.50); %Basophils 0.4 % (0.0-1.0); %Eosinophils 6.2 % (0.0-10.0); %Lymphocytes 33.7 % (21.0-51.0); %Monocytes 9.9 % (0.0-10.0); %Neutrophils 49.8 % (42.0-75.0); Hemoglobin 11.4 g/dL (14.0-18.0); Mean Corpuscular HGB CONC 34.3 g/dL (32.0-36.0); Mean Corpuscular Hemoglobin 31.8 pg (27.0-31.0); Mean Corpuscular Volume 92.5 fL (78.0-98.0); Mean Platelet Volume 7.9 fL (7.4-10.4); Platelet Count 234 thou/uL (130-400); Platelet Morphology Comment Appears Adequate; RBC Distribution Width 11.4 % (11.5-14.5); RBC Morphology Normal; Red Blood Cell (RBC) Count 3.58 mill/uL (4.70-6.10); White Blood Cell (WBC) Count 5.8 thou/uL (4.8-10.8)
[2021-04-15 05:42] LABS: ALT (SGPT) 24 U/L (8-55); AST (SGOT) 19 U/L (5-34); Albumin 2.9 g/dL (3.4-4.8); Alkaline Phosphatase 49 U/L (40-110); Anion Gap 14 mmol/L (10-20); BUN (Urea Nitrogen) 55 mg/dL (8.4-25.7); Bilirubin, Total 0.2 mg/dL (0.2-1.2); Calc. Creatinine Clearance 17 mL/min (70-130); Calcium 7.8 mg/dL (7.8-10.44); Carbon Dioxide 24 mmol/L (23-31); Chloride 94 mmol/L (98-107); Globulin 3.9 g/dL (2.4-3.5); Glucose 197 mg/dL (80-115); Potassium 3.6 mmol/L (3.5-5.1); Protein, Total 6.8 g/dL (5.8-8.1); Sodium 128 mmol/L (136-145)
[2021-04-15] MEDS: Levothyroxine Sodium 75 MCG TAB PO SCH (06:42)
[2021-04-15] MEDS: Enoxaparin Sodium 30 MG/0.3 ML SYRINGE SC SCH (09:51)
[2021-04-15] MEDS: Carvedilol 6.25 MG TAB PO SCH ×2 (09:55→20:23)
[2021-04-15] MEDS: HumaLOG 300 UNITS/3 ML VIAL SC PRN (11:58)
[2021-04-15] MEDS: cefTRIAXone\\ROCEPHIN 1 GM in Sodium Chloride 0.9% 100 ML IVPB SCH (11:59)
[2021-04-15] MEDS: Scopolamine 1.5 mg/72 hour Patch TD SCH (12:00)
[2021-04-15] MEDS: Ezetimibe 10 MG TAB PO SCH (20:23)
[2021-04-15] MEDS: Aspirin 325 MG TAB PO SCH (20:23)
[2021-04-15] MEDS: HYDROcodone/Acetaminophen 5/325 mg Tablet PO PRN (20:33)
[2021-04-16 05:17] LABS: #Basophils 0.1 thou/uL (0.0-0.2); #Eosinphils 0.4 thou/uL (0.0-0.7); #Lymphocytes 2.2 thou/uL (1.20-3.40); #Monocytes 0.7 thou/uL (0.11-0.59); #Neutrophils 3.1 thou/uL (1.40-6.50); %Basophils 0.9 % (0.0-1.0); %Eosinophils 6.7 % (0.0-10.0); %Lymphocytes 33.9 % (21.0-51.0); %Monocytes 10.1 % (0.0-10.0); %Neutrophils 48.4 % (42.0-75.0); Hemoglobin 11.6 g/dL (14.0-18.0); Mean Corpuscular HGB CONC 34.4 g/dL (32.0-36.0); Mean Corpuscular Hemoglobin 31.9 pg (27.0-31.0); Mean Corpuscular Volume 92.6 fL (78.0-98.0); Platelet Count 232 thou/uL (130-400); RBC Distribution Width 11.5 % (11.5-14.5); Red Blood Cell (RBC) Count 3.64 mill/uL (4.70-6.10); White Blood Cell (WBC) Count 6.5 thou/uL (4.8-10.8)
[2021-04-16 05:49] LABS: ALT (SGPT) 23 U/L (8-55); AST (SGOT) 21 U/L (5-34); Albumin 3.1 g/dL (3.4-4.8); Alkaline Phosphatase 47 U/L (40-110); Anion Gap 15 mmol/L (10-20); BUN (Urea Nitrogen) 55 mg/dL (8.4-25.7); Bilirubin, Total 0.3 mg/dL (0.2-1.2); Calc. Creatinine Clearance 16 mL/min (70-130); Calcium 8.1 mg/dL (7.8-10.44); Carbon Dioxide 23 mmol/L (23-31); Chloride 96 mmol/L (98-107); Globulin 3.8 g/dL (2.4-3.5); Glucose 140 mg/dL (80-115); Potassium 3.8 mmol/L (3.5-5.1); Protein, Total 6.9 g/dL (5.8-8.1); Sodium 130 mmol/L (136-145)
[2021-04-16] MEDS: Levothyroxine Sodium 75 MCG TAB PO SCH (06:19)
[2021-04-16] MEDS: Enoxaparin Sodium 30 MG/0.3 ML SYRINGE SC SCH (09:14)
[2021-04-16] MEDS: Carvedilol 6.25 MG TAB PO SCH (09:15)
[2021-04-16] MEDS ORDERED: Insulin Regular 300 UNITS/3 ML VIAL ONE (11:54)
[2021-04-16] MEDS: cefTRIAXone\\ROCEPHIN 1 GM in Sodium Chloride 0.9% 100 ML IVPB SCH (12:01)
[2021-04-16] MEDS: HumaLOG 300 UNITS/3 ML VIAL SC PRN ×2 (12:18→17:33)
[2021-04-16] MEDS: Aspirin 325 MG TAB PO SCH (20:41)
[2021-04-16] MEDS: Ezetimibe 10 MG TAB PO SCH (20:41)
[2021-04-16] MEDS: Promethazine HCl 12.5 MG in Sodium Chloride 0.9% 50 ML IVPB PRN (20:55)
[2021-04-17 06:00] LABS: #Eosinphils 0.4 thou/uL (0.0-0.7); #Lymphocytes 2.5 thou/uL (1.20-3.40); #Monocytes 0.8 thou/uL (0.11-0.59); %Basophils 0.2 % (0.0-1.0); %Eosinophils 5.8 % (0.0-10.0); %Lymphocytes 31.8 % (21.0-51.0); %Monocytes 10.8 % (0.0-10.0); %Neutrophils 51.4 % (42.0-75.0); Hemoglobin 11.5 g/dL (14.0-18.0); Mean Corpuscular HGB CONC 34.4 g/dL (32.0-36.0); Mean Corpuscular Hemoglobin 31.8 pg (27.0-31.0); Mean Corpuscular Volume 92.4 fL (78.0-98.0); Mean Platelet Volume 7.8 fL (7.4-10.4); Platelet Count 246 thou/uL (130-400); RBC Distribution Width 11.5 % (11.5-14.5); Red Blood Cell (RBC) Count 3.63 mill/uL (4.70-6.10); White Blood Cell (WBC) Count 7.7 thou/uL (4.8-10.8)
[2021-04-17] MEDS: Levothyroxine Sodium 75 MCG TAB PO SCH (06:07)
[2021-04-17 08:26] LABS: Anion Gap 14 mmol/L (10-20); BUN (Urea Nitrogen) 54 mg/dL (8.4-25.7); Calc. Creatinine Clearance 15 mL/min (70-130); Calcium 8.2 mg/dL (7.8-10.44); Carbon Dioxide 25 mmol/L (23-31); Chloride 99 mmol/L (98-107); Glucose 178 mg/dL (80-115); Potassium 3.8 mmol/L (3.5-5.1); Sodium 134 mmol/L (136-145)
[2021-04-17] MEDS: Enoxaparin Sodium 30 MG/0.3 ML SYRINGE SC SCH ×2 (09:30→09:34)
[2021-04-17] MEDS: HumaLOG 300 UNITS/3 ML VIAL SC PRN ×2 (13:59→17:32)
[2021-04-17] MEDS: cefTRIAXone\\ROCEPHIN 1 GM in Sodium Chloride 0.9% 100 ML IVPB SCH (14:00)
[2021-04-17] MEDS ORDERED: Bisacodyl 5 MG TAB PO SCH (14:45)
[2021-04-17] MEDS ORDERED: Polyethylene Glycol 3350 17 GM Packet PO SCH (14:45)
[2021-04-17] MEDS: Ezetimibe 10 MG TAB PO SCH (20:55)
[2021-04-17] MEDS: Aspirin 325 MG TAB PO SCH (20:55)
[2021-04-18 05:35] LABS: #Basophils 0.1 thou/uL (0.0-0.2); #Eosinphils 0.4 thou/uL (0.0-0.7); #Lymphocytes 2.4 thou/uL (1.20-3.40); %Basophils 0.6 % (0.0-1.0); %Eosinophils 4.6 % (0.0-10.0); %Lymphocytes 27.5 % (21.0-51.0); %Monocytes 11.2 % (0.0-10.0); %Neutrophils 56.1 % (42.0-75.0); Hemoglobin 12.5 g/dL (14.0-18.0); Mean Corpuscular HGB CONC 32.6 g/dL (32.0-36.0); Mean Corpuscular Hemoglobin 30.4 pg (27.0-31.0); Mean Corpuscular Volume 93.2 fL (78.0-98.0); Mean Platelet Volume 7.9 fL (7.4-10.4); Platelet Count 248 thou/uL (130-400); RBC Distribution Width 11.8 % (11.5-14.5); Red Blood Cell (RBC) Count 4.11 mill/uL (4.70-6.10); White Blood Cell (WBC) Count 8.8 thou/uL (4.8-10.8)
[2021-04-18] MEDS: Levothyroxine Sodium 75 MCG TAB PO SCH (06:36)
[2021-04-18] MEDS: HumaLOG 300 UNITS/3 ML VIAL SC PRN ×4 (06:36→22:44)
[2021-04-18] MEDS: Enoxaparin Sodium 30 MG/0.3 ML SYRINGE SC SCH (09:11)
[2021-04-18] MEDS: Scopolamine 1.5 mg/72 hour Patch TD SCH (09:11)
[2021-04-18] MEDS: Promethazine HCl 12.5 MG in Sodium Chloride 0.9% 50 ML IVPB PRN (10:10)
[2021-04-18] MEDS: cefTRIAXone\\ROCEPHIN 1 GM in Sodium Chloride 0.9% 100 ML IVPB SCH (10:50)
[2021-04-18] MEDS: Aspirin 325 MG TAB PO SCH (20:30)
[2021-04-18] MEDS: Ezetimibe 10 MG TAB PO SCH (20:30)
[2021-04-19] MEDS: Levothyroxine Sodium 75 MCG TAB PO SCH (06:31)
[2021-04-19] MEDS: HumaLOG 300 UNITS/3 ML VIAL SC PRN ×4 (06:34→21:44)
[2021-04-19] MEDS ORDERED: OCTAGAM 10% (10 GM/100 ML VIAL) IVPB SCH (09:00)
[2021-04-19] MEDS: cefTRIAXone\\ROCEPHIN 1 GM in Sodium Chloride 0.9% 100 ML IVPB SCH (11:45)
[2021-04-19] MEDS: Enoxaparin Sodium 30 MG/0.3 ML SYRINGE SC SCH (12:39)
[2021-04-19] MEDS: Aspirin 325 MG TAB PO SCH (20:52)
[2021-04-19] MEDS: Ezetimibe 10 MG TAB PO SCH (20:53)
[2021-04-20] MEDS: HumaLOG 300 UNITS/3 ML VIAL SC PRN ×2 (05:45→11:31)
[2021-04-20] MEDS: Levothyroxine Sodium 75 MCG TAB PO SCH (05:45)
[2021-04-20] MEDS: Enoxaparin Sodium 30 MG/0.3 ML SYRINGE SC SCH (08:44)
[2021-04-20 16:17] VITALS: BP 128/68; TEMP 98.4
== END 2021-04-20 17:42 | DRG 94 ==
LOC: 2SW 00:24 → INTOOBSV 00:24 → OBSVTOIN 04-10 13:14
PROVIDERS: ADMIT Student in an Organized Health Care Education/Training Program; ATTEND Internal Medicine
PROC: 8E0ZXY6 Isolation (ICD-10-PCS; 2021-04-10)
PROC: 009U3ZX Drainage of Spinal Canal, Percutaneous Approach, Diagnostic (ICD-10-PCS; principal; 2021-04-11)
PROC: B01B1ZZ Fluoroscopy of Spinal Cord using Low Osmolar Contrast (ICD-10-PCS; 2021-04-11)
PROC: 5A1D70Z Performance of Urinary Filtration, Intermittent, Less than 6 Hours Per Day (ICD-10-PCS; 2021-04-12)
PROC: 30233S1 Transfusion of Nonautologous Globulin into Peripheral Vein, Percutaneous Approach (ICD-10-PCS; 2021-04-14)
DX: G61.0 Guillain-Barre syndrome (principal); N18.6 End stage renal disease; U07.1 COVID-19; J96.01 Acute respiratory failure with hypoxia; N39.0 Urinary tract infection, site not specified; I13.2 Hypertensive heart and chronic kidney disease with heart failure and with stage 5 chronic kidney disease, or end stage renal disease; I25.10 Atherosclerotic heart disease of native coronary artery without angina pectoris; E78.5 Hyperlipidemia, unspecified; N40.0 Benign prostatic hyperplasia without lower urinary tract symptoms; I50.9 Heart failure, unspecified; E11.22 Type 2 diabetes mellitus with diabetic chronic kidney disease; D63.1 Anemia in chronic kidney disease; E66.9 Obesity, unspecified; R11.2 Nausea with vomiting, unspecified; I44.0 Atrioventricular block, first degree; R00.1 Bradycardia, unspecified; Z99.2 Dependence on renal dialysis; Z88.8 Allergy status to other drugs, medicaments and biological substances; Z91.041 Radiographic dye allergy status; Z79.82 Long term (current) use of aspirin; Z79.899 Other long term (current) drug therapy; Z86.73 Personal history of transient ischemic attack (TIA), and cerebral infarction without residual deficits; Z95.5 Presence of coronary angioplasty implant and graft; Z89.421 Acquired absence of other right toe(s); Z68.34 Body mass index [BMI] 34.0-34.9, adult
CPT/HCPCS: 36415; 36416; 62270; 70551; 72141; 72148; 80048; 80053; 82040; 82042; 82784; 82945; 83873; 83916; 84157; 85025; 86316; 87340; 89051; 90935; 93005; 93010; 96372; 96374; 96376; G0257; G0378; J0696; J1568; J1650; J1815; J2270; J2405; J2550; J3490

== ENCOUNTER 2022-01-22 11:17 | Observation (INO) | payer BC, MEDICARE ==
[2022-01-22 12:28] LABS: #Basophils 0.1 thou/uL (0.0-0.2); #Eosinphils 0.4 thou/uL (0.0-0.7); #Lymphocytes 2.6 thou/uL (1.20-3.40); #Monocytes 0.8 thou/uL (0.11-0.59); #Neutrophils 5.8 thou/uL (1.40-6.50); %Basophils 0.9 % (0.0-1.0); %Eosinophils 3.7 % (0.0-10.0); %Lymphocytes 27.3 % (21.0-51.0); %Monocytes 8.5 % (0.0-10.0); %Neutrophils 59.6 % (42.0-75.0); Hemoglobin 13.7 g/dL (14.0-18.0); Mean Corpuscular HGB CONC 33.8 g/dL (32.0-36.0); Mean Corpuscular Hemoglobin 33.3 pg (27.0-31.0); Mean Corpuscular Volume 98.7 fL (78.0-98.0); Mean Platelet Volume 8.4 fL (7.4-10.4); Platelet Count 212 thou/uL (130-400); RBC Distribution Width 11.7 % (11.5-14.5); White Blood Cell (WBC) Count 9.7 thou/uL (4.8-10.8)
[2022-01-22 12:33] LABS: ALT (SGPT) 15 U/L (8-55); AST (SGOT) 11 U/L (5-34); Alkaline Phosphatase 53 U/L (40-110); Anion Gap 18 mmol/L (10-20); BUN (Urea Nitrogen) 57 mg/dL (8.4-25.7); Bilirubin, Total 0.5 mg/dL (0.2-1.2); Calc. Creatinine Clearance 0 mL/min (70-130); Calcium 8.9 mg/dL (7.8-10.44); Carbon Dioxide 25 mmol/L (23-31); Chloride 99 mmol/L (98-107); Estimated GFR 8; Globulin 2.8 g/dL (2.4-3.5); Glucose 167 mg/dL (80-115); Lipase 15 U/L (8-78); Protein, Total 6.8 g/dL (5.8-8.1); Sodium 138 mmol/L (136-145)
[2022-01-22 13:07] LABS: CKMB 9.6 ng/mL (0-6.6)
[2022-01-22] MEDS ORDERED: Aspirin Chewable 81 MG TAB ONE (13:59)
[2022-01-22] MEDS ORDERED: Acetaminophen 325 MG TAB PO PRN (15:07)
[2022-01-22] MEDS ORDERED: hydrALAZINE 20 MG/ML VIAL SLOW IVP PRN (15:30)
[2022-01-22 15:34] LABS: Troponin I 0.042 ng/mL (< 0.028)
[2022-01-22] MEDS ORDERED: Lidocaine 5% Patch TD SCH (16:00)
[2022-01-22 16:52] VITALS: BMI 33.5
[2022-01-22] MEDS: Carvedilol 6.25 MG TAB PO SCH (20:45)
[2022-01-22] MEDS: Heparin 5,000 UNITS/ML VIAL SC SCH (20:45)
[2022-01-22] MEDS ORDERED: Ezetimibe 10 MG TAB PO SCH (21:00)
[2022-01-22] MEDS ORDERED: Amiodarone 200 MG TAB PO SCH (21:00)
[2022-01-23] MEDS ORDERED: Transdermal Patch Removal TOP SCH (04:00)
[2022-01-23 05:00] LABS: Anion Gap 17 mmol/L (10-20); BUN (Urea Nitrogen) 32 mg/dL (8.4-25.7); Calc. Creatinine Clearance 21 mL/min (70-130); Calcium 8.6 mg/dL (7.8-10.44); Carbon Dioxide 27 mmol/L (23-31); Chloride 96 mmol/L (98-107); Estimated GFR 11; Glucose 257 mg/dL (80-115); Potassium 3.5 mmol/L (3.5-5.1); Sodium 136 mmol/L (136-145)
[2022-01-23] MEDS ORDERED: Dextrose 50% Abboject 50 ML SYRINGE SLOW IVP PRN (05:16)
[2022-01-23] MEDS ORDERED: Dextrose 5% in Water 1,000 ML IV PRN (05:16)
[2022-01-23] MEDS ORDERED: HumaLOG 300 UNITS/3 ML VIAL SC PRN ×2 (05:16→11:08)
[2022-01-23] MEDS ORDERED: Levothyroxine Sodium 75 MCG TAB PO SCH (06:00)
[2022-01-23] MEDS: HumaLOG 300 UNITS/3 ML VIAL SC PRN ×2 (06:20→11:07)
[2022-01-23] MEDS ORDERED: Aspirin 325 MG TAB PO SCH (07:00)
[2022-01-23] MEDS: Calcium Acetate 667 MG CAP PO SCH ×2 (08:09→11:06)
[2022-01-23] MEDS: Carvedilol 6.25 MG TAB PO SCH (08:10)
[2022-01-23] MEDS: Heparin 5,000 UNITS/ML VIAL SC SCH (08:10)
[2022-01-23] MEDS ORDERED: Lisinopril 2.5 MG TAB PO SCH (09:00)
[2022-01-23 11:22] VITALS: BP 210/88; TEMP 98
== END 2022-01-23 12:05 | disposition left against medical advice (07) ==
LOC: ERS 11:17 → 2SW 15:51
PROVIDERS: ADMIT Student in an Organized Health Care Education/Training Program; ATTEND Student in an Organized Health Care Education/Training Program
DX: R07.89 Other chest pain (principal); I25.10 Atherosclerotic heart disease of native coronary artery without angina pectoris; I13.2 Hypertensive heart and chronic kidney disease with heart failure and with stage 5 chronic kidney disease, or end stage renal disease; E11.22 Type 2 diabetes mellitus with diabetic chronic kidney disease; N18.6 End stage renal disease; I50.20 Unspecified systolic (congestive) heart failure; D63.1 Anemia in chronic kidney disease; I48.91 Unspecified atrial fibrillation; E03.9 Hypothyroidism, unspecified; E78.5 Hyperlipidemia, unspecified; Z79.4 Long term (current) use of insulin; Z79.82 Long term (current) use of aspirin; Z79.890 Hormone replacement therapy; Z79.899 Other long term (current) drug therapy; Z88.8 Allergy status to other drugs, medicaments and biological substances; Z91.041 Radiographic dye allergy status; Z86.16 Personal history of COVID-19; Z86.73 Personal history of transient ischemic attack (TIA), and cerebral infarction without residual deficits; Z95.1 Presence of aortocoronary bypass graft; Z95.5 Presence of coronary angioplasty implant and graft; Z99.2 Dependence on renal dialysis
CPT/HCPCS: 71045; 80048; 80053; 82553; 82962; 83690; 83880; 84484 ×2; 85025; 93005; 96374; 99285; G0378 ×3; 36415; 36416; 90935; G0257; J0360; J1644; J1815

== ENCOUNTER 2023-04-01 10:52 | Inpatient (IN) | payer MEDICARE, OTHER ==
[2023-04-01 11:35] LABS: #Basophils 0.1 thou/uL (0.0-0.2); #Eosinphils 0.2 thou/uL (0.0-0.7); #Neutrophils 10.1 thou/uL (1.40-6.50); %Basophils 0.9 % (0.0-1.0); %Eosinophils 1.6 % (0.0-10.0); %Lymphocytes 14.6 % (21.0-51.0); %Monocytes 7.2 % (0.0-10.0); %Neutrophils 75.4 % (42.0-75.0); Hematocrit 36.1 % (42.0-52.0); Hemoglobin 12.2 g/dL (14.0-18.0); Mean Corpuscular HGB CONC 33.8 g/dL (32.0-36.0); Mean Corpuscular Hemoglobin 31.9 pg (27.0-31.0); Mean Corpuscular Volume 94.5 fl (78.0-98.0); Mean Platelet Volume 9.4 fL (7.4-10.4); Platelet Count 277 10x3/uL (130-400); RBC Distribution Width 12.2 % (11.5-14.5); Red Blood Cell (RBC) Count 3.82 mill/uL (4.70-6.10); White Blood Cell (WBC) Count 13.4 10x3/uL (4.8-10.8)
[2023-04-01 11:57] LABS: ALT (SGPT) 10 U/L (8-55); AST (SGOT) 13 U/L (5-34); Albumin 3.4 g/dL (3.4-4.8); Alkaline Phosphatase 56 U/L (40-110); Anion Gap 18 mmol/L (10-20); BUN (Urea Nitrogen) 50 mg/dL (8.4-25.7); Bilirubin, Total 0.4 mg/dL (0.2-1.2); CRP (Inflammatory) 9.93 mg/dL (= or < 0.5); Calc. Creatinine Clearance 0 mL/min (70-130); Calcium 8.8 mg/dL (7.8-10.44); Carbon Dioxide 24 mmol/L (23-31); Chloride 94 mmol/L (98-107); Estimated GFR 7; Globulin 3.4 g/dL (2.4-3.5); Glucose 209 mg/dL (80-115); Potassium 3.5 mmol/L (3.5-5.1); Protein, Total 6.8 g/dL (5.8-8.1); Sodium 132 mmol/L (136-145)
[2023-04-01] MEDS ORDERED: Senokot S 8.6-50 MG TAB PO PRN (13:39)
[2023-04-01] MEDS ORDERED: Acetaminophen 325 MG TAB PO PRN (13:39)
[2023-04-01] MEDS ORDERED: Ondansetron PF 4 MG/2 ML Vial IVP PRN (13:39)
[2023-04-01] MEDS ORDERED: hydrALAZINE 20 MG/ML VIAL ONE (13:42)
[2023-04-01] MEDS ORDERED: Vancomycin 1 GM in Premix Bag 1 BAG IVPB SCH (13:45)
[2023-04-01] MEDS ORDERED: Dextrose 5% in Water 1,000 ML IV PRN (13:47)
[2023-04-01] MEDS ORDERED: Glucagon 1 MG/ML KIT IM PRN (13:47)
[2023-04-01] MEDS ORDERED: Dextrose 50% Abboject 50 ML SYRINGE SLOW IVP PRN (13:47)
[2023-04-01] MEDS ORDERED: hydrALAZINE 20 MG/ML VIAL SLOW IVP PRN (14:16)
[2023-04-01 16:19] LABS: HBSAB Concentration Less than 8.00 mIU/mL; HBSAg Index 0.28 S/CO (0-0.99); Hep B Core Total Ab Non-Reactive (NonReactive); Hep B Surf AB Non-Reactive (NonReactive); Hep B Surf Ag Non-Reactive S/CO (NonReactive); Hep C IgG Ab Non-Reactive S/CO (NonReactive); Hep C Index 0.09 S/CO (0-0.79)
[2023-04-01] MEDS ORDERED: Cefepime 1 GM in Sodium Chloride 0.9% 100 ML IVPB SCH (17:30)
[2023-04-01] MEDS ORDERED: Vancomycin Diaylsis Sliding Scale (Wt 71-99) FS SCH (17:45)
[2023-04-01] MEDS ORDERED: VANCOMYCIN 2 GRAM/500 ML BAG 2 GM in Premix Bag 1 BAG IVPB SCH (18:00)
[2023-04-01] MEDS ORDERED: Cefepime 2 GM in Sodium Chloride 0.9% 100 ML IVPB SCH (18:00)
[2023-04-01 20:36] VITALS: BMI 32.9
[2023-04-01] MEDS: Heparin 5,000 UNITS/ML VIAL SC SCH ×2 (21:00→21:01)
[2023-04-01] MEDS: Ezetimibe 10 MG TAB PO SCH (21:01)
[2023-04-01] MEDS: Carvedilol 6.25 MG TAB PO SCH (21:01)
[2023-04-02] MEDS: cloNIDine 0.1 MG TAB PO PRN (00:48)
[2023-04-02 06:10] LABS: #Basophils 0.1 thou/uL (0.0-0.2); #Eosinphils 0.1 thou/uL (0.0-0.7); #Monocytes 1.1 thou/uL (0.11-0.59); #Neutrophils 10.5 thou/uL (1.40-6.50); %Basophils 0.9 % (0.0-1.0); %Eosinophils 0.7 % (0.0-10.0); %Lymphocytes 14.1 % (21.0-51.0); %Monocytes 7.7 % (0.0-10.0); %Neutrophils 76.3 % (42.0-75.0); Hematocrit 37.5 % (42.0-52.0); Mean Corpuscular HGB CONC 34.7 g/dL (32.0-36.0); Mean Corpuscular Hemoglobin 31.9 pg (27.0-31.0); Mean Corpuscular Volume 91.9 fl (78.0-98.0); Mean Platelet Volume 9.7 fL (7.4-10.4); Platelet Count 313 10x3/uL (130-400); RBC Distribution Width 12.4 % (11.5-14.5); Red Blood Cell (RBC) Count 4.08 mill/uL (4.70-6.10); White Blood Cell (WBC) Count 13.8 10x3/uL (4.8-10.8)
[2023-04-02 06:41] LABS: Anion Gap 19 mmol/L (10-20); BUN (Urea Nitrogen) 36 mg/dL (8.4-25.7); Calc. Creatinine Clearance 17 mL/min (70-130); Calcium 9.1 mg/dL (7.8-10.44); Carbon Dioxide 23 mmol/L (23-31); Chloride 94 mmol/L (98-107); Estimated GFR 9; Glucose 250 mg/dL (80-115); Potassium 3.8 mmol/L (3.5-5.1); Sodium 132 mmol/L (136-145)
[2023-04-02] MEDS ORDERED: Bupivacaine PF 0.5% 30 ML VIAL ONE (09:27)
[2023-04-02] MEDS ORDERED: fentaNYL PF 100 MCG/2 ML SYRINGE ONE (09:33)
[2023-04-02] MEDS ORDERED: Phenylephrine 10 MG/ML VIAL ONE (09:34)
[2023-04-02] MEDS ORDERED: Lidocaine 1% PF 5 ML VIAL ONE (09:45)
[2023-04-02] MEDS ORDERED: PROPOFOL 200 MG/20 ML VIAL ONE (09:45)
[2023-04-02] MEDS ORDERED: fentaNYL 50 mcg/mL 1 mL Vial SLOW IVP PRN ×2 (10:21)
[2023-04-02] MEDS ORDERED: traMADol HCl 50 MG TAB PO PRN ×2 (10:21)
[2023-04-02] MEDS ORDERED: Promethazine HCl 25 MG/ML VIAL IM PRN (10:52)
[2023-04-02] MEDS ORDERED: HYDROmorphone 2 MG/ML VIAL SLOW IVP PRN (10:52)
[2023-04-02] MEDS ORDERED: Ondansetron HCl/PF 4 MG/2 ML Vial IVP PRN (10:52)
[2023-04-02] MEDS ORDERED: PACU-Morphine 4MG/ML VIAL SLOW IVP PRN (10:52)
[2023-04-02] MEDS: Calcium Acetate 667 MG CAP PO SCH ×3 (10:56→16:56)
[2023-04-02] MEDS: Heparin 5,000 UNITS/ML VIAL SC SCH ×3 (10:57→19:30)
[2023-04-02] MEDS: Carvedilol 6.25 MG TAB PO SCH ×2 (10:57→19:27)
[2023-04-02] MEDS: hydrALAZINE 25 MG TAB PO SCH ×3 (10:57→19:30)
[2023-04-02] MEDS: Lisinopril 2.5 MG TAB PO SCH (13:37)
[2023-04-02] MEDS: Aspirin 81 mg Enteric Coated Tablet PO SCH (13:37)
[2023-04-02] MEDS: NIFEdipine XL 30 MG ER.TAB PO SCH (13:37)
[2023-04-02] MEDS: Cefepime 1 GM in Sodium Chloride 0.9% 100 ML IVPB SCH (16:55)
[2023-04-02] MEDS: HumaLOG 300 UNITS/3 ML VIAL SC PRN (17:54)
[2023-04-02] MEDS: Ezetimibe 10 MG TAB PO SCH (19:27)
[2023-04-02] MEDS: Amiodarone 200 MG TAB PO SCH (19:30)
[2023-04-03] MEDS ORDERED: VANCOMYCIN 2 GRAM/500 ML BAG 2 GM in Premix Bag 1 BAG IVPB SCH (01:15)
[2023-04-03] MEDS: Levothyroxine Sodium 75 MCG TAB PO SCH (05:09)
[2023-04-03] MEDS: cloNIDine 0.1 MG TAB PO PRN (05:09)
[2023-04-03] MEDS: Aspirin 81 mg Enteric Coated Tablet PO SCH (08:12)
[2023-04-03] MEDS: NIFEdipine XL 30 MG ER.TAB PO SCH (08:12)
[2023-04-03] MEDS: Lisinopril 2.5 MG TAB PO SCH (08:13)
[2023-04-03] MEDS: Carvedilol 6.25 MG TAB PO SCH ×2 (08:13→20:58)
[2023-04-03] MEDS: hydrALAZINE 25 MG TAB PO SCH ×3 (08:13→20:58)
[2023-04-03] MEDS: Calcium Acetate 667 MG CAP PO SCH ×3 (08:13→18:08)
[2023-04-03] MEDS: Heparin 5,000 UNITS/ML VIAL SC SCH ×3 (08:14→20:57)
[2023-04-03 08:33] LABS: Vancomycin, Random 25.2 ug/mL (See Comment)
[2023-04-03] MEDS ORDERED: Heparin 10,000 UNITS/ 10 ML VIAL ONE (10:15)
[2023-04-03] MEDS ORDERED: Lidocaine 1% (PF) 30 ML VIAL ONE (10:16)
[2023-04-03] MEDS ORDERED: Midazolam HCl 2 mg/2 ml Vial ONE (10:45)
[2023-04-03] MEDS ORDERED: fentaNYL 50 mcg/mL 1 mL Vial ONE (10:45)
[2023-04-03] MEDS ORDERED: diphenhydrAMINE 50 MG/ML VIAL ONE (10:46)
[2023-04-03] MEDS ORDERED: Hydrocortisone Sod Succ/PF 100 mg/2 ml Vial ONE (10:47)
[2023-04-03] MEDS: Cefepime 1 GM in Sodium Chloride 0.9% 100 ML IVPB SCH (18:07)
[2023-04-03] MEDS: Ezetimibe 10 MG TAB PO SCH (20:32)
[2023-04-03] MEDS: Amiodarone 200 MG TAB PO SCH (20:33)
[2023-04-03] MEDS: HumaLOG 300 UNITS/3 ML VIAL SC PRN (20:59)
[2023-04-04] MEDS: Levothyroxine Sodium 75 MCG TAB PO SCH (05:53)
[2023-04-04] MEDS: HumaLOG 300 UNITS/3 ML VIAL SC PRN (05:53)
[2023-04-04] MEDS: Calcium Acetate 667 MG CAP PO SCH ×2 (07:59→11:16)
[2023-04-04] MEDS: NIFEdipine XL 30 MG ER.TAB PO SCH (07:59)
[2023-04-04] MEDS: Carvedilol 6.25 MG TAB PO SCH (07:59)
[2023-04-04] MEDS: Aspirin 81 mg Enteric Coated Tablet PO SCH (07:59)
[2023-04-04] MEDS: Heparin 5,000 UNITS/ML VIAL SC SCH (08:00)
[2023-04-04] MEDS: hydrALAZINE 25 MG TAB PO SCH (08:00)
[2023-04-04] MEDS: Lisinopril 2.5 MG TAB PO SCH (08:00)
[2023-04-04] MEDS ORDERED: HumuLIN 70/30 (300 UNITS/3 ML VIAL) SC SCH (09:00)
[2023-04-04 13:09] VITALS: TEMP 98.8
[2023-04-04 14:34] VITALS: BP 153/82
== END 2023-04-04 13:35 | disposition home or self-care (01) | DRG 239 ==
LOC: ERS 10:52 → T4-A 14:47
PROVIDERS: ADMIT Internal Medicine; ATTEND Internal Medicine
PROC: 0Y6N0Z9 Detachment at Left Foot, Partial 1st Ray, Open Approach (ICD-10-PCS; principal; 2023-04-02)
PROC: B4101ZZ Fluoroscopy of Abdominal Aorta using Low Osmolar Contrast (ICD-10-PCS; 2023-04-03)
PROC: B41G1ZZ Fluoroscopy of Left Lower Extremity Arteries using Low Osmolar Contrast (ICD-10-PCS; 2023-04-03)
PROC: 5A1D70Z Performance of Urinary Filtration, Intermittent, Less than 6 Hours Per Day (ICD-10-PCS; 2023-04-03)
DX: E11.52 Type 2 diabetes mellitus with diabetic peripheral angiopathy with gangrene (principal); N18.6 End stage renal disease; I96 Gangrene, not elsewhere classified; I13.2 Hypertensive heart and chronic kidney disease with heart failure and with stage 5 chronic kidney disease, or end stage renal disease; I25.10 Atherosclerotic heart disease of native coronary artery without angina pectoris; E78.5 Hyperlipidemia, unspecified; E11.22 Type 2 diabetes mellitus with diabetic chronic kidney disease; E78.00 Pure hypercholesterolemia, unspecified; N40.0 Benign prostatic hyperplasia without lower urinary tract symptoms; I50.9 Heart failure, unspecified; F41.9 Anxiety disorder, unspecified; F32.A Depression, unspecified; L03.032 Cellulitis of left toe; M89.9 Disorder of bone, unspecified; D63.1 Anemia in chronic kidney disease; I48.0 Paroxysmal atrial fibrillation; I77.9 Disorder of arteries and arterioles, unspecified; E11.42 Type 2 diabetes mellitus with diabetic polyneuropathy; Z95.1 Presence of aortocoronary bypass graft; Z95.5 Presence of coronary angioplasty implant and graft; Z98.890 Other specified postprocedural states; Z88.8 Allergy status to other drugs, medicaments and biological substances; Z79.4 Long term (current) use of insulin; Z79.82 Long term (current) use of aspirin; Z79.899 Other long term (current) drug therapy; Z91.041 Radiographic dye allergy status; Z88.0 Allergy status to penicillin; Z91.09 Other allergy status, other than to drugs and biological substances; Z86.73 Personal history of transient ischemic attack (TIA), and cerebral infarction without residual deficits; I25.2 Old myocardial infarction
CPT/HCPCS: 36247; 36415; 36416; 75710; 80048; 80053; 80202; 83036; 85025; 86140; 86704; 87040; 87077; 87149; 88305; 88311; 90935; 93306; 96374; C1769; C1894; G0257; J0360; J0692; J1200; J1644; J1720; J1815; J2001; J2250; J2370; J2405; J2704; J3010; J3370; J3490; S0020

== ENCOUNTER 2024-06-25 20:01 | Inpatient (IN) | payer MEDICARE ==
[2024-06-25 20:42] LABS: Bacteria/HPF 4+ HPF (None Seen); Bilirubin Negative (Negative); Blood, Urine 2+ (Negative); CAUTI Indications for Culture Dysuria,urgency,freq; Clarity Turbid (Clear); Glucose, Urine (Dipstick) 300 mg/dL (Negative); Ketone, Urine Negative (Negative); Leukocyte 500 Leu/uL (Negative); Nitrite 2+ (Negative); Protein, Urine (Dipstick) 100 mg/dL (Neg-Trace); RBC/HPF 0-3 HPF (0-3); Specific Gravity, Urine 1.012 (1.002-1.036); Squamous Epithelial 0-3 HPF (0-3); Urobilinogen Normal mg/dL (Less than 2); WBC/HPF Greater than 50 HPF (0-3); Yeast-Budding Rare HPF (None Seen); pH, Urine 6.5 (5.0-9.0)
[2024-06-25 20:43] LABS: Urine Culture Reflex Yes Yes
[2024-06-25 20:47] LABS: #Basophils 0.07 10x3/uL (0.0-0.2); %Basophils 0.5 % (0.0-1.0); %Eosinophils 0.3 % (0.0-10.0); %Lymphocytes 7.8 % (21.0-51.0); %Monocytes 6.7 % (0.0-10.0); %Neutrophils 84.4 % (42.0-75.0); Hematocrit 34.6 % (42.0-52.0); Hemoglobin 11.7 g/dL (14.0-18.0); Mean Corpuscular HGB CONC 33.8 g/dL (32.0-36.0); Mean Corpuscular Hemoglobin 31.9 pg (27.0-31.0); Mean Corpuscular Volume 94.3 fL (78.0-98.0); Mean Platelet Volume 10.7 fL (7.4-10.4); Platelet Count 285 10x3/uL (130-400); RBC Distribution Width 12.2 % (11.5-14.5); Red Blood Cell (RBC) Count 3.67 mill/uL (4.70-6.10)
[2024-06-25 21:07] LABS: ALT (SGPT) 12 U/L (8-55); AST (SGOT) 28 U/L (5-34); Albumin 3.6 g/dL (3.4-4.8); Alkaline Phosphatase 67 U/L (40-110); Anion Gap 23 mmol/L (10-20); BUN (Urea Nitrogen) 62 mg/dL (8.4-25.7); Bilirubin, Total 0.6 mg/dL (0.2-1.2); Calc. Creatinine Clearance 0 mL/min (70-130); Calcium 9.3 mg/dL (7.8-10.44); Carbon Dioxide 17 mmol/L (23-31); Chloride 103 mmol/L (98-107); Estimated GFR 6; Globulin 3.8 g/dL (2.4-3.5); Glucose 207 mg/dL (80-115); Protein, Total 7.4 g/dL (5.8-8.1); Sodium 138 mmol/L (136-145)
[2024-06-25] MEDS ORDERED: Sodium Chloride 0.9% 100 ML ONE (21:39)
[2024-06-25] MEDS ORDERED: Cefepime 2 GM VIAL ONE (21:39)
[2024-06-25] MEDS: Vancomycin (BATCH) 2 GM in Premix 1 BAG IVPB SCH (22:38)
[2024-06-25] MEDS ORDERED: Ondansetron PF 4 MG/2 ML Vial IVP PRN (23:18)
[2024-06-25] MEDS ORDERED: Acetaminophen 650 MG Suppository PR PRN (23:18)
[2024-06-25] MEDS ORDERED: Calcium Carbonate 500 MG ChewTAB PO PRN (23:18)
[2024-06-25] MEDS ORDERED: Ondansetron ODT 4 MG TAB PO PRN (23:18)
[2024-06-25] MEDS ORDERED: Dextrose 50% Abboject 50 ML SYRINGE SLOW IVP PRN (23:31)
[2024-06-25] MEDS ORDERED: Dextrose 5% in Water 1,000 ML IV PRN (23:31)
[2024-06-25] MEDS ORDERED: Glucagon 1 MG/ML KIT IM PRN (23:31)
[2024-06-25 23:46] LABS: Hemoglobin A1c 8.2 % (4.0-6.0)
[2024-06-26 01:13] LABS: Lactic Acid 0.95 mmol/L (0.5-2.2)
[2024-06-26] MEDS: Acetaminophen 325 MG TAB PO SCH (01:24)
[2024-06-26 04:17] VITALS: BMI 33.0
[2024-06-26 04:40] LABS: #Basophils 0.11 10x3/uL (0.0-0.2); %Basophils 0.6 % (0.0-1.0); %Eosinophils 0.7 % (0.0-10.0); %Lymphocytes 8.6 % (21.0-51.0); %Monocytes 8.3 % (0.0-10.0); %Neutrophils 81.2 % (42.0-75.0); Hematocrit 35.5 % (42.0-52.0); Hemoglobin 12.1 g/dL (14.0-18.0); Mean Corpuscular HGB CONC 34.1 g/dL (32.0-36.0); Mean Corpuscular Hemoglobin 32.6 pg (27.0-31.0); Mean Corpuscular Volume 95.7 fL (78.0-98.0); Mean Platelet Volume 10.9 fL (7.4-10.4); Platelet Count 248 10x3/uL (130-400); RBC Distribution Width 12.2 % (11.5-14.5); Red Blood Cell (RBC) Count 3.71 mill/uL (4.70-6.10)
[2024-06-26 05:00] LABS: Anion Gap 21 mmol/L (10-20); BUN (Urea Nitrogen) 64 mg/dL (8.4-25.7); Calc. Creatinine Clearance 12 mL/min (70-130); Calcium 8.7 mg/dL (7.8-10.44); Carbon Dioxide 17 mmol/L (23-31); Chloride 107 mmol/L (98-107); Estimated GFR 6; Glucose 138 mg/dL (80-115); Potassium 4.5 mmol/L (3.5-5.1); Sodium 140 mmol/L (136-145)
[2024-06-26] MEDS ORDERED: Levothyroxine Sodium 75 MCG TAB ONE (06:15)
[2024-06-26] MEDS ORDERED: Acetaminophen 325 MG TAB ONE ×2 (06:15→14:14)
[2024-06-26] MEDS: Levothyroxine Sodium 75 MCG TAB PO SCH (06:22)
[2024-06-26] MEDS: Carvedilol 6.25 MG TAB PO SCH (11:00)
[2024-06-26] MEDS: Famotidine 20 MG TAB PO SCH (11:07)
[2024-06-26] MEDS: Famotidine/PF 20 mg/2ml Vial SLOW IVP SCH (11:08)
[2024-06-26] MEDS: Lisinopril 2.5 MG TAB PO SCH (11:09)
[2024-06-26] MEDS: hydrALAZINE 25 MG TAB PO SCH (11:09)
[2024-06-26] MEDS: NIFEdipine XL 30 MG ER.TAB PO SCH (11:10)
[2024-06-26] MEDS: HumuLIN 70/30 100 Unit/ml 10 ml Vial SC SCH (11:20)
[2024-06-26 17:57] LABS: Hep B Core Total Ab NONREACTIVE (NonReactive); Hep B Core Total Index 0.23 S/CO (0-0.79)
[2024-06-26 18:07] LABS: HBSAB Concentration Less than 8.00 mIU/mL; Hep B Surf AB NONREACTIVE (NonReactive)
[2024-06-26 18:08] LABS: Hep C IgG Ab NONREACTIVE S/CO (NonReactive); Hep C Index 0.09 S/CO (0-0.79)
[2024-06-26 19:03] LABS: HBsAg Index 0.29 S/CO (0-0.99); Hep B Surf Ag NonReactive S/CO (NonReactive)
[2024-06-26] MEDS: Ezetimibe 10 MG TAB PO SCH (21:29)
[2024-06-26] MEDS: Amiodarone 200 MG TAB PO SCH (21:30)
[2024-06-26] MEDS: Cefepime 1 GM in Sodium Chloride 0.9% 100 ML IVPB SCH ×2 (21:30→21:59)
[2024-06-27] MEDS: Lactated Ringer's 500 ML IV SCH (06:12)
[2024-06-27] MEDS: Insulin Lispro 100 UNIT/ML 10 ML VIAL SC PRN (17:01)
[2024-06-28 00:22] LABS: #Basophils 0.18 10x3/uL (0.0-0.2); %Basophils 0.8 % (0.0-1.0); %Lymphocytes 11.8 % (21.0-51.0); %Monocytes 7.3 % (0.0-10.0); %Neutrophils 78.5 % (42.0-75.0); Hematocrit 35.3 % (42.0-52.0); Hemoglobin 11.8 g/dL (14.0-18.0); Mean Corpuscular HGB CONC 33.4 g/dL (32.0-36.0); Mean Corpuscular Hemoglobin 31.9 pg (27.0-31.0); Mean Corpuscular Volume 95.4 fL (78.0-98.0); Mean Platelet Volume 11.5 fL (7.4-10.4); Platelet Count 269 10x3/uL (130-400)
[2024-06-28 00:36] LABS: Albumin 3.3 g/dL (3.4-4.8); Chloride 99 mmol/L (98-107); Potassium 4.3 mmol/L (3.5-5.1); Sodium 135 mmol/L (136-145)
[2024-06-28 00:37] LABS: Glucose 267 mg/dL (80-115)
[2024-06-28 00:38] LABS: Globulin 4.2 g/dL (2.4-3.5); Protein, Total 7.5 g/dL (5.8-8.1)
[2024-06-28 00:39] LABS: Anion Gap 23 mmol/L (10-20); Carbon Dioxide 17 mmol/L (23-31)
[2024-06-28 00:40] LABS: Alkaline Phosphatase 59 U/L (40-110); Bilirubin, Total 0.7 mg/dL (0.2-1.2)
[2024-06-28 00:41] LABS: BUN (Urea Nitrogen) 48 mg/dL (8.4-25.7); Calc. Creatinine Clearance 16 mL/min (70-130); Estimated GFR 8
[2024-06-28 00:43] LABS: ALT (SGPT) 11 U/L (8-55); AST (SGOT) 31 U/L (5-34)
[2024-06-28 01:01] LABS: Base Excess (BEa) -2.6 mEq/L (-2.0 to +3.0); CO2 Tension 32.1 mmHg (35.0-45.0); Calcium, Ionized (arterial) 1.09 mmol/L (1.12-1.30); Carboxyhemoglobin (COHb) 0.4 gm% (0.0-3.0); Hematocrit-ABG 32 % (42.0-52.0); Hemoglobin (Hb) 10.9 g/dL (14.0-18.0); O2 Tension (PaO2), arterial 98.3 mmHg (> 80.0); Potassium - ABG Lab 4.42 mmol/L (3.70-5.30); pH, Arterial 7.433 (7.35-7.45)
[2024-06-28 01:03] LABS: ALV-art Gradient 146.775 mmHg (0-20); Puncture Site Right Brachial art
[2024-06-28 03:22] LABS: #Basophils 0.08 10x3/uL (0.0-0.2); %Basophils 0.5 % (0.0-1.0); %Eosinophils 0.3 % (0.0-10.0); %Lymphocytes 5.5 % (21.0-51.0); %Monocytes 6.5 % (0.0-10.0); %Neutrophils 86.8 % (42.0-75.0); Hematocrit 30.5 % (42.0-52.0); Hemoglobin 10.1 g/dL (14.0-18.0); Mean Corpuscular HGB CONC 33.1 g/dL (32.0-36.0); Mean Corpuscular Volume 96.5 fL (78.0-98.0); Mean Platelet Volume 11.1 fL (7.4-10.4); Platelet Count 231 10x3/uL (130-400); RBC Distribution Width 11.9 % (11.5-14.5); Red Blood Cell (RBC) Count 3.16 mill/uL (4.70-6.10)
[2024-06-28 03:36] LABS: Lactic Acid 1.19 mmol/L (0.5-2.2)
[2024-06-28 03:37] LABS: Vancomycin, Trough 15.3 ug/mL
[2024-06-28 03:39] LABS: Anion Gap 21 mmol/L (10-20); BUN (Urea Nitrogen) 50 mg/dL (8.4-25.7); Calc. Creatinine Clearance 15 mL/min (70-130); Calcium 8.7 mg/dL (7.8-10.44); Carbon Dioxide 18 mmol/L (23-31); Chloride 101 mmol/L (98-107); Estimated GFR 8; Glucose 273 mg/dL (80-115); Potassium 4.6 mmol/L (3.5-5.1); Sodium 135 mmol/L (136-145)
[2024-06-28] MEDS ORDERED: Vancomycin Dialysis Sliding Scale (Wt > 99) FS SCH (04:00)
[2024-06-28] MEDS: Insulin Lispro 100 UNIT/ML 10 ML VIAL SC PRN (08:01)
[2024-06-28] MEDS: Vancomycin 1 GM in Premix 1 BAG IVPB SCH (08:02)
[2024-06-28] MEDS ORDERED: Heparin 10,000 UNITS/ 10 ML VIAL ONE (14:16)
[2024-06-29 08:43] LABS: Vancomycin, Trough 20.2 ug/mL
[2024-06-29] MEDS ORDERED: Heparin 10,000 UNITS/ 10 ML VIAL ONE (14:31)
[2024-06-29] MEDS: Vancomycin HCl 500 MG in Sodium Chloride 0.9% 100 ML IVPB SCH (17:36)
[2024-06-30 09:08] VITALS: BP 100/65; TEMP 98.3
[2024-07-01] MEDS ORDERED: EPOETIN ALFA-EPBX (ESRD) 10,000 UNITS/ML VIAL IVP SCH (12:00)
== END 2024-06-30 13:37 | disposition home or self-care (01) | DRG 871 ==
LOC: ERS 20:01 → ERHOLD 21:47 → OBSVTOIN 06-26 08:13 → OBS 06-26 17:49 → CCU 06-28 00:23 → T4-A 06-28 15:48
PROVIDERS: ADMIT Student in an Organized Health Care Education/Training Program; ATTEND Internal Medicine
PROC: 3E03329 Introduction of Other Anti-infective into Peripheral Vein, Percutaneous Approach (ICD-10-PCS; principal; 2024-06-26)
PROC: 5A1D70Z Performance of Urinary Filtration, Intermittent, Less than 6 Hours Per Day (ICD-10-PCS; 2024-06-26)
DX: A41.59 Other Gram-negative sepsis (principal); J96.01 Acute respiratory failure with hypoxia; N18.6 End stage renal disease; L97.929 Non-pressure chronic ulcer of unspecified part of left lower leg with unspecified severity; N39.0 Urinary tract infection, site not specified; I50.22 Chronic systolic (congestive) heart failure; I13.2 Hypertensive heart and chronic kidney disease with heart failure and with stage 5 chronic kidney disease, or end stage renal disease; E87.1 Hypo-osmolality and hyponatremia; E87.20 Acidosis, unspecified; R32 Unspecified urinary incontinence; E11.622 Type 2 diabetes mellitus with other skin ulcer; I25.10 Atherosclerotic heart disease of native coronary artery without angina pectoris; E78.5 Hyperlipidemia, unspecified; I16.0 Hypertensive urgency; G47.33 Obstructive sleep apnea (adult) (pediatric); E11.22 Type 2 diabetes mellitus with diabetic chronic kidney disease; B96.1 Klebsiella pneumoniae [K. pneumoniae] as the cause of diseases classified elsewhere; D63.1 Anemia in chronic kidney disease; E66.9 Obesity, unspecified; N28.89 Other specified disorders of kidney and ureter; I48.91 Unspecified atrial fibrillation; Z99.2 Dependence on renal dialysis; Z88.8 Allergy status to other drugs, medicaments and biological substances; Z91.041 Radiographic dye allergy status; Z89.512 Acquired absence of left leg below knee; Z95.5 Presence of coronary angioplasty implant and graft; Z79.890 Hormone replacement therapy; Z79.899 Other long term (current) drug therapy; I25.2 Old myocardial infarction; Z91.158 Patient's noncompliance with renal dialysis for other reason; Z68.33 Body mass index [BMI] 33.0-33.9, adult
CPT/HCPCS: 36415; 36416; 36600; 71045; 76770; 80048; 80053; 80202; 81001; 82805; 83036; 83605; 83880; 85025; 86704; 86706; 86803; 87040; 87077; 87086; 87186; 87340; 90935; 93005; 93010; 94660; 96361; 96365; 96375; G0257; J0692; J1644; J1815; J3370; J3490

== ENCOUNTER 2024-07-13 11:01 | Inpatient (IN) | payer MEDICARE ==
[2024-07-13 11:50] LABS: #Basophils 0.12 10x3/uL (0.0-0.2); %Basophils 0.9 % (0.0-1.0); %Eosinophils 2.8 % (0.0-10.0); %Monocytes 7.6 % (0.0-10.0); %Neutrophils 77.3 % (42.0-75.0); Hematocrit 28.7 % (42.0-52.0); Hemoglobin 9.5 g/dL (14.0-18.0); Mean Corpuscular HGB CONC 33.1 g/dL (32.0-36.0); Mean Corpuscular Hemoglobin 32.1 pg (27.0-31.0); Platelet Count 255 10x3/uL (130-400); RBC Distribution Width 12.2 % (11.5-14.5); Red Blood Cell (RBC) Count 2.96 mill/uL (4.70-6.10)
[2024-07-13 11:55] LABS: Bilirubin Negative (Negative); Blood, Urine 1+ (Negative); Clarity Clear (Clear); Glucose, Urine (Dipstick) 500 mg/dL (Negative); Ketone, Urine Negative (Negative); Leukocyte 250 Leu/uL (Negative); Nitrite Negative (Negative); Protein, Urine (Dipstick) 100 mg/dL (Neg-Trace); Specific Gravity, Urine 1.014 (1.002-1.036); Urobilinogen Normal mg/dL (Less than 2); pH, Urine 7.5 (5.0-9.0)
[2024-07-13 11:56] LABS: Bacteria/HPF None Seen HPF (None Seen); CAUTI Indications for Culture Dysuria,urgency,freq; Squamous Epithelial 0-3 HPF (0-3); WBC/HPF Greater than 50 HPF (0-3)
[2024-07-13 11:57] LABS: Urine Culture Reflex Yes Yes
[2024-07-13 12:09] LABS: ALT (SGPT) Less than 5 U/L (8-55); AST (SGOT) 13 U/L (5-34); Albumin 3.1 g/dL (3.4-4.8); Alkaline Phosphatase 52 U/L (40-110); Anion Gap 24 mmol/L (10-20); BUN (Urea Nitrogen) 49 mg/dL (8.4-25.7); Bilirubin, Total 0.5 mg/dL (0.2-1.2); Calc. Creatinine Clearance 0 mL/min (70-130); Calcium 8.3 mg/dL (7.8-10.44); Carbon Dioxide 23 mmol/L (23-31); Chloride 97 mmol/L (98-107); Estimated GFR 6; Globulin 3.4 g/dL (2.4-3.5); Glucose 314 mg/dL (80-115); Potassium 4.5 mmol/L (3.5-5.1); Protein, Total 6.5 g/dL (5.8-8.1); Sodium 139 mmol/L (136-145)
[2024-07-13 12:14] LABS: Troponin I 6.245 ng/mL (< 0.028)
[2024-07-13] MEDS ORDERED: Nitroglycerin 2% Ointment 1 INCH/1 GM Packet ONE (12:52)
[2024-07-13] MEDS ORDERED: Aspirin Chewable 81 MG TAB ONE (12:52)
[2024-07-13] MEDS ORDERED: Heparin 5,000 UNITS/ML VIAL ONE (12:53)
[2024-07-13] MEDS ORDERED: Heparin 25,000 units/D5W 500 ML ONE (12:53)
[2024-07-13] MEDS ORDERED: Sodium Chloride 0.9% 100 ML ONE (13:34)
[2024-07-13] MEDS ORDERED: cefTRIAXone (ROCEPHIN) 2 GM VIAL ONE (13:34)
[2024-07-13] MEDS ORDERED: Acetaminophen 650 MG Suppository PR PRN (15:56)
[2024-07-13] MEDS ORDERED: Dextrose 50% Abboject 50 ML SYRINGE SLOW IVP PRN (15:56)
[2024-07-13] MEDS ORDERED: Dextrose 5% in Water 1,000 ML IV PRN (15:56)
[2024-07-13] MEDS ORDERED: Glucagon 1 MG/ML KIT IM PRN (15:56)
[2024-07-13] MEDS ORDERED: Ondansetron PF 4 MG/2 ML Vial IVP PRN (15:56)
[2024-07-13] MEDS ORDERED: Acetaminophen 325 MG TAB PO PRN (15:56)
[2024-07-13] MEDS ORDERED: Ondansetron ODT 4 MG TAB PO PRN (15:56)
[2024-07-13 16:21] VITALS: BMI 31.9
[2024-07-13 20:23] LABS: Actual Bicarbonate (HCO3v) 24.6 mEq/L (22-28); Base Excess 2.4 mEq/L (-2.0 to +3.0); Calcium, Ionized (venous) 0.99 mmol/L (1.16-1.32); Chloride (VBG) 97 mmol/L (98-106); Hematocrit-VBG 31 % (42.0-52.0); Hemoglobin (Hb) 10.4 g/dL (12.6-17.4); Potassium (VBG) 4.22 mmol/L (3.70-5.30); Sodium 136 mmol/L (133-146); pH (venous) 7.532 (7.32-7.43)
[2024-07-13 20:31] LABS: Hematocrit 27.5 % (42.0-52.0); Hemoglobin 9.2 g/dL (14.0-18.0); Mean Corpuscular HGB CONC 33.5 g/dL (32.0-36.0); Mean Corpuscular Hemoglobin 31.7 pg (27.0-31.0); Mean Corpuscular Volume 94.8 fL (78.0-98.0); Mean Platelet Volume 10.9 fL (7.4-10.4); Platelet Count 288 10x3/uL (130-400); RBC Distribution Width 12.3 % (11.5-14.5)
[2024-07-13 20:33] LABS: Lactic Acid 1.84 mmol/L (0.5-2.2)
[2024-07-13 20:36] LABS: Anion Gap 20 mmol/L (10-20); BUN (Urea Nitrogen) 32 mg/dL (8.4-25.7); Calc. Creatinine Clearance 19 mL/min (70-130); Calcium 8.5 mg/dL (7.8-10.44); Carbon Dioxide 23 mmol/L (23-31); Chloride 99 mmol/L (98-107); Estimated GFR 11; Glucose 204 mg/dL (80-115); Potassium 4.2 mmol/L (3.5-5.1); Sodium 138 mmol/L (136-145)
[2024-07-13 20:51] LABS: Band 2 % (5-11); Eosinophils 2 % (0-10); Hypochromia SLIGHT = 6-15 cells HPF (0-5); Lymphocytes 2 % (21-51); Monocytes 5 % (0-10); Neutrophil 87 % (42-75); Platelet Adequacy Comment Platelets Normal; Polychromasia SLIGHT = 2-3 cells HPF (0-2); Stomatocytes SLIGHT = 2-5 cells HPF (0-1)
[2024-07-13 20:52] LABS: Critical Call Chem Troponin I RESULT DECREASING; Troponin I 5.023 ng/mL (< 0.028)
[2024-07-13] MEDS: Ezetimibe 10 MG TAB PO SCH (21:14)
[2024-07-13] MEDS: Nitroglycerin 2% Ointment 1 INCH/1 GM Packet TOP SCH (21:14)
[2024-07-13] MEDS: Carvedilol 6.25 MG TAB PO SCH (21:14)
[2024-07-13] MEDS: Heparin 10,000 UNITS/ 10 ML VIAL SLOW IVP SCH (21:17)
[2024-07-13] MEDS: Insulin Lispro 100 UNIT/ML 10 ML VIAL SC PRN (21:27)
[2024-07-13] MEDS: Pantoprazole 40 MG VIAL IVP SCH (22:52)
[2024-07-14 00:42] LABS: Critical Call Chem Troponin I RESULT DECREASING; Troponin I 4.065 ng/mL (< 0.028)
[2024-07-14] MEDS: Levothyroxine Sodium 75 MCG TAB PO SCH (05:40)
[2024-07-14 05:44] LABS: %Basophils 0.7 % (0.0-1.0); %Eosinophils 0.2 % (0.0-10.0); %Lymphocytes 12.3 % (21.0-51.0); %Monocytes 6.9 % (0.0-10.0); %Neutrophils 79.6 % (42.0-75.0); Hematocrit 25.5 % (42.0-52.0); Hemoglobin 8.4 g/dL (14.0-18.0); Mean Corpuscular HGB CONC 32.9 g/dL (32.0-36.0); Mean Corpuscular Hemoglobin 31.8 pg (27.0-31.0); Mean Corpuscular Volume 96.6 fL (78.0-98.0); Mean Platelet Volume 10.8 fL (7.4-10.4); Platelet Count 238 10x3/uL (130-400); RBC Distribution Width 12.4 % (11.5-14.5); Red Blood Cell (RBC) Count 2.64 mill/uL (4.70-6.10)
[2024-07-14 06:02] LABS: ALT (SGPT) Less than 5 U/L (8-55); AST (SGOT) 14 U/L (5-34); Albumin 2.9 g/dL (3.4-4.8); Alkaline Phosphatase 47 U/L (40-110); Anion Gap 23 mmol/L (10-20); BUN (Urea Nitrogen) 39 mg/dL (8.4-25.7); Bilirubin, Total 0.5 mg/dL (0.2-1.2); Calc. Creatinine Clearance 16 mL/min (70-130); Calcium 8.2 mg/dL (7.8-10.44); Carbon Dioxide 24 mmol/L (23-31); Chloride 97 mmol/L (98-107); Estimated GFR 8; Globulin 3.4 g/dL (2.4-3.5); Glucose 249 mg/dL (80-115); Potassium 4.7 mmol/L (3.5-5.1); Protein, Total 6.3 g/dL (5.8-8.1); Sodium 139 mmol/L (136-145)
[2024-07-14] MEDS: Insulin Lispro 100 UNIT/ML 10 ML VIAL SC PRN (06:12)
[2024-07-14] MEDS: Lisinopril 2.5 MG TAB PO SCH (09:03)
[2024-07-14] MEDS: NIFEdipine XL 30 MG ER.TAB PO SCH (09:03)
[2024-07-14] MEDS: Carvedilol 6.25 MG TAB PO SCH (09:03)
[2024-07-14] MEDS: Pantoprazole 40 MG VIAL IVP SCH (09:03)
[2024-07-14] MEDS: cefTRIAXone\\ROCEPHIN 1 GM in Sodium Chloride 0.9% 100 ML IVPB SCH (12:33)
[2024-07-14] MEDS: Heparin 25,000 units/D5W 500 ML IVPB SCH (12:37)
[2024-07-15 07:55] LABS: #Basophils 0.09 10x3/uL (0.0-0.2); %Basophils 0.8 % (0.0-1.0); %Lymphocytes 14.1 % (21.0-51.0); %Monocytes 8.3 % (0.0-10.0); %Neutrophils 72.4 % (42.0-75.0); Hematocrit 23.7 % (42.0-52.0); Hemoglobin 7.9 g/dL (14.0-18.0); Mean Corpuscular HGB CONC 33.3 g/dL (32.0-36.0); Mean Corpuscular Hemoglobin 32.2 pg (27.0-31.0); Mean Corpuscular Volume 96.7 fL (78.0-98.0); Mean Platelet Volume 11.1 fL (7.4-10.4); Platelet Count 227 10x3/uL (130-400); Red Blood Cell (RBC) Count 2.45 mill/uL (4.70-6.10)
[2024-07-15 08:12] LABS: ALT (SGPT) Less than 5 U/L (8-55); AST (SGOT) 10 U/L (5-34); Albumin 2.8 g/dL (3.4-4.8); Alkaline Phosphatase 46 U/L (40-110); Anion Gap 19 mmol/L (10-20); BUN (Urea Nitrogen) 52 mg/dL (8.4-25.7); Bilirubin, Total 0.4 mg/dL (0.2-1.2); Calc. Creatinine Clearance 14 mL/min (70-130); Calcium 8.1 mg/dL (7.8-10.44); Carbon Dioxide 25 mmol/L (23-31); Chloride 96 mmol/L (98-107); Estimated GFR 7; Globulin 3.3 g/dL (2.4-3.5); Glucose 247 mg/dL (80-115); Potassium 4.2 mmol/L (3.5-5.1); Protein, Total 6.1 g/dL (5.8-8.1); Sodium 136 mmol/L (136-145)
[2024-07-15] MEDS: Aspirin 325 MG TAB PO SCH (08:27)
[2024-07-15] MEDS ORDERED: Albumin 25% 25 GM (100 mL) BOT IVPB PRN (09:21)
[2024-07-15 16:04] LABS: PTT 178.5 sec (22.9-36.1)
[2024-07-15] MEDS: HumuLIN 70/30 100 Unit/ml 10 ml Vial SC SCH (21:18)
[2024-07-16 02:19] LABS: #Basophils 0.08 10x3/uL (0.0-0.2); %Basophils 0.8 % (0.0-1.0); %Eosinophils 3.1 % (0.0-10.0); %Lymphocytes 13.5 % (21.0-51.0); %Monocytes 8.2 % (0.0-10.0); Hematocrit 22.7 % (42.0-52.0); Hemoglobin 7.6 g/dL (14.0-18.0); Mean Corpuscular HGB CONC 33.5 g/dL (32.0-36.0); Mean Corpuscular Hemoglobin 32.2 pg (27.0-31.0); Mean Corpuscular Volume 96.2 fL (78.0-98.0); Mean Platelet Volume 10.9 fL (7.4-10.4); Platelet Count 214 10x3/uL (130-400); RBC Distribution Width 12.2 % (11.5-14.5); Red Blood Cell (RBC) Count 2.36 mill/uL (4.70-6.10)
[2024-07-16 03:47] LABS: Anion Gap 18 mmol/L (10-20); BUN (Urea Nitrogen) 30 mg/dL (8.4-25.7); Calc. Creatinine Clearance 21 mL/min (70-130); Calcium 8.6 mg/dL (7.8-10.44); Carbon Dioxide 25 mmol/L (23-31); Chloride 99 mmol/L (98-107); Estimated GFR 11; Glucose 207 mg/dL (80-115); Sodium 138 mmol/L (136-145)
[2024-07-16] MEDS: Pantoprazole DR 40 MG TAB PO SCH (08:02)
[2024-07-16] MEDS: HumuLIN 70/30 100 Unit/ml 10 ml Vial SC SCH (08:07)
[2024-07-16 12:28] VITALS: BP 147/68
[2024-07-16] MEDS: hydrALAZINE 25 MG TAB PO SCH (14:42)
[2024-07-16 17:21] VITALS: TEMP 97.9
== END 2024-07-16 19:35 | disposition home or self-care (01) | DRG 280 ==
LOC: ERS 11:01 → 2NO 15:40 → IMCU/EMU 20:38 → 2NO 07-14 19:57
PROVIDERS: ADMIT Internal Medicine; ATTEND Family Medicine
DX: I21.4 Non-ST elevation (NSTEMI) myocardial infarction (principal); I50.23 Acute on chronic systolic (congestive) heart failure; N18.6 End stage renal disease; I13.2 Hypertensive heart and chronic kidney disease with heart failure and with stage 5 chronic kidney disease, or end stage renal disease; N39.0 Urinary tract infection, site not specified; E78.5 Hyperlipidemia, unspecified; I25.10 Atherosclerotic heart disease of native coronary artery without angina pectoris; N40.0 Benign prostatic hyperplasia without lower urinary tract symptoms; E11.22 Type 2 diabetes mellitus with diabetic chronic kidney disease; I16.0 Hypertensive urgency; I48.91 Unspecified atrial fibrillation; D63.1 Anemia in chronic kidney disease; I35.0 Nonrheumatic aortic (valve) stenosis; D70.9 Neutropenia, unspecified; E03.9 Hypothyroidism, unspecified; I25.2 Old myocardial infarction; Z95.1 Presence of aortocoronary bypass graft; Z89.512 Acquired absence of left leg below knee; Z99.2 Dependence on renal dialysis; Z79.890 Hormone replacement therapy; Z79.82 Long term (current) use of aspirin; Z79.899 Other long term (current) drug therapy
CPT/HCPCS: 36415; 36416; 71045; 80048; 80053; 81001; 82805; 83605; 83735; 83880; 84484; 85025; 85730; 87086; 93005; 93010; 93306; 96365; 96368; J0696; J1644; J1815; J2470

== ENCOUNTER 2025-01-01 00:24 | Inpatient (IN) | payer MEDICARE ==
[2025-01-01] MEDS ORDERED: Sodium Chloride 0.9% 100 ML ONE (00:38)
[2025-01-01] MEDS ORDERED: cefTRIAXone (ROCEPHIN) 2 GM VIAL ONE (00:38)
[2025-01-01 01:03] LABS: #Basophils 0.04 10x3/uL (0.0-0.2); #Eosinophils 0.06 10x3/uL (0.0-0.7); #Monocytes 0.53 10x3/uL (0.11-0.59); #Neutrophils 6.58 10x3/uL (1.40-6.50); %Basophils 0.5 % (0.0-1.0); %Eosinophils 0.8 % (0.0-10.0); %Lymphocytes 5.5 % (21.0-51.0); %Monocytes 6.9 % (0.0-10.0); %Neutrophils 85.9 % (42.0-75.0); Hematocrit 36.3 % (42.0-52.0); Hemoglobin 11.7 g/dL (14.0-18.0); Mean Corpuscular HGB CONC 32.2 g/dL (32.0-36.0); Mean Corpuscular Hemoglobin 31.2 pg (27.0-31.0); Mean Corpuscular Volume 96.8 fL (78.0-98.0); Mean Platelet Volume 10.2 fL (7.4-10.4); Platelet Count 169 10x3/uL (130-400); RBC Distribution Width 15.3 % (11.5-14.5); Red Blood Cell (RBC) Count 3.75 mill/uL (4.70-6.10); White Blood Cell (WBC) Count 7.66 10x3/uL (4.8-10.8)
[2025-01-01 01:24] LABS: ALT (SGPT) Less than 7 U/L (Less than 45); AST (SGOT) 11 U/L (11-34); Albumin 3.2 g/dL (3.1-4.5); Alkaline Phosphatase 46 U/L (40-110); Anion Gap 18 mmol/L (10-20); BUN (Urea Nitrogen) 57 mg/dL (8.4-25.7); Bilirubin, Total 0.4 mg/dL (0.3-1.2); Calc. Creatinine Clearance 0 mL/min (70-130); Calcium 8.4 mg/dL (7.8-10.44); Carbon Dioxide 25 mmol/L (23-31); Chloride 100 mmol/L (98-107); Estimated GFR 6; Globulin 2.9 g/dL (2.4-3.5); Glucose 187 mg/dL (80-115); Potassium 4.3 mmol/L (3.5-5.1); Protein, Total 6.1 g/dL (5.8-8.1); Sodium 139 mmol/L (136-145)
[2025-01-01 01:25] LABS: Troponin I 0.034 ng/mL (< 0.028)
[2025-01-01] MEDS ORDERED: VANCOMYCIN 2 GRAM/400 ML BAG ONE (01:46)
[2025-01-01 01:57] LABS: Bacteria/HPF 4+ HPF (None Seen); Bilirubin Negative (Negative); Blood, Urine Trace (Negative); CAUTI Indications for Culture Alt mental st,lethar; Clarity Clear (Clear); Glucose, Urine (Dipstick) 200 mg/dL (Negative); Ketone, Urine Negative (Negative); Leukocyte 250 Leu/uL (Negative); Nitrite Negative (Negative); Protein, Urine (Dipstick) 50 mg/dL (Neg-Trace); RBC/HPF 0-3 HPF (0-3); Specific Gravity, Urine 1.013 (1.002-1.036); Urobilinogen Normal mg/dL (Less than 2); WBC/HPF 21-50 HPF (0-3)
[2025-01-01 01:59] LABS: Urine Culture Reflex Yes Yes
[2025-01-01 04:32] VITALS: BMI 31.2
[2025-01-01] MEDS: VANCOMYCIN 2 GRAM/400 ML Premix BAG IVPB SCH (04:44)
[2025-01-01] MEDS ORDERED: Glucagon 1 MG/ML KIT IM PRN (06:08)
[2025-01-01] MEDS ORDERED: Dextrose 5% in Water 1,000 ML IV PRN (06:08)
[2025-01-01] MEDS ORDERED: Dextrose 50% Abboject 50 ML SYRINGE SLOW IVP PRN (06:08)
[2025-01-01 06:49] LABS: Troponin I 0.084 ng/mL (< 0.028)
[2025-01-01] MEDS: Aspirin 325 MG TAB PO SCH (08:14)
[2025-01-01] MEDS: Enoxaparin 30 MG (0.3 mL) SYRINGE SC SCH (08:15)
[2025-01-01] MEDS: Famotidine 20 MG TAB PO SCH (08:15)
[2025-01-01] MEDS: Isosorbide Mononitrate 30 MG ER.TAB.S PO SCH (08:15)
[2025-01-01] MEDS: Pantoprazole 40 MG DR.TAB PO SCH (08:15)
[2025-01-01] MEDS: Levothyroxine Sodium 75 MCG TAB PO SCH (09:30)
[2025-01-01] MEDS: Insulin Lispro 100 UNIT/ML 10 ML VIAL SC PRN (12:30)
[2025-01-01] MEDS: Heparin 5,000 UNITS/ML VIAL SC SCH (14:28)
[2025-01-01] MEDS: Ezetimibe 10 MG TAB PO SCH (21:11)
[2025-01-01] MEDS: Sacubitril 49 MG/Valsartan 51 MG TABLET PO SCH (21:11)
[2025-01-01] MEDS: Carvedilol 6.25 MG TAB PO SCH (21:11)
[2025-01-01] MEDS: Ondansetron PF 4 MG/2 ML Vial IVP PRN (21:12)
[2025-01-02] MEDS: cefTRIAXone\\ROCEPHIN 1 GM in Sodium Chloride 0.9% 100 ML IVPB SCH (01:51)
[2025-01-02 06:51] LABS: Anion Gap 16 mmol/L (10-20); BUN (Urea Nitrogen) 44 mg/dL (8.4-25.7); Calc. Creatinine Clearance 17 mL/min (70-130); Calcium 8.3 mg/dL (7.8-10.44); Carbon Dioxide 26 mmol/L (23-31); Cardiac Risk 4.5 (Less than 4.5); Chloride 101 mmol/L (98-107); Cholesterol 117 mg/dl (< 200 Desired); Estimated GFR 10; Glucose 198 mg/dL (80-115); HDL Cholesterol 26 mg/dL (>60 Neg Risk); LDL Cholesterol, Calculated 71 mg/dL; Sodium 138 mmol/L (136-145); Triglycerides 101 mg/dL (Less than 150)
[2025-01-02 07:18] LABS: #Basophils 0.09 10x3/uL (0.0-0.2); #Eosinophils Less than 0.03 10x3/uL (0.0-0.7); #Monocytes 0.88 10x3/uL (0.11-0.59); #Neutrophils 5.47 10x3/uL (1.40-6.50); %Basophils 1.2 % (0.0-1.0); %Eosinophils 0.3 % (0.0-10.0); %Lymphocytes 16.7 % (21.0-51.0); %Monocytes 11.3 % (0.0-10.0); Hematocrit 23.7 % (42.0-52.0); Hemoglobin 7.5 g/dL (14.0-18.0); Mean Corpuscular HGB CONC 31.6 g/dL (32.0-36.0); Mean Corpuscular Hemoglobin 32.1 pg (27.0-31.0); Mean Corpuscular Volume 101.3 fL (78.0-98.0); Mean Platelet Volume 9.9 fL (7.4-10.4); Platelet Count 203 10x3/uL (130-400); RBC Distribution Width 15.6 % (11.5-14.5); Red Blood Cell (RBC) Count 2.34 mill/uL (4.70-6.10)
[2025-01-02] MEDS ORDERED: Famotidine 20 MG TAB PO SCH (09:00)
[2025-01-02 14:48] LABS: #Basophils 0.08 10x3/uL (0.0-0.2); #Eosinophils 0.08 10x3/uL (0.0-0.7); #Monocytes 0.77 10x3/uL (0.11-0.59); #Neutrophils 5.72 10x3/uL (1.40-6.50); %Lymphocytes 14.2 % (21.0-51.0); %Monocytes 9.9 % (0.0-10.0); %Neutrophils 73.6 % (42.0-75.0); Hematocrit 23.4 % (42.0-52.0); Hemoglobin 7.3 g/dL (14.0-18.0); Mean Corpuscular HGB CONC 31.2 g/dL (32.0-36.0); Mean Corpuscular Volume 102.6 fL (78.0-98.0); Mean Platelet Volume 10.4 fL (7.4-10.4); Platelet Count 205 10x3/uL (130-400); RBC Distribution Width 15.6 % (11.5-14.5); Red Blood Cell (RBC) Count 2.28 mill/uL (4.70-6.10); White Blood Cell (WBC) Count 7.77 10x3/uL (4.8-10.8)
[2025-01-02] MEDS ORDERED: Lactulose 20 GM (30 mL) UDCUP PO PRN (15:39)
[2025-01-02] MEDS ORDERED: Acetaminophen 325 MG TAB PO PRN (15:39)
[2025-01-02] MEDS ORDERED: HYDROcodone/Acetaminophen 5/325 mg Tablet PO PRN (15:40)
[2025-01-02 19:16] VITALS: BMI 31.2
[2025-01-02] MEDS: Insulin Glargine 30 UNITS/0.3 ML VIAL SC SCH (22:58)
[2025-01-03 06:33] LABS: #Basophils 0.08 10x3/uL (0.0-0.2); #Eosinophils 0.27 10x3/uL (0.0-0.7); #Monocytes 0.62 10x3/uL (0.11-0.59); %Eosinophils 3.4 % (0.0-10.0); %Lymphocytes 16.8 % (21.0-51.0); %Monocytes 7.7 % (0.0-10.0); %Neutrophils 70.9 % (42.0-75.0); Hematocrit 24.1 % (42.0-52.0); Hemoglobin 7.6 g/dL (14.0-18.0); Mean Corpuscular HGB CONC 31.5 g/dL (32.0-36.0); Mean Corpuscular Hemoglobin 31.8 pg (27.0-31.0); Mean Corpuscular Volume 100.8 fL (78.0-98.0); Mean Platelet Volume 10.3 fL (7.4-10.4); Platelet Count 211 10x3/uL (130-400); RBC Distribution Width 15.4 % (11.5-14.5); Red Blood Cell (RBC) Count 2.39 mill/uL (4.70-6.10); White Blood Cell (WBC) Count 8.04 10x3/uL (4.8-10.8)
[2025-01-03 06:48] LABS: Anion Gap 19 mmol/L (10-20); BUN (Urea Nitrogen) 58 mg/dL (8.4-25.7); Calc. Creatinine Clearance 14 mL/min (70-130); Calcium 8.2 mg/dL (7.8-10.44); Carbon Dioxide 24 mmol/L (23-31); Chloride 100 mmol/L (98-107); Estimated GFR 7; Glucose 183 mg/dL (80-115); Potassium 4.8 mmol/L (3.5-5.1); Sodium 138 mmol/L (136-145)
[2025-01-03] MEDS: Insulin Lispro 100 UNIT/ML 10 ML VIAL SC PRN (21:17)
[2025-01-03] MEDS: Senokot S 8.6-50 MG TAB PO SCH (21:22)
[2025-01-03] MEDS: Polyethylene Glycol 3350 17 GM Packet PO SCH (21:22)
[2025-01-03] MEDS: AMPicillin 1 GM in Sodium Chloride 0.9% 100 ML IVPB SCH (22:34)
[2025-01-04 06:27] LABS: #Basophils 0.07 10x3/uL (0.0-0.2); #Eosinophils 0.27 10x3/uL (0.0-0.7); #Monocytes 0.67 10x3/uL (0.11-0.59); #Neutrophils 6.29 10x3/uL (1.40-6.50); %Basophils 0.8 % (0.0-1.0); %Eosinophils 3.2 % (0.0-10.0); %Lymphocytes 12.8 % (21.0-51.0); %Neutrophils 74.7 % (42.0-75.0); Hematocrit 25.1 % (42.0-52.0); Mean Corpuscular HGB CONC 31.9 g/dL (32.0-36.0); Mean Corpuscular Hemoglobin 32.1 pg (27.0-31.0); Mean Corpuscular Volume 100.8 fL (78.0-98.0); Mean Platelet Volume 10.6 fL (7.4-10.4); Platelet Count 222 10x3/uL (130-400); RBC Distribution Width 15.1 % (11.5-14.5); Red Blood Cell (RBC) Count 2.49 mill/uL (4.70-6.10); White Blood Cell (WBC) Count 8.42 10x3/uL (4.8-10.8)
[2025-01-04 06:45] LABS: Anion Gap 19 mmol/L (10-20); BUN (Urea Nitrogen) 70 mg/dL (8.4-25.7); Calc. Creatinine Clearance 12 mL/min (70-130); Calcium 8.2 mg/dL (7.8-10.44); Carbon Dioxide 23 mmol/L (23-31); Chloride 100 mmol/L (98-107); Estimated GFR 6; Glucose 169 mg/dL (80-115); Potassium 4.4 mmol/L (3.5-5.1); Sodium 138 mmol/L (136-145)
[2025-01-04] MEDS ORDERED: Heparin 10,000 UNITS/ 10 ML VIAL ONE (11:00)
[2025-01-04] MEDS ORDERED: Vancomycin Dose by Levels Sliding Scale (Wt 71-99) FS SCH (17:30)
[2025-01-04] MEDS: VANCOMYCIN 2 GRAM/400 ML Premix BAG IVPB SCH (18:05)
[2025-01-04] MEDS ORDERED: Vancomycin Diaylsis Sliding Scale (Wt 71-99) FS SCH (18:30)
[2025-01-04] MEDS: Vancomycin 1 GM in Premix 1 BAG IVPB SCH (19:15)
[2025-01-05 07:59] LABS: #Basophils 0.07 10x3/uL (0.0-0.2); #Eosinophils 0.27 10x3/uL (0.0-0.7); #Monocytes 0.75 10x3/uL (0.11-0.59); #Neutrophils 5.42 10x3/uL (1.40-6.50); %Basophils 0.9 % (0.0-1.0); %Eosinophils 3.5 % (0.0-10.0); %Lymphocytes 15.6 % (21.0-51.0); %Monocytes 9.7 % (0.0-10.0); Hematocrit 27.9 % (42.0-52.0); Hemoglobin 8.8 g/dL (14.0-18.0); Mean Corpuscular HGB CONC 31.5 g/dL (32.0-36.0); Mean Corpuscular Hemoglobin 31.5 pg (27.0-31.0); Mean Platelet Volume 10.6 fL (7.4-10.4); Platelet Count 223 10x3/uL (130-400); RBC Distribution Width 15.3 % (11.5-14.5); Red Blood Cell (RBC) Count 2.79 mill/uL (4.70-6.10); White Blood Cell (WBC) Count 7.74 10x3/uL (4.8-10.8)
[2025-01-05 08:07] LABS: Anion Gap 17 mmol/L (10-20); BUN (Urea Nitrogen) 37 mg/dL (8.4-25.7); Calc. Creatinine Clearance 17 mL/min (70-130); Calcium 8.2 mg/dL (7.8-10.44); Carbon Dioxide 24 mmol/L (23-31); Chloride 102 mmol/L (98-107); Estimated GFR 10; Glucose 135 mg/dL (80-115); Potassium 3.9 mmol/L (3.5-5.1); Sodium 139 mmol/L (136-145)
[2025-01-05] MEDS: Aspirin 81 mg Enteric Coated Tablet PO SCH (09:04)
[2025-01-05] MEDS: Linezolid 600 MG TAB PO SCH (09:11)
[2025-01-05] MEDS: GUAIFENESIN SF SOLN 200 MG/10 ML UDCUP PO PRN (18:13)
[2025-01-06] MEDS ORDERED: Heparin 10,000 UNITS/ 10 ML VIAL ONE (08:46)
[2025-01-07 11:41] VITALS: BP 146/82; TEMP 97.6
== END 2025-01-07 11:30 | disposition home health service (06) | DRG 689 ==
LOC: ERS 00:24 → T4-B 03:24
PROVIDERS: ADMIT Hospitalist; ATTEND Internal Medicine
PROC: 3E03329 Introduction of Other Anti-infective into Peripheral Vein, Percutaneous Approach (ICD-10-PCS; principal; 2025-01-01)
PROC: 5A1D70Z Performance of Urinary Filtration, Intermittent, Less than 6 Hours Per Day (ICD-10-PCS; 2025-01-01)
DX: N39.0 Urinary tract infection, site not specified (principal); G93.41 Metabolic encephalopathy; N18.6 End stage renal disease; I13.2 Hypertensive heart and chronic kidney disease with heart failure and with stage 5 chronic kidney disease, or end stage renal disease; I50.22 Chronic systolic (congestive) heart failure; D63.0 Anemia in neoplastic disease; E66.9 Obesity, unspecified; N28.89 Other specified disorders of kidney and ureter; Z66 Do not resuscitate; E11.22 Type 2 diabetes mellitus with diabetic chronic kidney disease; E78.5 Hyperlipidemia, unspecified; I25.10 Atherosclerotic heart disease of native coronary artery without angina pectoris; N40.0 Benign prostatic hyperplasia without lower urinary tract symptoms; Z86.73 Personal history of transient ischemic attack (TIA), and cerebral infarction without residual deficits; Z88.8 Allergy status to other drugs, medicaments and biological substances; Z99.2 Dependence on renal dialysis; Z79.4 Long term (current) use of insulin; Z91.199 Patient's noncompliance with other medical treatment and regimen due to unspecified reason; Z68.31 Body mass index [BMI] 31.0-31.9, adult; Z79.82 Long term (current) use of aspirin; Z79.899 Other long term (current) drug therapy
CPT/HCPCS: 36415; 36416; 51701; 71045; 76770; 80048; 80053; 80061; 81001; 82274; 83605; 83880; 84484; 85025; 87040; 87077; 87086; 87186; 87426; 90935; 93005; 93306; 96365; 96366; 96367; G0257; J0290; J0696; J1644; J1815; J2405; J3370

== ENCOUNTER 2025-04-14 10:48 | Emergency (ER) | payer MEDICARE ==
[2025-04-14 12:22] LABS: Bacteria/HPF 4+ HPF (None Seen); CAUTI Indications for Culture Alt mental st,lethar; Glucose, Urine (Dipstick) 200 mg/dL (Negative); Leukocyte 500 Leu/uL (Negative); Protein, Urine (Dipstick) 200 mg/dL (Neg-Trace); Specific Gravity, Urine 1.013 (1.002-1.036); WBC/HPF Greater than 50 HPF (0-3)
[2025-04-14 12:24] LABS: Urine Culture Reflex Yes Yes
[2025-04-14 13:43] LABS: #Basophils 0.07 10x3/uL (0.0-0.2); #Eosinophils 0.29 10x3/uL (0.0-0.7); #Monocytes 0.53 10x3/uL (0.11-0.59); #Neutrophils 6.64 10x3/uL (1.40-6.50); %Basophils 0.8 % (0.0-1.0); %Eosinophils 3.5 % (0.0-10.0); %Lymphocytes 9.5 % (21.0-51.0); %Monocytes 6.4 % (0.0-10.0); %Neutrophils 79.7 % (42.0-75.0); Hematocrit 35.1 % (42.0-52.0); Hemoglobin 11.3 g/dL (14.0-18.0); Mean Corpuscular Hemoglobin 29.7 pg (27.0-31.0); Mean Corpuscular Volume 92.4 fL (78.0-98.0); Platelet Count 253 10x3/uL (130-400); Red Blood Cell (RBC) Count 3.80 mill/uL (4.70-6.10); White Blood Cell (WBC) Count 8.33 10x3/uL (4.8-10.8)
[2025-04-14] MEDS ORDERED: cefTRIAXone (ROCEPHIN) 1 GM VIAL ONE (14:04)
[2025-04-14 14:05] LABS: ALT (SGPT) Less than 7 U/L (Less than 45); AST (SGOT) 10 U/L (11-34); Albumin 3.2 g/dL (3.1-4.5); Alkaline Phosphatase 55 U/L (40-110); Anion Gap 17 mmol/L (10-20); BUN (Urea Nitrogen) 43 mg/dL (8.4-25.7); Bilirubin, Total 0.6 mg/dL (0.3-1.2); CK (CPK) 72 U/L (30-200); Calc. Creatinine Clearance 0 mL/min (70-130); Calcium 8.8 mg/dL (7.8-10.44); Carbon Dioxide 28 mmol/L (23-31); Chloride 96 mmol/L (98-107); Globulin 3.5 g/dL (2.4-3.5); Glucose 246 mg/dL (80-115); Potassium 3.9 mmol/L (3.5-5.1); Sodium 137 mmol/L (136-145)
== END 2025-04-14 16:09 | disposition home or self-care (01) ==
LOC: ERS 10:48
DX: R53.1 Weakness (principal); N39.0 Urinary tract infection, site not specified; I25.2 Old myocardial infarction; E11.22 Type 2 diabetes mellitus with diabetic chronic kidney disease; N18.6 End stage renal disease; I13.2 Hypertensive heart and chronic kidney disease with heart failure and with stage 5 chronic kidney disease, or end stage renal disease; I50.9 Heart failure, unspecified; Z99.2 Dependence on renal dialysis
CPT/HCPCS: 71045; 80053; 81001; 82550; 83605; 84484; 85025; 87040; 87077; 87086; 87186; 87426; 93005; J0696; 96365

== ENCOUNTER 2025-06-12 22:26 | Inpatient (IN) | payer MEDICARE ==
[2025-06-12 22:49] LABS: #Basophils 0.12 10x3/uL (0.0-0.2); #Eosinophils 0.54 10x3/uL (0.0-0.7); #Monocytes 0.98 10x3/uL (0.11-0.59); #Neutrophils 8.84 10x3/uL (1.40-6.50); %Basophils 1.0 % (0.0-1.0); %Eosinophils 4.6 % (0.0-10.0); %Lymphocytes 9.8 % (21.0-51.0); %Monocytes 8.4 % (0.0-10.0); %Neutrophils 75.9 % (42.0-75.0); Hematocrit 36.6 % (42.0-52.0); Hemoglobin 11.6 g/dL (14.0-18.0); Mean Corpuscular Hemoglobin 30.1 pg (27.0-31.0); Mean Corpuscular Volume 94.8 fL (78.0-98.0); Platelet Count 206 10x3/uL (130-400); Red Blood Cell (RBC) Count 3.86 mill/uL (4.70-6.10); White Blood Cell (WBC) Count 11.66 10x3/uL (4.8-10.8)
[2025-06-12 23:13] LABS: ALT (SGPT) 8 U/L (Less than 45); AST (SGOT) 12 U/L (11-34); Albumin 3.6 g/dL (3.1-4.5); Alkaline Phosphatase 68 U/L (40-110); Anion Gap 21 mmol/L (10-20); BUN (Urea Nitrogen) 36 mg/dL (8.4-25.7); Bilirubin, Total 0.4 mg/dL (0.3-1.2); Calc. Creatinine Clearance 0 mL/min (70-130); Calcium 8.8 mg/dL (7.8-10.44); Carbon Dioxide 26 mmol/L (23-31); Chloride 97 mmol/L (98-107); Globulin 3.3 g/dL (2.4-3.5); Glucose 202 mg/dL (80-115); Potassium 4.0 mmol/L (3.5-5.1); Sodium 140 mmol/L (136-145)
[2025-06-13] MEDS ORDERED: Acetaminophen 325 MG TAB PO PRN (03:17)
[2025-06-13] MEDS ORDERED: Calcium Carbonate 500 MG ChewTAB PO PRN (03:17)
[2025-06-13] MEDS ORDERED: Ondansetron PF 4 MG/2 ML Vial IVP PRN (03:17)
[2025-06-13] MEDS ORDERED: Dextrose 50% Abboject 50 ML SYRINGE SLOW IVP PRN (03:20)
[2025-06-13] MEDS ORDERED: Glucagon 1 MG/ML KIT IM PRN (03:20)
[2025-06-13 04:46] VITALS: BMI 29.0
[2025-06-13 07:16] LABS: ALT (SGPT) 7 U/L (Less than 45); AST (SGOT) 12 U/L (11-34); Albumin 3.5 g/dL (3.1-4.5); Alkaline Phosphatase 60 U/L (40-110); Anion Gap 20 mmol/L (10-20); BUN (Urea Nitrogen) 38 mg/dL (8.4-25.7); Bilirubin, Total 0.6 mg/dL (0.3-1.2); Calc. Creatinine Clearance 16 mL/min (70-130); Calcium 8.9 mg/dL (7.8-10.44); Carbon Dioxide 27 mmol/L (23-31); Chloride 98 mmol/L (98-107); Globulin 3.4 g/dL (2.4-3.5); Glucose 71 mg/dL (80-115); Potassium 3.7 mmol/L (3.5-5.1); Sodium 141 mmol/L (136-145)
[2025-06-13] MEDS: Isosorbide Mononitrate 30 MG ER.TAB.S PO SCH (09:33)
[2025-06-13] MEDS: Sacubitril 49 MG/Valsartan 51 MG TABLET PO SCH (09:33)
[2025-06-13] MEDS: Carvedilol 6.25 MG TAB PO SCH (09:33)
[2025-06-13] MEDS: Aspirin 81 mg Enteric Coated Tablet PO SCH (09:33)
[2025-06-13] MEDS: Pantoprazole 40 MG DR.TAB PO SCH (09:33)
[2025-06-13 15:29] LABS: HBSAB Concentration Less than 8.00 mIU/mL; Hep B Core Total Ab NONREACTIVE (NonReactive); Hep B Core Total Index 0.16 S/CO (0-0.79); Hep B Surf Ag NONREACTIVE S/CO (NonReactive)
[2025-06-13] MEDS: Ezetimibe 10 MG TAB PO SCH (20:27)
[2025-06-14 06:09] LABS: #Basophils 0.12 10x3/uL (0.0-0.2); #Eosinophils 0.62 10x3/uL (0.0-0.7); #Monocytes 0.93 10x3/uL (0.11-0.59); #Neutrophils 7.88 10x3/uL (1.40-6.50); %Basophils 1.1 % (0.0-1.0); %Eosinophils 5.8 % (0.0-10.0); %Lymphocytes 10.4 % (21.0-51.0); %Monocytes 8.7 % (0.0-10.0); %Neutrophils 73.6 % (42.0-75.0); Hematocrit 34.7 % (42.0-52.0); Hemoglobin 10.7 g/dL (14.0-18.0); Mean Corpuscular Hemoglobin 29.6 pg (27.0-31.0); Mean Corpuscular Volume 96.1 fL (78.0-98.0); Platelet Count 208 10x3/uL (130-400); Red Blood Cell (RBC) Count 3.61 mill/uL (4.70-6.10); White Blood Cell (WBC) Count 10.70 10x3/uL (4.8-10.8)
[2025-06-14 06:27] LABS: Anion Gap 19 mmol/L (10-20); BUN (Urea Nitrogen) 31 mg/dL (8.4-25.7); Calc. Creatinine Clearance 19 mL/min (70-130); Calcium 8.8 mg/dL (7.8-10.44); Carbon Dioxide 28 mmol/L (23-31); Chloride 97 mmol/L (98-107); Glucose 144 mg/dL (80-115); Potassium 4.1 mmol/L (3.5-5.1); Sodium 140 mmol/L (136-145)
[2025-06-14] MEDS: Benzonatate 100 MG CAP PO SCH (08:55)
[2025-06-14] MEDS: PNEUMOC 20-VAL CONJ-DIP CRM/PF 0.5 ML SYRINGE IM ONE (08:59)
[2025-06-14] MEDS ORDERED: Benzonatate 100 MG CAP PO PRN (13:00)
[2025-06-15 04:30] LABS: #Basophils 0.12 10x3/uL (0.0-0.2); #Eosinophils 0.80 10x3/uL (0.0-0.7); #Monocytes 0.99 10x3/uL (0.11-0.59); #Neutrophils 6.15 10x3/uL (1.40-6.50); %Basophils 1.3 % (0.0-1.0); %Eosinophils 8.5 % (0.0-10.0); %Lymphocytes 13.6 % (21.0-51.0); %Monocytes 10.6 % (0.0-10.0); %Neutrophils 65.7 % (42.0-75.0); Hematocrit 35.0 % (42.0-52.0); Hemoglobin 11.1 g/dL (14.0-18.0); Mean Corpuscular Hemoglobin 30.1 pg (27.0-31.0); Mean Corpuscular Volume 94.9 fL (78.0-98.0); Platelet Count 201 10x3/uL (130-400); Red Blood Cell (RBC) Count 3.69 mill/uL (4.70-6.10); White Blood Cell (WBC) Count 9.36 10x3/uL (4.8-10.8)
[2025-06-15 04:54] LABS: Anion Gap 16 mmol/L (10-20); BUN (Urea Nitrogen) 25 mg/dL (8.4-25.7); Calc. Creatinine Clearance 23 mL/min (70-130); Calcium 8.5 mg/dL (7.8-10.44); Carbon Dioxide 27 mmol/L (23-31); Chloride 99 mmol/L (98-107); Glucose 127 mg/dL (80-115); Potassium 4.0 mmol/L (3.5-5.1); Sodium 138 mmol/L (136-145)
[2025-06-15] MEDS: guaiFENesin/Codeine 200 mg/20 mg 10 ml Cup PO PRN (09:05)
[2025-06-15] MEDS: Benzonatate 100 MG CAP PO SCH (09:05)
[2025-06-15] MEDS: guaiFENesin/DM ER PO SCH ×2 (13:04→20:13)
[2025-06-15] MEDS: Azithromycin 250 MG TAB PO SCH (14:51)
[2025-06-16 04:58] LABS: Anion Gap 18 mmol/L (10-20); BUN (Urea Nitrogen) 36 mg/dL (8.4-25.7); Calc. Creatinine Clearance 18 mL/min (70-130); Calcium 8.7 mg/dL (7.8-10.44); Carbon Dioxide 26 mmol/L (23-31); Chloride 97 mmol/L (98-107); Glucose 152 mg/dL (80-115); Potassium 4.6 mmol/L (3.5-5.1); Sodium 136 mmol/L (136-145)
[2025-06-16 07:47] VITALS: TEMP 97.8
[2025-06-16 11:10] VITALS: BP 131/71
== END 2025-06-16 16:12 | disposition home or self-care (01) | DRG 640 ==
LOC: ERS 22:26 → 2NO 06-13 02:47 → OBSVTOIN 06-13 15:38
PROVIDERS: ADMIT Student in an Organized Health Care Education/Training Program; ATTEND Internal Medicine
DX: E87.70 Fluid overload, unspecified (principal); N18.6 End stage renal disease; I50.32 Chronic diastolic (congestive) heart failure; I13.2 Hypertensive heart and chronic kidney disease with heart failure and with stage 5 chronic kidney disease, or end stage renal disease; E11.9 Type 2 diabetes mellitus without complications; Z98.890 Other specified postprocedural states; I25.10 Atherosclerotic heart disease of native coronary artery without angina pectoris; I25.2 Old myocardial infarction; Z99.2 Dependence on renal dialysis; Z89.612 Acquired absence of left leg above knee; Z88.8 Allergy status to other drugs, medicaments and biological substances; Z86.73 Personal history of transient ischemic attack (TIA), and cerebral infarction without residual deficits; I11.0 Hypertensive heart disease with heart failure; E78.5 Hyperlipidemia, unspecified; I48.91 Unspecified atrial fibrillation; D63.1 Anemia in chronic kidney disease; J40 Bronchitis, not specified as acute or chronic; Z79.899 Other long term (current) drug therapy; Z79.890 Hormone replacement therapy; Z79.82 Long term (current) use of aspirin
CPT/HCPCS: 36415; 36416; 71045; 80048; 80053; 84484; 85025; 86704; 86706; 87340; 87428; 90935; 93005; 94760; G0257; G0378; J1815